=== PATIENT | female | born 1960 | race Caucasian/White ===

== ENCOUNTER 2020-05-28 13:34 | Outpatient (REF) | payer MEDICARE, MEDICAID, SELFPAY ==
--- NOTE | 2020-05-28 | MM_ITS ---
EXAMINATION: MM SCREENING DIGITAL BREAST TOMOSYNTHESIS, BILATERAL CLINICAL INFORMATION: Screening. Asymptomatic. The lifetime risk of breast cancer based on the Tyrer-Cuzick Model is 6%. COMPARISON: Mammography: 05/23/2019, 05/07/2018, 10/07/2017, 07/15/2016, 07/04/2016 TECHNIQUE: Digital breast tomosynthesis is performed in both the craniocaudal and mediolateral oblique views along with computer-aided detection (CAD). Synthesized 2D images are generated from the tomosynthesis. FINDINGS: There are scattered areas of fibroglandular density (ACR BI-RADS breast composition Category b). There are no significant masses, abnormal calcifications, or other abnormalities. Parenchymal pattern is similar to prior exams. Again, there is biopsy clip marker mid upper outer left breast. There is a chronic circumscribed nodule mid 1:00 left breast. No significant changes from prior studies. IMPRESSION: No significant changes from prior studies. ASSESSMENT: BI-RADS 2: Benign RECOMMENDATION: Routine annual mammography screening. This patient's information was entered into a reminder system with a target due date for their next mammogram.
== END 2020-05-28 13:35 | disposition home or self-care (01) ==
LOC: HO.MAMMO 13:34
PROVIDERS: PCP Nurse Practitioner Family; Visit Provider Nurse Practitioner Family
DX: Z12.31 Encounter for screening mammogram for malignant neoplasm of breast (principal)
CPT/HCPCS: 77063; 77067; 78014

== ENCOUNTER 2020-07-17 12:29 | Day surgery (SDC) | payer MEDICARE, MEDICAID, SELFPAY ==
--- NOTE | 2020-07-16 10:56 | HO.ANESPROP2 ---
Documented by User: Sera Redmond 07/16/20 11:01 HPI - Anesthesia Eval Consult details Narrative: 60yo F for Colonoscopy PMFSH Past Medical History Medical History Aortic valve sclerosis Asthma Carpal tunnel syndrome, right Dyslipidemia Esophageal obstruction Exertional angina Lumbar disc disease Migraine without aura Osteoarthritis Papilledema Paroxysmal A-fib Urgency incontinence Family History Family History Father CAD (coronary artery disease) History of quadruple bypass Mother HTN (hypertension) Brother CVD (cardiovascular disease) History of heart attack Paternal Grandfather Heart disease Paternal Grandmother Heart disease Maternal Aunt Colon cancer Paternal Uncle Heart disease Brother No problems noted. Brother No problems noted. Brother No problems noted. Son No problems noted. Daughter No problems noted. Daughter No problems noted. Surgical History Surgical History History of cataract surgery History of microdiscectomy History of torn meniscus of left knee History of tumor Social History Social History Smoking Status: Never smoker Use of substances other than those prescribed or required for medical reasons: No Advance Directives: No Advance Directives Information Provided: Yes Advance Directives on File: No Meds Allergies Allergy/AdvReac Type Severity Reaction Status Date / Time Penicillins Allergy Mild HIVES Verified 06/24/20 11:10 sulfamethoxazole Allergy Mild N/V Verified 06/24/20 11:10 [From Bactrim] trimethoprim [From Bactrim] Allergy Mild N/V Verified 06/24/20 11:10 hydromorphone [From DILAUDID] Allergy Unknown HALLUCINATI Verified 06/24/20 11:10 ONS Pertussis Vaccines AdvReac Unknown fever up Verified 06/24/20 11:10 to 104 Sulfa (Sulfonamide AdvReac Unknown N/V Verified 06/24/20 11:10 Antibiotics) dogs, cats Allergy Unknown Unknown Uncoded 06/24/20 11:10 SEASONAL ALLERGIES Allergy Unknown NASAL Uncoded 06/24/20 11:10 CONGESTION, SNEEZING Home Medications Medication Instructions Recorded Confirmed Type albuterol sulfate 90 mcg/actuation INHALATION 06/24/20 06/24/20 History aerosol inhaler cetirizine 10 mg tablet 10 mg PO BEDTIME 06/24/20 06/24/20 History diclofenac sodium 75 mg 75 mg PO BID 06/24/20 06/24/20 History tablet,delayed release epinephrine 0.3 mg/0.3 mL 1 IM DIRECTED 06/24/20 06/24/20 History injection, auto-injector fluticasone propionate 50 INTRANASAL 06/24/20 06/24/20 History mcg/actuation nasal spray,suspension hydroxyzine HCl 25 mg tablet 25 mg PO Q8H PRN 06/24/20 06/24/20 History lisinopril 10 1 tab PO DAILY 06/24/20 06/24/20 History mg-hydrochlorothiazide 12.5 mg tablet metoprolol tartrate 25 mg tablet 25 mg PO BID 06/24/20 06/24/20 History rosuvastatin 20 mg tablet 20 mg PO BEDTIME 06/24/20 06/24/20 History aspirin [Aspir-81] 81 mg PO DAILY 07/13/20 07/13/20 History Exam Exam Date and Time: July 16, 2020 1056 Narrative Narrative: EKG 01/2020: NSR Echo 2019: LVEF 65-70%, Gr 1 DD, Mild calc of AV, mild thickening of noncoronary cusp of AV, no Stress ECHO 2019: Neg for ischemia Assessment and Plan Assessment Anesthesia Assessment: Chart Reviewed Documented by User: Leslie Malik 07/17/20 14:42 [facility] Past Medical History Medical History Aortic valve sclerosis Asthma Carpal tunnel syndrome, right Dyslipidemia Esophageal obstruction Exertional angina Lumbar disc disease Migraine without aura Osteoarthritis Papilledema Paroxysmal A-fib Urgency incontinence Family History Family History Father CAD (coronary artery disease) History of quadruple bypass Mother HTN (hypertension) Brother CVD (cardiovascular disease) History of heart attack Paternal Grandfather Heart disease Paternal Grandmother Heart disease Maternal Aunt Colon cancer Paternal Uncle Heart disease Brother No problems noted. Brother No problems noted. Brother No problems noted. Son No problems noted. Daughter No problems noted. Daughter No problems noted. Family history of problems with anesthesia: No Surgical History Surgical History History of cataract surgery History of microdiscectomy History of torn meniscus of left knee History of tumor History of Problems with Anesthesia: No Social History Social History Smoking Status: Never smoker Use of substances other than those prescribed or required for medical reasons: No Advance Directives: No Advance Directives Information Provided: Yes Advance Directives on File: No Meds Allergies Allergy/AdvReac Type Severity Reaction Status Date / Time Penicillins Allergy Mild HIVES Verified 06/24/20 11:10 sulfamethoxazole Allergy Mild N/V Verified 06/24/20 11:10 [From Bactrim] trimethoprim [From Bactrim] Allergy Mild N/V Verified 06/24/20 11:10 hydromorphone [From DILAUDID] Allergy Unknown HALLUCINATI Verified 06/24/20 11:10 ONS Pertussis Vaccines AdvReac Unknown fever up Verified 06/24/20 11:10 to 104 Sulfa (Sulfonamide AdvReac Unknown N/V Verified 06/24/20 11:10 Antibiotics) dogs, cats Allergy Unknown Unknown Uncoded 06/24/20 11:10 SEASONAL ALLERGIES Allergy Unknown NASAL Uncoded 06/24/20 11:10 CONGESTION, SNEEZING Home Medications Medication Instructions Recorded Confirmed Type albuterol sulfate 90 mcg/actuation INHALATION 06/24/20 06/24/20 History aerosol inhaler cetirizine 10 mg tablet 10 mg PO BEDTIME 06/24/20 06/24/20 History diclofenac sodium 75 mg 75 mg PO BID 06/24/20 06/24/20 History tablet,delayed release epinephrine 0.3 mg/0.3 mL 1 IM DIRECTED 06/24/20 06/24/20 History injection, auto-injector fluticasone propionate 50 INTRANASAL 06/24/20 06/24/20 History mcg/actuation nasal spray,suspension hydroxyzine HCl 25 mg tablet 25 mg PO Q8H PRN 06/24/20 06/24/20 History lisinopril 10 1 tab PO DAILY 06/24/20 06/24/20 History mg-hydrochlorothiazide 12.5 mg tablet metoprolol tartrate 25 mg tablet 25 mg PO BID 06/24/20 06/24/20 History rosuvastatin 20 mg tablet 20 mg PO BEDTIME 06/24/20 06/24/20 History aspirin [Aspir-81] 81 mg PO DAILY 07/13/20 07/13/20 History Exam Height,Weight and Vital Signs: Vital Signs Temp Pulse Resp BP Pulse Ox 07/17/20 13:28 99 F 88 18 143/72 H 97 Airway Mallampati Class: II TM Dist: >3cm Neck ROM: Limited Heart: RRR Lungs: CTAB Assessment and Plan Assessment Anesthesia Assessment: Anesthesia Plan Discussed and Chart Reviewed Final Anesthetic Review NPO: Yes ASA Class: III Final Preanesthetic Review: No Changes in Pt Med Stat, Meds/Allgs Chart Reviewed, Consent Obtained/Reviewed and Anes Risks/Benef Reviewed Patient Risk: Intermediate Procedure Risk: Low Anesthetic Plan Anesthetic Plan: MAC: Disposition: Standard PACU
[2020-07-17 13:13] VITALS: BMI 32.9
[2020-07-17 13:28] VITALS: BP 143/72; PULSE 88; RESP 18; TEMP 37.2; O2SAT 97
[2020-07-17] MEDS: Lactated Ringers 1,000 ML 100 ML IVCONT (13:39)
--- NOTE | 2020-07-17 14:01 | P.HPSUR_ITS ---
Pre-Procedural Eval Section A The patient is an INPATIENT: No Changes since office visit: No Cold of Flu in the past 2 weeks, No New Medical Problems, No Changes in Medication and No Patient answered all questions The History & Physical has been completed within 30 days and I have reviewed it.: Yes Section B Chief Complaint: Screening Allergies: Allergies Allergy/AdvReac Type Severity Reaction Status Date / Time Penicillins Allergy Mild HIVES Verified 06/24/20 11:10 sulfamethoxazole Allergy Mild N/V Verified 06/24/20 11:10 [From Bactrim] trimethoprim [From Bactrim] Allergy Mild N/V Verified 06/24/20 11:10 hydromorphone [From DILAUDID] Allergy Unknown HALLUCINATI Verified 06/24/20 1 1:10 ONS Pertussis Vaccines AdvReac Unknown fever up Verified 06/24/20 11:10 to 104 Sulfa (Sulfonamide AdvReac Unknown N/V Verified 06/24/20 11:10 Antibiotics) dogs, cats Allergy Unknown Unknown Uncoded 06/24/20 11:10 SEASONAL ALLERGIES Allergy Unknown NASAL Uncoded 06/24/20 11:10 CONGESTION, SNEEZING Plan Patient has been examined and remains a candidate for the planned procedure
[2020-07-17 14:41] VITALS: BP 115/58; PULSE 76; RESP 16; TEMP 36.9; O2SAT 100
--- NOTE | 2020-07-17 14:43 | PM.OP ---
Brief Operative Note Date of Service: 07/17/20 Pre-op diagnosis: screening Post-op diagnosis: same Procedure: colonoscopy Surgeon: Peter Ocasio Anesthesia: MAC Estimated blood loss (mL): 0 Pathology: none sent Condition: stable Disposition: PACU
[2020-07-17 14:56] VITALS: BP 129/52; PULSE 92; RESP 18; TEMP 36.9; O2SAT 99
--- NOTE | 2020-07-17 15:05 | HO.POSTANES ---
Post Anesthesia Evaluation Post Anesthesia Evaluation Vital Signs: Vital Signs Temp Pulse Resp BP Pulse Ox 07/17/20 14:56 98.4 F 92 18 129/52 L 99 07/17/20 14:41 98.4 F 76 16 115/58 L 100 07/17/20 13:28 99 F 88 18 143/72 H 97 Anesthesia: Monitored Mental Status: Awake Pain Control: Satisfactory Nausea/Vomiting: None Hydration: Adequate Anesthesia-Related Issues: No Anes. Related Issues
--- NOTE | 2020-07-17 15:59 | OP_ITS ---
SURGEON: Peter Ocasio MD INDICATIONS: Colon cancer screening. PREOPERATIVE DIAGNOSIS: POSTOPERATIVE DIAGNOSIS: PROCEDURE PERFORMED: Colonoscopy to the terminal ileum. ESTIMATED BLOOD LOSS: COMPLICATIONS: ANESTHESIA: ASSISTANTS: SPECIMENS: MEDICATIONS: Monitored anesthesia care. DESCRIPTION OF PROCEDURE: History and physical performed. The risks and benefits of the procedure were explained to the patient. Informed consent was obtained. The patient was placed in the left lateral decubitus position. A digital rectal exam was performed and was found to be normal. The Olympus pediatric video colonoscope was introduced into the rectum and advanced to the cecum without difficulty. The cecum was identified by transillumination, palpation, and identification of the ileocecal valve. Examination was performed and the scope was removed. She tolerated the procedure well and was taken to recovery area in stable condition. FINDINGS: The terminal ileum was normal. The visualized colonic mucosa was normal. The quality of prep was good. No polyps were identified. Retroflexed examination showed some hypertrophic anal papillae and small internal hemorrhoids. IMPRESSION: Normal colonoscopy. RECOMMENDATIONS: 1. Follow up as needed. 2. Repeat colonoscopy is recommended in 10 years for average risk individuals. MD SIM Vallecillo/[facility] / [phone] cc: Dr Manjit MASSEY
== END 2020-07-17 15:15 | disposition home or self-care (01) ==
PROVIDERS: PCP Nurse Practitioner Family; Visit Provider Internal Medicine Gastroenterology
PROC: 0DJD8ZZ Inspection of Lower Intestinal Tract, Via Natural or Artificial Opening Endoscopic (ICD-10-PCS; CPT 45378; principal; 2020-07-17 14:10)
DX: Z12.11 Encounter for screening for malignant neoplasm of colon (principal); K58.1 Irritable bowel syndrome with constipation; I48.0 Paroxysmal atrial fibrillation; I10 Essential (primary) hypertension; Z79.899 Other long term (current) drug therapy; Z88.0 Allergy status to penicillin; Z88.1 Allergy status to other antibiotic agents; Z88.6 Allergy status to analgesic agent
CPT/HCPCS: G0121

== ENCOUNTER → 2020-10-16 11:35 | Outpatient (BNVA) | payer MEDICARE, MEDICAID, SELFPAY | PROVIDERS: Visit Provider Advanced Practice Midwife | DX: Z76.89 Persons encountering health services in other specified circumstances (principal) | CPT/HCPCS: Q3014 ==

== ENCOUNTER 2020-10-22 09:00 | Outpatient (REF) | payer MEDICARE, MEDICAID, SELFPAY ==
--- NOTE | ~2020-10-22 | US_ITS ---
EXAMINATION: US PELVIS, COMPLETE US TRANSVAGINAL CLINICAL INFORMATION: Pelvic and perineal pain. COMPARISON: CT 06/28/2018. Correlation with ultrasound report 07/17/2007. TECHNIQUE: Transabdominal and transvaginal imaging was performed. FINDINGS: LMP: Postmenopausal. Uterus is retroverted, measuring 8.1 x 4.2 x 5.6 cm. Multiple heterogeneous hypoechoic foci in the myometrium, probably reflecting fibroids. Lesions with dimension as follows: There is a 1.9 cm lesion in the right lower myometrium, 1.4 cm lesion in the mid posterior myometrium, and 1.5 cm lesion in the mid left myometrium. Endometrial thickness 0.33 cm. Right ovary measures 2.9 x 0.9 x 1.7 cm. Volume 2.3 mL. Left ovary measures 3.2 x 1.3 x 1.2 cm. Volume 2.5 mL. Bilateral ovaries appear unremarkable. No free fluid in the cul-de-sac. US/US transvaginal IMPRESSION: 1. Endometrial thickness 0.33 cm. Please clinically correlate. Guidelines for postmenopausal patients the endometrial thicknesses limits are as follows: ? 8 mm or less is normal if no bleeding (10 mm is okay if on tamoxifen) ? 4 mm max if bleeding ? Pre-menopausal patients, the endometrium can become very thick during the menstrual cycle, normally up to 15 mm. 2. Multiple heterogeneous hypoechoic lesions, probable fibroids. The largest measures 1.9 cm. 3. Bilateral ovaries appear unremarkable.
--- NOTE | ~2020-10-22 | US_ITS ---
EXAMINATION: US PELVIS, COMPLETE US TRANSVAGINAL CLINICAL INFORMATION: Pelvic and perineal pain. COMPARISON: CT 06/28/2018. Correlation with ultrasound report 07/17/2007. TECHNIQUE: Transabdominal and transvaginal imaging was performed. FINDINGS: LMP: Postmenopausal. Uterus is retroverted, measuring 8.1 x 4.2 x 5.6 cm. Multiple heterogeneous hypoechoic foci in the myometrium, probably reflecting fibroids. Lesions with dimension as follows: There is a 1.9 cm lesion in the right lower myometrium, 1.4 cm lesion in the mid posterior myometrium, and 1.5 cm lesion in the mid left myometrium. Endometrial thickness 0.33 cm. Right ovary measures 2.9 x 0.9 x 1.7 cm. Volume 2.3 mL. Left ovary measures 3.2 x 1.3 x 1.2 cm. Volume 2.5 mL. Bilateral ovaries appear unremarkable. No free fluid in the cul-de-sac. US/US pelvic complete IMPRESSION: 1. Endometrial thickness 0.33 cm. Please clinically correlate. Guidelines for postmenopausal patients the endometrial thicknesses limits are as follows: ? 8 mm or less is normal if no bleeding (10 mm is okay if on tamoxifen) ? 4 mm max if bleeding ? Pre-menopausal patients, the endometrium can become very thick during the menstrual cycle, normally up to 15 mm. 2. Multiple heterogeneous hypoechoic lesions, probable fibroids. The largest measures 1.9 cm. 3. Bilateral ovaries appear unremarkable.
== END 2020-10-22 09:01 | disposition home or self-care (01) ==
LOC: HO.HMGCX 09:00
PROVIDERS: PCP Hospitalist; Visit Provider Advanced Practice Midwife
DX: R10.2 Pelvic and perineal pain (principal)
CPT/HCPCS: 76830; 76856

== ENCOUNTER → 2020-10-23 12:17 | Outpatient (BNVA) | payer MEDICARE, MEDICAID, SELFPAY | PROVIDERS: PCP Hospitalist; Visit Provider Advanced Practice Midwife | DX: Z13.89 Encounter for screening for other disorder (principal) | CPT/HCPCS: Q3014 ==

== ENCOUNTER → 2022-01-17 08:36 | Outpatient (BNVA) | payer SELFPAY | PROVIDERS: PCP Hospitalist; Visit Provider Internal Medicine | DX: Z02.79 Encounter for issue of other medical certificate (principal) ==

== ENCOUNTER → 2022-06-01 07:58 | Outpatient (BNVA) | payer MEDICARE, MEDICAID, SELFPAY | PROVIDERS: PCP Family Medicine; Visit Provider Surgery | DX: E66.9 Obesity, unspecified (principal); Z68.37 Body mass index [BMI] 37.0-37.9, adult; I10 Essential (primary) hypertension; I48.0 Paroxysmal atrial fibrillation; E78.5 Hyperlipidemia, unspecified | CPT/HCPCS: Q3014 ==

== ENCOUNTER 2022-06-02 08:47 | Outpatient (REF) | payer MEDICARE, MEDICAID, SELFPAY ==
--- NOTE | ~2022-06-02 | XR_ITS ---
EXAMINATION: XR CHEST CLINICAL INFORMATION: Obesity COMPARISON: None TECHNIQUE: 2 views of the chest were obtained. FINDINGS: No significant abnormality is noted involving the heart, lungs, mediastinum, bony thorax or soft tissues. XR/XR chest 2V IMPRESSION: Unremarkable chest examination.
--- NOTE | 2022-06-02 09:01 | ECG_ITS ---
Test Reason : OBESITY Blood Pressure : / mmHG Vent. Rate : 071 BPM Atrial Rate : 071 BPM P-R Int : 184 ms QRS Dur : 080 ms QT Int : 388 ms P-R-T Axes : 059 029 050 degrees QTc Int : 421 ms Sinus rhythm with Premature atrial complexes Otherwise normal ECG When compared with ECG of 17-DEC-2006 04:25, Premature atrial complexes are now Present Nonspecific T wave abnormality no longer evident in Anterior leads Referred By: Dhiraj Noe Electronically Signed By:PARUL LOMELI
[2022-06-02 09:28] LABS: MANUAL DIFF FLAG NO
[2022-06-02 10:47] LABS: Basophils Absolute Auto 0.1 X10*3/uL (0.0-0.2); Eosinophils Absolute Auto 0.2 X10*3/uL (0.0-0.4); Eosinophils Percent Auto 2.3 % (0-4); Hematocrit 41.6 % (37.0-47.0); Hemoglobin 13.6 g/dl (12.0-16.0); Imm Gran Abs Auto 0.04 X10*3/uL (0.00-0.03); Imm Gran Pct Auto 0.5 % (0.0-0.4); Lymphocytes Absolute Auto 2.5 X10*3/uL (1.2-4.9); Lymphocytes Percent Auto 30.2 % (20-40); Mean Corpuscular HGB Conc 32.7 g/dl (31.0-35.0); Mean Corpuscular Hemoglobin 28.9 pg (27.0-33.0); Mean Corpuscular Volume 88.3 fL (80.0-98.0); Monocytes Absolute Auto 0.8 X10*3/uL (0.1-1.2); Neutrophils Absolute Auto 4.5 x10*3/uL (2.0-8.3); Platelet Count 278 X10*3/uL (160-400); Red Blood Count 4.71 X10*6/uL (4.20-5.50); Red Cell Distribution Width 13.4 % (11.0-16.0); White Blood Count 8.1 X10*3/uL (4.8-10.8)
[2022-06-02 10:53] LABS: Estimated Average Glucose 120 mg/dL; Hemoglobin A1c % 5.8 %
[2022-06-02 11:16] LABS: Alanine Aminotransferase 19 U/L (0-31); Albumin Level 4.5 g/dL (3.5-5.0); Alkaline Phosphatase 66 U/L (39-117); Anion Gap 20 (12-20); Aspartate Amino Transferase 21 U/L (5-31); Bilirubin Total 0.6 mg/dL (0.0-1.0); Blood Urea Nitrogen 17 mg/dL (9-16); Calcium 9.5 mg/dL (8.4-10.2); Carbon Dioxide 23 mmol/L (22-29); Chloride 104 mmol/L (96-108); Cholesterol 189 mg/dL; Estimated Glomerular Filt Rate 54; Glucose Random 100 mg/dL (60-115); HDL Cholesterol 71 mg/dL; Iron 86 mcg/dL (30-160); LDL Cholesterol Calculated 107 mg/dl; Percent Iron Saturation 25 % (15-50); Potassium 4.5 mmol/L (3.3-5.1); Sodium 142 mmol/L (135-145); Total Iron Binding Capacity 350 mcg/dL (228-428); Total Protein 7.2 g/dL (6.5-8.0); Triglycerides 59 mg/dL; Unsaturated Iron Binding 264 ug/dL
[2022-06-02 11:42] LABS: Ferritin 102 ng/mL (10-250); Insulin 12 uU/mL (2-29); TSH reflex Free T4 0.79 uIU/mL (0.32-4.0); Vitamin D 25-OH Total 21.1 ng/mL (>30)
[2022-06-02 11:57] LABS: Folate > 20.0 ng/mL (> or = 4.0); Vitamin B12 270 pg/mL (200-900)
[2022-06-03 13:22] LABS: Calcium (PTHI) 9.6 mg/dL (8.6-10.4); PTHI 78 pg/mL (16-77)
[2022-06-06 06:06] LABS: Vitamin B1 14 nmol/L (8-30)
[2022-06-07 01:26] LABS: Zinc 76 mcg/dL (60-130)
[2022-06-08 10:36] LABS: Vitamin A 56 mcg/dL (38-98)
== END 2022-06-02 08:48 | disposition home or self-care (01) ==
LOC: HO.XRAY 08:47
PROVIDERS: PCP Family Medicine; Visit Provider Surgery
DX: E66.9 Obesity, unspecified (principal); Z68.37 Body mass index [BMI] 37.0-37.9, adult; I48.0 Paroxysmal atrial fibrillation; E78.5 Hyperlipidemia, unspecified; I10 Essential (primary) hypertension
CPT/HCPCS: 36415; 71046; 80053; 80061; 82306; 82607; 82728; 82746; 83036; 83525; 83540; 83970; 84425; 84443; 84590; 84630; 85025; 86140; 93005

== ENCOUNTER 2022-06-10 08:45 | Outpatient (REF) | payer MEDICARE, MEDICAID, SELFPAY ==
[2022-06-12 11:35] LABS: H Pylori Breath Test Negative (Negative)
== END 2022-06-10 08:46 | disposition home or self-care (01) ==
LOC: CF 08:45
PROVIDERS: Visit Provider Surgery
DX: E66.9 Obesity, unspecified (principal); Z68.37 Body mass index [BMI] 37.0-37.9, adult; E78.5 Hyperlipidemia, unspecified; I10 Essential (primary) hypertension; I48.0 Paroxysmal atrial fibrillation
CPT/HCPCS: 36415; 83013; 99211

== ENCOUNTER → 2022-06-23 12:00 | Outpatient (BNVA) | payer MEDICARE, MEDICAID, SELFPAY | PROVIDERS: PCP Family Medicine; Visit Provider Counselor Mental Health | DX: F50.81 Binge eating disorder (principal); E66.9 Obesity, unspecified | CPT/HCPCS: 90791 ==

== ENCOUNTER → 2022-06-29 11:06 | Outpatient (BNVA) | payer MEDICARE, MEDICAID, SELFPAY | PROVIDERS: PCP Family Medicine; Visit Provider Dietitian, Registered | DX: E66.9 Obesity, unspecified (principal); Z68.34 Body mass index [BMI] 34.0-34.9, adult | CPT/HCPCS: 97802 ==

== ENCOUNTER → 2022-07-04 10:08 | Outpatient (BNVA) | payer MEDICARE, MEDICAID, SELFPAY | PROVIDERS: PCP Family Medicine; Visit Provider Surgery | DX: E66.9 Obesity, unspecified (principal); Z68.34 Body mass index [BMI] 34.0-34.9, adult | CPT/HCPCS: 99212 ==

== ENCOUNTER → 2022-07-18 09:15 | Outpatient (BNVA) | payer MEDICARE, MEDICAID, SELFPAY | PROVIDERS: Visit Provider Counselor Mental Health | DX: F50.81 Binge eating disorder (principal); E66.9 Obesity, unspecified | CPT/HCPCS: 90834 ==

== ENCOUNTER 2022-07-19 08:51 | Outpatient (REF) | payer MEDICARE, MEDICAID, SELFPAY ==
--- NOTE | ~2022-07-19 | US_ITS ---
EXAMINATION: US COMPLETE ABDOMEN WITH LIVER ELASTOGRAPHY CLINICAL INFORMATION: Obesity COMPARISON: Previous CT of the abdomen and pelvis June 2018 TECHNIQUE: Real-time imaging of the abdominal viscera. Noninvasive ultrasound liver fibrosis assessment is performed using Carmela ElastPQ point quantification shear wave elastography (2D-SWE) with a C5-2 MHz transducer. Multiple elastography samples are obtained. FINDINGS: PANCREAS: Normal. ABDOMINAL AORTA: The proximal, middle, and distal aortic segments are normal in caliber. INFERIOR VENA CAVA: Visualized portions are normal. LIVER: Normal. The liver demonstrates normal size, contour and echogenicity. No focal lesion or intrahepatic biliary duct dilatation. The right lobe measures 15.6 cm in length. The left lobe measures 9.3 cm in length. Portal flow is normal/hepatopedal Shear wave liver elastography median stiffness is 1.1 m/s (reference: normal median stiffness is 1.3 m/s or less). IQR/median stiffness to assess sampling precision is 0.01 (reference: good quality data set is IQR/median stiffness of 0.15 or less). GALLBLADDER: The gallbladder is normal in size. There are multiple gallbladder wall polyps largest measuring 6 mm. COMMON BILE DUCT: Normal in caliber measuring 0.3 cm in diameter. RIGHT KIDNEY: Normal. No hydronephrosis. No renal calculi or focal parenchymal lesions. The kidney measures 10 cm in maximum dimension. LEFT KIDNEY: Normal. No hydronephrosis. No renal calculi or focal parenchymal lesions. The kidney measures 10.2 cm in maximum dimension. SPLEEN: Normal. The spleen measures 8.5 cm in maximum dimension. FREE FLUID: None. US/US abdomen comp w elastography IMPRESSION: 1. Impression: Gallbladder wall polyps largest measuring 6 mm. Six-month follow-up ultrasound recommended. Otherwise unremarkable exam. 2. Liver elastography: Adequate liver sampling. Normal liver stiffness. REFERENCE: Society of Radiologists in Ultrasound Liver Stiffness Thresholds (2020): LIVER STIFFNESS THRESHOLDS: *Liver Stiffness equal or less than 1.3 m/s: High probability of being normal. *Liver Stiffness less than 1.7 m/s: In the absence of other known clinical signs, rules out compensated advanced chronic liver disease. *Liver Stiffness 1.7-2.1 m/s: Suggestive of compensated advanced chronic liver disease but need further test for confirmation. *Liver Stiffness over 2.1 m/s: Rules in compensated advanced chronic liver disease. *Liver Stiffness over 2.4 m/s: Suggestive of clinically significant portal hypertension. QUALITY OF DATA SET: *IQR/Median value equal or less than 0.15 implies a quality data set. *IQR/Median value over 0.15 implies a poor quality data set. SIGNIFICANT CHANGE FROM PRIOR EXAM: Significant change if liver stiffness measurement is 10% or greater from prior exam. OTHER CONSIDERATIONS: The stage of liver fibrosis may be overestimated in the setting of acute hepatitis, liver inflammation, elevated liver function tests, hepatic vascular congestion, obstructive cholestasis, non-fasting state, and infiltrative diseases such as amyloidosis and lymphoma. In some patients with NAFLD, the liver stiffness thresholds for compensated advanced chronic liver disease may be lower. In causes other than viral hepatitis and NAFLD, liver stiffness thresholds are not well established.
== END 2022-07-19 08:52 | disposition home or self-care (01) ==
LOC: HO.US 08:51
PROVIDERS: Visit Provider Surgery
DX: E66.9 Obesity, unspecified (principal); Z68.37 Body mass index [BMI] 37.0-37.9, adult; E78.5 Hyperlipidemia, unspecified; I10 Essential (primary) hypertension; I48.0 Paroxysmal atrial fibrillation
CPT/HCPCS: 76705; 76981

== ENCOUNTER 2022-07-27 08:52 | Outpatient (REF) | payer MEDICARE, MEDICAID, SELFPAY ==
--- NOTE | ~2022-07-27 | FL_ITS ---
PROCEDURE: XR FLUOROSCOPY UPPER GI WITH AIR CLINICAL INFORMATION: Obesity. COMPARISON: None TECHNIQUE: Routine upper GI air-contrast study was performed in upright and lying position. FINDINGS: Following oral administration of thick barium and effervescent granules there is normal propagation of bolus from the oral cavity through the pharynx, esophagus into stomach without any evidence of obstruction, narrowing or stricture. There is no extrinsic compression. On placing patient supine and prone lying the course, caliber and peristalsis of the stomach and the duodenal bulb is normal. There is mild flocculation of barium and gastric erosive changes seen in the body and the distal antrum. No ulceration suspected. FLUOROSCOPY TIME: 1.4 minute DOSE AREA PRODUCT: 23.345 uGy-m2 (microgray-meter squared) FL/FL upper GI w air IMPRESSION: Findings suggestive of hyperacidity with flocculation of barium and gastric erosions.
== END 2022-07-27 08:53 | disposition home or self-care (01) ==
LOC: HO.XRAY 08:52
PROVIDERS: Visit Provider Surgery
DX: E66.9 Obesity, unspecified (principal); Z68.37 Body mass index [BMI] 37.0-37.9, adult
CPT/HCPCS: 74246

== ENCOUNTER → 2022-08-10 08:12 | Outpatient (BNVA) | payer MEDICARE, MEDICAID, SELFPAY | PROVIDERS: PCP Family Medicine; Visit Provider Surgery | DX: Z01.818 Encounter for other preprocedural examination (principal); E66.9 Obesity, unspecified; Z68.33 Body mass index [BMI] 33.0-33.9, adult | CPT/HCPCS: Q3014 ==

== ENCOUNTER 2022-08-18 | Outpatient (REF) | payer MEDICARE, MEDICAID, SELFPAY ==
[2022-08-11 09:15] LABS: MANUAL DIFF FLAG NO
[2022-08-11 09:29] LABS: Basophils Absolute Auto 0.1 X10*3/uL (0.0-0.2); Basophils Percent Auto 0.7 % (0-2); Eosinophils Absolute Auto 0.1 X10*3/uL (0.0-0.4); Eosinophils Percent Auto 1.9 % (0-4); Hematocrit 40.9 % (37.0-47.0); Hemoglobin 13.5 g/dl (12.0-16.0); Imm Gran Abs Auto 0.02 X10*3/uL (0.00-0.03); Imm Gran Pct Auto 0.3 % (0.0-0.4); Lymphocytes Absolute Auto 2.2 X10*3/uL (1.2-4.9); Lymphocytes Percent Auto 32.7 % (20-40); Mean Corpuscular Hemoglobin 28.8 pg (27.0-33.0); Mean Corpuscular Volume 87.4 fL (80.0-98.0); Monocytes Absolute Auto 0.6 X10*3/uL (0.1-1.2); Monocytes Percent Auto 9.1 % (2-11); Neutrophils Absolute Auto 3.8 x10*3/uL (2.0-8.3); Neutrophils Percent Auto 55.3 % (45-73); Platelet Count 295 X10*3/uL (160-400); Red Blood Count 4.68 X10*6/uL (4.20-5.50); Red Cell Distribution Width 12.9 % (11.0-16.0); White Blood Count 6.8 X10*3/uL (4.8-10.8)
[2022-08-11 09:36] LABS: Prothrombin Time 11.3 SEC (10.0-13.1)
[2022-08-11 09:49] LABS: Estimated Average Glucose 105 mg/dL; Hemoglobin A1c % 5.3 %
[2022-08-11 10:10] LABS: Alanine Aminotransferase 15 U/L (0-31); Albumin Level 4.3 g/dL (3.5-5.0); Alkaline Phosphatase 51 U/L (39-117); Anion Gap 14 (12-20); Aspartate Amino Transferase 17 U/L (5-31); Bilirubin Total 0.5 mg/dL (0.0-1.0); Blood Urea Nitrogen 15 mg/dL (9-16); C Reactive Protein 0.36 mg/dL (< or = 0.50); Calcium 9.5 mg/dL (8.4-10.2); Carbon Dioxide 25 mmol/L (22-29); Chloride 108 mmol/L (96-108); Cholesterol 152 mg/dL; Estimated Glomerular Filt Rate > 60; Glucose Random 105 mg/dL (60-115); HDL Cholesterol 50 mg/dL; Insulin 12 uU/mL (2-29); LDL Cholesterol Calculated 87 mg/dl; Potassium 3.9 mmol/L (3.3-5.1); Sodium 143 mmol/L (135-145); TSH reflex Free T4 0.78 uIU/mL (0.32-4.0); Total Protein 6.5 g/dL (6.5-8.0); Triglycerides 76 mg/dL
[2022-08-11 11:25] VITALS: BMI 33.4
--- NOTE | 2022-08-12 21:59 | MHC.SHP ---
Pre-Procedural Eval Section A Date of Service: 08/12/22 The patient is an INPATIENT: Yes The History & Physical has been completed within 30 days and I have reviewed it.: Yes Section B Chief Complaint: Obesity, unspecified Relevant Family History (Specify if Yes): No Relevant Social History: None Present Medications: None Medical History: No relevant PMH History of Previous Operations: No relevant previous surgery Allergies: Allergies Allergy/AdvReac Type Severity Reaction Status Date / Time hydromorphone [From DILAUDID] Allergy Intermediate HALLUCINATI Verified 08/10/22 10:57 ONS Penicillins Allergy Mild HIVES Verified 08/10/22 10:57 sulfamethoxazole Allergy Mild N/V Verified 08/10/22 10:57 [From Bactrim] trimethoprim [From Bactrim] Allergy Mild N/V Verified 08/10/22 10:57 Pertussis Vaccines AdvReac Intermediate fever up Verified 08/10/22 10:57 to 104 dogs, cats Allergy Intermediate nasal Uncoded 08/10/22 10:57 congestion/sneezing SEASONAL ALLERGIES Allergy Intermediate NASAL Uncoded 08/10/22 10:57 CONGESTION, SNEEZING Review of Systems Sugical H&P ROS: Negative: Constitution, Cardiovascular, Respiratory, Neurological, Psychiatric, Hem-Onc, Allergic/Immunologic, Gastrointestinal, Genitourinary, Musculoskeletal, Integumentary, Endocrine and Eyes/Ears/Nose/Throat Exam Surgical H&P Exam: Normal: HEENT, Normal: Heart, Normal: Lungs, Normal: Extremities, Normal: Abdomen, Normal: Skin and Normal: Neurological Plan Diagnosis/Plan: Unchanged I have reviewed the history and physical and performed a pertinent physical examination on my patient. No changes have occurred unless specified. Time Spent With Patient Time: Total time managing care of this patient today ____ minutes.
== END 2022-08-18 00:01 | disposition home or self-care (01) ==
LOC: HO.PAT
PROVIDERS: PCP Family Medicine; Visit Provider Surgery
DX: Z01.818 Encounter for other preprocedural examination (principal); E66.9 Obesity, unspecified; Z68.33 Body mass index [BMI] 33.0-33.9, adult
CPT/HCPCS: 36415; 80053; 80061; 83036; 83525; 84443; 85025; 85610; 85730; 86140; 86850; 86900; 86901

== ENCOUNTER → 2022-10-07 07:54 | Outpatient (BNVA) | payer MEDICARE, MEDICAID, SELFPAY | PROVIDERS: PCP Family Medicine; Visit Provider Surgery | DX: E66.9 Obesity, unspecified (principal); Z68.34 Body mass index [BMI] 34.0-34.9, adult | CPT/HCPCS: Q3014 ==

== ENCOUNTER 2022-10-25 10:39 | Inpatient (IN) | payer MEDICARE, MEDICAID, SELFPAY ==
[2022-10-11 09:45] LABS: MANUAL DIFF FLAG NO
[2022-10-11 10:24] LABS: Basophils Absolute Auto 0.1 X10*3/uL (0.0-0.2); Basophils Percent Auto 0.8 % (0-2); Eosinophils Absolute Auto 0.1 X10*3/uL (0.0-0.4); Eosinophils Percent Auto 1.1 % (0-4); Hematocrit 41.4 % (37.0-47.0); Hemoglobin 13.6 g/dl (12.0-16.0); Imm Gran Abs Auto 0.01 X10*3/uL (0.00-0.03); Imm Gran Pct Auto 0.2 % (0.0-0.4); Lymphocytes Absolute Auto 1.9 X10*3/uL (1.2-4.9); Lymphocytes Percent Auto 29.8 % (20-40); Mean Corpuscular HGB Conc 32.9 g/dl (31.0-35.0); Mean Corpuscular Hemoglobin 28.3 pg (27.0-33.0); Mean Corpuscular Volume 86.3 fL (80.0-98.0); Mean Platelet Volume 10.1 fL (9.4-12.3); Monocytes Absolute Auto 0.5 X10*3/uL (0.1-1.2); Monocytes Percent Auto 8.1 % (2-11); Neutrophils Absolute Auto 3.7 x10*3/uL (2.0-8.3); Platelet Count 282 X10*3/uL (160-400); Red Cell Distribution Width 13.2 % (11.0-16.0); White Blood Count 6.2 X10*3/uL (4.8-10.8)
[2022-10-11 10:26] LABS: Estimated Average Glucose 108 mg/dL; Hemoglobin A1c % 5.4 %
[2022-10-11 10:29] LABS: Prothrombin Time 11.3 SEC (10.0-13.1)
[2022-10-11 10:32] LABS: Partial Thromboplastin Time 37.3 SEC (26.0-36.4)
[2022-10-11 10:46] LABS: Alanine Aminotransferase 17 U/L (0-31); Albumin Level 4.5 g/dL (3.5-5.0); Alkaline Phosphatase 63 U/L (39-117); Anion Gap 18 (12-20); Aspartate Amino Transferase 19 U/L (5-31); Bilirubin Total 0.7 mg/dL (0.0-1.0); Blood Urea Nitrogen 25 mg/dL (9-16); C Reactive Protein 0.77 mg/dL (< or = 0.50); Calcium 9.5 mg/dL (8.4-10.2); Carbon Dioxide 25 mmol/L (22-29); Chloride 104 mmol/L (96-108); Cholesterol 196 mg/dL; Estimated Glomerular Filt Rate > 60; Glucose Random 92 mg/dL (60-115); HDL Cholesterol 66 mg/dL; LDL Cholesterol Calculated 115 mg/dl; Potassium 4.1 mmol/L (3.3-5.1); Sodium 143 mmol/L (135-145); Total Protein 6.8 g/dL (6.5-8.0); Triglycerides 76 mg/dL
[2022-10-11 10:53] LABS: Insulin 7 uU/mL (2-29); TSH reflex Free T4 0.95 uIU/mL (0.32-4.0)
[2022-10-19 10:02] VITALS: BMI 33.9
--- NOTE | 2022-10-22 18:40 | MHC.SHP ---
Pre-Procedural Eval Section A Date of Service: 10/22/22 The patient is an INPATIENT: Yes The History & Physical has been completed within 30 days and I have reviewed it.: Yes Section B Chief Complaint: obesity Relevant Family History (Specify if Yes): No Relevant Social History: None Present Medications: None Medical History: No relevant PMH History of Previous Operations: No relevant previous surgery Allergies: Allergies Allergy/AdvReac Type Severity Reaction Status Date / Time hydromorphone [From DILAUDID] Allergy Intermediate HALLUCINATI Verified 10/07/22 09:19 ONS Penicillins Allergy Mild HIVES Verified 10/07/22 09:19 sulfamethoxazole Allergy Mild N/V Verified 10/07/22 09:19 [From Bactrim] trimethoprim [From Bactrim] Allergy Mild N/V Verified 10/07/22 09:19 Pertussis Vaccines AdvReac Intermediate fever up Verified 10/07/22 09:19 to 104 dogs, cats Allergy Intermediate nasal Uncoded 10/07/22 09:19 congestion/sneezing SEASONAL ALLERGIES Allergy Intermediate NASAL Uncoded 10/07/22 09:19 CONGESTION, SNEEZING Review of Systems Sugical H&P ROS: Negative: Constitution, Cardiovascular, Respiratory, Neurological, Psychiatric, Hem-Onc, Allergic/Immunologic, Gastrointestinal, Genitourinary, Musculoskeletal, Integumentary, Endocrine and Eyes/Ears/Nose/Throat Exam Surgical H&P Exam: Normal: HEENT, Normal: Heart, Normal: Lungs, Normal: Extremities, Normal: Abdomen, Normal: Skin and Normal: Neurological Plan Diagnosis/Plan: Unchanged I have reviewed the history and physical and performed a pertinent physical examination on my patient. No changes have occurred unless specified. Time Spent With Patient Time: Total time managing care of this patient today ____ minutes.
[2022-10-24 08:15] LABS: COVID-19 Test Negative (Negative); IDNOW Serial# BCCEAD1C
--- NOTE | 2022-10-24 11:04 | P.CONAN_ITS ---
Documented by User: Sera Redmond NP 10/24/22 11:10 HPI - Anesthesia Eval Consult details Narrative: 62yo F for Gastrectomy Sleeve,possible diaphragmatic hernia,possible ventral hernia,possible open, Cardiac cleared PMFSH Active Problems Active Problems: All Active Problems (Updated 10/19/22 @ 10:00 by Gisselle William RN) Encounter to discuss test results (Acute) Fibroids (Acute) Vitamin D deficiency (Acute) Vitamin B12 deficiency (Acute) Binge-eating disorder, in full remission, moderate (Acute) BMI 34.0-34.9,adult (Acute) GERD (gastroesophageal reflux disease) (Acute) BMI 33.0-33.9,adult (Acute) Paroxysmal A-fib (Acute) Depression (Acute) Hypertension (Acute) Asthma (Acute) Dyslipidemia (Acute) Osteoarthritis (Acute) BMI 37.0-37.9, adult (Acute) Obesity (Acute) Past Medical History Medical History (Updated 10/25/22 @ 13:45 by Dhiraj Noe MD) Aortic valve sclerosis Arthritis Asthma BMI 33.0-33.9,adult BMI 37.0-37.9, adult Carpal tunnel syndrome, right Depression Dyslipidemia Esophageal obstruction Exertional angina GERD (gastroesophageal reflux disease) Hepatitis History of COVID-19 Hypertension Lumbar disc disease Migraine without aura Obesity Osteoarthritis Papilledema Paroxysmal A-fib Urgency incontinence Family History Family History Father CAD (coronary artery disease) History of quadruple bypass Mother HTN (hypertension) Brother CVD (cardiovascular disease) History of heart attack Paternal Grandfather Heart disease Paternal Grandmother Heart disease Maternal Aunt Colon cancer Paternal Uncle Heart disease Brother No problems noted. Brother No problems noted. Brother No problems noted. Son No problems noted. Daughter No problems noted. Daughter No problems noted. Maternal Aunt Ovarian cancer Family history of problems with anesthesia: No Surgical History Surgical History (Updated 10/25/22 @ 16:26 by Clau Khan PA-C) delivery delivered H/O colonoscopy History of cataract surgery History of meniscectomy of left knee History of microdiscectomy History of tumor Hx of tonsillectomy History of Problems with Anesthesia: No Social History Social History (Updated 05/27/22 @ 09:17 by VITALIY Downing) Household Members: None Household Members Other:: lives alone but in two family home w/family members in other apt. Housing: House Are you a primary client care manager to a significant other at home: No Do you presently have visiting nurse or other home services: No Alcohol intake: never Patient Tobacco Use Status: Never used Tobacco Use of substances other than those prescribed or required for medical reasons: No Have you been hit, kicked, punched, or otherwise hurt by someone within the past year? If so, by whom?: No Are you DNR?: No Advance Directives: No Advance Directives Information Provided: Yes (brochure mailed) Advance Directives on File: No Recently lost weight without trying: No Eating poorly because of decreased appetite: No Nutrition Risks: No Nutritional Risk Patient : No (N/A) Poor oral hygiene: No Meds Allergies Allergy/AdvReac Type Severity Reaction Status Date / Time hydromorphone [From DILAUDID] Allergy Intermediate HALLUCINATI Verified 10/07/22 09:19 ONS Penicillins Allergy Mild HIVES Verified 10/07/22 09:19 sulfamethoxazole Allergy Mild N/V Verified 10/07/22 09:19 [From Bactrim] trimethoprim [From Bactrim] Allergy Mild N/V Verified 10/07/22 09:19 Pertussis Vaccines AdvReac Intermediate fever up Verified 10/07/22 09:19 to 104 dogs, cats Allergy Intermediate nasal Uncoded 10/07/22 09:19 congestion/sneezing SEASONAL ALLERGIES Allergy Intermediate NASAL Uncoded 10/07/22 09:19 CONGESTION, SNEEZING Home Medications Medication Instructions Recorded Confirmed Last Taken Type albuterol sulfate 90 mcg/actuation 2 puff inhalation Q4H PRN Wheezing 06/24/20 10/19/22 Unknown History aerosol inhaler epinephrine 0.3 mg/0.3 mL 0.3 mg IM DIRECTED allergies 06/24/20 10/19/22 Unknown History injection, auto-injector fluticasone propionate 50 1 spray intranasal DAILY 06/24/20 10/19/22 Unknown History mcg/actuation nasal spray,suspension lisinopril 10 1 tab PO DAILY 06/24/20 10/19/22 07/17/20 06:00 History mg-hydrochlorothiazide 12.5 mg tablet rosuvastatin 20 mg tablet 20 mg PO QAM 06/24/20 10/19/22 Unknown History bupropion HCl 300 mg 24 hr tablet, 300 mg PO DAILY 05/27/22 10/19/22 Unknown History extended release ondansetron HCl 4 mg tablet 1 tab PO Q12H PRN nausea/vomiting 10/25/22 10/25/22 Unknown History Exam Exam Date and Time: October 24, 2022 1104 Height,Weight and Vital Signs: Height 5 ft 5 in Weight 92.533 kg Pertinent Lab Results Pertinent Lab Results: Laboratory Tests 10/11/22 10/11/22 10/11/22 09:37 09:37 09:37 WBC 6.2 RBC 4.80 Hgb 13.6 Hct 41.4 MCV 86.3 MCH 28.3 MCHC 32.9 RDW 13.2 Plt Count 282 MPV 10.1 Immature Gran % (Auto) 0.2 Neut % (Auto) 60.0 Lymph % (Auto) 29.8 [place] % (Auto) 8.1 Eos % (Auto) 1.1 Baso % (Auto) 0.8 Lymph # (Auto) 1.9 [place] # (Auto) 0.5 Eos # (Auto) 0.1 Baso # (Auto) 0.1 Abs Immat Gran (auto) 0.01 Absolute Neuts (auto) 3.7 Absolute Nucleated RBC 0.000 Nucleated RBC % (auto) 0.0 PT 11.3 INR 1.0 APTT 37.3 H Sodium 143 Potassium 4.1 Chloride 104 Carbon Dioxide 25 Anion Gap 18 BUN 25 H Creatinine 0.92 Estim Creat Clear Calc TNP Estimated GFR > 60 Random Glucose 92 Estimat Average Glucose Hemoglobin A1c % Insulin Level 7 Calcium 9.5 Total Bilirubin 0.7 AST 19 ALT 17 Alkaline Phosphatase 63 C-Reactive Protein 0.77 H Total Protein 6.8 Albumin 4.5 Triglycerides 76 Cholesterol 196 LDL Cholesterol, Calc 115 HDL Cholesterol 66 TSH 0.95 COVID-19 ([facility]) COVID-19 Clin Com Blood Type Antibody Screen 10/11/22 10/11/22 10/24/22 09:37 09:37 07:35 WBC RBC Hgb Hct MCV MCH MCHC RDW Plt Count MPV Immature Gran % (Auto) Neut % (Auto) Lymph % (Auto) [place] % (Auto) Eos % (Auto) Baso % (Auto) Lymph # (Auto) [place] # (Auto) Eos # (Auto) Baso # (Auto) Abs Immat Gran (auto) Absolute Neuts (auto) Absolute Nucleated RBC Nucleated RBC % (auto) PT INR APTT Sodium Potassium Chloride Carbon Dioxide Anion Gap BUN Creatinine Estim Creat Clear Calc Estimated GFR Random Glucose Estimat Average Glucose 108 Hemoglobin A1c % 5.4 Insulin Level Calcium Total Bilirubin AST ALT Alkaline Phosphatase C-Reactive Protein Total Protein Albumin Triglycerides Cholesterol LDL Cholesterol, Calc HDL Cholesterol TSH COVID-19 ([facility]) Negative COVID-19 Clin Com See Note Blood Type O Negative Antibody Screen NEGATIVE Narrative Narrative: EKG 08/2022 NSR @ 72 ECHO 08/2022 Aortic valve is trileaflet Non-coronary cusp is moderately calcified No aortic stenosis or insufficiency LV size is nml LV wall thickness is upper nml LV systolic function is nml LVEF 55-60% No RWMA Grade 1, mild diastolic dysfunction with impaired lV relax, which may be normal for the patients age Stress 09/2022 1. Exercise stress with high functional capacity and normal myocard perfusion imaging 2. Nml rest and post-stress LV chamber sizee and systolic function without RWMA Assessment and Plan Assessment Anesthesia Assessment: Chart Reviewed Final Anesthetic Review Family History of Problems with Anesthesia: No History of Problems with Anesthesia: No Documented by User: Rufus Shrestha MD 10/25/22 17:27 HPI - Anesthesia Eval Consult details Narrative: 62yo F for Gastrectomy Sleeve,possible diaphragmatic hernia,possible ventral hernia,possible open, Cardiac cleared PAF . No Chest pain , good functional status . [facility] Past Medical History Medical History (Updated 10/25/22 @ 13:45 by Dhiraj Noe MD) Aortic valve sclerosis Arthritis Asthma BMI 33.0-33.9,adult BMI 37.0-37.9, adult Carpal tunnel syndrome, right Depression Dyslipidemia Esophageal obstruction Exertional angina GERD (gastroesophageal reflux disease) Hepatitis History of COVID-19 Hypertension Lumbar disc disease Migraine without aura Obesity Osteoarthritis Papilledema Paroxysmal A-fib Urgency incontinence Functional capacity: independent ambulation Family History Family History Father CAD (coronary artery disease) History of quadruple bypass Mother HTN (hypertension) Brother CVD (cardiovascular disease) History of heart attack Paternal Grandfather Heart disease Paternal Grandmother Heart disease Maternal Aunt Colon cancer Paternal Uncle Heart disease Brother No problems noted. Brother No problems noted. Brother No problems noted. Son No problems noted. Daughter No problems noted. Daughter No problems noted. Maternal Aunt Ovarian cancer Surgical History Surgical History (Updated 10/25/22 @ 16:26 by Clau Khan PA-C) delivery delivered H/O colonoscopy History of cataract surgery History of meniscectomy of left knee History of microdiscectomy History of tumor Hx of tonsillectomy Social History Social History (Updated 05/27/22 @ 09:17 by VITALIY Downing) Household Members: None Household Members Other:: lives alone but in two family home w/family members in other apt. Housing: House Are you a primary client care manager to a significant other at home: No Do you presently have visiting nurse or other home services: No Alcohol intake: never Patient Tobacco Use Status: Never used Tobacco Use of substances other than those prescribed or required for medical reasons: No Have you been hit, kicked, punched, or otherwise hurt by someone within the past year? If so, by whom?: No Are you DNR?: No Advance Directives: No Advance Directives Information Provided: Yes (brochure mailed) Advance Directives on File: No Recently lost weight without trying: No Eating poorly because of decreased appetite: No Nutrition Risks: No Nutritional Risk Patient : No (N/A) Poor oral hygiene: No Meds Allergies Allergy/AdvReac Type Severity Reaction Status Date / Time hydromorphone [From DILAUDID] Allergy Intermediate HALLUCINATI Verified 10/07/22 09:19 ONS Penicillins Allergy Mild HIVES Verified 10/07/22 09:19 sulfamethoxazole Allergy Mild N/V Verified 10/07/22 09:19 [From Bactrim] trimethoprim [From Bactrim] Allergy Mild N/V Verified 10/07/22 09:19 Pertussis Vaccines AdvReac Intermediate fever up Verified 10/07/22 09:19 to 104 dogs, cats Allergy Intermediate nasal Uncoded 10/07/22 09:19 congestion/sneezing SEASONAL ALLERGIES Allergy Intermediate NASAL Uncoded 10/07/22 09:19 CONGESTION, SNEEZING Home Medications Medication Instructions Recorded Confirmed Last Taken Type albuterol sulfate 90 mcg/actuation 2 puff inhalation Q4H PRN Wheezing 06/24/20 10/19/22 Unknown History aerosol inhaler epinephrine 0.3 mg/0.3 mL 0.3 mg IM DIRECTED allergies 06/24/20 10/19/22 Unknown History injection, auto-injector fluticasone propionate 50 1 spray intranasal DAILY 06/24/20 10/19/22 Unknown History mcg/actuation nasal spray,suspension lisinopril 10 1 tab PO DAILY 06/24/20 10/19/22 07/17/20 06:00 History mg-hydrochlorothiazide 12.5 mg tablet rosuvastatin 20 mg tablet 20 mg PO QAM 06/24/20 10/19/22 Unknown History bupropion HCl 300 mg 24 hr tablet, 300 mg PO DAILY 05/27/22 10/19/22 Unknown History extended release ondansetron HCl 4 mg tablet 1 tab PO Q12H PRN nausea/vomiting 10/25/22 10/25/22 Unknown History Exam Airway Mallampati Class: III TM Dist: >3cm Neck ROM: Full Loose/Missing/Broken Teeth: Yes (Caps ) Heart: S1,S2 Lungs: b/l breath sounds Assessment and Plan Assessment Anesthesia Assessment: Anesthesia Plan Discussed Final Anesthetic Review NPO: Yes ASA Class: III Final Preanesthetic Review: Meds/Allgs Chart Reviewed, Consent Obtained/Reviewed and Anes Risks/Benef Reviewed Patient Risk: Intermediate Procedure Risk: Intermediate Anesthetic Plan Anesthetic Plan: GA Disposition: Standard PACU and Inp. Admit - Standard Bed
[2022-10-25] VITALS (13 sets, daily range): BP systolic 137–163; BP diastolic 65–84; PULSE 62–83; RESP 13–18; TEMP 36.4–36.7; O2SAT 94–100; BMI 32.1
[2022-10-25] MEDS: Lactated Ringers 1,000 ML 999 ML IV (11:14)
--- NOTE | 2022-10-25 13:32 | PM.OP ---
Brief Operative Note Date of Service: 10/25/22 Pre-op diagnosis: Severe obesity with comorbidities (see below) Post-op diagnosis: same Procedure: INITIAL PATIENT BMI ON PRESENTATION AT OUR OFFICE: 37.1 kg/m2 LAST BMI BEFORE SURGERY: 32.6 kg/m2 COMORBIDITIES: asthma, paroxismal A-fib, hypertension, hyperlipidemia, depression, DJD, grade I diastolic dysfunction ?The patient presented to the Weight Management Program with significant obesity that was negatively impacting the patient's comorbidities as listed above.? The program is a phased program with a special focus on preoperative medical weight management to promote substantial weight loss and prepare the patients for the second phase of the program: bariatric surgery. The patient participated in an intensive weekly lifestyle ?intervention and exercise program during which the patient ?has lost between the initial office visit and the last preoperative visit 27.3lbs, or 12.23% of initial actual body weight. It was deemed appropriate for the patient to now have bariatric surgery. In light of the current Covid-19 pandemic and the well documented strong association of obesity and increased risk of worse outcomes if infected with Covid-19 (REFERENCES:https://pubmed.ncbi.nlm.nih.gov/97262988/,?https://pubmed.ncbi.nlm.nih.gov/29992364/), any delay in undergoing bariatric surgery may lead to the patient's worsening health condition and increased?risk of more severe Covid-19 disease if infected. In addition a recent?study from [facility] published in [employer] on 08/23/2021 ([email or web address]) found that, among patients with obesity, substantial weight loss achieved with surgery was associated with improved outcomes of COVID-19 infection. The findings suggest that obesity can be a modifiable risk factor for the severity of COVID-19 infection. In addition, the patient met the BMI-criteria for bariatric surgery based on the BMI on initial presentation. The patient should not be penalized for achieving such weight loss because ?it is not sustainable long-term without surgical intervention and it was achieved in preparation for bariatric surgery ?under my direction and based on my published research ([email or web address] and?https://www.soard.org/article/[email or web address])76538-X/pdf) ?that a 10% preoperative weight loss improves long-term weight loss after surgery and reduces perioperative complications.? Insurance carriers such as [employer] have endorsed my recommendations ?and have included in their policies criteria to include a 10% preoperative weight loss requirement. PROCEDURE: Esophago-gastroscopy, laparoscopic sleeve gastrectomy and laparoscopic gastropexy INDICATIONS: This is a 62 year-old female who was electively scheduled for laparoscopic, possibly open sleeve gastrectomy. The risks and complications of the procedure were discussed with the patient in advance, particularly the possibility of ; pulmonary embolism; staple line leak; bleeding; GERD; cardiac, pulmonary, or renal complications; as well as long-term problems such as insufficient weight loss, vitamin deficiency, strictures, or ulcers. The patient understood all the risks, and was in agreement to proceed with surgery. DESCRIPTION OF PROCEDURE: After informed consent was obtained from the patient, the patient was given preoperative antibiotics, and was transferred to the operating room. After successful induction of general anesthesia, pneumatic compression devices were placed on both lower extremities. An upper endoscopy was performed next. The oropharynx and esophagus appeared to be within normal limits. There was no diaphragmatic hernia present consistent with the findings of the preoperative upper GI. The stomach was entered. Then after all fluid and air were suctioned and the stomach was fully decompressed, the scope was withdrawn and secured in the mid esophagus. The patient was then prepped and draped in the usual sterile manner, and abdominal access was established at the right upper quadrant with the Spenser technique. A 12 mm blunt port was inserted, and the abdomen was insufflated with CO2 to a pressure of 15 mmHg. Under direct visualization, additional ports were placed, specifically two 5 mm Versi-step ports to the left upper quadrant, and a 5 mm Versi-Step port to the right upper quadrant. 1% lidocaine plain was used to infiltrate all port sites as well as all fascia defects. Following that, the patient was placed in a steep reverse Trendelenburg position. An additional 5 mm port was placed to the right flank for the Mediflex retractor that was used to retract the left lobe of the liver. The gastro-esophageal fat pad was opened with the ultrasonic device (Thunderbeat, Olympus) and the anterior esophagus and hiatus were exposed. The angle of His was opened with the ultrasonic device the fundus of the stomach from any diaphragmatic and splenic attachments. I then opened the gastrocolic ligament between the transverse colon and the greater curvature of the stomach with the ultrasonic device to enter the lesser sac and facilitate the ligation of the short gastric vessels. I started at a mid-point along the greater curvature and using the Thunderbeat, all short gastric vessels were divided all the way to the angle of His until the left khadijah was completely dissected at its entirety. I then divided the gastro-colic ligament distally to a distance of about 3-4 cm proximal to the pylorus. The stomach was then divided transversely with one Endo MERLIN-45 purple, one MERLIN-45 orange load and four MERLIN-60 articulating orange loads using the AEON stapler and loads. Every effort was made that the gastric sleeve had a tubular shape and an even caliber throughout. Once the sleeve resection was completed, the staple line of the gastric sleeve was reinforced with Hemoclips. The resected stomach was retrieved without difficulty from the Spenser port. A gastropexy was then performed in order to prevent postoperative GERD and partial gastric volvulus. Several interrupted 2.0 Surgidac sutures were placed between the sleeve's staple line and the previously divided greater omentum and gastro-colic ligament using the Endo-Stitch device. ?An upper endoscopy was performed. There was no narrowing at the GE junction. The scope was easily advanced all the way to the pylorus which was clearly visualized. There was no narrowing anywhere and the sleeve's caliber was even throughout. The sleeve's staple line was inspected and there was no evidence of ischemia, bleeding or dehiscence. At that point the gastroscope was withdrawn from the patient?s mouth while we were decompressing the bowel and the stomach from any remaining air. I looked into the lesser sac to see how the sleeve was situating and it was situating well. There was no bleeding from the staple line, spleen, or short gastric vessels. The Mediflex retractor was removed, and the undersurface of the liver was inspected and there was no bleeding. The patient was placed in supine position. I closed the fascial defect of the 12 mm port site with a figure of eight #1 Polysorb suture. Then 30cc Ropivacaine plain with 10 mg of Dexamethasone were used to infiltrate the fascial closure as well as all skin incisions. A total of 7ml Zynrelef was applied in the Spenser wound. At this point, the abdomen was deflated, all ports were removed under direct vision, and no bleeding was noted from any of the port sites. The skin incisions were irrigated with saline and were closed with 4-0 absorbable monofilament sutures. Steri-Strips and OpSites were used to cover all incisions. The patient was extubated and was transferred in stable condition to the recovery room for further care. I was present and performed all sánchez parts of the procedure. Ms. Khan was the international first officer. There were no residents to assist with this case. Osmin Noe MD, PhD, FACS Surgeon: Dhiraj Noe MD Anesthesia: GETA, local and other (TAP block and 7ml Zynrelef) Was an Corsage Maker used for this Procedure?: No Corsage Maker: Clau Khan Estimated blood loss (mL): 10 IV fluids (mL): 2,000 Urine output (mL): 0 (No Carrasco to record output) Pathology: other (Stomach) Condition: stable Disposition: PACU
--- NOTE | 2022-10-25 13:39 | PM.PNGS ---
Subjective Subjective Date of Service: 10/26/22 Interval history: Patient has mild incisional pain, but was able to ambulate and use the incentive spirometer. She is tolerating phase 1 bariatric diet Physical Exam Vital Signs: Vital Signs: Last Vital Signs Temp 97.5 F 10/25/22 10:54 Pulse 75 10/25/22 10:54 Resp 18 10/25/22 10:54 BP 147/68 H 10/25/22 10:54 Pulse Ox 98 10/25/22 10:54 O2 Del Method 10/25/22 10:54 BMI result Body Mass Index 32.1 GI: Inspection: Yes normal to inspection, Yes incision (clean, dry and intact) and Yes obesity Extrem: Right lower extremity: normal to inspection (no calf tenderness) Left lower extremity: normal to inspection (no calf tenderness) Objective Data Active Medications Albuterol Sulfate (Albuterol Sulfate (0.083%) 2.5 Mg/3 Ml Vial.Neb) 2.5 mg INHALE ONCE PRN PRN Reason: Shortness of Breath/Wheezing Lactated Ringer's (Lr) 1,000 mls @ 100 mls/hr IVCONT .Q10H JONAH Labs 10/11/22 09:37 10/11/22 09:37 Procedures Date of Service Date of Service: 10/26/22 Progress Note: A&P Assessment and plan (1) Obesity: Status: Acute Assessment and Plan: s/p laparoscopic sleeve gastrectomy and gastropexy Doing well Check am labs. If OK, will discharge home? (2) Asthma: Status: Acute (3) Hypertension: Status: Acute (4) Paroxysmal A-fib: Status: Acute (5) Depression: Status: Acute (6) Dyslipidemia: Status: Acute (7) Osteoarthritis: Status: Acute (8) Grade I diastolic dysfunction: Status: Acute (9) S/P laparoscopic sleeve gastrectomy: Status: Acute (10) GERD (gastroesophageal reflux disease): Status: Acute Time Spent With Patient Time: Total time managing care of this patient today ____ minutes. Quality Stroke Does the patient have a stroke diagnosis?: No VTE Prior VTE?: No VTE Risk Level:: Surgical - moderate VTE Device Contraindication: N/A - Device Ordered VTE Drug Contraindication: Treatment Not Indicated
[2022-10-25] MEDS: levoFLOXacin/D5W 500 MG/100 ML PIGGYBACK 100 MG IV (14:14)
[2022-10-25] MEDS: Acetaminophen 1,000 MG/100 ML PIGGYBACK 400 MG IV (14:40)
--- NOTE | 2022-10-25 16:31 | PM.DS ---
DS: Providers Provider Date of Service: 10/26/22 Date of admission: 10/25/22 10:39 Primary care physician: Evi Blake MD DS: Diagnosis Discharge Diagnosis (1) Obesity: Status: Acute (2) BMI 32.0-32.9,adult: Status: Acute (3) Asthma: Status: Acute (4) Hypertension: Status: Acute (5) Paroxysmal A-fib: Status: Acute (6) Depression: Status: Acute (7) Dyslipidemia: Status: Acute (8) Osteoarthritis: Status: Acute (9) Grade I diastolic dysfunction: Status: Acute DS: Summary Hospital Course Hospital Course: ADMITTING DIAGNOSIS: morbid obesity, Paroxysmal afib, HTN, hyperlipidemia DISCHARGE DIAGNOSIS: same, s/p laparoscopic sleeve gastrectomy PAST SURGICAL HISTORY: section, knee surgery PROCEDURE: upper endoscopy, laparoscopic sleeve gastrectomy DISCHARGE SUMMARY: History of Present Illness: The patient is a 62 year-old woman with a BMI of 37.1 kg/m2 and associated co-morbidities as described above. The patient had extensive work-up, lost 19.2lbs preoperatively and was electively scheduled for laparoscopic, possible open sleeve gastrectomy and gastropexy. Risks and complications of the surgery were discussed with the patient in advance, particularly the possibility of , pulmonary embolism, anastomotic leak, bleeding, bowel injury, GERD, cardiac, renal or pulmonary complications. The patient understood all the risks and was in agreement with the surgical plan. Hospital Course: The patient underwent an uneventful laparoscopic sleeve gastrectomy with gastropexy on the day of admission. Postoperatively, the patient was transferred to the surgical floor. The patient received IV Acetaminophen and IV dilaudid for pain control. Patient was started on bariatric phase 1 diet POD #0. On postoperative day one, the patient was feeling well without nausea, vomiting, fevers, or tachycardia. The patient had some mild incisional pain and the abdomen was soft. On the morning of postoperative day one, the patient was continued on 1 ounce of water or ice every half hour. During the day, the patient did fairly well, having some incisional pain, but able to ambulate adequately and to tolerate liquids well. Since the patient is doing well, we decided that the patient was ready to be discharged. The patient was given instructions to follow-up with me next week and to call my office for any fever over 101, persistent abdominal pain, nausea, vomiting, GERD, symptoms of DVT such as calf tenderness, or leg swelling, or pulmonary embolism such as chest pain or shortness of breath. The patient was also instructed to drink 40-60 ounces of liquids per day using the 1-ounce cups. The patient had been given prescriptions for Tylenol for pain, Zofran prn for nausea, and pantoprazole and carafate previously. The patient was encouraged to ambulate and use the incentive spirometer. The patient was allowed to shower, but no baths, and encouraged to stay active at home. All of these instructions were given to the patient personally. All questions were answered and the patient understood all instructions, the instructions were also given to the patient in print. Time Spent with Patient Time attestation: Total time managing care of this patient today ____ minutes. Discharge coordination time: Less than 30 minutes Quality: Safe Use of Opioids Does Pt have an Active Cancer Diagnosis on the Problem List?: No Quality: Stroke Does the patient have a stroke diagnosis?: No Physical Exam Vital Signs: Vital Signs: Last Vital Signs Temp 97.5 F 10/25/22 10:54 Pulse 75 10/25/22 10:54 Resp 18 10/25/22 10:54 BP 147/68 H 10/25/22 10:54 Pulse Ox 98 10/25/22 10:54 O2 Del Method 10/25/22 10:54 BMI result Body Mass Index 32.1 DS: Data Data Completed and Pending Pending studies at discharge: Pending at discharge 10/25/22 15:51 Surgical [PTH] Routine Discharge Plan Discharge Anticipated Discharge Date/Time: 10/26/22 10:00 Patient Disposition: Home, Self-Care Discharge Diagnosis: s/p sleeve gastrectomy Referrals: Evi Blake MD [Primary Care Provider] - 1 Week Discharge Medications: Continued ondansetron HCl 4 mg tablet 1 tab PO Q12H PRN (Reason: nausea/vomiting) rosuvastatin 20 mg tablet 20 mg PO QAM fluticasone propionate 50 mcg/actuation spray,suspension 1 spray intranasal DAILY albuterol sulfate 90 mcg/actuation HFA aerosol inhaler 2 puff inhalation Q4H PRN (Reason: Wheezing) epinephrine 0.3 mg/0.3 mL auto-injector 0.3 mg IM DIRECTED bupropion HCl 300 mg tablet extended release 24 hr 300 mg PO DAILY pantoprazole 40 mg tablet,delayed release (DR/EC) 40 mg PO DAILY Qty: 30 2RF sucralfate 100 mg/mL suspension 10 ml PO BID Qty: 400 2RF Held metoprolol succinate 25 mg tablet extended release 24 hr 25 mg PO DAILY Qty: 90 0RF Hold Instructions: Resume on 10/27/22. Measure your blood pressure daily and report it to Dr. Noe. Don't take the medication before he gets back to you. Don't take the medication if the blood pressure is below 120/70 mmHg. lisinopril-hydrochlorothiazide 10-12.5 mg tablet 1 tab PO DAILY Hold Instructions: Resume on 10/27/22. Measure your blood pressure daily and report it to Dr. Noe. Don't take the medication before he gets back to you. Don't take the medication if the blood pressure is below 120/70 mmHg. Discontinued mecobalamin (vitamin B12) 1,000 mcg tablet,disintegrating 1,000 mcg sublingual DAILY Qty: 30 2RF Rx Instructions: place tablet under tongue and allow to dissolve for at least30 secs before swallowing cholecalciferol (vitamin D3) 125 mcg (5,000 unit) capsule 125 mcg PO DAILY Qty: 90 0RF Discharge Orders: Discharge Order (Routine); Ordered 10/26/22 Ordered By: Dhiraj Noe Activity on Discharge: No heavy lifting Stand Alone Forms: Patient Portal Discharge page Care Plan Goals: weight loss Health Concerns: obesity Plan of Treatment: No tub baths, sex or returning to work until discussed at first post op appointment. No exercise, alcohol, tobacco or illegal drug use. Continue to use incentive spirometer hourly while awake. Walk in home for 5- 10 minutes every 2 hours during the first week. Continue phase 1 diet today and start phase 2 diet tomorrow morning. Follow all instructions in the bariatric handbook and call with any questions. 1. Please call your doctor or come back to the emergency room should any new symptoms arise. 2. You will receive a courtesy call from [facility] 24-48 hours after discharge. 3. Activity: abstain from alcohol, practice limited stair climbing, no bending, no driving, no exercise, no illicit substances, no lifting, no sex, no tub bath, no work. 4. Diet: continue as discussed with bariatric team.. 5. Dressing Change/Wound Care: Do not change or remove surgical dressings unless they are wet or soiled. 6. Call your doctor if: - Your temperature exceeds 101.5 F - You experience excessive pain or swelling - You have an unexpected reaction to medication - You have excessive bleeding - You experience continued vomiting/nausea - Your incision begins to separate - Your incision shows signs of infection such as increased redness, swelling, excessive pain, heat, or drainage (light blood or clear fluid is normal) 7. General instructions: No lifting greater than 5 lbs for the next 4 weeks[address] driving within 24 hours of taking narcotic pain medications. If you do not move your bowels in the next 2 days, please take milk of magnesia over the counter. Please follow the post op diet and do not advance your diet until you are seen in the office in about 2 weeks. Please walk around your home every hour or two to prevent blood clots from forming in your legs. You do not need to wake from sleeping to walk. Please sleep in a bed or couch to prevent kinking at the hips and knees. Please take your incentive spirometer (your lung animal park code enforcement officer) home with you and use it for the next few days to prevent pneumonias. You may shower, no hot tubs, baths or swimming pools. Please call the office with any questions or concerns such as increasing abdominal pain, fever, chills, shortness of breath, chest pain, leg pain or swelling, or redness or drainage from your incisions. Do not hesitate to contact the office with any questions at . The patient's medical history has been reviewed and they are considered low risk for post op DVT and therefore DVT prophylaxis is not considered necessary. Travel after surgery was reviewed. The patient has not disclosed any travel plans during the first 30 days after surgery and they have been advised that within the first 30 days after surgery any bus, plane, train or car travel over 2 hours in duration is contraindicated due to the possibility of developing blood clots from immobility. Any travel, needs to include periods of ambulation of 10 minutes in duration every 2 hours. The patient was instructed to discuss any plans for travel during this period with their bariatric surgeon. Assessment: stable, post op sleeve gastrectomy
[2022-10-25 16:52] LABS: Hematocrit 38.4 % (37.0-47.0); Hemoglobin 12.8 g/dl (12.0-16.0)
[2022-10-25 17:10] LABS: Anion Gap 18 (12-20); Blood Urea Nitrogen 16 mg/dL (9-16); Calcium 9.1 mg/dL (8.4-10.2); Carbon Dioxide 24 mmol/L (22-29); Chloride 105 mmol/L (96-108); Creatinine Clr Calc Pharmacy 76.7; Estimated Glomerular Filt Rate > 60; Glucose Random 101 mg/dL (60-115); Potassium 3.8 mmol/L (3.3-5.1); Sodium 143 mmol/L (135-145)
[2022-10-25] MEDS: Famotidine/PF 20 MG/2 ML VIAL IVPUSH ×2 (17:28→20:21)
[2022-10-25] MEDS: Metoclopramide HCl 10 MG/2 ML VIAL IVPUSH (18:11)
[2022-10-25] MEDS: fentaNYL citrate/PF 100 MCG/2 ML VIAL 25 MCG IVPUSH (18:18)
[2022-10-25] MEDS: Lactated Ringers 1,000 ML 80 ML IVCONT (18:38)
[2022-10-25] MEDS: Acetaminophen 1,000 MG/100 ML PIGGYBACK 16.7 MG IV (20:20)
[2022-10-25] MEDS: 0.9 % Sodium Chloride Flush 3 ML SYRINGE IVFLUSH (20:21)
[2022-10-26] MEDS: ondansetron HCL 4 MG/2 ML VIAL IVPUSH (00:53)
[2022-10-26] MEDS: Acetaminophen 1,000 MG/100 ML PIGGYBACK 16.7 MG IV (02:00)
[2022-10-26 04:00] VITALS: BP 139/66; PULSE 71; RESP 16; TEMP 36.3; O2SAT 95
[2022-10-26] MEDS: Lactated Ringers 1,000 ML 80 ML IVCONT (05:45)
[2022-10-26 06:32] LABS: MANUAL DIFF FLAG NO
[2022-10-26 06:35] LABS: Hematocrit 36.4 % (37.0-47.0); Hemoglobin 12.3 g/dl (12.0-16.0); Imm Gran Abs Auto 0.04 X10*3/uL (0.00-0.03); Imm Gran Pct Auto 0.6 % (0.0-0.4); Lymphocytes Absolute Auto 0.8 X10*3/uL (1.2-4.9); Lymphocytes Percent Auto 11.1 % (20-40); Mean Corpuscular HGB Conc 33.8 g/dl (31.0-35.0); Mean Corpuscular Hemoglobin 28.6 pg (27.0-33.0); Mean Corpuscular Volume 84.7 fL (80.0-98.0); Mean Platelet Volume 10.6 fL (9.4-12.3); Monocytes Absolute Auto 0.2 X10*3/uL (0.1-1.2); Monocytes Percent Auto 2.9 % (2-11); Neutrophils Absolute Auto 5.9 x10*3/uL (2.0-8.3); Neutrophils Percent Auto 85.4 % (45-73); Platelet Count 223 X10*3/uL (160-400); White Blood Count 6.9 X10*3/uL (4.8-10.8)
[2022-10-26 06:59] VITALS: BP 134/60; PULSE 72; RESP 18; TEMP 36.6; O2SAT 96
[2022-10-26 07:02] LABS: Anion Gap 13 (12-20); Blood Urea Nitrogen 13 mg/dL (9-16); Carbon Dioxide 25 mmol/L (22-29); Chloride 106 mmol/L (96-108); Creatinine Clr Calc Pharmacy 79.6; Estimated Glomerular Filt Rate > 60; Glucose Random 121 mg/dL (60-115); Potassium 4.4 mmol/L (3.3-5.1); Sodium 140 mmol/L (135-145)
[2022-10-26] MEDS: Famotidine/PF 20 MG/2 ML VIAL IVPUSH (07:09)
[2022-10-26] MEDS: Metoprolol Succinate ER 25 MG TAB.ER.24H PO (07:09)
--- NOTE | 2022-10-26 08:34 | MHC.CM.PN ---
CM met with Patient at bedside and addressed IMM with her, providing her with the original and placing a copy on the chart. 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 Patient has been medically cleared for dc to home today, self care. PCP is Dr. Evi Blake and Patient has received no Covid vax.
--- NOTE | 2022-10-26 13:00 | HO.POSTANES ---
Post Anesthesia Evaluation Post Anesthesia Evaluation Vital Signs: Vital Signs Temp Pulse Resp BP Pulse Ox O2 Del Method 10/26/22 06:59 98 F 72 18 134/60 96 Room Air 10/26/22 04:00 97.4 F 71 16 139/66 95 Room Air Anesthesia: General Endotracheal-GETA Mental Status: Awake Pain Control: Satisfactory (mild incisional pain) Nausea/Vomiting: None Hydration: Adequate Anesthesia-Related Issues: No Anes. Related Issues
== END 2022-10-26 10:47 | disposition home or self-care (01) | DRG 621 ==
LOC: HO.SSSA 16:31 → HO.S3 18:54
PROVIDERS: Physician Assistant; Physician Assistant Surgical; Admitting Provider Surgery; PCP Family Medicine; Visit Provider Surgery
PROC: 0DB64Z3 Excision of Stomach, Percutaneous Endoscopic Approach, Vertical (ICD-10-PCS; CPT 43845; principal; 2022-10-25 12:50)
DX: E66.01 Morbid (severe) obesity due to excess calories (principal); I48.0 Paroxysmal atrial fibrillation; E78.5 Hyperlipidemia, unspecified; I10 Essential (primary) hypertension; Z20.822 Contact with and (suspected) exposure to COVID-19; Z68.32 Body mass index [BMI] 32.0-32.9, adult; Z88.0 Allergy status to penicillin; Z88.2 Allergy status to sulfonamides; Z88.5 Allergy status to narcotic agent; Z88.7 Allergy status to serum and vaccine; Z79.51 Long term (current) use of inhaled steroids; Z79.899 Other long term (current) drug therapy
CPT/HCPCS: 36415; 80048; 80053; 80061; 83036; 83525; 84443; 85014; 85018; 85025; 85610; 85730; 86140; 86850; 86900; 86901; 87635; 88307; 88342; A4649; C9088; J0131; J1100; J1956; J2250; J2370; J2405; J2550; J2765; J2795; J3010

== ENCOUNTER → 2022-11-02 09:25 | Outpatient (BNVA) | payer MEDICARE, MEDICAID, SELFPAY | PROVIDERS: PCP Family Medicine; Visit Provider Physician Assistant Surgical | DX: Z13.89 Encounter for screening for other disorder (principal) | CPT/HCPCS: 99212 ==

== ENCOUNTER → 2022-11-16 09:21 | Outpatient (BNVA) | payer MEDICARE, MEDICAID, SELFPAY | PROVIDERS: PCP Family Medicine; Referring Provider Family Medicine; Visit Provider Physician Assistant | DX: Z48.815 Encounter for surgical aftercare following surgery on the digestive system (principal); Z98.84 Bariatric surgery status | CPT/HCPCS: 99212 ==

== ENCOUNTER → 2022-12-05 09:03 | Outpatient (BNVA) | payer MEDICARE, MEDICAID, SELFPAY | PROVIDERS: PCP Family Medicine; Visit Provider Physician Assistant | DX: Z98.84 Bariatric surgery status (principal) | CPT/HCPCS: 99212 ==

== ENCOUNTER → 2023-01-20 11:30 | Outpatient (BNVA) | payer MEDICARE, MEDICAID, SELFPAY | PROVIDERS: PCP Family Medicine; Visit Provider Physician Assistant | DX: E66.9 Obesity, unspecified (principal); Z68.28 Body mass index [BMI] 28.0-28.9, adult; Z98.84 Bariatric surgery status | CPT/HCPCS: 99212 ==

== ENCOUNTER → 2023-02-08 08:57 | Outpatient (BNVA) | payer SELFPAY | PROVIDERS: PCP Family Medicine; Visit Provider Physician Assistant Medical | DX: Z02.79 Encounter for issue of other medical certificate (principal) ==

== ENCOUNTER 2023-09-18 09:25 | Outpatient (REF) | payer MEDICARE, MEDICAID, SELFPAY ==
--- NOTE | ~2023-09-18 | MR_ITS ---
EXAMINATION: MR BRAIN WITHOUT AND WITH CONTRAST CLINICAL INFORMATION: Tinnitus and vertigo. Question left-sided acoustic neuroma. COMPARISON: Brain MRI from 03/22/2019. TECHNIQUE: Multiplanar, multisequential imaging was obtained without and with intravenous contrast. Intravenous contrast: Gadavist 8.5 mL. FINDINGS: No diffusion abnormality is seen. Minimal scattered white matter signal changes are stable, possibly due to chronic microangiopathy. The ventricles are normal in size. No mass effect or midline shift is evident. No extra-axial fluid collections are noted. The brainstem and cerebellum are normal. There is no abnormal parenchymal or leptomeningeal enhancement. The VII and VIII cranial nerve complexes are normal in course and caliber. No signal abnormality is visualized within the inner ear structures on the precontrast axial T1-weighted sequence. Fluid signal is preserved within the cochlea, semicircular canals, and vestibule on the high-resolution axial FIESTA sequence. No cerebellopontine angle lesion is noted. There is no abnormal labyrinthine or intracanalicular enhancement on postcontrast imaging. The craniovertebral junction, marrow signal, and midline structures are normal. The gradient refocused acquisition is normal. The visualized portions of the major intracranial flow voids at the level of the [place] are preserved. The dural venous sinus flow voids are maintained. The paranasal sinuses are well aerated. There is trace fluid in the mastoid air cells bilaterally. There are mild degenerative changes of the temporomandibular joints. MR/MR head/brain wo/w con IMPRESSION: No retrocochlear pathology. No acute process. Mild chronic white matter microangiopathy.
[2023-09-18] MEDS: gadobutroL 10 ML VIAL IVPUSH (10:38)
== END 2023-09-18 09:26 | disposition home or self-care (01) ==
LOC: HO.MRI 09:25
PROVIDERS: PCP Physician Assistant; Visit Provider Otolaryngology
DX: H93.12 Tinnitus, left ear (principal); H81.4 Vertigo of central origin
CPT/HCPCS: 70553; A9585

== ENCOUNTER 2023-12-30 07:50 | Emergency (ER) | payer MEDICARE, MEDICAID, SELFPAY ==
--- NOTE | ~2023-12-30 | US_ITS ---
EXAMINATION: US VENOUS ULTRASOUND WITH DOPPLER LOWER EXTREMITY, LEFT CLINICAL INFORMATION: Pain COMPARISON: None available. TECHNIQUE: Ultrasound of the deep veins is performed from the hip to the calf with compression sonography and color and pulse Doppler assessment. Spectral analysis with color-flow imaging is performed. FINDINGS: There is normal venous compression and respiratory variation and augmented flow. The visualized common femoral vein, superficial femoral vein, profunda femoral vein, popliteal vein, and the posterior tibial veins shows no evidence of deep venous thrombosis. Peroneal veins not seen. There is no significant popliteal fossa cyst. US/US venous duplex LE LT IMPRESSION: No DVT demonstrated in the left lower extremity. Peroneal veins not seen.
[2023-12-30 07:53] VITALS: BP 149/80; PULSE 87; RESP 18; TEMP 36.6; O2SAT 98; BMI 30.8
--- NOTE | 2023-12-30 08:13 | PC.NURSE ---
Patient is A&O, comes to the ED for left sided hip pain that radiates down LLE x1 week. Patient states that she injured herself getting out of rocking chair. Patient reports having back surgery in 2013 and has been having flare ups since then. awaiting ED provider at this time.
--- OUTSIDE RECORDS SUMMARY | 2023-12-30 08:19 | XMS_ITS | Continuity of Care Document ---
Author Organization [facility] Address [address] [place] [address] ve [address] [place] [address]- Care Team Providers Care Rotary Rock Drilling Machine Operator Name Role Phone Evi Blake MD Primary Care Physician Encounter [facility] Date(s): 12/05/22 - 01/04/23 [facility] [address] [place], [place] [address] Allergies, Adverse Reactions, Alerts Substance Reaction Severity Status penicillin hives Active Dilaudid hallucinations Active Bactrim very nauseaus and vomiting A ctive Pollen Active Immunizations Given and Recorded Vaccine Date Status Refusal Reason influenza virus vaccine, inactivated 05/27/20 Evaristo rded influenza virus vaccine, inactivated 05/15/19 Evaristo rded influenza virus vaccine, inactivated 05/24/18 Evaristo rded influenza virus vaccine, inactivated 05/24/17 Evaristo rded influenza virus vaccine, inactivated 06/16/15 Evaristo rded influenza virus vaccine, inactivated 05/14/14 Evaristo rded FluLaval (oldterm) 05/13/10 Given Tet/diphth/pertussis, acel (oldterm) 1 11/26/09 Gi shivam influ virus vac, H1N1, inactive(oldterm) 2 11/26/09 Given Hepatitis B Vaccine (old term) 3 02/02/04 Given Measles/Mumps/Rubella Virus Vaccine 07/28/91 Given 1Admin Note: pt received per previous records from old PCP she had a reaction after receiving this injection. 2Admin Note: Distributed by: [employer] Manufactured by: [employer] 3Admin Note: #2 08/27/03 #1 07/28/2003 Medications aspirin 81 mg oral capsule 1 capsule = 81 mg, By Mouth, Every 4 hours, 0 Refills, Maintenance, 05/16/22 11:06:00 EDT, Partial fill upon patient request if the prescription is for a schedule II opioid drug. Start Date: 05/16/22 Status: Ordered BP cuff BP cuff, See Instructions, # 1 each, Refills 0, Tot. Refills 0, Maintenance, BP cuff Diagnosis-HTN,ICD-I10, 09/16/22 14:33:00 EST, Supply Start Date: 09/16/22 Status: Ordered buPROPion 300 mg/24 hours (XL) oral tablet, extended release 1 tablet, By Mouth, Daily, # 90 tablet, 1 Refills, Maintenance, 11/20/22 3:46:00 EDT, [facility]/pharmacy #[id number], 165, cm, 09/13/22 17:16:00 EST, Height Start Date: 11/20/22 Status: Ordered Flonase 50 mcg/inh nasal spray 1 sprays, Nares, Both, 2 times a day, # 1 each, 5 Refills, Maintenance, 05/23/22 14:18:00 EDT, [place], [facility]/pharmacy #[id number], Partial fill upon patient request if the prescription is for a schedule II opioid drug., 1 sprays Nares, Both 2 times a day,x30 d... Start Date: 05/23/22 Stop Date: 11/19/22 Status: Ordered metoprolol 25 mg oral tablet, extended release 25 mg, 1, tablet, By Mouth, Daily, # 30 tablet, Refills 0, Tot. Refills 0, Maintenance, 09/05/22 9:19:00 EST, Do Not Route, Partial fill upon patient request if the prescription is for a schedule II opioid drug. Start Date: 09/05/22 Stop Date: 10/05/22 Status: Ordered Multi Vitamin+ 0 Refills, Maintenance, 11/22/22 9:31:00 EDT, Partial fill upon patient request if the prescriptionis for a schedule II opioid drug. Start Date: 11/22/22 Status: Ordered pantoprazole 40 mg oral delayed release tablet 1 tablet = 40 mg, By Mouth, Daily, # 30 tablet, 0 Refills, Maintenance, 09/05/22 9:20:00 EST Start Date: 09/05/22 Status: Ordered rosuvastatin 20 mg oral tablet 1 tablet, By Mouth, Daily, # 90 tablet, 1 Refills, Maintenance, 11/30/22 20:39:00 EDT, [id number], 165, cm, 11/22/22 9:29:00 EDT, Height Start Date: 11/30/22 Status: Ordered sucralfate 1 gm oral tablet 1 Gm, 1, tablet, By Mouth, 2 times a day, # 60 tablet, Refills 0, Tot. Refills 0, Maintenance, 09/05/22 9:21:00 EST, Do Not Route, Partial fill upon patient request if the prescription is for a schedule II opioid drug. Start Date: 09/05/22 Status: Ordered Vitamin C By Mouth, Daily, 0 Refills, Maintenance, 09/13/22 10:19:00 EST, Partial fill upon patient request if the prescription is for a schedule II opioid drug. Start Date: 09/13/22 Status: Ordered Vitamin D3 400 intl units oral capsule 1 capsule = 10 mcg, By Mouth, Daily, 0 Refills, Maintenance, 09/13/22 10:18:00 EST, Partial fill upon patient request if the prescription is for a schedule II opioid drug. Start Date: 09/13/22 Status: Ordered Zinc = 140 mg, By Mouth, Daily, 0 Refills, Maintenance, 09/13/22 10:18:00 EST, Partial fill upon patientrequest if the prescription is for a schedule II opioid drug. Start Date: 09/13/22 Status: Ordered Problem List Condition Confirmation Course Effective Dates Status H ealth Status Informant Asthma - currently dormant Confirmed Active Depression Confirmed 06/11/10 Active Excessive weight gain Confirmed Active Hyperlipidemia Confirmed Active IBS - Irritable bowel syndrome Confirmed Active LBP - Low back pain Confirmed Active Obese class I Confirmed Active Paroxysmal a-fib Confirmed Active Urinary incontinence Confirmed Active Social History Social History Type Response Smoking Status Never smoker entered on: 04/25/18 Sex Patient Care team information Care Team Personnel Name: Evi Blake MD Position: [facility] Primary Care Physician Member Role: PCP Address: Address: [address] [place] [address] [place] [address]- [place] Care Team Related Persons Name: ASHA GALLO Name: NICOLÁS SMITH Address: [place] [address]
--- OUTSIDE RECORDS SUMMARY | 2023-12-30 08:19 | XMS_ITS | Continuity of Care Document ---
Author Organization [facility] Address [address] [place] [id number]- Care Team Providers Care Automotive Manufacturer Name Role Phone Genevieve Dexetr Primary Care Physician Encounter [facility] Date(s): 04/24/23 - 05/24/23 [facility] [address] [place] [id number]- Allergies, Adverse Reactions, Alerts Substance Reaction Severity Status penicillin hives Active Dilaudid hallucinations Active Pollen Active Bactrim very nauseaus and vomiting A ctive Immunizations Given and Recorded Vaccine Date Status [...] receiving this injection. 2Admin Note: Distributed by: [employer] Manufactured by: [employer] 3Admin Note: #2 08/27/03 #1 07/28/2003 Medications BP cuff BP cuff, See Instructions, # 1 each, Refills 0, Tot. Refills 0, Maintenance, BP cuff Diagnosis-HTN,ICD-I10, 09/16/22 14:33:00 EST, Supply Start Date: 09/16/22 Status: Ordered buPROPion 300 mg/24 hours (XL) oral tablet, extended release 1 tablet, By Mouth, Daily, # 90 tablet, 1 Refills, Maintenance, 05/24/23 14:11:00 EDT, [id number], 165, cm, 04/21/23 7:53:00 EDT, Height Start Date: 05/24/23 Status: Ordered Flonase 50 mcg/inh nasal spray 1 sprays, Nares, Both, 2 times a day, # 1 each, 5 Refills, Maintenance, 05/23/22 14:18:00 EDT, [place], [facility]/pharmacy #[id number], Partial fill upon patient request if the prescription is for a schedule II opioid drug., 1 sprays Nares, Both 2 times a day,x30 d... Start Date: 05/23/22 Stop Date: 11/19/22 Status: Ordered hydrochlorothiazide-lisinopril 25 mg-20 mg oral tablet 1 tablet, By Mouth, Daily, # 30 tablet, 0 Refills, Maintenance, 04/18/23 9:32:00 EDT, Tablet, Partial fill upon patient request if the prescription is for a schedule II opioid drug. Start Date: 04/18/23 Status: Ordered Macrobid macrocrystals-monohydrate 100 mg oral capsule 1 capsule = 100 mg, By Mouth, 2 times a day, for 7 days, # 14 capsule, 0 Refills, Acute 05/30/23 9:39:00 EDT, 05/23/23 9:39:00 EDT, [place], [facility]/pharmacy #[id number], Partial fill upon patient request if the prescription is for a schedule II opioid drug., 1... Start Date: 05/23/23 Stop Date: 05/30/23 Status: Ordered metoprolol 25 mg oral tablet, extended release 12.5 mg, 0.5, tablet, By Mouth, Daily, # 15 tablet, Refills 11, Tot. Refills 11, Maintenance, 03/02/23 14:11:00 EDT, Route to Pharmacy Electronically, [facility]/pharmacy #[id number], Partial fill upon patient request if the prescription is for a schedule II opioi... Start Date: 03/02/23 Stop Date: 02/25/24 Status: Ordered rosuvastatin 20 mg oral tablet 1 tablet, By Mouth, Daily, # 90 tablet, 1 Refills, Maintenance, 05/24/23 14:11:00 EDT, [id number], 165, cm, 04/21/23 7:53:00 EDT, Height Start Date: 05/24/23 Status: Ordered Problem List Condition Confirmation Course Effective Dates Status H ealth Status Informant Asthma - currently dormant Confirmed Active Depression Confirmed 06/11/10 Active Excessive weight gain Confirmed Active Hyperlipidemia Confirmed Active IBS - Irritable bowel syndrome Confirmed Active LBP - Low back pain Confirmed Active Paroxysmal a-fib Confirmed Active Urinary incontinence Confirmed Active Social History Social History Type Response Smoking Status Never smoker entered on: 04/25/18 Sex Patient Care team information Care Team Personnel Name: Genevieve Dexter Position: [facility] Associate Professional Member Role: PCP Address: Address: [address] [place] [id number] Care Team Related Persons Name: ASHA GALLO Name: NICOLÁS SMITH Address: [place] [address]
--- OUTSIDE RECORDS SUMMARY | 2023-12-30 08:19 | XMS_ITS | Continuity of Care Document ---
Author Organization [facility] Lisandro lt Address [address] [place] [address]- Care Team Providers Care Pressurizer Name Role Phone Genevieve Dexter Primary Care Physician Encounter [facility] Date(s): 05/16/23 - 06/15/23 [facility] Adult [address] [place] [address]- Allergies, Adverse Reactions, Alerts Substance Reaction Severity Status penicillin hives Active Pollen Active Dilaudid hallucinations Active Bactrim very nauseaus [...] receiving this injection. 2Admin Note: Distributed by: [employer] Manufactured by: [employer] 3Admin Note: #2 08/27/03 #1 07/28/2003 Medications BP cuff BP cuff, See Instructions, # 1 each, Refills 0, Tot. Refills 0, Maintenance, BP cuff Diagnosis-HTN,ICD-I10, 09/16/22 14:33:00 EST, Supply Start Date: 09/16/22 Status: Ordered buPROPion 300 mg/24 hours (XL) oral tablet, extended release 1 tablet, By Mouth, Daily, # 90 tablet, 1 Refills, Maintenance, 05/24/23 14:11:00 EDT, [id number], 165, cm, 04/21/23 7:53:00 EDT, Height Start Date: 05/24/23 Status: Ordered Flonase 50 mcg/inh nasal spray 1 sprays, Nares, Both, 2 times a day, # 1 each, 5 Refills, Maintenance, 05/23/22 14:18:00 EDT, [id number], Partial fill upon patient request if [...] opioid drug. Start Date: 04/18/23 Status: Ordered metoprolol 25 mg oral tablet, extended release 12.5 mg, 0.5, tablet, By Mouth, Daily, # 15 tablet, Refills 11, Tot. Refills 11, Maintenance, 03/02/23 14:11:00 EDT, Route to Pharmacy Electronically, [facility]/pharmacy #[id number], Partial fill upon patient request if the prescription is for a schedule II opioi... Start Date: 03/02/23 Stop Date: 02/25/24 Status: Ordered rosuvastatin 20 mg oral tablet 1 tablet, By Mouth, Daily, # 90 tablet, 1 Refills, Maintenance, 05/24/23 14:11:00 EDT, [id number], 165, cm, 04/21/23 7:53:00 EDT, Height Start [...] Care Team Personnel Name: Genevieve Dexter Position: [facility] Associate Professional Member Role: PCP Address: Address: [address] [place] [id number]- Care Team Related Persons Name: ASHA GALLO Name: NICOLÁS SMITH Address: [place] [address]
--- OUTSIDE RECORDS SUMMARY | 2023-12-30 08:20 | XMS_ITS | Continuity of Care Document ---
Author Organization [facility] Address [address] [place] [address]- Care Team Providers Care Hand Tapper Name Role Phone Hayden SWAIN, Evi Gallo Primary Care Physician ([phone] Encounter [facility] [place] Date(s): 12/07/22 - 01/06/23 [facility] [address] [place] [address]- Allergies, Adverse Reactions, Alerts Substance Reaction Severity [...] receiving this injection. 2Admin Note: Distributed by: Gynzy Manufactured by: Guroo 3Admin Note: #2 08/27/03 #1 07/28/2003 Medications [...] tablet, 1 Refills, Maintenance, 11/20/22 3:46:00 EDT, [facility]/pharmacy #[id number], 165, cm, 09/13/22 17:16:00 EST, Height Start Date: 11/20/22 Status: Ordered Flonase 50 mcg/inh nasal spray 1 sprays, Nares, Both, 2 times a day, # 1 each, 5 Refills, Maintenance, 05/23/22 14:18:00 EDT, [place], [facility]/pharmacy #[id number], Partial fill upon patient request if [...] Refills, Maintenance, 11/30/22 20:39:00 EDT, [facility], 165, cm, 11/22/22 9:29:00 EDT, Height Start [...] Team Personnel Name: Evi Blake MD Position: [facility] Primary Care Physician Member Role: PCP Address: Address: [address] [place] [address] [place] [address]- Care Team Related Persons Name: ASHA GALLO Name: NICOLÁS SMITH Address: [place] [address]
--- OUTSIDE RECORDS SUMMARY | 2023-12-30 08:20 | XMS_ITS | Continuity of Care Document ---
Author Organization [facility] Address [address] [place] [address]- Care Team Providers Care Softball Winder Name Role Phone Evi Blake MD Primary Care Physician Encounter [facility] Date(s): 06/22/22 - 10/20/22 [facility] [address] [place] [address]- Attending Physician: Eva Amezquita MD Admitting Physician: Eva Amezquita MD Referring Physician: Evi Blake MD Allergies, Adverse Reactions, Alerts Substance Reaction Severity [...] receiving this injection. 2Admin Note: Distributed by: [employer]Woo![employer] Manufactured by: Mango-Mate 3Admin Note: #2 08/27/03 #1 07/28/2003 Medications [...] hours (XL) oral tablet, extended release 1 tablet = 300 mg, By Mouth, Daily, # 30 tablet, 5 Refills, Maintenance, 05/23/22 14:17:00 EDT, XL Tablet, [facility]/pharmacy #[id number], Partial fill upon patient request if the prescription is for a schedule II opioid drug., 165, cm, 05/16/22 11:04:00 EDT, Height Start Date: 05/23/22 Stop Date: 11/19/22 Status: Ordered Flonase 50 mcg/inh nasal spray 1 sprays, Nares, Both, 2 times a day, # 1 each, 5 Refills, Maintenance, 05/23/22 14:18:00 EDT, [place], [facility]/pharmacy #[id number], Partial fill upon patient request if the prescription is for a schedule II opioid drug., 1 sprays Nares, Both 2 times a day,x30 d... Start Date: 05/23/22 Stop Date: 11/19/22 Status: Ordered hydrochlorothiazide-lisinopril 12.5 mg-10 mg oral tablet 1 tablet, By Mouth, Daily, # 30 tablet, 0 Refills, Maintenance, 05/16/22 11:05:00 EDT, Tablet, Partial fill upon patient request if the prescription is for a schedule II opioid drug. Start Date: 05/16/22 Status: Ordered metoprolol 25 mg oral tablet, extended release 25 mg, 1, tablet, By Mouth, Daily, # 30 tablet, Refills 0, Tot. Refills 0, Maintenance, 09/05/22 9:19:00 EST, Do Not Route, Partial fill upon patient request if the prescription is for a schedule II opioid drug. Start Date: 09/05/22 Stop Date: 10/05/22 Status: Ordered pantoprazole 40 mg oral delayed release tablet 1 tablet = 40 mg, By Mouth, Daily, # 30 tablet, 0 Refills, Maintenance, 09/05/22 9:20:00 EST Start Date: 09/05/22 Status: Ordered rosuvastatin 20 mg oral tablet 1 tablet = 20 mg, By Mouth, Daily, # 30 tablet, 5 Refills, Maintenance, 05/23/22 14:17:00 EDT, Tablet, [facility]/pharmacy #[id number], Partial fill upon patient request if the prescription is for a schedule II opioid drug., 165, cm, 05/16/22 11:04:00 EDT, Height Start Date: 05/23/22 Status: Ordered sucralfate 1 gm oral tablet [...] Team Personnel Name: Evi Blake MD Position: S Primary Care Physician Member Role: PCP Address: Address: [address] [place] [address] [facility] [place] [address]- Care Team Related Persons Name: ASHA GALLO Name: NICOLÁS SMITH Address: [place] [address]
--- OUTSIDE RECORDS SUMMARY | 2023-12-30 08:20 | XMS_ITS | Continuity of Care Document ---
Author Organization [facility] [employer] [facility] Address [address] [place] [address]- Care Team Providers Care Gift Wrapper Name Role Phone Genevieve Dexter Primary Care Physician [phone] Encounter [facility] Date(s): 10/16/23 - 11/15/23 [facility] [employer] [facility] [address] [place], [place] [id number]- [place] Allergies, Adverse Reactions, Alerts Substance Reaction Severity [...] receiving this injection. 2Admin Note: Distributed by: WebPThe[employer] Manufactured by: Contour 3Admin Note: #2 08/27/03 #1 07/28/2003 Medications BP cuff BP cuff, See Instructions, # 1 each, Refills 0, Tot. Refills 0, Maintenance, BP cuff Diagnosis-HTN,ICD-I10, 09/16/22 14:33:00 EST, Supply Start Date: 09/16/22 Status: Ordered buPROPion 300 mg/24 hours (XL) oral tablet, extended release 1 tablet, By Mouth, Daily, # 90 tablet, 1 Refills, Maintenance, 05/24/23 14:11:00 EDT, [facility], 165, cm, 04/21/23 7:53:00 EDT, Height Start Date: 05/24/23 Status: Ordered fluticasone 50 mcg/inh nasal spray See Instructions, SPRAY 1 SPRAY INTO EACH NOSTRIL TWICE A DAY, # 48 mL, 1 Refills, Maintenance, 08/14/23 10:11:00 EST, [facility], 90, SPRAY 1 SPRAY INTO EACH NOSTRIL TWICE A DAY, 165, cm, 06/29/23 15:49:00 EDT, Height Start Date: 08/14/23 Status: Ordered hydrochlorothiazide-lisinopril 25 mg-20 mg oral [...] 03/02/23 14:11:00 EDT, Route to Pharmacy Electronically, [facility]/pharmacy #[id number], Partial fill upon patient request if the prescription is for a schedule II opioi... Start Date: 03/02/23 Stop Date: 02/25/24 Status: Ordered rosuvastatin 20 mg oral tablet 1 tablet, By Mouth, Daily, # 90 tablet, 1 Refills, Maintenance, 10/16/23 18:53:00 EST, [id number], 165, cm, 10/05/23 21:29:00 EST, Height Start Date: 10/16/23 Status: Ordered Problem List Condition Confirmation Course Effective Dates Status H ealth Status Informant Memory loss Confirmed Active Asthma - currently dormant Confirmed Active Depression Confirmed 06/11/10 Active Excessive weight gain Confirmed Active Headache Confirmed Active Hyperlipidemia Confirmed Active IBS - Irritable bowel syndrome Confirmed Active LBP - Low back pain Confirmed Active Obese class I Confirmed Active Left elbow pain Confirmed Active Paroxysmal a-fib Confirmed Active Rhinitis Confirmed Active Bilateral sensorineural hearing loss Confirmed Active Tinnitus of left ear Confirmed Active Urinary incontinence Confirmed Active Social History Social History Type Response Smoking Status Never smoker entered on: 04/25/18 Sex Patient Care team information Care Team Personnel Name: Genevieve Dexter Position: S PCO Associate Professional Member Role: PCP Address: Address: [address] [place] [address]- Care Team Related Persons Name: ASHA GALLO Name: NICOLÁS SMITH Address: [place] [address]
--- OUTSIDE RECORDS SUMMARY | 2023-12-30 08:20 | XMS_ITS | Continuity of Care Document ---
Author Organization [facility] Address [address] [place] [address]- Care Team Providers Care Sales Analyst Name Role Phone Genevieve Dexter Primary Care Physician Encounter [facility] Date(s): 07/01/23 - 11/03/23 [facility] Adult [address] [place] [address]- Attending Physician: Genevieve Dexter Allergies, Adverse Reactions, Alerts Substance Reaction Severity [...] receiving this injection. 2Admin Note: Distributed by: [employer] Manufactured by: Dreamsoft Technologies 3Admin Note: #2 08/27/03 #1 07/28/2003 Medications BP cuff BP cuff, See Instructions, # 1 each, Refills 0, Tot. Refills 0, Maintenance, BP cuff Diagnosis-HTN,ICD-I10, 09/16/22 14:33:00 EST, Supply Start Date: 09/16/22 Status: Ordered buPROPion 300 mg/24 hours (XL) oral tablet, extended release 1 tablet, By Mouth, Daily, # 90 tablet, 1 Refills, Maintenance, 05/24/23 14:11:00 EDT, [facility], 165, cm, 04/21/23 7:53:00 EDT, Height Start Date: 05/24/23 Status: Ordered fluticasone 50 mcg/inh nasal spray See Instructions, SPRAY 1 SPRAY INTO EACH NOSTRIL TWICE A DAY, # 48 mL, 1 Refills, Maintenance, 08/14/23 10:11:00 EST, [facility], 90, SPRAY 1 SPRAY INTO EACH NOSTRIL [...] 03/02/23 14:11:00 EDT, Route to Pharmacy Electronically, [facility]/pharmacy #[id number], Partial fill upon patient request if [...] Care Team Personnel Name: Genevieve Dexter Position: [facility] PCO Associate Professional Member Role: PCP Address: Address: [address] [place] [id number] Care Team Related Persons Name: ASHA GALLO Name: NICOLÁS SMITH Address: [place] [address]
--- OUTSIDE RECORDS SUMMARY | 2023-12-30 08:20 | XMS_ITS | Continuity of Care Document ---
Author Organization [facility] Address [address] [place] [address] [address] [place] [address]- Care Team Providers Care Grounds Maintenance Worker Name Role Phone Hayden SWAIN, Evi Gallo Primary Care Physician [phone] Encounter [facility] Date(s): 03/09/23 - 04/08/[address] [place], [place] [address] Allergies, Adverse Reactions, Alerts Substance Reaction Severity [...] receiving this injection. 2Admin Note: Distributed by: [employer] Manufactured by: HomeZada 3Admin Note: #2 08/27/03 #1 07/28/2003 Medications [...] tablet, 1 Refills, Maintenance, 11/20/22 3:46:00 EDT, [facility]/pharmacy #[id number], 165, cm, 09/13/22 17:16:00 EST, Height Start Date: 11/20/22 Status: Ordered Flonase 50 mcg/inh nasal spray 1 sprays, Nares, Both, 2 times a day, # 1 each, 5 Refills, Maintenance, 05/23/22 14:18:00 EDT, [place], [facility]/pharmacy #[id number], Partial fill upon patient request [...] 03/02/23 14:11:00 EDT, Route to Pharmacy Electronically, [facility]/pharmacy #[id number], Partial fill upon patient request if the prescription is for a schedule II opioi... Start Date: 03/02/23 Stop Date: 02/25/24 Status: Ordered Multi Vitamin+ 0 Refills, Maintenance, [...] Refills, Maintenance, 11/30/22 20:39:00 EDT, [facility], 165, cm, 11/22/22 9:29:00 EDT, Height Start [...] Personnel Name: Evi Blake MD Position: S Physician - Primary Care Member Role: PCP Address: Address: [address] [place] [address] [place] [address]- Care Team Related Persons Name: ASHA GALLO Name: NICOLÁS SMITH Address: [place] [address]
--- OUTSIDE RECORDS SUMMARY | 2023-12-30 08:20 | XMS_ITS | Continuity of Care Document ---
Author Organization [facility] Address [address] [place] [address]- Care Team Providers Care Bullet Assembly Press Setter Operator Name Role Phone Evi Blake MD Primary Care Physician Encounter [facility] Date(s): 10/19/22 - 02/16/23 [facility] [address] [place] [address]- Attending Physician: Eva Amezquita MD Admitting Physician: [...] receiving this injection. 2Admin Note: Distributed by: QderoPateo Communications[employer] Manufactured by: rubberit 3Admin Note: #2 08/27/03 #1 07/28/2003 Medications [...] tablet, 1 Refills, Maintenance, 11/20/22 3:46:00 EDT, [facility]/pharmacy #[id number], 165, cm, 09/13/22 17:16:00 EST, Height Start Date: 11/20/22 Status: Ordered Flonase 50 mcg/inh nasal spray 1 sprays, Nares, Both, 2 times a day, # 1 each, 5 Refills, Maintenance, 05/23/22 14:18:00 EDT, [place], [facility]/pharmacy #[id number], Partial fill upon [...] Refills, Maintenance, 11/30/22 20:39:00 EDT, [facility], 165, cm, 11/22/22 9:29:00 EDT, Height Start [...] Primary Care Member Role: PCP Address: Address: [address] [place] [address] [place] [address]- Care Team Related Persons Name: ASHA GALLO Name: NICOLÁS SMITH Address: [place] [address]
--- OUTSIDE RECORDS SUMMARY | 2023-12-30 08:20 | XMS_ITS | Continuity of Care Document ---
Author Organization [facility] Address [address] [place] [address]- Care Team Providers Care Industrial Sales Manager Name Role Phone Hayden SWAIN, Evi M Primary Care Physician Encounter [facility] Date(s): 01/25/23 - 02/24/23 [facility] [address] [place] [address]- Attending Physician: Yolanda Sanchez Admitting Physician: AdmYolanda urbina Referring Physician: AdmtrYolanda Allergies, Adverse Reactions, Alerts Substance Reaction Severity [...] receiving this injection. 2Admin Note: Distributed by: [employer] Manufactured by: Vettro 3Admin Note: #2 08/27/03 #1 07/28/2003 Medications [...] tablet, 1 Refills, Maintenance, 11/20/22 3:46:00 EDT, [facility]/pharmacy #[id number], 165, cm, 09/13/22 17:16:00 EST, Height Start Date: 11/20/22 Status: Ordered Flonase 50 mcg/inh nasal spray 1 sprays, Nares, Both, 2 times a day, # 1 each, 5 Refills, Maintenance, 05/23/22 14:18:00 EDT, [place], [facility]/pharmacy #[id number], Partial fill upon patient request if [...] tablet, 1 Refills, Maintenance, 11/30/22 20:39:00 EDT, [facility] STORE 157[facility], 165, cm, 11/22/22 9:29:00 EDT, Height Start [...] Status Never smoker entered on: 04/25/18 Sex Hospital Consult note * Event Display: Inpatient Consult Note, Non- Authored Date: XR Knee Views * Event Display: X-Ray Knee Authored Date: Radiology * Event Display: MRI Spine, Non- Authored Date: * Event Display: MRI Head, Non- Authored Date: * Event Display: CT Scan Abdomen, Non- BH Authored Date: * Event Display: MRI Spine, Non- BH Authored Date: * Event Display: MRI Head, Non- BH Authored Date: CT Pelvis * Event Display: CT Scan Pelvis Authored Date: MR Brain * Event Display: MRI Head Authored Date: MR Spine * Event Display: MRI Spine Authored Date: US Chest * Event Display: Ultrasound Chest Authored Date: US Pelvis * Event Display: Ultrasound Pelvis Authored Date: * Event Display: Ultrasound Pelvis Authored Date: MG Breast Views * Event Display: MM Mammogram Authored Date: * Event Display: MM Mammogram Authored Date: Patient Care team information Care Team Personnel Name: Evi Blake MD Position: S Physician - Primary Care Member Role: PCP Address: Address: [address] [place] [address] [place] [address]- [place] Care Team Related Persons Name: ASHA GALLO Name: NICOLÁS SMITH Address: [place] [address]
--- OUTSIDE RECORDS SUMMARY | 2023-12-30 08:20 | XMS_ITS | Continuity of Care Document ---
Author Organization [facility] Address [address] [place] [address]- Care Team Providers Care Parking Lot Laborer Name Role Phone Hayden SWAIN, Evi Gallo Primary Care Physician [place] [facility] [id number] Date(s): 11/10/22 - 02/16/23 [facility] [address] [place] [address]- Attending Physician: Eva Amezquita MD Admitting Physician: Eva Amezquita MD Allergies, Adverse Reactions, Alerts Substance Reaction [...] receiving this injection. 2Admin Note: Distributed by: [employer] Biosystem[employer] Manufactured by: Scoutforce 3Admin Note: #2 08/27/03 #1 07/28/2003 Medications [...] tablet, 1 Refills, Maintenance, 11/20/22 3:46:00 EDT, [facility]/pharmacy #[id number], 165, cm, 09/13/22 17:16:00 EST, Height Start Date: 11/20/22 Status: Ordered Flonase 50 mcg/inh nasal spray 1 sprays, Nares, Both, 2 times a day, # 1 each, 5 Refills, Maintenance, 05/23/22 14:18:00 EDT, [place], [facility]/pharmacy #[id number], Partial fill upon patient request [...] tablet, 1 Refills, Maintenance, 11/30/22 20:39:00 EDT, [facility]ORE 37[facility], 165, cm, 11/22/22 9:29:00 EDT, Height Start [...] Primary Care Member Role: PCP Address: Address: [address] [place] [address] [place] [address]- [place] Care Team Related Persons Name: ASHA GALLO Name: NICOLÁS SMITH Address: [place] [address]
--- OUTSIDE RECORDS SUMMARY | 2023-12-30 08:20 | XMS_ITS | Continuity of Care Document ---
Author Organization [facility] Address [address] [place] [address]- Care Team Providers Care Vehicle Operator Technician Name Role Phone Hayden SWAIN, Evi Gallo Primary Care Physician [place] [facility] [place](s): 10/07/22 - 11/06/22 [facility] [address] [place] [address]- [place] Allergies, Adverse Reactions, Alerts Substance Reaction Severity Status penicillin hives Active Pollen Active Bactrim very nauseaus and vomiting A ctive Dilaudid hallucinations Active Immunizations Given and Recorded Vaccine Date [...] receiving this injection. 2Admin Note: Distributed by: Shahiya Manufactured by: Outspark 3Admin Note: #2 08/27/03 #1 07/28/2003 Medications [...] Refills, Maintenance, 05/23/22 14:17:00 EDT, XL Tablet, [facility]/pharmacy #[id number], Partial fill upon patient request if the prescription is for a schedule II opioid drug., 165, cm, 05/16/22 11:04:00 EDT, Height Start Date: 05/23/22 Stop Date: 11/19/22 Status: Ordered Flonase 50 mcg/inh nasal spray 1 sprays, Nares, Both, 2 times a day, # 1 each, 5 Refills, Maintenance, 05/23/22 14:18:00 EDT, [place], [facility]/pharmacy #0693, Partial fill upon [...] 5 Refills, Maintenance, 05/23/22 14:17:00 EDT, Tablet, [facility]/pharmacy #[id number], Partial fill upon [...] Care Physician Member Role: PCP Address: Address: [address] [place] [address] [place] [address]- Care Team Related Persons Name: ASHA GALLO Name: NICOLÁS SMITH Address: [place] [address]
--- OUTSIDE RECORDS SUMMARY | 2023-12-30 08:20 | XMS_ITS | Continuity of Care Document ---
Author Organization [facility] [employer] Address [address] [place] [address]- Care Team Providers Care Packager Name Role Phone Genevieve Dexter Primary Care Physician [place] [facility] Date(s): 05/16/23 - 06/15/23 [facility] [address] [place] [address]- Allergies, Adverse Reactions, Alerts Substance Reaction Severity [...] receiving this injection. 2Admin Note: Distributed by: [employer] Manufactured by: BlockBeacon 3Admin Note: #2 08/27/03 #1 07/28/2003 Medications BP cuff BP cuff, See Instructions, # 1 each, Refills 0, Tot. Refills 0, Maintenance, BP cuff Diagnosis-HTN,ICD-I10, 09/16/22 14:33:00 EST, Supply Start Date: 09/16/22 Status: Ordered buPROPion 300 mg/24 hours (XL) oral tablet, extended release 1 tablet, By Mouth, Daily, # 90 tablet, 1 Refills, Maintenance, 05/24/23 14:11:00 EDT, [facility], 165, cm, 04/21/23 7:53:00 EDT, Height Start Date: 05/24/23 Status: Ordered Flonase 50 mcg/inh nasal spray 1 sprays, Nares, Both, 2 times a day, # 1 each, 5 Refills, Maintenance, 05/23/22 14:18:00 EDT, [id number], Partial fill upon patient request [...] EDT, Route to Pharmacy Electronically, [facility]/pharmacy #[id number], Partial fill upon patient request if the prescription is for a schedule II opioi... Start Date: 03/02/23 Stop Date: 02/25/24 Status: Ordered rosuvastatin 20 mg oral tablet 1 tablet, By Mouth, Daily, # 90 tablet, 1 Refills, Maintenance, 05/24/23 14:11:00 EDT, [facility], 165, cm, 04/21/23 7:53:00 EDT, Height Start [...] Care Team Personnel Name: Genevieve Dexter Position: [facility] PCO Associate Professional Member Role: PCP Address: Address: [address] [place] [address]- Care Team Related Persons Name: ASHA GALLO Name: NICOLÁS SMITH Address: [place] [address]
--- OUTSIDE RECORDS SUMMARY | 2023-12-30 08:20 | XMS_ITS | Continuity of Care Document ---
Author Organization [facility] Address [address] [place] [address]- Care Team Providers Care Brand Ambassador Name Role Phone Genevieve Dexter Primary Care Physician [phone] [place] [facility] Date(s): 11/24/23 - 12/24/23 [facility] Adult [address] [place] [address]- Allergies, Adverse Reactions, Alerts Substance Reaction Severity [...] receiving this injection. 2Admin Note: Distributed by: [employer] Manufactured by: Korem 3Admin Note: #2 08/27/03 #1 07/28/2003 Medications BP cuff BP cuff, See Instructions, # 1 each, Refills 0, Tot. Refills 0, Maintenance, BP cuff Diagnosis-HTN,ICD-I10, 09/16/22 14:33:00 EST, Supply Start Date: 09/16/22 Status: Ordered buPROPion 300 mg/24 hours (XL) oral tablet, extended release 1 tablet, By Mouth, Daily, # 90 tablet, 1 Refills, Maintenance, 05/24/23 14:11:00 EDT, [facility], 165, cm, 04/21/23 7:53:00 EDT, Height Start Date: 05/24/23 Status: Ordered fluticasone 50 mcg/inh nasal spray See Instructions, SPRAY 1 SPRAY INTO EACH NOSTRIL TWICE A DAY, # 48 mL, 1 Refills, Maintenance, 08/14/23 10:11:00 EST, [facility], 90, SPRAY 1 SPRAY INTO EACH NOSTRIL [...] 03/02/23 14:11:00 EDT, Route to Pharmacy Electronically, [facility]/pharmacy #[id number], Partial fill upon patient request if [...] Associate Professional Member Role: PCP Address: Address: [address] [place] [address]- Care Team Related Persons Name: ASHA GALLO Name: NICOLÁS SMITH Address: [place] [address]
--- OUTSIDE RECORDS SUMMARY | 2023-12-30 08:20 | XMS_ITS | Continuity of Care Document ---
Author Organization [facility] Address [address] [place] [address]- Care Team Providers Care Field Map Editor Name Role Phone Genevieve Dexter Primary Care Physician Encounter [facility] Date(s): 04/27/23 - 05/27/23 [facility] [address] [place] [address]- [place] Allergies, Adverse Reactions, Alerts Substance Reaction [...] receiving this injection. 2Admin Note: Distributed by: [employer] Manufactured by: [employer] 3Admin Note: #2 08/27/03 #1 07/28/2003 Medications BP cuff BP cuff, See Instructions, # 1 each, Refills 0, Tot. Refills 0, Maintenance, BP cuff Diagnosis-HTN,ICD-I10, 09/16/22 14:33:00 EST, Supply Start Date: 09/16/22 Status: Ordered buPROPion 300 mg/24 hours (XL) oral tablet, extended release 1 tablet, By Mouth, Daily, # 90 tablet, 1 Refills, Maintenance, 05/24/23 14:11:00 EDT, [facility], 165, cm, 04/21/23 7:53:00 EDT, Height Start Date: 05/24/23 Status: Ordered Flonase 50 mcg/inh nasal spray 1 sprays, Nares, Both, 2 times a day, # 1 each, 5 Refills, Maintenance, 05/23/22 14:18:00 EDT, [place], [facility]/pharmacy #[id number], Partial fill [...] 9:39:00 EDT, 05/23/23 9:39:00 EDT, [place], [facility]/pharmacy #[id number], Partial fill upon patient request if the prescription is for a schedule II opioid drug., 1... Start Date: 05/23/23 Stop Date: 05/30/23 Status: Ordered metoprolol 25 mg oral tablet, extended release 12.5 mg, 0.5, tablet, By Mouth, Daily, # 15 tablet, Refills 11, Tot. Refills 11, Maintenance, 03/02/23 14:11:00 EDT, Route to Pharmacy Electronically, [facility]/pharmacy #[id number], Partial fill upon patient request if the prescription is for a schedule II opioi... Start Date: 03/02/23 Stop Date: 02/25/24 Status: Ordered rosuvastatin 20 mg oral tablet 1 tablet, By Mouth, Daily, # 90 tablet, 1 Refills, Maintenance, 05/24/23 14:11:00 EDT, [facility], 165, cm, 04/21/23 7:53:00 EDT, Height Start [...] Care Team Personnel Name: Genevieve Dexter Position: [facility] PCO Associate Professional Member Role: PCP Address: Address: [address] [place] [address]- Care Team Related Persons Name: ASHA GALLO Name: NICOLÁS SMITH Address: [place] [address]
--- OUTSIDE RECORDS SUMMARY | 2023-12-30 08:20 | XMS_ITS | Continuity of Care Document ---
Author Organization [facility] Address [address] [place] [address]- Care Team Providers Care Design Cell Engineer Name Role Phone Hayden SWAIN, Evi Gallo Primary Care Physician [phone] Encounter [facility] Date(s): 02/01/23 - 03/03/23 [facility] [address] [place] [address]- [place] Allergies, Adverse Reactions, Alerts Substance Reaction [...] receiving this injection. 2Admin Note: Distributed by: [employer] Manufactured by: [employer] 3Admin Note: #2 08/27/03 #1 07/28/2003 Medications [...] tablet, 1 Refills, Maintenance, 11/20/22 3:46:00 EDT, [facility]/pharmacy #[id number], 165, cm, 09/13/22 17:16:00 EST, Height Start Date: 11/20/22 Status: Ordered Flonase 50 mcg/inh nasal spray 1 sprays, Nares, Both, 2 times a day, # 1 each, 5 Refills, Maintenance, 05/23/22 14:18:00 EDT, [place], [facility]/pharmacy #[id number], Partial fill upon patient [...] 03/02/23 14:11:00 EDT, Route to Pharmacy Electronically, [facility]/pharmacy #[id number], Partial fill upon patient [...] Refills, Maintenance, 11/30/22 20:39:00 EDT, [facility], 165, cm, 11/22/22 9:29:00 EDT, Height Start [...] Team Personnel Name: Evi Blake MD Position: [facility] Physician - Primary Care Member Role: PCP Address: Address: [address] [place] [address] [place] [address]- [place] Care Team Related Persons Name: ASHA GALLO Name: NICOLÁS SMITH Address: [place] [address]
--- OUTSIDE RECORDS SUMMARY | 2023-12-30 08:20 | XMS_ITS | Continuity of Care Document ---
Author Organization [facility] Lisandro [facility] Address [address] [place] [address]- Care Team Providers Care Music Internship Name Role Phone Tarun SMITH, Genevieve Rojo Primary Care Physician Encounter [facility] Date(s): 05/30/23 - 06/29/23 [facility] Adult [address] [place] [address]- Allergies, Adverse Reactions, Alerts Substance Reaction Severity [...] receiving this injection. 2Admin Note: Distributed by: [employer] Manufactured by: [employer] 3Admin Note: #2 08/27/03 #1 07/28/2003 Medications BP cuff BP cuff, See Instructions, # 1 each, Refills 0, Tot. Refills 0, Maintenance, BP cuff Diagnosis-HTN,ICD-I10, 09/16/22 14:33:00 EST, Supply Start Date: 09/16/22 Status: Ordered buPROPion 300 mg/24 hours (XL) oral tablet, extended release 1 tablet, By Mouth, Daily, # 90 tablet, 1 Refills, Maintenance, 05/24/23 14:11:00 EDT, [facility], 165, cm, 04/21/23 7:53:00 EDT, Height Start Date: 05/24/23 Status: Ordered Flonase 50 mcg/inh nasal spray 1 sprays, Nares, Both, 2 times a day, # 1 each, 5 Refills, Maintenance, 05/23/22 14:18:00 EDT, [place], [facility]/pharmacy #[id number], [...] 03/02/23 14:11:00 EDT, Route to Pharmacy Electronically, [facility]/pharmacy #[id number], Partial fill upon patient request if the prescription is for a schedule II opioi... Start Date: 03/02/23 Stop Date: 02/25/24 Status: Ordered rosuvastatin 20 mg oral tablet 1 tablet, By Mouth, Daily, # 90 tablet, 1 Refills, Maintenance, 05/24/23 14:11:00 EDT, [facility], 165, cm, 04/21/23 7:53:00 EDT, Height Start [...] I Confirmed Active Paroxysmal a-fib Confirmed Active Rhinitis Confirmed Active Bilateral sensorineural hearing loss Confirmed Active Tinnitus of left ear Confirmed Active Urinary incontinence Confirmed Active Social History Social History Type Response Smoking Status Never smoker entered on: 04/25/18 Sex Patient Care team information Care Team Personnel Name: Genevieve Dexter Position: [facility] PCO Associate Professional Member Role: PCP Address: Address: [address] [place] [id number] Care Team Related Persons Name: ASHA GALLO Name: NICOLÁS SMITH Address: [place] [address]
--- OUTSIDE RECORDS SUMMARY | 2023-12-30 08:20 | XMS_ITS | Continuity of Care Document ---
Author Organization [facility] Address [address] [place] [address] ve [address] [place] [address]- Care Team Providers Care Obiee Lead Developer Name Role Phone Evi Blake MD Primary Care Physician Encounter [facility] Date(s): 12/05/22 - 01/04/23 [facility] [address] [place] [address]- Allergies, Adverse Reactions, Alerts Substance Reaction Severity [...] receiving this injection. 2Admin Note: Distributed by: [employer] Manufactured by: [employer] 3Admin Note: #2 08/27/03 #1 07/28/2003 Medications [...] each, 5 Refills, Maintenance, 05/23/22 14:18:00 EDT, [place], [facility]/pharmacy #[id number], Partial fill [...] Refills, Maintenance, 11/30/22 20:39:00 EDT, [facility], 165, cm, 11/22/22 9:29:00 EDT, Height Start [...] Team Personnel Name: Evi Blake MD Position: [facility] Primary Care Physician Member Role: PCP Address: Address: [address] [place] [address] [place] [address]- [place] Care Team Related Persons Name: ASHA GALLO Name: NICOLÁS SMITH Address: [place] [address]
--- OUTSIDE RECORDS SUMMARY | 2023-12-30 08:20 | XMS_ITS | Continuity of Care Document ---
Author Organization [facility] Address [address] [place] [address]- Care Team Providers Care Small Business Sales Representative Name Role Phone Hayden SWAIN, Evi Gallo Primary Care Physician ([facility])[phone] Encounter [facility] Date(s): 12/22/22 - 01/21/23 [facility] [address] [place] [address]- Allergies, Adverse Reactions, Alerts Substance Reaction Severity [...] receiving this injection. 2Admin Note: Distributed by: [employer] Manufactured by: [employer] 3Admin Note: #2 08/27/03 #1 07/28/2003 Medications [...] tablet, 1 Refills, Maintenance, 11/20/22 3:46:00 EDT, [facility]/pharmacy #[id number], 165, cm, 09/13/22 17:16:00 EST, Height Start Date: 11/20/22 Status: Ordered Flonase 50 mcg/inh nasal spray 1 sprays, Nares, Both, 2 times a day, # 1 each, 5 Refills, Maintenance, 05/23/22 14:18:00 EDT, [place], [facility]/pharmacy #[id number], Partial fill upon patient [...] Refills, Maintenance, 11/30/22 20:39:00 EDT, [facility], 165, cm, 11/22/22 9:29:00 EDT, Height Start [...] Team Personnel Name: Evi Blake MD Position: [facility] Physician - Primary Care Member Role: PCP Address: Address: [address] [place] [address] [place] [address]- Care Team Related Persons Name: ASHA GALLO Name: NICOLÁS SMITH Address: [place] [address]
--- OUTSIDE RECORDS SUMMARY | 2023-12-30 08:20 | XMS_ITS | Continuity of Care Document ---
Author Organization [facility] Address [address] [facility] [place] [address]- Care Team Providers Care Cloth Covered Helmet Puller Name Role Phone Genevieve Dexter Primary Care Physician Encounter 07/06/23 - 07/13/23 [facility] [address], [address] [place] [address]- Attending Physician: Genevieve Dexter Admitting Physician: Genevieve Dexter Referring Physician: Genevieve Dexter Allergies, Adverse Reactions, Alerts [...] receiving this injection. 2Admin Note: Distributed by: [employer] Manufactured by: [employer] 3Admin Note: #2 08/27/03 #1 07/28/2003 Medications BP cuff BP cuff, See Instructions, # 1 each, Refills 0, Tot. Refills 0, Maintenance, BP cuff Diagnosis-HTN,ICD-I10, 09/16/22 14:33:00 EST, Supply Start Date: 09/16/22 Status: Ordered buPROPion 300 mg/24 hours (XL) oral tablet, extended release 1 tablet, By Mouth, Daily, # 90 tablet, 1 Refills, Maintenance, 05/24/23 14:11:00 EDT, [facility], 165, cm, 04/21/23 7:53:00 EDT, Height Start Date: 05/24/23 Status: Ordered Flonase 50 mcg/inh nasal spray 1 sprays, Nares, Both, 2 times a day, # 1 each, 5 Refills, Maintenance, 05/23/22 14:18:00 EDT, [place], [facility]/pharmacy #[id number], Partial fill upon patient [...] 03/02/23 14:11:00 EDT, Route to Pharmacy Electronically, [facility]/pharmacy #[id number], Partial fill upon patient request if the prescription is for a schedule II opioi... Start Date: 03/02/23 Stop Date: 02/25/24 Status: Ordered rosuvastatin 20 mg oral tablet 1 tablet, By Mouth, Daily, # 90 tablet, 1 Refills, Maintenance, 05/24/23 14:11:00 EDT, [facility], 165, cm, 04/21/23 7:53:00 EDT, Height Start [...] ear Confirmed Active Urinary incontinence Confirmed Active Results Radiology Reports * Exam Date Time Procedure Performing Provider Status 07/06/23 9:49 AM MM Digital Mammo Screening Kat Mcfarlane; Auth (Verified) Notes: (MM Digital Mammo Screening) Reason For Exam: Screening RESULT: MM Digital Mammo Screening PROCEDURE: MM Digital Mammo Screening INDICATION: Screening for breast cancer. No known palpable abnormalities. COMPARISON: Multiple priors most recently 05/31/2022 TECHNIQUE: Full-field digital CC and MLO 3D tomosynthesis images of both breasts were acquired. Computer-aided detection (CAD) was utilized in the interpretation of this study. DENSITY: The breast tissue contains scattered areas of fibroglandular density. FINDINGS: No suspicious masses, suspicious microcalcifications, or areas of architectural distortion are seen in either breast to suggest malignancy. Biopsy marker in place within the upper outer left breast. The previously described subcentimeter mass in the upper outer left breast is not evident on this exam. There is a stable small nodular density in the medial right breast on CC projection. IMPRESSION: No mammographic evidence of malignancy. RECOMMENDATION: Annual mammographic screening BI-RADS: 2 (Benign) Lay letter mailed to patient WSN: [id number] Ordering Physician: Genevieve Mcneil Dictated By: Del [place] MD Dictated Date/Time: 07/06/23 1:20 pm Reviewed By: Del [place] MD Signed By: Del [place] MD Signed Date/Time: 07/06/23 1:20 pm Transcribed By: [employer] Installer Date/Time: 07/06/23 1:14 pm Birads: Social History Social History Type Response Smoking Status Never smoker entered on: 04/25/18 Sex Patient Care team information Care Team Personnel Name: Genevieve Dexter Position: [facility] PCO Associate Professional Member Role: PCP Address: Address: [address] [place] [address] Care Team Related Persons Name: ASHA GALLO Name: NICOLÁS SMITH Address: [place] [address]
--- OUTSIDE RECORDS SUMMARY | 2023-12-30 08:20 | XMS_ITS | Continuity of Care Document ---
Author Organization [facility] Flo Lisandro lt Address [address] [place] [address]- Care Team Providers Care Group Exercise Class Instructor Name Role Phone Genevieve Dexter Primary Care Physician [facility] [facility] Date(s): 10/09/23 - 11/08/23 [facility] Adult [address] [place] [address]- Allergies, Adverse Reactions, Alerts Substance Reaction Severity [...] receiving this injection. 2Admin Note: Distributed by: [employer] Manufactured by: [employer] 3Admin Note: #2 08/27/03 #1 07/28/2003 Medications BP cuff BP cuff, See Instructions, # 1 each, Refills 0, Tot. Refills 0, Maintenance, BP cuff Diagnosis-HTN,ICD-I10, 09/16/22 14:33:00 EST, Supply Start Date: 09/16/22 Status: Ordered buPROPion 300 mg/24 hours (XL) oral tablet, extended release 1 tablet, By Mouth, Daily, # 90 tablet, 1 Refills, Maintenance, 05/24/23 14:11:00 EDT, [facility], 165, cm, 04/21/23 7:53:00 EDT, Height Start Date: 05/24/23 Status: Ordered fluticasone 50 mcg/inh nasal spray See Instructions, SPRAY 1 SPRAY INTO EACH NOSTRIL TWICE A DAY, # 48 mL, 1 Refills, Maintenance, 08/14/23 10:11:00 EST, [facility], 90, SPRAY 1 SPRAY INTO EACH NOSTRIL [...] 03/02/23 14:11:00 EDT, Route to Pharmacy Electronically, [facility]/pharmacy #[id number], Partial fill upon patient [...] Associate Professional Member Role: PCP Address: Address: [address] [place] [address]- Care Team Related Persons Name: ASHA GALLO Name: NICOLÁS SMITH Address: [place] [address]
--- OUTSIDE RECORDS SUMMARY | 2023-12-30 08:20 | XMS_ITS | Continuity of Care Document ---
Author Organization [facility] Lisandro lt Address [address] [place] [address]- Care Team Providers Care Ecommerce Project Manager Name Role Phone Genevieve Dexter Primary Care Physician [phone] Encounter [facility] Date(s): 06/26/23 - 07/26/23 [facility] Adult [address] [place] [address]- Allergies, Adverse Reactions, Alerts Substance Reaction Severity [...] receiving this injection. 2Admin Note: Distributed by: [employer] Manufactured by: [employer] 3Admin Note: #2 08/27/03 #1 07/28/2003 Medications BP cuff BP cuff, See Instructions, # 1 each, Refills 0, Tot. Refills 0, Maintenance, BP cuff Diagnosis-HTN,ICD-I10, 09/16/22 14:33:00 EST, Supply Start Date: 09/16/22 Status: Ordered buPROPion 300 mg/24 hours (XL) oral tablet, extended release 1 tablet, By Mouth, Daily, # 90 tablet, 1 Refills, Maintenance, 05/24/23 14:11:00 EDT, [facility], 165, cm, 04/21/23 7:53:00 EDT, Height Start Date: 05/24/23 Status: Ordered Flonase 50 mcg/inh nasal spray 1 sprays, Nares, Both, 2 times a day, # 1 each, 5 Refills, Maintenance, 05/23/22 14:18:00 EDT, [id number], Partial fill upon patient request [...] 03/02/23 14:11:00 EDT, Route to Pharmacy Electronically, [facility]/pharmacy #[id number], Partial fill upon patient request if the prescription is for a schedule II opioi... Start Date: 03/02/23 Stop Date: 02/25/24 Status: Ordered rosuvastatin 20 mg oral tablet 1 tablet, By Mouth, Daily, # 90 tablet, 1 Refills, Maintenance, 05/24/23 14:11:00 EDT, [facility], 165, cm, 04/21/23 7:53:00 EDT, Height Start [...] Associate Professional Member Role: PCP Address: Address: [address] [place] [address]- Care Team Related Persons Name: ASHA GALLO Name: NICOLÁS SMITH Address: [place] [address]
--- OUTSIDE RECORDS SUMMARY | 2023-12-30 08:20 | XMS_ITS | Continuity of Care Document ---
Author Organization [facility] Lisandro lt Address [address] [place] [address]- Care Team Providers Care Evp Managing Director Name Role Phone Geneveive Dexter Primary Care Physician [phone] Encounter [facility] Date(s): 05/22/23 - 06/21/23 [facility] Adult [address] [place] [address]- Allergies, Adverse Reactions, Alerts Substance Reaction Severity [...] receiving this injection. 2Admin Note: Distributed by: [employer] Manufactured by: [employer] 3Admin Note: #2 08/27/03 #1 07/28/2003 Medications BP cuff BP cuff, See Instructions, # 1 each, Refills 0, Tot. Refills 0, Maintenance, BP cuff Diagnosis-HTN,ICD-I10, 09/16/22 14:33:00 EST, Supply Start Date: 09/16/22 Status: Ordered buPROPion 300 mg/24 hours (XL) oral tablet, extended release 1 tablet, By Mouth, Daily, # 90 tablet, 1 Refills, Maintenance, 05/24/23 14:11:00 EDT, [facility], 165, cm, 04/21/23 7:53:00 EDT, Height Start Date: 05/24/23 Status: Ordered Flonase 50 mcg/inh nasal spray 1 sprays, Nares, Both, 2 times a day, # 1 each, 5 Refills, Maintenance, 05/23/22 14:18:00 EDT, [place], Partial fill upon patient request [...] 03/02/23 14:11:00 EDT, Route to Pharmacy Electronically, [facility]/pharmacy #[id number], Partial fill upon patient request if the prescription is for a schedule II opioi... Start Date: 03/02/23 Stop Date: 02/25/24 Status: Ordered rosuvastatin 20 mg oral tablet 1 tablet, By Mouth, Daily, # 90 tablet, 1 Refills, Maintenance, 05/24/23 14:11:00 EDT, [facility], 165, cm, 04/21/23 7:53:00 EDT, Height Start [...] Professional Member Role: PCP Address: Address: [address] [place] [address]- Care Team Related Persons Name: ASHA GALLO Name: NICOLÁS SMITH Address: [place] [address]
--- OUTSIDE RECORDS SUMMARY | 2023-12-30 08:20 | XMS_ITS | Continuity of Care Document ---
Author Organization [facility] Address [address] [place] [address]- Care Team Providers Care Putty And Patch Worker Name Role Phone Hayden SWAIN, Evi Gallo Primary Care Physician Encounter [facility] Date(s): 10/26/22 - 11/25/22 [facility] [address] [place] [address]- [place] Allergies, Adverse Reactions, Alerts Substance Reaction [...] receiving this injection. 2Admin Note: Distributed by: [employer] Manufactured by: [employer] 3Admin Note: #2 08/27/03 #1 07/28/2003 Medications [...] tablet, 1 Refills, Maintenance, 11/20/22 3:46:00 EDT, [facility]/pharmacy #[id number], 165, cm, 09/13/22 17:16:00 EST, Height Start Date: 11/20/22 Status: Ordered Flonase 50 mcg/inh nasal spray 1 sprays, Nares, Both, 2 times a day, # 1 each, 5 Refills, Maintenance, 05/23/22 14:18:00 EDT, [place], [facility]/pharmacy #[id number], Partial fill upon patient request [...] 5 Refills, Maintenance, 05/23/22 14:17:00 EDT, [place], [facility], Partial fill upon patient request [...] Care Physician Member Role: PCP Address: Address: [address] [place], [place] [address] [address]- Care Team Related Persons Name: ASHA GALLO Name: NICOLÁS SMITH Address: [place] [address]
--- OUTSIDE RECORDS SUMMARY | 2023-12-30 08:20 | XMS_ITS | Continuity of Care Document ---
Author Organization [facility] Address [address] [place] [address] Dr [address] [place] [address]- Care Team Providers Care Service Center Technician Name Role Phone Hayden SWAIN, Evi Gallo Primary Care Physician [phone] Encounter [facility] Date(s): 02/03/23 - 03/05/[address] [place], [place] [address] Allergies, Adverse Reactions, Alerts Substance Reaction Severity [...] receiving this injection. 2Admin Note: Distributed by: [employer] Manufactured by: [employer] 3Admin Note: #2 08/27/03 #1 07/28/2003 Medications [...] tablet, 1 Refills, Maintenance, 11/20/22 3:46:00 EDT, [facility]/pharmacy #[id number], 165, cm, 09/13/22 17:16:00 EST, Height Start Date: 11/20/22 Status: Ordered Flonase 50 mcg/inh nasal spray 1 sprays, Nares, Both, 2 times a day, # 1 each, 5 Refills, Maintenance, 05/23/22 14:18:00 EDT, [place], [facility]/pharmacy #0693, Partial fill upon patient [...] 03/02/23 14:11:00 EDT, Route to Pharmacy Electronically, [facility]/pharmacy #[id number], Partial fill upon patient [...] Refills, Maintenance, 11/30/22 20:39:00 EDT, [facility], 165, cm, 11/22/22 9:29:00 EDT, Height Start [...] Care Member Role: PCP Address: Address: [address] [place] [address] [place] [address]- Care Team Related Persons Name: ASHA GALLO Name: NICOLÁS SMITH Address: [place] [address]
--- OUTSIDE RECORDS SUMMARY | 2023-12-30 08:20 | XMS_ITS | Continuity of Care Document ---
Author Organization [facility] Address [address] [place] [address]- Care Team Providers Care Information Systems Auditor Name Role Phone Hayden SWAIN, Evi Gallo Primary Care Physician [phone] [facility] [id number] Date(s): 09/05/22 - 10/05/22 [facility] [address] [place] [address]- Attending Physician: Yolanda Sanchez Admitting Physician: AdmYolanda [...] receiving this injection. 2Admin Note: Distributed by: [employer] Manufactured by: [employer] 3Admin Note: #2 08/27/03 #1 07/28/2003 Medications [...] Refills, Maintenance, 05/23/22 14:17:00 EDT, [place] Table[place], [facility]/pharmacy #[id number], Partial fill upon patient request if the prescription is for a schedule II opioid drug., 165, cm, 05/16/22 11:04:00 EDT, Height Start Date: 05/23/22 Stop Date: 11/19/22 Status: Ordered Flonase 50 mcg/inh nasal spray 1 sprays, Nares, Both, 2 times a day, # 1 each, 5 Refills, Maintenance, 05/23/22 14:18:00 EDT, [place], [facility]/pharmacy #[id number], Partial fill upon patient request if [...] Status Never smoker entered on: 04/25/18 Sex XR Knee Views * Event Display: X-Ray Knee Authored Date: CT Pelvis * Event Display: CT Scan Pelvis Authored Date: MR Brain * Event Display: MRI Head Authored Date: Deprecated MR Spine study * Event Display: MRI Spine Authored Date: US Chest * Event Display: Ultrasound Chest Authored Date: US Pelvis * Event Display: Ultrasound Pelvis Authored Date: * Event Display: Ultrasound Pelvis Authored Date: Note * Event Display: MM Mammogram Authored Date: * Event Display: MM Mammogram Authored Date: Patient Care team information Care Team Personnel Name: Evi Blake MD Position: [facility] Primary Care Physician Member Role: PCP Address: Address: [address] [place] [address]- Care Team Related Persons Name: ASHA GALLO Name: NICOLÁS SMITH Address: [place] [address]
--- OUTSIDE RECORDS SUMMARY | 2023-12-30 08:20 | XMS_ITS | Continuity of Care Document ---
Author Organization [facility] Address [address] [place] [address]- Care Team Providers Care Cafeteria Team Leader Name Role Phone Hayden SWAIN, Evi Gallo Primary Care Physician ([facility])[phone] Encounter [facility] Date(s): 11/22/22 - 12/22/22 [facility] [address] [place] [address]- Attending Physician: Yolanda Sanchez Admitting Physician: Yolanda Sanchez Referring Physician: Yolanda Sanchez Allergies, Adverse Reactions, Alerts Substance Reaction Severity Status penicillin hives Active Dilaudid hallucinations Active Bactrim very nauseaus and vomiting A ctive Pollen Active Immunizations Given and Recorded Vaccine Date Status Refusal Reason influenza virus vaccine, inactivated 05/27/20 Evaristo rded influenza virus vaccine, inactivated 05/15/19 Evaristo rded influenza virus vaccine, inactivated 05/24/18 Evaristo rded influenza virus vaccine, inactivated 05/24/17 Evraisto rded influenza virus vaccine, inactivated 06/16/15 Evaristo [...] receiving this injection. 2Admin Note: Distributed by: Neuron Systems[employer] Manufactured by: Skuid 3Admin Note: #2 08/27/03 #1 07/28/2003 Medications [...] 1 Refills, Maintenance, 11/20/22 3:46:00 EDT, [facility]/pharmacy #[id number], 165, cm, 09/13/22 17:16:00 EST, Height Start Date: 11/20/22 Status: Ordered Flonase 50 mcg/inh nasal spray 1 sprays, Nares, Both, 2 times a day, # 1 each, 5 Refills, Maintenance, 05/23/22 14:18:00 EDT, [place], [facility]/pharmacy #[id number], Partial fill upon patient request [...] tablet, 1 Refills, Maintenance, 11/30/22 20:39:00 EDT, [facility] STORE 39730, 165, cm, 11/22/22 9:29:00 EDT, Height Start [...] Status Never smoker entered on: 04/25/18 Sex Note * Event Display: EKG Non BH Authored Date: * Event Display: Cardiology Office Note, Non-BH Authored Date: * Event Display: Cardiology Office Note, Non-BH Authored Date: * Event Display: Cardiology Office Note, Non-BH Authored Date: * Event Display: EKG Non BH Authored Date: * Event Display: Non BH Cardiovascular Results Authored Date: Patient Care team information Care Team Personnel Name: Evi Blake MD Position: [facility] Primary Care Physician Member Role: PCP Address: Address: [address] [place] [address] [place] [address]- Care Team Related Persons Name: ASHA GALLO Name: NICOLÁS SMITH Address: [place] [address]
--- OUTSIDE RECORDS SUMMARY | 2023-12-30 08:20 | XMS_ITS | Continuity of Care Document ---
Author Organization [facility] Address [address] [place] [address]- Care Team Providers Care Collection Systems Modeler Name Role Phone aHyden SWAIN, Evi Gallo Primary Care Physician ([facility])[phone] Encounter [facility] Date(s): 12/06/22 - 01/05/23 [facility] [address] [place] [address]- Allergies, Adverse Reactions, Alerts Substance Reaction Severity [...] receiving this injection. 2Admin Note: Distributed by: [employer]me[employer] Manufactured by: [employer] 3Admin Note: #2 08/27/03 #1 07/28/2003 Medications [...] Refills, Maintenance, 11/20/22 3:46:00 EDT, [facility]/pharmacy #[id number], 165, cm, 09/13/22 17:16:00 EST, Height Start Date: 11/20/22 Status: Ordered Flonase 50 mcg/inh nasal spray 1 sprays, Nares, Both, 2 times a day, # 1 each, 5 Refills, Maintenance, 05/23/22 14:18:00 EDT, [place], [facility]/pharmacy #[id number], Partial fill upon patient [...] Refills, Maintenance, 11/30/22 20:39:00 EDT, [facility], 165, cm, 11/22/22 9:29:00 EDT, Height Start [...] Team Personnel Name: Evi Blake MD Position: [facility] Primary Care Physician Member Role: PCP Address: Address: [address] [place] [address] [place] [address]- Care Team Related Persons Name: ASHA GALLO Name: NICOLÁS SMITH Address: [place] [address]
--- OUTSIDE RECORDS SUMMARY | 2023-12-30 08:21 | XMS_ITS | Continuity of Care Document ---
Author Organization [facility] Address [address] [place] [address] [address] [place] [address]- Care Team Providers Care Electric Car Operator Name Role Phone Evi Blake MD Primary Care Physician Encounter [facility] Date(s): 12/06/22 - 01/05/23 [facility] [address] [place], [place] [address] Allergies, Adverse Reactions, Alerts Substance Reaction Severity [...] receiving this injection. 2Admin Note: Distributed by: Snapbridge [employer] Manufactured by: ParkVu 3Admin Note: #2 08/27/03 #1 07/28/2003 Medications [...] tablet, 1 Refills, Maintenance, 11/20/22 3:46:00 EDT, [facility]/pharmacy #[id number], 165, cm, 09/13/22 17:16:00 EST, Height Start Date: 11/20/22 Status: Ordered Flonase 50 mcg/inh nasal spray 1 sprays, Nares, Both, 2 times a day, # 1 each, 5 Refills, Maintenance, 05/23/22 14:18:00 EDT, [place], [facility]/pharmacy #[id number], Partial fill upon patient request [...] Refills, Maintenance, 11/30/22 20:39:00 EDT, [facility], 165, cm, 11/22/22 9:29:00 EDT, Height Start [...] Team Personnel Name: Evi Blake MD Position: [facility] Primary Care Physician Member Role: PCP Address: Address: [address] [place] [address] [place] [address]- [place] Care Team Related Persons Name: ASHA GALLO Name: NICOLÁS SMITH Address: [place] [address]
--- OUTSIDE RECORDS SUMMARY | 2023-12-30 08:21 | XMS_ITS | Continuity of Care Document ---
Author Organization [facility] Address [address] [place] [address]- Care Team Providers Care Online Merchandiser Name Role Phone Hayden SWAIN, Evi Gallo Primary Care Physician Encounter [facility] Date(s): 09/16/22 - 10/16/22 [facility] [address] [place] [address]- [place] Allergies, Adverse Reactions, Alerts Substance Reaction [...] receiving this injection. 2Admin Note: Distributed by: Lumenpulse Manufactured by: Whim 3Admin Note: #2 08/27/03 #1 07/28/2003 Medications [...] Refills, Maintenance, 05/23/22 14:17:00 EDT, [place], [facility]/pharmacy #[id number], Partial fill upon patient request if the prescription is for a schedule II opioid drug., 165, cm, 05/16/22 11:04:00 EDT, Height Start Date: 05/23/22 Stop Date: 11/19/22 Status: Ordered Flonase 50 mcg/inh nasal spray 1 sprays, Nares, Both, 2 times a day, # 1 each, 5 Refills, Maintenance, 05/23/22 14:18:00 EDT, [place], [facility]/pharmacy #[id number], Partial fill upon [...] 5 Refills, Maintenance, 05/23/22 14:17:00 EDT, [place], [facility]/pharmacy #[id number], Partial fill upon [...] Care Physician Member Role: PCP Address: Address: [address] [place] [address] [place] [address]- Care Team Related Persons Name: ASHA GALLO Name: NICOLÁS SMITH Address: [place] [address]
--- OUTSIDE RECORDS SUMMARY | 2023-12-30 08:21 | XMS_ITS | Continuity of Care Document ---
Author Organization [facility] Flo Lisandro lt Address [address] [place] [address]- Care Team Providers Care Pneumatic Systems Operator Name Role Phone Genevieve Dexter Primary Care Physician Encounter [facility] Date(s): 10/05/23 - 11/04/23 [facility] Balaji [place] Adult [address] [place] [address]- Attending Physician: Admtr, Yolanda Admitting Physician: Admtr, Yolanda Referring Physician: Admtr, Ar8 Allergies, Adverse Reactions, Alerts Substance Reaction Severity [...] receiving this injection. 2Admin Note: Distributed by: [employer] Manufactured by: [employer] 3Admin Note: #2 08/27/03 #1 07/28/2003 Medications BP cuff BP cuff, See Instructions, # 1 each, Refills 0, Tot. Refills 0, Maintenance, BP cuff Diagnosis-HTN,ICD-I10, 09/16/22 14:33:00 EST, Supply Start Date: 09/16/22 Status: Ordered buPROPion 300 mg/24 hours (XL) oral tablet, extended release 1 tablet, By Mouth, Daily, # 90 tablet, 1 Refills, Maintenance, 05/24/23 14:11:00 EDT, [facility], 165, cm, 04/21/23 7:53:00 EDT, Height Start Date: 05/24/23 Status: Ordered fluticasone 50 mcg/inh nasal spray See Instructions, SPRAY 1 SPRAY INTO EACH NOSTRIL TWICE A DAY, # 48 mL, 1 Refills, Maintenance, 08/14/23 10:11:00 EST, [facility], 90, SPRAY 1 SPRAY INTO EACH NOSTRIL [...] 03/02/23 14:11:00 EDT, Route to Pharmacy Electronically, [facility]/pharmacy #[id number], Partial fill upon patient request if the prescription is for a schedule II opioi... Start Date: 03/02/23 Stop Date: 02/25/24 Status: Ordered rosuvastatin 20 mg oral tablet 1 tablet, By Mouth, Daily, # 90 tablet, 1 Refills, Maintenance, 10/16/23 18:53:00 EST, [facility]/pharmacy#[id number], 165, cm, 10/05/23 21:29:00 EST, Height Start [...] Status Never smoker entered on: 04/25/18 Sex Radiology * Event Display: MRI Head, Non- Authored Date: Patient Care team information Care Team Personnel Name: Genevieve Dexter Position: [facility] Associate Professional Member Role: PCP Address: Address: [address] [place] [address]- Care Team Related Persons Name: ASHA GALLO Name: NICOLÁS SMITH Address: [place] [address]
--- OUTSIDE RECORDS SUMMARY | 2023-12-30 08:21 | XMS_ITS | Continuity of Care Document ---
Author Organization [facility] Lisandro lt Address [address] [place] [address]- Care Team Providers Care Physician Extender Name Role Phone Genevieve Dexter Primary Care Physician En[place] [facility] Date(s): 08/13/23 - 09/12/23 [facility] Adult [address] [place] [address]- Allergies, Adverse Reactions, Alerts Substance Reaction Severity [...] receiving this injection. 2Admin Note: Distributed by: [employer] Manufactured by: Brain[employer] 3Admin Note: #2 08/27/03 #1 07/28/2003 Medications BP cuff BP cuff, See Instructions, # 1 each, Refills 0, Tot. Refills 0, Maintenance, BP cuff Diagnosis-HTN,ICD-I10, 09/16/22 14:33:00 EST, Supply Start Date: 09/16/22 Status: Ordered buPROPion 300 mg/24 hours (XL) oral tablet, extended release 1 tablet, By Mouth, Daily, # 90 tablet, 1 Refills, Maintenance, 05/24/23 14:11:00 EDT, [facility], 165, cm, 04/21/23 7:53:00 EDT, Height Start Date: 05/24/23 Status: Ordered fluticasone 50 mcg/inh nasal spray See Instructions, SPRAY 1 SPRAY INTO EACH NOSTRIL TWICE A DAY, # 48 mL, 1 Refills, Maintenance, 08/14/23 10:11:00 EST, [facility], 90, SPRAY 1 SPRAY INTO EACH NOSTRIL [...] 03/02/23 14:11:00 EDT, Route to Pharmacy Electronically, [facility]/pharmacy #[id number], Partial fill upon patient request if the prescription is for a schedule II opioi... Start Date: 03/02/23 Stop Date: 02/25/24 Status: Ordered rosuvastatin 20 mg oral tablet 1 tablet, By Mouth, Daily, # 90 tablet, 1 Refills, Maintenance, 05/24/23 14:11:00 EDT, [facility], 165, cm, 04/21/23 7:53:00 EDT, Height Start [...] Associate Professional Member Role: PCP Address: Address: [address] [place] [address]- Care Team Related Persons Name: ASHA GALLO Name: NICOLÁS SMITH Address: [place] [address]
--- OUTSIDE RECORDS SUMMARY | 2023-12-30 08:21 | XMS_ITS | Continuity of Care Document ---
Author Organization [facility] Address [address] [place] [address]- Care Team Providers Care Retail Analyst Name Role Phone Hayden SWAIN, Evi Gallo Primary Care Physician En[place] [facility] Date(s): 09/19/22 - 10/19/22 [facility] [address] [place] [address]- [place] Allergies, Adverse Reactions, Alerts Substance Reaction [...] receiving this injection. 2Admin Note: Distributed by: Summify Manufactured by: [employer] 3Admin Note: #2 08/27/03 #1 07/28/2003 Medications [...] each, 5 Refills, Maintenance, 05/23/22 14:18:00 EDT, [place], [facility]/pharmacy #[id number], Partial fill [...] Care Physician Member Role: PCP Address: Address: [address] [place] [address] [place] [address]- Care Team Related Persons Name: ASHA GALLO Name: NICOLÁS SMITH Address: [place] [address]
--- OUTSIDE RECORDS SUMMARY | 2023-12-30 08:21 | XMS_ITS | Continuity of Care Document ---
Author Organization [facility] Flo Lisandro lt Address [address] [place] [address]- Care Team Providers Care In Home Tutor Name Role Phone Genevieve Dexter Primary Care Physician [phone] Encounter [facility] [place] [facility] Date(s): 06/29/23 - 07/06/23 [facility] Adult [address] [place] [address]- Encounter Diagnosis Tinnitus of left ear(Discharge Diagnosis) - 06/29/23 Rhinitis(Discharge Diagnosis) - 06/29/23 Attending Physician: Sukhdeep Mireles DO Referring Physician: Genevieve Dexter Allergies, Adverse Reactions, [...] receiving this injection. 2Admin Note: Distributed by: Shodogg[employer] Manufactured by: Sweepery 3Admin Note: #2 08/27/03 #1 07/28/2003 Medications BP cuff BP cuff, See Instructions, # 1 each, Refills 0, Tot. Refills 0, Maintenance, BP cuff Diagnosis-HTN,ICD-I10, 09/16/22 14:33:00 EST, Supply Start Date: 09/16/22 Status: Ordered buPROPion 300 mg/24 hours (XL) oral tablet, extended release 1 tablet, By Mouth, Daily, # 90 tablet, 1 Refills, Maintenance, 05/24/23 14:11:00 EDT, [facility], 165, cm, 04/21/23 7:53:00 EDT, Height Start Date: 05/24/23 Status: Ordered Flonase 50 mcg/inh nasal spray 1 sprays, Nares, Both, 2 times a day, # 1 each, 5 Refills, Maintenance, 05/23/22 14:18:00 EDT, [place], [facility]/pharmacy #[id number], Partial [...] 14:11:00 EDT, Route to Pharmacy Electronically, [facility]/pharmacy #[id number], Partial fill upon patient request if the prescription is for a schedule II opioi... Start Date: 03/02/23 Stop Date: 02/25/24 Status: Ordered rosuvastatin 20 mg oral tablet 1 tablet, By Mouth, Daily, # 90 tablet, 1 Refills, Maintenance, 05/24/23 14:11:00 EDT, [facility], 165, cm, 04/21/23 7:53:00 EDT, Height Start [...] ear Confirmed Active Urinary incontinence Confirmed Active Diagnosis Diagnosis Type Effective Dates Health Status Cl inical Service Informant Tinnitus of left ear Discharge Diagnosis 06/29/23 Rhinitis Discharge Diagnosis 06/29/23 Vital Signs Most recent to oldest [Reference Range]: 1 Height 165.0 cm (06/29/23 3:49 PM) Weight 83.0 kg (06/29/23 3:49 PM) Oxygen Saturation [94-100 %] 98 % (06/29/23 3:49 PM) Pulse Rate [55-90 bpm] 76 bpm (06/29/23 3:49 PM) Body Mass Index [18.5-24.99 kg/m2] 30.49 kg/m2 *>HHI* (06/29/23 3:49 PM) Blood Pressure [90-138/55-84 mm Hg] 135/ 75mm Hg (06/29/23 3:49 PM) Blood pressure sites Arm, right (06/29/23 3:49 PM) Social History Social History Type Response Smoking Status Never smoker entered on: 04/25/18 Sex Patient Care team information Care Team Personnel Name: Genevieve Dexter Position: [facility] Associate Professional Member Role: PCP Address: Address: [address] [place] [address]- Care Team Related Persons Name: ASHA GALLO Name: NICOLÁS SMITH Address: [place] [address]
--- OUTSIDE RECORDS SUMMARY | 2023-12-30 08:21 | XMS_ITS | Continuity of Care Document ---
Author Organization [facility] Lisandro lt Address [address] [place] [address]- Care Team Providers Care Director Financial Services Name Role Phone Genevieve Dexter Primary Care Physician [place] [facility] Date(s): 05/23/23 - 06/22/23 [facility] Adult [address] [place] [address]- Allergies, Adverse Reactions, Alerts Substance Reaction Severity [...] receiving this injection. 2Admin Note: Distributed by: [employer] Manufactured by: St[employer] 3Admin Note: #2 08/27/03 #1 07/28/2003 Medications BP cuff BP cuff, See Instructions, # 1 each, Refills 0, Tot. Refills 0, Maintenance, BP cuff Diagnosis-HTN,ICD-I10, 09/16/22 14:33:00 EST, Supply Start Date: 09/16/22 Status: Ordered buPROPion 300 mg/24 hours (XL) oral tablet, extended release 1 tablet, By Mouth, Daily, # 90 tablet, 1 Refills, Maintenance, 05/24/23 14:11:00 EDT, [facility], 165, cm, 04/21/23 7:53:00 EDT, Height Start Date: 05/24/23 Status: Ordered Flonase 50 mcg/inh nasal spray 1 sprays, Nares, Both, 2 times a day, # 1 each, 5 Refills, Maintenance, 05/23/22 14:18:00 EDT, [place], [id number], Partial fill upon patient request [...] 03/02/23 14:11:00 EDT, Route to Pharmacy Electronically, [facility]/pharmacy #[id number], Partial fill upon patient request if the prescription is for a schedule II opioi... Start Date: 03/02/23 Stop Date: 02/25/24 Status: Ordered rosuvastatin 20 mg oral tablet 1 tablet, By Mouth, Daily, # 90 tablet, 1 Refills, Maintenance, 05/24/23 14:11:00 EDT, [facility], 165, cm, 04/21/23 7:53:00 EDT, Height Start [...] Care Team Personnel Name: Genevieve Dexter Position: [facility] Associate Professional Member Role: PCP Address: Address: [address] [place] [address]- Care Team Related Persons Name: ASHA GALLO Name: NICOLÁS SMITH Address: [place] [address]
--- OUTSIDE RECORDS SUMMARY | 2023-12-30 08:21 | XMS_ITS | Continuity of Care Document ---
Author Organization [facility] Address [address] [place] [address]- Care Team Providers Care Steamboat Captain Name Role Phone Hayden SWAIN, Evi Gallo Primary Care Physician [phone] Encounter [facility] [place] [facility] Date(s): 12/29/22 - 01/28/23 [facility] [address] [place] [address]- [place] Allergies, Adverse Reactions, Alerts Substance Reaction [...] receiving this injection. 2Admin Note: Distributed by: [employer] - [employer] Manufactured by: VidSys 3Admin Note: #2 08/27/03 #1 07/28/2003 Medications aspirin 81 mg oral capsule 1 capsule = 81 mg, By Mouth, Every 4 hours, 0 Refills, Maintenance, 05/16/22 11:06:00 EDT, Partial fill upon patient request if the prescription is for a schedule II opioid drug. Start Date: 05/16/22 Status: Ordered Azithromycin 5 Day Dose Pack 250 mg oral tablet See Instructions, as directed on package labeling, # 6 tablet, 0 Refills, Acute 02/01/23 9:26:00 EDT, 01/25/23 9:26:00 EDT, [facility]/pharmacy #[id number], Partial fill upon patient request if the prescription is for a schedule II opioid drug., 165, cm, 01/25/23... Start Date: 01/25/23 Stop Date: 02/01/23 Status: Ordered BP cuff BP cuff, See Instructions, # 1 each, Refills 0, Tot. Refills 0, Maintenance, BP cuff Diagnosis-HTN,ICD-I10, 09/16/22 14:33:00 EST, Supply Start Date: 09/16/22 Status: Ordered buPROPion 300 mg/24 hours (XL) oral tablet, extended release 1 tablet, By Mouth, Daily, # 90 tablet, 1 Refills, Maintenance, 11/20/22 3:46:00 EDT, [facility]/pharmacy #[id number], 165, cm, 09/13/22 17:16:00 EST, Height Start Date: 11/20/22 Status: Ordered Flonase 50 mcg/inh nasal spray 1 sprays, Nares, Both, 2 times a day, # 1 each, 5 Refills, Maintenance, 05/23/22 14:18:00 EDT, [place], [facility]/pharmacy #[id number], Partial fill upon patient request if [...] Refills, Maintenance, 11/30/22 20:39:00 EDT, [facility], 165, cm, 11/22/22 9:29:00 EDT, Height Start [...] Primary Care Member Role: PCP Address: Address: [address] [place], [place] [address], [place] [address]- [place] Care Team Related Persons Name: ASHA GALLO Name: NICOLÁS SMITH Address: [place] [address]
--- OUTSIDE RECORDS SUMMARY | 2023-12-30 08:21 | XMS_ITS | Continuity of Care Document ---
Author Organization [facility] Balaji Rossi Lisandro lt Address [address] [place] [address]- Care Team Providers Care Immigration Law Specialist Name Role Phone Genevieve Dexter Primary Care Physician Encounter [facility] Date(s): 04/21/23 - 04/28/23 [facility] Adult [address] [place] [address]- Encounter Diagnosis Medicare annual wellness visit, subsequent(Discharge Diagnosis) - 04/21/23 Memory change(Discharge Diagnosis) - 04/21/23 Hyperlipidemia(Discharge Diagnosis) - 04/21/23 Paroxysmal a-fib(Discharge Diagnosis) - 04/21/23 Attending Physician: Genevieve Dexter Allergies, Adverse Reactions, [...] receiving this injection. 2Admin Note: Distributed by: [employer]flakes[employer] Manufactured by: [employer] 3Admin Note: #2 08/27/03 #1 07/28/2003 Medications BP cuff BP cuff, See Instructions, # 1 each, Refills 0, Tot. Refills 0, Maintenance, BP cuff Diagnosis-HTN,ICD-I10, 09/16/22 14:33:00 EST, Supply Start Date: 09/16/22 Status: Ordered Flonase 50 mcg/inh nasal spray 1 sprays, Nares, Both, 2 times a day, # 1 each, 5 Refills, Maintenance, 05/23/22 14:18:00 EDT, [place], [facility]/pharmacy #[id number], Partial fill upon patient request if [...] EDT, Route to Pharmacy Electronically, [facility]/pharmacy #[id number], Partial fill upon patient request if the prescription is for a schedule II opioi... Start Date: 03/02/23 Stop Date: 02/25/24 Status: Ordered rosuvastatin 20 mg oral tablet 1 tablet, By Mouth, Daily, # 90 tablet, 1 Refills, Maintenance, 11/30/22 20:39:00 EDT, [facility], 165, cm, 11/22/22 9:29:00 EDT, Height Start Date: 11/30/22 Status: Ordered Problem List Condition Confirmation Course Effective Dates Status H ealth Status Informant Asthma - currently dormant Confirmed Active Depression Confirmed 06/11/10 Active Excessive weight gain Confirmed Active Hyperlipidemia Confirmed Active IBS - Irritable bowel syndrome Confirmed Active LBP - Low back pain Confirmed Active Paroxysmal a-fib Confirmed Active Urinary incontinence Confirmed Active Diagnosis Diagnosis Type Effective Dates Health Status Clinical Service Informant Medicare annual wellness visit, subsequent Discharge Diagnosis 04/21/23 Memory change Discharge Diagnosis 04/21/23 Hyperlipidemia Discharge Diagnosis 04/21/23 Paroxysmal a-fib Discharge Diagnosis 04/21/23 Vital Signs Most recent to oldest [Reference Range]: 1 Height 165.0 cm (04/21/23 7:53 AM) Weight 81.6 kg (04/21/23 7:53 AM) Oxygen Saturation [94-100 %] 100 % (04/21/23 7:53 AM) Pulse Rate [55-90 bpm] 61 bpm (04/21/23 7:53 AM) Body Mass Index [18.5-24.99 kg/m2] 29.97 kg/m2 *H* (04/21/23 7:53 AM) Blood Pressure [90-138/55-84 mm Hg] 121/ 54mm Hg (04/21/23 7:53 AM) Respiratory Rate [16-30 br/min] 16 br/mi n (04/21/23 7:53 AM) Temperature [96.8-100.4 DegF] 97.5 DegF (04/21/23 7:53 AM) Mode of Delivery (Oxygen) Room air (04/21/23 7:53 AM) Blood pressure sites Arm, left (04/21/23 7:53 AM) Temperature Route Oral (04/21/23 7:53 AM) Weight Obtained Via Standing scale (04/21/23 7:53 AM) Social History Social History Type Response Smoking Status Never smoker entered on: 04/25/18 Sex Patient Care team information Care Team Personnel Name: Genevieve Dexter Position: [facility] PCO Associate Professional Member Role: PCP Address: Address: [address] [place] [address]- Care Team Related Persons Name: ASHA GALLO Name: NICOLÁS SMITH Address: [place] [address]
--- OUTSIDE RECORDS SUMMARY | 2023-12-30 08:21 | XMS_ITS | Continuity of Care Document ---
Author Organization [facility] Address [address] [place] [address]- Care Team Providers Care Locomotive Mechanic Apprentice Name Role Phone Evi Blake MD Primary Care Physician Encounter [facility] Date(s): 09/05/22 - 09/12/22 [facility] Adult [facility] [address] [place], [place] [id number]- Attending Physician: Evi Blake MD Allergies, Adverse Reactions, [...] receiving this injection. 2Admin Note: Distributed by: [employer] Manufactured by: Anxa 3Admin Note: #2 08/27/03 #1 07/28/2003 Medications aspirin 81 mg oral capsule 1 capsule = 81 mg, By Mouth, Every 4 hours, 0 Refills, Maintenance, 05/16/22 11:06:00 EDT, Partial fill upon patient request if the prescription is for a schedule II opioid drug. Start Date: 05/16/22 Status: Ordered buPROPion 300 mg/24 hours (XL) oral tablet, extended release 1 tablet = 300 mg, By Mouth, Daily, # 30 tablet, 5 Refills, Maintenance, 05/23/22 14:17:00 EDT, XL Tablet, [facility]/pharmacy #[id number], Partial fill upon patient request if the prescription is for a schedule II opioid drug., 165, cm, 05/16/22 11:04:00 EDT, Height Start Date: 05/23/22 Stop Date: 11/19/22 Status: Ordered Flonase 50 mcg/inh nasal spray 1 sprays, Nares, Both, 2 times a day, # 1 each, 5 Refills, Maintenance, 05/23/22 14:18:00 EDT, [id number] Partial fill upon patient request if [...] opioid drug. Start Date: 09/05/22 Status: Ordered Problem List Condition Confirmation Course Effective Dates Status H ealth Status Informant Asthma - currently dormant Confirmed Active Depression Confirmed 06/11/10 Active Excessive weight gain Confirmed Active Hyperlipidemia Confirmed Active IBS - Irritable bowel syndrome Confirmed Active LBP - Low back pain Confirmed Active Paroxysmal a-fib Confirmed Active Urinary incontinence Confirmed Active Vital Signs Most recent to oldest [Reference Range]: 1 Height 165 cm (09/05/22 8:09 AM) Social History Social History Type Response Smoking Status Never smoker entered on: 04/25/18 Sex Note * Sandra Baeza: PERFORM, SIGN, VERIFY Event Display: Patient Education/Instruction Authored Date: [id number] [facility] *BMP Qu[facility] Med Bltn Clinical Summary Name RANDA EARL Age 62 Years 1960 PCP Hayden SWAIN, Evi Gallo PCP Visit Date 09/05/2022 08:09:00 Additional Instructions: Scheduled Appointments?? Future Appointments ?*[facility]??Cardiology1 ?[address]??[place],??[place],??[address] ?Phone:??--?Fax:??-- ?Appt. Date:??09/13/2022?9:45 AM ?Scheduled Provider:??Alirio SWAIN, Eva Chicas Follow-Up Instructions ?? Diagnosis Unspecified asthma, uncomplicated; Hyperlipidemia, unspecified; Deviated nasal septum Medications: Please continue your medications until treatment is completed or stopped by your provider. Discuss any questions related to medications with your provider. New Medications These medications were not printed or sent to your pharmacy Metoprolol (metoprolol 25 mg oral tablet, extended release) 1 tab(s) Oral Daily for 30 Days. Refills: 0. Next Dose: Pantoprazole (pantoprazole 40 mg oral delayed release tablet) 1 tab(s) Oral Daily. Refills: 0. Next Dose: Sucralfate (sucralfate 1 gm oral tablet) 1 tab(s) Oral twice a day. Refills: 0. Next Dose: Medications to Continue with No Changes These medications were not printed or sent to your pharmacy Aspirin (aspirin 81 mg oral capsule) 1 capsule Oral every 4 hours. Next Dose: BuPROpion (buPROPion 300 mg/24 hours (XL) oral tablet, extended release) 1 tab(s) Oral Daily for 30Days. Refills: 5. Next Dose: Fluticasone Nasal (Flonase 50 mcg/inh nasal spray) 1 spray(s) Nares, Both twice a day for 30 Days. Refills: 5. Next Dose: Hydrochlorothiazide-Lisinopril (hydrochlorothiazide-lisinopril 12.5 mg-10 mg oral tablet) 1 tab(s) Oral Daily. Next Dose: Rosuvastatin (rosuvastatin 20 mg oral tablet) 1 tab(s) Oral Daily. Refills: 5. Next Dose: Allergy Info:?? Pollen; Bactrim; Dilaudid; penicillin Medications Given This Visit Future Orders ?No future orders Vital Signs Height 165 cm Weight BMI Blood Pressure / Temperature Pulse Rate Respiratory Rate 02 Sat Mode of Delivery / You can now view a summary of your hospital visit from the comfort of your home through a free online portal called SGB. SGB is a website that allows you to securely view your medical information including discharge summary, medications and follow-up visits. ??You can alsosend a secure electronic message to your doctor???s office to request appointments, renew medications or just ask a question. You can enroll at [email or web address] or register during your next office visit. Disclaimer:?? The information provided is of a general nature and is intended to be used in conjunction with the recommendations and advice of your health care practitioner. ??Every effort has been made to ensure that the information provided is accurate and complete at the time it is provided to you however, as your needs change, or, as new ??information becomes available, different or additional instructions may be required. If you have questions, please consult with your primary care provider or pharmacist, as appropriate. ??This information is not intended to serve as substitution for assessment and evaluation by a qualified health care provider. If you do not have a primary care provider, you may find a [facility] provider by calling [facility] [employer] Link at [phone]. For information about the plan of care including goals and instructions for your diagnosis, please see the patient education orders section of this document. Patient Education Materials?? The content of this educational material or handout may have been modified, supplemented, or adapted from its original content and format to support your individualized medical care. * Event Display: EKG Non BH Authored Date: * Event Display: X-Ray Hip/Groin, Non- BH Authored Date: * Event Display: X-Ray Hip/Groin, Non- BH Authored Date: * Event Display: MM Mammogram Authored Date: * Event Display: X-Ray Chest, Non- BH Authored Date: * Event Display: X-Ray Neck, Non- BH Authored Date: * Event Display: Non BH Cardiovascular Results Authored Date: Patient Care team information Care Team Personnel Name: Hayden SWAIN, Evi Gallo Position: S Primary Care Physician Member Role: PCP Address: Address: [address] [place] [address] [place] [address]- Care Team Related Persons Name: ASHA GALLO Name: NICOLÁS SMITH Address: [place] [address]
--- OUTSIDE RECORDS SUMMARY | 2023-12-30 08:21 | XMS_ITS | Continuity of Care Document ---
Author Organization [facility] Address [address] [place] [address]- Care Team Providers Care Computer Information Systems Instructor Name Role Phone Genevieve Dexter Primary Care Physician [phone] [place] [facility] Date(s): 05/20/23 - 07/14/[address] [address] Attending Physician: Genevieve Dexter Admitting Physician: Genevieve Dexter Referring Physician: Genevieve Dexter Allergies, Adverse Reactions, Alerts Substance Reaction Severity Status penicillin hives Active Bactrim very nauseaus and vomiting A ctive Pollen Active Dilaudid hallucinations Active Immunizations Given and Recorded [...] receiving this injection. 2Admin Note: Distributed by: [employer] Manufactured by: [employer] 3Admin Note: #2 08/27/03 #1 07/28/2003 Medications BP cuff BP cuff, See Instructions, # 1 each, Refills 0, Tot. Refills 0, Maintenance, BP cuff Diagnosis-HTN,ICD-I10, 09/16/22 14:33:00 EST, Supply Start Date: 09/16/22 Status: Ordered buPROPion 300 mg/24 hours (XL) oral tablet, extended release 1 tablet, By Mouth, Daily, # 90 tablet, 1 Refills, Maintenance, 05/24/23 14:11:00 EDT, [facility], 165, cm, 04/21/23 7:53:00 EDT, Height Start Date: 05/24/23 Status: Ordered Flonase 50 mcg/inh nasal spray 1 sprays, Nares, Both, 2 times a day, # 1 each, 5 Refills, Maintenance, 05/23/22 14:18:00 EDT, [place], [facility]/pharmacy #[id number], Partial [...] 03/02/23 14:11:00 EDT, Route to Pharmacy Electronically, [facility]/pharmacy #[id number], Partial fill upon patient request if the prescription is for a schedule II opioi... Start Date: 03/02/23 Stop Date: 02/25/24 Status: Ordered rosuvastatin 20 mg oral tablet 1 tablet, By Mouth, Daily, # 90 tablet, 1 Refills, Maintenance, 05/24/23 14:11:00 EDT, [facility], 165, cm, 04/21/23 7:53:00 EDT, Height Start [...] Associate Professional Member Role: PCP Address: Address: [address] [place] [address]- Care Team Related Persons Name: ASHA GALLO Name: NICOLÁS SMITH Address: [place] [address]
--- OUTSIDE RECORDS SUMMARY | 2023-12-30 08:21 | XMS_ITS | Continuity of Care Document ---
Author Organization [facility] Address [address] [place] [address]- Care Team Providers Care Reliability Technologist Name Role Phone Genevieve Dexter Primary Care Physician [place] [facility] [place]18[place]23 [place] 05/18/23 [facility] [address] [place] [address]- Attending Physician: Yolanda Sanchez Admitting Physician: AdmYolanda urbina Referring Physician: Yolanda Sanchez Allergies, Adverse Reactions, [...] receiving this injection. 2Admin Note: Distributed by: [employer] Manufactured by: [employer] 3Admin Note: #2 08/27/03 #1 07/28/2003 Medications BP cuff BP cuff, See Instructions, # 1 each, Refills 0, Tot. Refills 0, Maintenance, BP cuff Diagnosis-HTN,ICD-I10, 09/16/22 14:33:00 EST, Supply Start Date: 09/16/22 Status: Ordered Flonase 50 mcg/inh nasal spray 1 sprays, Nares, Both, 2 times a day, # 1 each, 5 Refills, Maintenance, 05/23/22 14:18:00 EDT, [place], [facility]/pharmacy #[id number], Partial fill upon patient [...] 03/02/23 14:11:00 EDT, Route to Pharmacy Electronically, [facility]/pharmacy #[id number], Partial fill upon patient request if the prescription is for a schedule II opioi... Start Date: 03/02/23 Stop Date: 02/25/24 Status: Ordered rosuvastatin 20 mg oral tablet 1 tablet, By Mouth, Daily, # 90 tablet, 1 Refills, Maintenance, 11/30/22 20:39:00 EDT, [facility], 165, cm, 11/22/22 9:29:00 EDT, Height Start [...] Status Never smoker entered on: 04/25/18 Sex Cardiology * Event Display: EKG Non Authored Date: * Event Display: Cardiology Office Note, Non- Authored Date: * Event Display: Cardiology Office Note, Non-BH Authored Date: * Event Display: Cardiology Office Note, Non-BH Authored Date: * Event Display: EKG Non BH Authored Date: * Event Display: Non BH Cardiovascular Results Authored Date: Patient Care team information Care Team Personnel Name: Genevieve Dexter Position: S PCO Associate Professional Member Role: PCP Address: Address: [address] [place] [address] Care Team Related Persons Name: ASHA GALLO Name: NICOLÁS SMITH Address: [place] [address]
--- OUTSIDE RECORDS SUMMARY | 2023-12-30 08:21 | XMS_ITS | Continuity of Care Document ---
Author Organization [facility] Flo Lisandro lt Address [address] [place] [address]- Care Team Providers Care Delivery Driver Assistant Name Role Phone Genevieve Dexter Primary Care Physician [place] [facility] Date(s): 04/21/23 - 05/21/23 [facility] Adult [address] [place] [address]- Attending Physician: Admtr, Yolanda Admitting Physician: Admtr, [...] receiving this injection. 2Admin Note: Distributed by: [employer] Manufactured by: [employer]skills 3Admin Note: #2 08/27/03 #1 07/28/2003 Medications BP cuff BP cuff, See Instructions, # 1 each, Refills 0, Tot. Refills 0, Maintenance, BP cuff Diagnosis-HTN,ICD-I10, 09/16/22 14:33:00 EST, Supply Start Date: 09/16/22 Status: Ordered Flonase 50 mcg/inh nasal spray 1 sprays, Nares, Both, 2 times a day, # 1 each, 5 Refills, Maintenance, 05/23/22 14:18:00 EDT, [place], [facility]/pharmacy #[id number], Partial fill upon patient request if [...] 03/02/23 14:11:00 EDT, Route to Pharmacy Electronically, [facility]/pharmacy #[id number], Partial fill upon patient request if the prescription is for a schedule II opioi... Start Date: 03/02/23 Stop Date: 02/25/24 Status: Ordered rosuvastatin 20 mg oral tablet 1 tablet, By Mouth, Daily, # 90 tablet, 1 Refills, Maintenance, 11/30/22 20:39:00 EDT, [facility], 165, cm, 11/22/22 9:29:00 EDT, Height Start [...] Care Team Personnel Name: Genevieve Dexter Position: [facility] PCO Associate Professional Member Role: PCP Address: Address: [address] [place] [address]- Care Team Related Persons Name: ASHA GALLO Name: NICOLÁS SMITH Address: [place] [address]
--- OUTSIDE RECORDS SUMMARY | 2023-12-30 08:21 | XMS_ITS | Continuity of Care Document ---
Author Organization [facility] Address [address] [place] [address]- Care Team Providers Care Title Agent Name Role Phone Hayden SWAIN, Evi Gallo Primary Care Physician ([facility])[phone] [place] [facility] 11/11/22 - 12/11/22 [facility] [address] [place] [address]- Allergies, Adverse Reactions, Alerts Substance Reaction Severity [...] receiving this injection. 2Admin Note: Distributed by: [employer] Manufactured by: [employer] 3Admin Note: #2 08/27/03 #1 07/28/2003 Medications [...] tablet, 1 Refills, Maintenance, 11/20/22 3:46:00 EDT, [facility]/pharmacy #[id number], 165, cm, 09/13/22 17:16:00 EST, Height Start Date: 11/20/22 Status: Ordered Flonase 50 mcg/inh nasal spray 1 sprays, Nares, Both, 2 times a day, # 1 each, 5 Refills, Maintenance, 05/23/22 14:18:00 EDT, [place], [facility]/pharmacy #[id number], Partial fill upon patient request [...] Refills, Maintenance, 11/30/22 20:39:00 EDT, [facility], 165, cm, 11/22/22 9:29:00 EDT, Height Start [...] Care team information Care Team Personnel Name: Eiv Blake MD Position: [facility] Primary Care Physician Member Role: PCP Address: Address: [address] [place] [address] [place] [address]- Care Team Related Persons Name: ASHA GALLO Name: NICOLÁS SMITH Address: [place] [address]
--- OUTSIDE RECORDS SUMMARY | 2023-12-30 08:21 | XMS_ITS | Continuity of Care Document ---
Author Organization [facility] Lisandro lt Address [address] [place] [address]- Care Team Providers Care Soldering Machine Setter Name Role Phone Genevieve Dexter Primary Care Physician [place] [facility](s): 05/23/23 - 06/22/23 [facility] Adult [address] [place] [address]- Allergies, Adverse Reactions, Alerts Substance Reaction Severity [...] receiving this injection. 2Admin Note: Distributed by: [employer] Manufactured by: Stretchr 3Admin Note: #2 08/27/03 #1 07/28/2003 Medications BP cuff BP cuff, See Instructions, # 1 each, Refills 0, Tot. Refills 0, Maintenance, BP cuff Diagnosis-HTN,ICD-I10, 09/16/22 14:33:00 EST, Supply Start Date: 09/16/22 Status: Ordered buPROPion 300 mg/24 hours (XL) oral tablet, extended release 1 tablet, By Mouth, Daily, # 90 tablet, 1 Refills, Maintenance, 05/24/23 14:11:00 EDT, [facility], 165, cm, 04/21/23 7:53:00 EDT, Height Start Date: 05/24/23 Status: Ordered Flonase 50 mcg/inh nasal spray 1 sprays, Nares, Both, 2 times a day, # 1 each, 5 Refills, Maintenance, 05/23/22 14:18:00 EDT, [id number], Partial fill upon patient request [...] 03/02/23 14:11:00 EDT, Route to Pharmacy Electronically, [facility]/pharmacy #[id number], Partial fill upon patient request if the prescription is for a schedule II opioi... Start Date: 03/02/23 Stop Date: 02/25/24 Status: Ordered rosuvastatin 20 mg oral tablet 1 tablet, By Mouth, Daily, # 90 tablet, 1 Refills, Maintenance, 05/24/23 14:11:00 EDT, [facility], 165, cm, 04/21/23 7:53:00 EDT, Height Start [...] Care Team Personnel Name: Genevieve Dexter Position: [facility] PCO Associate Professional Member Role: PCP Address: Address: [address] [place] [address]- Care Team Related Persons Name: ASHA GALLO Name: NICOLÁS SMITH Address: [place] [address]
--- OUTSIDE RECORDS SUMMARY | 2023-12-30 08:21 | XMS_ITS | Continuity of Care Document ---
Author Organization [facility] Address [address] [place] [address]- Care Team Providers Care Ring Maker Name Role Phone Hayden SWAIN, Evi M Primary Care Physician Encounter [facility] Date(s): 01/20/23 - 02/19/23 [facility] Adult Medicine [address] [place] [address]- [place] Allergies, Adverse Reactions, Alerts Substance Reaction [...] receiving this injection. 2Admin Note: Distributed by: [employer] Manufactured by: [employer] 3Admin Note: #2 08/27/03 #1 07/28/2003 Medications [...] 1 Refills, Maintenance, 11/20/22 3:46:00 EDT, [facility]/pharmacy #[id number], 165, cm, 09/13/22 17:16:00 EST, Height Start Date: 11/20/22 Status: Ordered Flonase 50 mcg/inh nasal spray 1 sprays, Nares, Both, 2 times a day, # 1 each, 5 Refills, Maintenance, 05/23/22 14:18:00 EDT, [place], [facility]/pharmacy #[id number], [...] 1 Refills, Maintenance, 11/30/22 20:39:00 EDT, [facility] 348[facility], 165, cm, 11/22/22 9:29:00 EDT, Height Start [...] Team Personnel Name: Evi Blake MD Position: [facility] Physician - Primary Care Member Role: PCP Address: Address: [address] [place] [address] [place] [address]- [place] Care Team Related Persons Name: ASHA GALLO Name: NICOLÁS SMITH Address: [place] [address]
--- OUTSIDE RECORDS SUMMARY | 2023-12-30 08:21 | XMS_ITS | Continuity of Care Document ---
Author Organization [facility] Address [address] [place] [address]- Care Team Providers Care Band Leader Name Role Phone Hayden SWAIN, Evi Gallo Primary Care Physician [place] [facility] [place] 03/02/23 - 04/01/23 [facility] [address] [place] [address]- [place] Allergies, Adverse Reactions, Alerts Substance Reaction [...] receiving this injection. 2Admin Note: Distributed by: [employer] Manufactured by: [employer]x 3Admin Note: #2 08/27/03 #1 07/28/2003 Medications [...] tablet, 1 Refills, Maintenance, 11/20/22 3:46:00 EDT, [facility]/pharmacy #[id number], 165, cm, 09/13/22 17:16:00 EST, Height Start Date: 11/20/22 Status: Ordered Flonase 50 mcg/inh nasal spray 1 sprays, Nares, Both, 2 times a day, # 1 each, 5 Refills, Maintenance, 05/23/22 14:18:00 EDT, [place], [facility]/pharmacy #[id number], Partial [...] Refills, Maintenance, 11/30/22 20:39:00 EDT, [facility], 165, cm, 11/22/22 9:29:00 EDT, Height Start [...] Team Personnel Name: Evi Blake MD Position: [facility] Physician - Primary Care Member Role: PCP Address: Address: [address] [place] [address] [place] [address]- [place] Care Team Related Persons Name: ASHA GALLO Name: NICOLÁS SMITH Address: [place] [address]
--- OUTSIDE RECORDS SUMMARY | 2023-12-30 08:21 | XMS_ITS | Continuity of Care Document ---
Author Organization [facility] [facility] Address [address] [place] [address]- Care Team Providers Care Creative Writing Teacher Name Role Phone Hayden SWAIN, Evi Gallo Primary Care Physician [phone] Encounter [facility] Date(s): 12/22/22 - 01/21/23 [facility] [employer] [facility] Adult Medicine [address] [place] [address]- [place] Allergies, Adverse Reactions, Alerts Substance Reaction [...] receiving this injection. 2Admin Note: Distributed by: [employer] Manufactured by: [employer] 3Admin Note: #2 08/27/03 #1 07/28/2003 Medications [...] tablet, 1 Refills, Maintenance, 11/20/22 3:46:00 EDT, [facility]/pharmacy #[id number], 165, cm, 09/13/22 17:16:00 EST, Height Start Date: 11/20/22 Status: Ordered Flonase 50 mcg/inh nasal spray 1 sprays, Nares, Both, 2 times a day, # 1 each, 5 Refills, Maintenance, 05/23/22 14:18:00 EDT, [place], [facility]/pharmacy #[id number], Partial fill upon patient request [...] Refills, Maintenance, 11/30/22 20:39:00 EDT, [facility], 165, cm, 11/22/22 9:29:00 EDT, Height Start [...] Team Personnel Name: Evi Blake MD Position: [facility] Physician - Primary Care Member Role: PCP Address: Address: [address] [place] [address] [place] [address]- Care Team Related Persons Name: ASHA GALLO Name: NICOLÁS SMITH Address: [place] [address]
--- OUTSIDE RECORDS SUMMARY | 2023-12-30 08:21 | XMS_ITS | Continuity of Care Document ---
Author Organization [facility] Address [address] [place] [address]- Care Team Providers Care Narcotics Agent Name Role Phone Hayden SWAIN, Evi Gallo Primary Care Physician ([facility])[phone] Encounter [facility] [place] Date(s): 12/06/22 - 01/05/23 [facility] [address] [place] [address]- Allergies, Adverse Reactions, Alerts Substance Reaction Severity [...] receiving this injection. 2Admin Note: Distributed by: [employer] Manufactured by: [employer] 3Admin Note: #2 08/27/03 #1 07/28/2003 Medications [...] 1 Refills, Maintenance, 11/20/22 3:46:00 EDT, [facility]/pharmacy #[id number], 165, cm, 09/13/22 17:16:00 EST, Height Start Date: 11/20/22 Status: Ordered Flonase 50 mcg/inh nasal spray 1 sprays, Nares, Both, 2 times a day, # 1 each, 5 Refills, Maintenance, 05/23/22 14:18:00 EDT, [place], [facility]/pharmacy #[id number], Partial fill upon patient request [...] Refills, Maintenance, 11/30/22 20:39:00 EDT, [facility], 165, cm, 11/22/22 9:29:00 EDT, Height Start [...] Team Personnel Name: Evi Blake MD Position: [facility] Primary Care Physician Member Role: PCP Address: Address: [address] [place] [address] [place] [address]- Care Team Related Persons Name: ASHA GALLO Name: NICOLÁS SMITH Address: [place] [address]
--- OUTSIDE RECORDS SUMMARY | 2023-12-30 08:21 | XMS_ITS | Continuity of Care Document ---
Author Organization [facility] Address [address] [place] [address]- Care Team Providers Care Health Spa Manager Name Role Phone Hayden SWAIN, Evi Gallo Primary Care Physician [place] [facility] [place] 04/[place]/23 [facility] [address] [place] [address]- [place] Allergies, Adverse Reactions, Alerts Substance Reaction Severity Status penicillin hives Active Dilaudid hallucinations Active Bactrim very nauseaus and vomiting A ctive Pollen Active Immunizations Given and Recorded Vaccine Date Status Refusal Reason influenza virus vaccine, inactivated 05/27/20 Evaristo rded influenza virus vaccine, inactivated 05/15/19 Evaristo rded influenza virus vaccine, inactivated 05/24/18 Evarsito rded influenza virus vaccine, inactivated 05/24/17 Evaristo [...] receiving this injection. 2Admin Note: Distributed by: [employer] Manufactured by: [employer] 3Admin Note: #2 08/27/03 #1 07/28/2003 Medications [...] tablet, 1 Refills, Maintenance, 11/20/22 3:46:00 EDT, [facility]/pharmacy #[id number], 165, cm, 09/13/22 17:16:00 EST, Height Start Date: 11/20/22 Status: Ordered Flonase 50 mcg/inh nasal spray 1 sprays, Nares, Both, 2 times a day, # 1 each, 5 Refills, Maintenance, 05/23/22 14:18:00 EDT, [place], [facility]/pharmacy #[id number], Partial fill upon patient request [...] 03/02/23 14:11:00 EDT, Route to Pharmacy Electronically, [facility]/pharmacy #[id number], Partial fill upon patient request [...] Refills, Maintenance, 11/30/22 20:39:00 EDT, [id number], 165, cm, 11/22/22 9:29:00 EDT, Height Start [...] Team Personnel Name: Evi Blake MD Position: [facility] Physician - Primary Care Member Role: PCP Address: Address: [address] [place], [place] [address]bin [place] [address]- [place] Care Team Related Persons Name: ASHA GALLO Name: NICOLÁS SMITH Address: [place] [address]
--- NOTE | 2023-12-30 08:22 | ED.BACK ---
HPI - Back Pain/Injury General Chief Complaint: Back Pain/Injury Stated Complaint: L leg pain Time Seen by Provider: 12/30/23 08:09 Source: patient Mode of arrival: ambulatory Limitations: no limitations History of Present Illness HPI Narrative: a 63-year-old female presented with low back pain with radiation to the left lower extremity started 5 days ago after patient hurt herself getting up from a rocking chair felt pop in her lower back, pain is progressively worsening pain is localized to the lower back and radiates to the left lower extremity and left groin area. No urinary frequency, no hematuria, no dysuria. No palpable mass, no history of hernia, normal bowel movement, passing flatus, history of bariatric bypass surgery patient has no abdominal pain, no nausea, no vomiting. No weakness, no numbness, no urinary incontinence. Patient had a history of microdiskectomy. Related Data Home Medications ?Medication ?Instructions ?Recorded ?Confirmed albuterol sulfate 90 mcg/actuation 2 puff inhalation Q4H PRN Wheezing 06/24/20 01/20/23 aerosol inhaler epinephrine 0.3 mg/0.3 mL 0.3 mg IM DIRECTED allergies 06/24/20 01/20/23 injection, auto-injector fluticasone propionate 50 1 spray intranasal DAILY 06/24/20 01/20/23 mcg/actuation nasal spray,suspension rosuvastatin 20 mg tablet 20 mg PO QAM 06/24/20 01/20/23 lisinopril 20 mg tablet 20 mg PO DAILY 01/20/23 01/20/23 Previous Rx's ?Medication ?Instructions ?Recorded metoprolol succinate 25 mg 25 mg PO DAILY #90 tabs 10/10/22 tablet,extended release 24 hr pantoprazole 40 mg tablet,delayed 40 mg PO DAILY #30 tabs 11/22/22 release calcium citrate 315 mg-vitamin D3 1 tab PO BID #60 tabs 12/06/22 5 mcg (200 unit) tablet (Calcium Citrate + D) cyclobenzaprine 10 mg tablet 10 mg PO TID PRN muscle spasm #10 12/30/23 tabs oxycodone 5 mg tablet 5 mg PO Q8H PRN pain #7 tabs 12/30/23 Allergies Allergy/AdvReac Type Severity Reaction Status Date / Time hydromorphone [From DILAUDID] Allergy Intermediate HALLUCINATI Verified 12/30/23 07:54 ONS Penicillins Allergy Mild HIVES Verified 12/30/23 07:54 sulfamethoxazole Allergy Mild N/V Verified 12/30/23 07:54 [From Bactrim] trimethoprim [From Bactrim] Allergy Mild N/V Verified 12/30/23 07:54 Pertussis Vaccines AdvReac Intermediate fever up Verified 12/30/23 07:54 to 104 dogs, cats Allergy Intermediate nasal Uncoded 12/30/23 07:54 congestion/sneezing SEASONAL ALLERGIES Allergy Intermediate NASAL Uncoded 12/30/23 07:54 CONGESTION, SNEEZING Review of Systems Review of Systems: all other systems are reviewed and are negative Constitutional: Reports as per HPI and Reports no additional constitutional complaints Eyes: Reports as per HPI and Reports no additional eye complaints Reports system reviewed and no additional complaints, except as documented Cardiovascular: Reports as per HPI and Reports no additional cardiovascular complaints Respiratory: Reports as per HPI and Reports no additional respiratory complaints Gastrointestinal: Reports as per HPI and Reports no additional gastrointestinal complaints Genitourinary: Reports no additional female genitourinary complaints Musculoskeletal: Reports no additional musculoskeletal complaints Skin/Breast: Reports system reviewed and no additional complaints, except as docu Psychiatric: Reports no additional psychiatric complaints Endocrine: Reports no additional endocrine complaints Hematologic/Lymphatic: Reports no additional hematologic/lymphatic complaints Allergic/Immunologic: Reports no additional allergic/immunologic complaints Reports system reviewed and no additional complaints, except as documented and Reports Abnormal speech present [facility] Past Medical History Medical History History of COVID-19 Arthritis Hepatitis GERD (gastroesophageal reflux disease) BMI 33.0-33.9,adult Depression Hypertension BMI 37.0-37.9, adult Obesity Exertional angina Urgency incontinence Asthma Paroxysmal A-fib Aortic valve sclerosis Papilledema Osteoarthritis Carpal tunnel syndrome, right Migraine without aura Lumbar disc disease Dyslipidemia Esophageal obstruction Surgical History Hx of tonsillectomy History of meniscectomy of left knee H/O colonoscopy delivery delivered History of cataract surgery History of microdiscectomy History of tumor Family History Family History Father CAD (coronary artery disease) History of quadruple bypass Mother HTN (hypertension) Brother CVD (cardiovascular disease) History of heart attack Paternal Grandfather Heart disease Paternal Grandmother Heart disease Maternal Aunt Colon cancer Paternal Uncle Heart disease Brother No problems noted. Brother No problems noted. Brother No problems noted. Son No problems noted. Daughter No problems noted. Daughter No problems noted. Maternal Aunt Ovarian cancer Social History Social History Household Members: None Household Members Other:: lives alone but in two family home w/family members in other apt. Housing: House Are you a primary day care home provider to a significant other at home: No Do you presently have visiting nurse or other home services: No Alcohol intake: never Patient Tobacco Use Status: Never used Tobacco Smoked in Last 30 Days: No Use of substances other than those prescribed or required for medical reasons: No Advance Directives: No Advance Directives Information Provided: Yes Patient : No service: No Current occupational status: employed Physical Exam Vital Signs: Vital Signs: Last Vital Signs Temp 98.0 F 12/30/23 09:17 Pulse 66 12/30/23 09:17 Resp 18 12/30/23 09:17 BP 144/69 H 12/30/23 09:17 Pulse Ox 98 12/30/23 09:17 O2 Del Method Room Air 12/30/23 09:17 BMI result Body Mass Index 30.8 Vital signs have been reviewed and appear to be correct. Blood pressure elevated. Heart rate normal. Respiratory rate normal. Temperature normal. Oxygen saturation normal. Appearance: Alert. Oriented X3. No acute distress. Head: Normal external exam. Normocephalic. Atraumatic. No Beltran signs noted. No raccoon eyes noted Eyes: PERRLA. EOMI. Conjunctiva and sclera normal. Eyelids normal. ENT: TM's Normal. Pharynx normal. Uvula midline. Moist mucous membranes. No trismus noted. No drooling noted. No muffled voice noted. Neck: Normal inspection. Neck supple. FROM. No adenopathy. Thyroid Normal. No meningeal signs. No neck mass noted. CVS: Normal heart rate and rhythm. Heart sound normal. No murmurs noted. Pulses normal throughout. Respiratory: No respiratory distress. Painless inspiration. Breath sounds normal. No wheezes/rales/rhonchi noted. Chest nontender. No accessory muscle usage noted or decreased air movement noted. Abdomen: Soft and nontender. Bowel sounds normal in all 4 quadrants. No distention noted. No organomegaly noted. No visible injury noted. Back: No CVA tenderness. Full range of motion noted. Skin: Skin warm and dry. Normal skin color. Normal skin turgor. No rashes/lesions/lacerations noted. Extremities: No lower extremity edema. Extremities exhibit normal range of motion. Extremities nontender. Neuro: Oriented X 3. Cranial nerve exam: II-XII are grossly intact No motor deficit. No sensory deficit. Reflexes normal. Perianal sensation is intact. Course Reevaluation(s) Reevaluation #1: Patient received Dilaudid and Toradol in the emergency department no side effects from Dilaudid, patient feels relaxed, pain down to 0, able to ambulate without tenderness or pain, ultrasound showed no DVT in the lower extremity, labs UA is unrevealing. Patient will be discharged on oxycodone and cyclobenzaprine. Instructed to contact her spinal surgeon and make an appointment with him. Time: 09:41 Medications Administered Discontinued Medications Generic Name Dose Route Start Last Admin Trade Name Freq PRN Reason Stop Dose Admin Hydromorphone HCl 1 mg 12/30/23 08:18 12/30/23 08:38 Hydromorphone Hcl 1 Mg/Ml Syringe IM 12/30/23 08:19 1 mg ONCE ONE Administration Protocol Ketorolac Tromethamine 60 mg 12/30/23 08:18 12/30/23 08:37 Ketorolac Tromethamine 60 Mg/2 Ml Vial IM 12/30/23 08:19 60 mg ONCE ONE Administration Medical Decision Making Differential Diagnosis Differential Diagnoses: The differential diagnosis associated with the presentation includes ( incarcerated hernia, inguinal ligament strain, DVT, lumbar radiculopathy, UTI with pyelonephritis, kidney stone, electrolyte derangement, severe anemia.) Admission/Observation Consideration of admission/observation: Escalation of care including admission/observation considered Lab Data MDM Lab Attestation statement: I reviewed the patient's lab results. 12/30/23 08:39 12/30/23 08:39 Labs: Lab Results 12/30/23 12/30/23 Range/Units 08:39 09:27 WBC 5.2 (4.8-10.8) X10*3/uL RBC 4.69 (4.20-5.50) X10*6/uL Hgb 13.6 (12.0-16.0) g/dl Hct 40.5 (37.0-47.0) % MCV 86.4 (80.0-98.0) fL MCH 29.0 (27.0-33.0) pg MCHC 33.6 (31.0-35.0) g/dl RDW 12.5 (11.0-16.0) % Plt Count 233 (160-400) X10*3/uL MPV 9.1 L (9.4-12.3) fL Immature Gran % (Auto) 0.2 (0.0-0.4) % Neut % (Auto) 46.0 (45-73) % Lymph % (Auto) 41.5 H (20-40) % [place] % (Auto) 7.3 (2-11) % Eos % (Auto) 4.0 (0-4) % Baso % (Auto) 1.0 (0-2) % Lymph # (Auto) 2.2 (1.2-4.9) X10*3/uL [place] # (Auto) 0.4 (0.1-1.2) X10*3/uL Eos # (Auto) 0.2 (0.0-0.4) X10*3/uL Baso # (Auto) 0.1 (0.0-0.2) X10*3/uL Abs Immat Gran (auto) 0.01 (0.00-0.03) X10*3/uL Absolute Neuts (auto) 2.4 (2.0-8.3) x10*3/uL Absolute Nucleated RBC 0.000 (0.0-0.012) X10*3/uL Nucleated RBC % (auto) 0.0 (0.0-0.2) /100WBC Sodium 144 (135-145) mmol/L Potassium 4.2 (3.3-5.1) mmol/L Chloride 108 (96-108) mmol/L Carbon Dioxide 26 (22-29) mmol/L Anion Gap 14 (12-20) BUN 19 H (9-16) mg/dL Creatinine 0.84 (0.5-1.4) mg/dL Estim Creat Clear Calc 72.3 Estimated GFR > 60 Random Glucose 91 (60-115) mg/dL Calcium 10.0 D (8.4-10.2) mg/dL Total Bilirubin 0.4 (0.0-1.0) mg/dL Direct Bilirubin 0.1 (0.0-0.5) mg/dL AST 17 (5-31) U/L ALT 13 (0-31) U/L Alkaline Phosphatase 48 (39-117) U/L Total Protein 6.7 (6.5-8.0) g/dL Albumin 4.2 (3.5-5.0) g/dL Lipase 15 (8-78) U/L Urine Color Yellow Urine Appearance Clear Urine pH 6.5 (5.0-9.0) Ur Specific Wing 1.025 (1.005-1.025) Urine Protein Negative (Neg-Trace) mg/dL Urine Glucose (UA) Negative (Negative) mg/dL Urine Ketones Trace (Negative) mg/dL Urine Blood Negative (Negative) Urine Nitrite Negative (Negative) Ur Leukocyte Esterase Trace H (Negative) Urine RBC 0-2 (0-2) /HPF Urine WBC 0-5 (0-5) /HPF Ur Squamous Epith Cells 0-2 (0-2) /HPF Urine Bacteria None Seen (None Seen) Hyaline Casts 0-2 (0-2) /LPF Independent Interpretation I performed an independent interpretation of an: Ultrasound ( LLE: No DVT.) Radiology Impression Discussion of test interpretation with radiology: I have reviewed the radiologist's reading. Discharge Plan Discharge Clinical Impression: Sprain of lumbar spine Patient Disposition: Home, Self-Care Instructions: Acute Low Back Pain (ED) Prescriptions: New oxycodone 5 mg tablet 5 mg PO Q8H PRN (Reason: pain) Qty: 7 0RF Rx Instructions: Partial Fill upon patient request. cyclobenzaprine 10 mg tablet 10 mg PO TID PRN (Reason: muscle spasm) Qty: 10 0RF No Action metoprolol succinate 25 mg tablet extended release 24 hr 25 mg PO DAILY Qty: 90 0RF Hold Instructions: Resume on 10/27/22. Measure your blood pressure daily and report it to Dr. Noe. Don't take the medication before he gets back to you. Don't take the medication if the blood pressure is below 120/70 mmHg. pantoprazole 40 mg tablet,delayed release (DR/EC) 40 mg PO DAILY Qty: 30 1RF calcium citrate-vitamin D3 [Calcium Citrate + D] 315 mg-5 mcg (200 unit) tablet 1 tab PO BID Qty: 60 11RF rosuvastatin 20 mg tablet 20 mg PO QAM fluticasone propionate 50 mcg/actuation spray,suspension 1 spray intranasal DAILY albuterol sulfate 90 mcg/actuation HFA aerosol inhaler 2 puff inhalation Q4H PRN (Reason: Wheezing) epinephrine 0.3 mg/0.3 mL auto-injector 0.3 mg IM DIRECTED lisinopril 20 mg tablet 20 mg PO DAILY Referrals: Genevieve Mcneil PA [Primary Care Provider] - Print Language: Serbian
--- OUTSIDE RECORDS SUMMARY | 2023-12-30 08:22 | XMS_ITS | Patient Health Record ---
Author Organization [facility] Address [address] [place] [id number] Care Team Providers Care Customer Supply Coordinator Name Role Phone LEÓN QUINN Primary Care Provider Peter Rogers Jr Unavailable [phone] ALLERGIES Allergen (clinical drug ingredient) Drug/Non Drug Allergy documented on EMR Reaction Allergy Type Onset Date Status hydromorphone Dilaudid Unknown Drug Allergy Act tran sulfamethoxazole / trimethoprim Bactrim Unknown Drug Allergy Active Penicilin (uncoded) Unknown Allergy Active REASON FOR REFERRAL No Information MEDICATIONS Medication SIG (Take, Route, Frequency, Duration) Notes Start Date End Date Status Lisinopril-hydroCHLOROthiaz keyana Active [facility] Migraine Relief PRN Active Rosuvastatin Calcium Active MiraLax (colon prep) 8.3 ounce ((238) grams mixed with Gatorade or Crystal Light orally begin at 5:00 p.m. the day before the procedure for 1 day 07/08/2020 Active IMMUNIZATIONS Vaccine Route Administration Date Status Comme nts Influenza Unknown 05/13/2020 Administered SOCIAL HISTORY Tobacco Use: Social History Observation Description Date Details (start date - stop date) Never Smoker NA - NA Sex Assigned At : Social History Observation Description Sex Assigned At Unknown Tobacco Use/Smoking Question Answer Notes Patient is a nonsmoker Alcohol Screen Question Answer Notes Did you have a drink containing alcohol in the p ast year? No Points 0 Interpretation Negative PROBLEMS Problem Type ICD Code Onset Dates Problem Status W/U Status Risk SNOMED Code Notes Problem Colon cancer screening (Z12.11) Active confirmed 722647809 Problem Irritable bowel syndrome with constipation (K58.1) Active confirmed 291663282 PLAN OF TREATMENT Future Test Test Name Order Date COLONOSCOPY 07/08/2020 Insurance Providers Payer Name Payer Address Payer Phone Subscriber Number Group Number Insured Name Patient Relationship to Insured Coverage Start Date Coverage End Date MEDICARE OF [place] [address] [place] [address] [id number] RANDA EARL Self - patient is the insured MEDICAID OF [facility] [address] MARIA A BEDOYA [id number] RANDA EARL Self - patient is the insured MEDICAL (GENERAL) HISTORY Medical History History ICD Code hypertension hyperlipidemia paroxysmal atrial fibrillation, not on a nticoagulation. Surgical History Surgery Date(Month/Year) section back surgery meniscus tear - left knew tonsillectomy
--- OUTSIDE RECORDS SUMMARY | 2023-12-30 08:22 | XMS_ITS | Patient Health Record ---
Author Organization [facility] Address [address] [facility] [address] [place] [address] Support Name Relationship Address Phone Maria Esther Martinez Guarantor Unknown [phone] ALLERGIES Allergen (clinical drug ingredient) Drug/Non Drug Allergy documented on EMR Reaction Allergy Type Onset Date Status sulfamethoxazole / trimethoprim Bactrim DS vomiting Drug Allergy Active hydromorphone Dilaudid dizziness Drug Allergy Act tran penicillin G Penicillin G Potassium hives Drug Allergy Active Latex Latex rash Allergy Active REASON FOR REFERRAL No Information MEDICATIONS Medication SIG (Take, Route, Frequency, Duration) Notes Start Date End Date Status Crestor 20 MG 1 tablet Orally Once a day for 90 Active Diclofenac Sodium 75 MG 1 tablet with fo od or milk Orally Twice a day for 10 days 08/10/2020 Active Albuterol PRN Active hydrOXYzine HCl 25 MG 1 tablet as needed Orally every 8 hrs Active Lisinopril-hydroCHLOROthiaz keyana 10-12.5 MG 1 tablet Orally Once a day for 90 Active tiZANidine HCl 2 MG 1 tablet as needed O rally Three times a day for 10 days 08/10/2020 Active SOCIAL HISTORY Tobacco Use: Social History Observation Description Date Details (start date - stop date) Never Smoker NA - NA Sex Assigned At : Social History Observation Description Sex Assigned At Unknown Tobacco Use/Smoking Question Answer Notes Are you a nonsmoker Alcohol Screen (Audit-C) Question Answer Notes Did you have a drink contain ing alcohol in the past year? Yes How often did you have a dri nk containing alcohol in the past year? Monthly or less (1 point) Points 1 Interpretation Negative PROBLEMS Problem Type ICD Code Onset Dates Problem Status W/U Status Risk SNOMED Code Notes Problem Mixed hyperlipidemia (E78.2) Active confirmed Mixed hyperlipidemia (615145996) Problem Essential (primary) hypertension (I10) Active confirmed Essential hypertension (46995371) Problem Paroxysmal atrial fibrillation (I48.0) Active confirmed Paroxysmal atri al fibrillation (971938038) Problem Body mass index [BMI] 32.0-32.9, adult (Z68.32) Active confirmed Body mass ind ex 30.00 to 34.99 ([id number]) Problem Body mass index [BMI] 34.0-34.9, adult (Z68.34) Active confirmed Body mass ind ex 30.00 to 34.99 ([id number]) PLAN OF TREATMENT No Information Insurance Providers Payer Name Payer Address Payer Phone Subscriber Number Group Number Insured Name Patient Relationship to Insured Coverage Start Date Coverage End Date Medicare [address] [place] [phone] [id number] Maria Esther Martinez Self - patient is the insured [place] Medicaid [address] [place] [address] [id number] Maria Esther Martinez Self - patient is the insured MEDICAL (GENERAL) HISTORY Medical History History ICD Code asthma - mild intermittent Paroxysmal A. fib Hypertension Hyperlipidemia Surgical History Surgery Date(Month/Year) Back Surgery by Dr MUELLER 2013
[2023-12-30] MEDS: Ketorolac Tromethamine 60 MG/2 ML VIAL IM (08:37)
[2023-12-30] MEDS: HYDROmorphone HCl 1 MG/ML SYRINGE IM (08:38)
[2023-12-30 08:44] LABS: MANUAL DIFF FLAG NO
[2023-12-30 08:47] LABS: Basophils Absolute Auto 0.1 X10*3/uL (0.0-0.2); Eosinophils Absolute Auto 0.2 X10*3/uL (0.0-0.4); Hematocrit 40.5 % (37.0-47.0); Hemoglobin 13.6 g/dl (12.0-16.0); Imm Gran Abs Auto 0.01 X10*3/uL (0.00-0.03); Imm Gran Pct Auto 0.2 % (0.0-0.4); Lymphocytes Absolute Auto 2.2 X10*3/uL (1.2-4.9); Lymphocytes Percent Auto 41.5 % (20-40); Mean Corpuscular HGB Conc 33.6 g/dl (31.0-35.0); Mean Corpuscular Volume 86.4 fL (80.0-98.0); Mean Platelet Volume 9.1 fL (9.4-12.3); Monocytes Absolute Auto 0.4 X10*3/uL (0.1-1.2); Monocytes Percent Auto 7.3 % (2-11); Neutrophils Absolute Auto 2.4 x10*3/uL (2.0-8.3); Platelet Count 233 X10*3/uL (160-400); Red Blood Count 4.69 X10*6/uL (4.20-5.50); Red Cell Distribution Width 12.5 % (11.0-16.0); White Blood Count 5.2 X10*3/uL (4.8-10.8)
[2023-12-30 08:58] LABS: Alanine Aminotransferase 13 U/L (0-31); Albumin Level 4.2 g/dL (3.5-5.0); Alkaline Phosphatase 48 U/L (39-117); Anion Gap 14 (12-20); Aspartate Amino Transferase 17 U/L (5-31); Bilirubin Direct 0.1 mg/dL (0.0-0.5); Bilirubin Total 0.4 mg/dL (0.0-1.0); Blood Urea Nitrogen 19 mg/dL (9-16); Carbon Dioxide 26 mmol/L (22-29); Chloride 108 mmol/L (96-108); Creatinine Clr Calc Pharmacy 72.3; Estimated Glomerular Filt Rate > 60; Glucose Random 91 mg/dL (60-115); Lipase 15 U/L (8-78); Potassium 4.2 mmol/L (3.3-5.1); Sodium 144 mmol/L (135-145); Total Protein 6.7 g/dL (6.5-8.0)
[2023-12-30 09:17] VITALS: BP 144/69; PULSE 66; RESP 18; TEMP 36.7; O2SAT 98
[2023-12-30 09:33] LABS: Appearance Urine Clear; Color Urine Yellow; Glucose Urine UA Negative (Negative); Leukocyte Esterase Urine Trace (Negative); Nitrite Urine Negative (Negative); PH 6.5 (5.0-9.0); Specific Gravity - Urine 1.025 (1.005-1.025); UMIC TRIGGER UACC YES; Urine Blood Negative (Negative); Urine Ketones Trace mg/dL (Negative); Urine Protein Negative (Neg-Trace)
[2023-12-30 09:36] LABS: Bacteria Urine None Seen (None Seen); Hyaline Casts Urine 0-2 /LPF (0-2); RBC Urine 0-2 /HPF (0-2); Squamous Epithelial Cell Urine 0-2 /HPF (0-2); WBC Urine 0-5 /HPF (0-5)
[2023-12-30 10:14] VITALS: BP 175/72; PULSE 68; RESP 19; TEMP 36.6; O2SAT 98
== END 2023-12-30 10:15 | disposition home or self-care (01) ==
PROVIDERS: Emergency Provider Emergency Medicine; PCP Physician Assistant
DX: S33.5XXA Sprain of ligaments of lumbar spine, initial encounter (principal); X50.1XXA Overexertion from prolonged static or awkward postures, initial encounter; M79.605 Pain in left leg; Y93.89 Activity, other specified; Y92.9 Unspecified place or not applicable; Y99.9 Unspecified external cause status
CPT/HCPCS: 36415; 80048; 80076; 81001; 83690; 85025; 93971; 96372; 99284; J1170; J1885

== ENCOUNTER → 2024-02-05 09:18 | Outpatient (BNVA) | payer SELFPAY | PROVIDERS: PCP Physician Assistant; Visit Provider Internal Medicine | DX: Z02.79 Encounter for issue of other medical certificate (principal) ==

== ENCOUNTER 2024-04-05 05:01 | Emergency (ER) | payer MEDICARE, MEDICAID, SELFPAY ==
--- NOTE | ~2024-04-05 | XR_ITS ---
EXAMINATION: XR CHEST CLINICAL INFORMATION: Cough. COMPARISON: 06/02/2022 TECHNIQUE: Frontal view of the chest was obtained. FINDINGS: No significant abnormality is noted involving the heart, lungs, mediastinum, bony thorax or soft tissues. XR/XR chest 1V IMPRESSION: Unremarkable examination.
[2024-04-05 05:05] VITALS: BP 145/74; PULSE 85; RESP 16; TEMP 36.5; O2SAT 97; BMI 31.6
[2024-04-05 05:24] VITALS: PULSE 80; O2SAT 99
--- OUTSIDE RECORDS SUMMARY | 2024-04-05 05:37 | XMS_ITS | Continuity of Care Document ---
Author Organization [facility] Address [address] [place] [address] [place], [address] [place] [address]- Care Team Providers Care Nuclear Equipment Test Engineer Name Role Phone Genevieve Dexter Primary Care Physician Encounter [facility] Date(s): 03/04/24 - 04/03/24 [facility] [address] [place] [address] Drive [address] [place] [address]- Allergies, Adverse Reactions, Alerts Substance Reaction Severity [...] receiving this injection. 2Admin Note: Distributed by: [employer] Manufactured by: [employer] 3Admin Note: #2 08/27/03 #1 07/28/2003 Medications BP cuff BP cuff, See Instructions, # 1 each, Refills 0, Tot. Refills 0, Maintenance, BP cuff Diagnosis-HTN,ICD-I10, 09/16/22 14:33:00 EST, Supply Start Date: 09/16/22 Status: Ordered cyclobenzaprine 10 mg oral tablet 10 mg, 1, tablet, By Mouth, 3 times a day, Refills 0, Maintenance, 01/05/24 10:47:00 EDT, Partial fill upon patient request if the prescription is for a schedule II opioid drug. Start Date: 01/05/24 Status: Ordered hydrochlorothiazide-lisinopril 25 mg-20 mg oral tablet 1 tablet, By Mouth, Daily, # 30 tablet, 0 Refills, Maintenance, 04/18/23 9:32:00 EDT, Tablet, Partial fill upon patient request if the prescription is for a schedule II opioid drug. Start Date: 04/18/23 Status: Ordered ibuprofen 800 mg oral tablet See Instructions, TAKE 1 TABLET BY MOUTH THREE TIMES A DAY, # 90 tablet, Refills 0, Maintenance, 02/26/24 17:02:00 EDT, Instructions Replace Required Details, Route to Pharmacy Electronically, [id number], 165, cm, 01/31/24 11:04:00 EDT, Height, 8... Start Date: 02/26/24 Status: Ordered metoprolol 25 mg oral tablet, extended release 12.5 mg, 0.5, tablet, By Mouth, Daily, # 15 tablet, Refills 11, Tot. Refills 11, Maintenance, 02/25/24 14:11:00 EDT, [id number], Partial fill upon patient request if the prescription is for a schedule II opioi... Start Date: 02/25/24 Stop Date: 02/19/25 Status: Ordered oxyCODONE 5 mg oral tablet 5 mg, 1, tablet, By Mouth, Every 6 hours, PRN, Refills 0, Tot. Refills 0, Maintenance, as needed for pain, 01/31/24 11:03:00 EDT, Partial fill upon patient request if the prescription is for a schedule II opioid drug. Start Date: 01/31/24 Status: Ordered rosuvastatin 20 mg oral tablet [...] Name: Genevieve Dexter Position: [facility] Associate Professional Member Role: PCP Address: Address: [address] [place] [id number] Care Team Related Persons Name: ASHA GALLO Name: NICOLÁS SMITH Address: [place] [address]
--- OUTSIDE RECORDS SUMMARY | 2024-04-05 05:37 | XMS_ITS | Continuity of Care Document ---
Author Organization [facility] Address [address] [place] [address]- Care Team Providers Care Mold Machine Operator Name Role Phone Genevieve Dexter Primary Care Physician [facility] 01/26/24 - 02/25/24 [facility] [address] [place] [address]- [place] Allergies, Adverse Reactions, Alerts Substance Reaction [...] receiving this injection. 2Admin Note: Distributed by: [employer] Manufactured by: We[employer] 3Admin Note: #2 08/27/03 #1 07/28/2003 Medications [...] 02/25/24 14:11:00 EDT, [place] Pharmacy [place], [facility] [place] tablet, 1 Refills, Maintenance, 10/16/23 18:53:00 EST, [facility]/pharmacy#[id number], 165, cm, 10/05/23 21:29:00 EST, Height [...] Care Team Personnel Name: Genevieve Dexter Position: [facility] PCO Associate Professional Member Role: PCP Address: Address: [address] [place] [address]- Care Team Related Persons Name: ASHA GALLO Name: NICOLÁS SMITH Address: [place] [address]
[2024-04-05 05:38] VITALS: BP 137/73; PULSE 68; RESP 10; TEMP 36.6; O2SAT 99
--- OUTSIDE RECORDS SUMMARY | 2024-04-05 05:38 | XMS_ITS | Continuity of Care Document ---
Author Organization [facility] Address [address] [facility], [address] d Floor, [address] [place] [address]- Care Team Providers Care Quarantine Inspector Name Role Phone Genevieve Dexter Primary Care Physician [facility] Date[facility]s): 01/16/24 - 02/15/24 [facility] [address], [address] [place] [address] Attending Physician: Yolanda Sanchez Admitting Physician: AdmtrYolanda Referring Physician: Admtr, ArElaine Allergies, Adverse Reactions, Alerts Substance Reaction Severity [...] receiving this injection. 2Admin Note: Distributed by: [employer] Manufactured by: Tr[employer]Mail 3Admin Note: #2 08/27/03 #1 07/28/2003 Medications [...] EDT, Route to Pharmacy Electronically, [facility]/pharmacy #[id number], Partial fill upon patient request if the prescription is for a schedule II opioi... Start Date: 03/02/23 Stop Date: 02/25/24 Status: Ordered oxyCODONE 5 mg oral tablet [...] tablet, 1 Refills, Maintenance, 10/16/23 18:53:00 EST, [facility]/pharmacy#[id number], 165, cm, 10/05/23 21:29:00 EST, Height Start [...] Associate Professional Member Role: PCP Address: Address: [address] [place] [address]- Care Team Related Persons Name: ASHA GALLO Name: NICOLÁS SMITH Address: [place] [address]
--- OUTSIDE RECORDS SUMMARY | 2024-04-05 05:38 | XMS_ITS | Continuity of Care Document ---
Author Organization [facility] Balaji Rossi Lisandro lt Address [address] [place] [address]- Care Team Providers Care Kelp Gatherer Name Role Phone Tarun SMITH, Genevieve Rojo Primary Care Physician [facility](s): 02/17/24 - 03/18/24 [facility] Balaji Cooneyley Adult [address] [place] [address]- Allergies, Adverse Reactions, Alerts Substance Reaction Severity [...] receiving this injection. 2Admin Note: Distributed by: [employer] Manufactured by: TASS 3Admin Note: #2 08/27/03 #1 07/28/2003 Medications BP cuff BP cuff, See Instructions, # 1 each, Refills 0, Tot. Refills 0, Maintenance, BP cuff Diagnosis-HTN,ICD-I10, 01/20/23 14:33:00 EST, Supply Start Date: 09/16/22 Status: [...] Replace Required Details, Route to Pharmacy Electronically, [facility], 165, cm, 01/31/24 11:04:00 EDT, Height, 8... Start Date: 02/26/24 Status: Ordered metoprolol 25 mg oral tablet, extended release 12.5 mg, 0.5, tablet, By Mouth, Daily, # 15 tablet, Refills 11, Tot. Refills 11, Maintenance, 02/25/24 14:11:00 EDT, Route to Pharmacy Electronically, [facility]/pharmacy #[id number], Partial fill upon [...] Care Team Personnel Name: Genevieve Dexter Position: [facility] PCO Associate Professional Member Role: PCP Address: Address: [address] [place] [id number] Care Team Related Persons Name: ASHA GALLO Name: NICOLÁS SMITH Address: [place] [address]
--- OUTSIDE RECORDS SUMMARY | 2024-04-05 05:38 | XMS_ITS | Continuity of Care Document ---
Author Organization [facility] Address [address] [place] [address]- Care Team Providers Care Manager Corporate Responsibility Name Role Phone Genevieve Dexter Primary Care Physician [facility] Date[facility]s): 01/26/24 - 02/25/24 [facility] [address] [place] [address]- [place] Allergies, Adverse Reactions, Alerts Substance Reaction [...] receiving this injection. 2Admin Note: Distributed by: [employer] Manufactured by: BlisMedia 3Admin Note: #2 08/27/03 #1 07/28/2003 Medications [...] 02/25/24 14:11:00 EDT, Route to Pharmacy Electronically, [facility]/pharmacy #[id number], Partial fill upon [...] tablet, 1 Refills, Maintenance, 10/16/23 18:53:00 EST, [facility]/pharmacy#[id number], 165, cm, 10/05/23 21:29:00 EST, Height [...] Care Team Personnel Name: Genevieve Dexter Position: [facility] PCO Associate Professional Member Role: PCP Address: Address: [address] [place] [phone]- Care Team Related Persons Name: ASHA GALLO Name: NICOLÁS SMITH Address: [place] [address]
--- OUTSIDE RECORDS SUMMARY | 2024-04-05 05:38 | XMS_ITS | Continuity of Care Document ---
Author Organization [facility] Address [address] [place] [address]- Care Team Providers Care Drier Transfer Car Operator Name Role Phone Genevieve Dexter Primary Care Physician [facility] Date[facility] 02/12/24 - 03/13/[address] [address] Attending Physician: Yolanda Sanchez Admitting Physician: AdmtrYolanda Referring Physician: Admtr, Ar8 Allergies, Adverse Reactions, [...] receiving this injection. 2Admin Note: Distributed by: [employer] Manufactured by: Jukedocs 3Admin Note: #2 08/27/03 #1 07/28/2003 Medications [...] Replace Required Details, Route to Pharmacy Electronically, [id number], 165, cm, 01/31/24 11:04:00 EDT, Height, 8... Start Date: 02/26/24 Status: Ordered metoprolol 25 mg oral tablet, extended release 12.5 mg, 0.5, tablet, By Mouth, Daily, # 15 tablet, Refills 11, Tot. Refills 11, Maintenance, 02/25/24 14:11:00 EDT, Route to Pharmacy Electronically, [facility]/pharmacy #[id number], Partial fill upon patient request if the [...] Care Team Personnel Name: Genevieve Dexter Position: [facility] PCO Associate Professional Member Role: PCP Address: Address: [address] [place] [address]- Care Team Related Persons Name: ASHA GALLO Name: NICOLÁS SMIHT Address: [place] [address]
--- OUTSIDE RECORDS SUMMARY | 2024-04-05 05:38 | XMS_ITS | Continuity of Care Document ---
Author Organization [facility] Address [address] [place] [address]- Care Team Providers Care Spray Crew Name Role Phone Genevieve Dexter Primary Care Physician Encounter [facility] Date(s): 01/01/24 - 01/01/[address] [address]- Encounter Diagnosis Back muscle spasm(Final) - 01/01/24 Discharge Disposition: A-D/C Home Attending Physician: Jose L Montemayor MD Admitting Physician: Jose L Montemayor MD Referring Physician: Not on Staff, Referring MD Allergies, Adverse Reactions, Alerts Substance Reaction [...] receiving this injection. 2Admin Note: Distributed by: [employer] Manufactured by: [employer] Systems 3Admin Note: #2 08/27/03 #1 07/28/2003 Medications BP cuff BP cuff, See Instructions, # 1 each, Refills 0, Tot. Refills 0, Maintenance, BP cuff Diagnosis-HTN,ICD-I10, 09/16/22 14:33:00 EST, Supply Start Date: 09/16/22 Status: Ordered buPROPion 300 mg/24 hours (XL) oral tablet, extended release 1 tablet, By Mouth, Daily, # 90 tablet, 1 Refills, Maintenance, 05/24/23 14:11:00 EDT, [facility], 165, cm, 04/21/23 7:53:00 EDT, Height Start Date: 05/24/23 Status: Ordered cyclobenzaprine 10 mg oral tablet 10 mg, 1, tablet, By Mouth, 3 times a day, PRN, # 30 tablet, Refills 0, Tot. Refills 0, Acute 01/02/24 12:38:00 EDT, for spasm, 01/01/24 12:38:00 EDT, Route to Pharmacy Electronically, [facility]/pharmacy #[id number], Partial fill upon patient request if the presc... Start Date: 01/01/24 Stop Date: 01/02/24 Status: Ordered fluticasone 50 mcg/inh nasal spray See Instructions, SPRAY 1 SPRAY INTO EACH NOSTRIL TWICE A DAY, # 48 mL, 1 Refills, Maintenance, 08/14/23 10:11:00 EST, [facility], 90, SPRAY 1 SPRAY INTO EACH NOSTRIL TWICE A DAY, 165, cm, 06/29/23 15:49:00 EDT, Height Start Date: 08/14/23 Status: Ordered hydrochlorothiazide-lisinopril 25 mg-20 mg oral tablet 1 tablet, By Mouth, Daily, # 30 tablet, 0 Refills, Maintenance, 04/18/23 9:32:00 EDT, Tablet, Partial fill upon patient request if the prescription is for a schedule II opioid drug. Start Date: 04/18/23 Status: Ordered Medrol Dosepak 4 mg oral tablet 1 pack/packet, By Mouth, Daily, for 6 days, as directed on package labeling, # 21 tablet, 5 Refills, Acute 02/06/24 11:52:00 EDT, 01/01/24 11:52:00 EDT, Tablet, [id number], Partial fill upon patient request if the prescription is for a schedul... Start Date: 01/01/24 Stop Date: 02/06/24 Status: Ordered metoprolol 25 mg oral tablet, extended release 12.5 mg, 0.5, tablet, By Mouth, Daily, # 15 tablet, Refills 11, Tot. Refills 11, Maintenance, 03/02/23 14:11:00 EDT, Route to Pharmacy Electronically, [facility]/pharmacy #[id number], Partial fill upon patient request if the prescription is for a schedule II opioi... Start Date: 03/02/23 Stop Date: 02/25/24 Status: Ordered rosuvastatin 20 mg oral tablet 1 tablet, By Mouth, Daily, # 90 tablet, 1 Refills, Maintenance, 10/16/23 18:53:00 EST, [facility]/pharmacy#[id number], 165, cm, 10/05/23 21:29:00 EST, Height Start [...] Exam Date Time Procedure Performing Provider Status 01/01/24 8:26 AM Lumbar Spine 2 or 3 Views Vickey Bansal; Auth (Verified) Notes: (Lumbar Spine 2 or 3 Views) Reason For Exam: hx of latral recess decompression & microdiscectomy;Pain RESULT: Lumbar Spine 2 or 3 Views Examination: Lumbar spine performed on 01/01/2024. History: Hx of Present Illness: LBP x 2 wks; Reason: Pain; hx of latral recess decompression microdiscectomy; Clinical Question(s): Other: Findings: Frontal, lateral, and cone-down lateral views of the lumbar spine are submitted. There are five lumbar type nonrib-bearing vertebral bodies. Vertebral body heights are preserved atall visualized levels. Disc space narrowing at the L4-L5 and L5-S1 levels is seen. There is no malalignment. Sutures and clips within the left upper quadrant are seen. A large stool burden is noted throughoutthe colon. IMPRESSION: Degenerative disc disease. WSN: [id number] Ordering Physician: Quynh Morris Dictated By: Fatmata Lowe MD Dictated Date/Time: 01/01/24 8:31 am Reviewed By: Fatmata Lowe MD Signed By: Fatmata Lowe MD Signed Date/Time: 01/01/24 8:31 am Transcribed By: FAB Transcribed Date/Time: 01/01/24 8:30 am Vital Signs Most recent to oldest [Reference Range]: 1 2 3 Height 165 cm (01/01/24 9:56 AM) 165 cm (01/01/24 5:28 AM) Weight 84 kg (01/01/24 9:56 AM) 84 kg (01/01/24 5:28 AM) Oxygen Saturation [94-100 %] 99 % (01/01/24 12:24 PM) 98 % (01/01/24 9:56 AM) 100 % (01/01/24 7:47 AM) Pulse Rate [55-90 bpm] 68 bpm (01/01/24 12:24 PM) 65 bpm (01/01/24 9:56 AM) 65 bpm (01/01/24 7:47 AM) Body Mass Index [18.5-24.99 kg/m2] 30.85 kg/m2 *>HHI* (01/01/24 9:56 AM) 30.85 kg/m2 *>HHI* (01/01/24 5:28 AM) Blood Pressure [90-138/55-84 mm Hg] 138/68mm Hg (01/01/24 12:24 PM) 149/77mm Hg *H* (01/01/24 9:56 AM) 158/65mm Hg *H* (01/01/24 7:47 AM) Respiratory Rate [16-30 br/min] 17 br/min (01/01/24 12:29 PM) 18 br/min (01/01/24 12:24 PM) 19 br/min (01/01/24 9:56 AM) Temperature [96.8-100.4 DegF] 97.5 DegF (01/01/24 12:24 PM) 97.4 DegF (01/01/24 9:56 AM) 97.6 DegF (01/01/24 7:47 AM) Mode of Delivery (Oxygen) Room air (01/01/24 12:24 PM) Room air (01/01/24 9:56 AM) Room air (01/01/24 7:47 AM) Blood pressure sites Arm, left (01/01/24 12:24 PM) Arm, left (01/01/24 9:56 AM) Arm, left (01/01/24 7:47 AM) Temperature Route Oral (01/01/24 12:24 PM) Oral (01/01/24 9:56 AM) Oral (01/01/24 7:47 AM) Dry Weight 84 kg (01/01/24 9:56 AM) 84 kg (01/01/24 5:28 AM) Weight Obtained Via Standing scale (01/01/24 5:28 AM) Dry Weight Obtained Via Standing scale (01/01/24 5:28 AM) Social History Social History Type Response Smoking Status Never smoker entered on: 04/25/18 Sex Patient Care team information Care Team Personnel Name: Genevieve Dexter Position: [facility] PCO Associate Professional Member Role: PCP Address: Address: [address] [place] [address]- Care Team Related Persons Name: ASHA GALLO Name: NICOLÁS SMITH Address: [place] [address]
--- OUTSIDE RECORDS SUMMARY | 2024-04-05 05:39 | XMS_ITS | Continuity of Care Document ---
Author Organization [facility] Flo Lisandro lt Address [address] [place] [address]- Care Team Providers Care Geodetic Technician Name Role Phone Genevieve Dexter Primary Care Physician [facility]s): 01/05/24 - 02/04/24 [facility] Adult [address] [place] [address]- Attending Physician: AdmYolanda urbina Admitting Physician: AdmtrYolanda Referring Physician: Admtr, Yolanda Allergies, Adverse Reactions, Alerts Substance Reaction Severity [...] receiving this injection. 2Admin Note: Distributed by: [employer] Manufactured by: Bo[employer]ot[employer] 3Admin Note: #2 08/27/03 #1 07/28/2003 Medications [...] Status: Ordered ibuprofen 800 mg oral tablet 800 mg, 1, tablet, By Mouth, 3 times a day, # 90 tablet, Refills 0, Tot. Refills 0, Acute 02/05/24 11:30:00 EDT, 01/05/24 10:56:00 EDT, Route to Pharmacy Electronically, [facility]/pharmacy #[id number], Partial fill upon patient request if the prescription is for... Start Date: 01/05/24 Stop Date: 02/05/24 Status: Ordered metoprolol 25 mg oral tablet, extended release 12.5 mg, 0.5, tablet, By Mouth, Daily, # 15 tablet, Refills 11, Tot. Refills 11, Maintenance, 03/02/23 14:11:00 EDT, Route to Pharmacy Electronically, [facility]/pharmacy #[id number], Partial fill upon patient request if [...] Radiology * Event Display: MRI Head, Non- BH Authored Date: Patient Care team information Care Team Personnel Name: Genevieve Dexter Position: [facility] PCO Associate Professional Member Role: PCP Address: Address: [address] [place] [address] Care Team Related Persons Name: ASHA GALLO Name: NICOLÁS SMITH Address: [place] [address]
--- OUTSIDE RECORDS SUMMARY | 2024-04-05 05:39 | XMS_ITS | Continuity of Care Document ---
Author Organization [facility] Address [address] [place] [address]- Care Team Providers Care Commodity Director Name Role Phone Genevieve Dexter Primary Care Physician [facility]s): 01/25/24 - 02/24/24 [facility] [address] [place] [address]- [place] Allergies, Adverse Reactions, Alerts Substance Reaction [...] receiving this injection. 2Admin Note: Distributed by: [employer] Manufactured by: [employer] 3Admin Note: #2 08/27/03 #1 07/28/2003 [...] 02/25/24 14:11:00 EDT, Route to Pharmacy Electronically, [facility]/pharmacy #[id number], Partial fill upon patient request if the prescription is for a schedule II opioi... Start Date: 02/25/24 Stop Date: 02/19/25 Status: Ordered metoprolol 25 mg oral tablet, extended release 12.5 mg, 0.5, tablet, By Mouth, Daily, for 30 days, # 15 tablet, Refills 11, Tot. Refills 11, Hard Stop 02/25/24 14:11:00 EDT, 03/02/23 14:11:00 EDT, Route to Pharmacy Electronically, [facility]/pharmacy #[id number], Partial fill upon patient request if the prescr... Start Date: 03/02/23 Stop Date: 02/25/24 Status: [...] Care Team Personnel Name: Genevieve Dexter Position: [facility] PCO Associate Professional Member Role: PCP Address: Address: [address] [place] [address]- Care Team Related Persons Name: ASHA GALLO Name: NICOLÁS SMITH Address: [place] [address]
--- OUTSIDE RECORDS SUMMARY | 2024-04-05 05:39 | XMS_ITS | Continuity of Care Document ---
Author Organization [facility] Flo Lisandro lt Address [address] [place] [address]- Care Team Providers Care Eggs Inspector Name Role Phone Tarun SMITH, Genevieve Rojo Primary Care Physician [facility]s): 12/29/23 - 01/28/24 [facility] Balaji Cooneyley Adult [address] [place] [address]- Allergies, Adverse Reactions, Alerts Substance Reaction Severity [...] receiving this injection. 2Admin Note: Distributed by: [employer] Manufactured by: [employer] 3Admin Note: #2 08/27/03 #1 07/28/2003 Medications [...] 01/05/24 10:56:00 EDT, Route to Pharmacy Electronically, [facility]/pharmacy #[id number], Partial fill upon patient request if the prescription is for... Start Date: 01/05/24 Stop Date: 02/05/24 Status: Ordered metoprolol 25 mg oral tablet, extended release 12.5 mg, 0.5, tablet, By Mouth, Daily, # 15 tablet, Refills 11, Tot. Refills 11, Maintenance, 03/02/23 14:11:00 EDT, [facility] [...] Care Team Personnel Name: Genevieve Dexter Position: [facility] PCO Associate Professional Member Role: PCP Address: Address: [address] [place] [address]- Care Team Related Persons Name: ASHA GALLO Name: NICOLÁS SMITH Address: [place] [address]
--- OUTSIDE RECORDS SUMMARY | 2024-04-05 05:39 | XMS_ITS | Continuity of Care Document ---
Author Organization [facility] Flo Lisandro lt Address [address] [place] [address]- Care Team Providers Care Dietetic Technician Name Role Phone Genevieve Dexter Primary Care Physician Encounter [facility] Date(s): 01/05/24 - 01/12/24 [facility] Adult [address] [place] [address]- Encounter Diagnosis LBP - Low back pain(Discharge Diagnosis) - 01/05/24 Attending Physician: Genevieve Dexter Allergies, Adverse Reactions, [...] receiving this injection. 2Admin Note: Distributed by: [employer] Manufactured by: [employer] 3Admin Note: #2 08/27/03 #1 07/28/2003 Medications BP cuff BP cuff, See Instructions, # 1 each, Refills 0, Tot. Refills 0, Maintenance, BP cuff Diagnosis-HTN,ICD-I10, 09/16/22 14:33:00 EST, Supply Start Date: 09/16/22 Status: Ordered buPROPion 300 mg/24 hours (XL) oral tablet, extended release 1 tablet, By Mouth, Daily, # 90 tablet, 1 Refills, Maintenance, 05/24/23 14:11:00 EDT, [facility], 165, cm, 04/21/23 7:53:00 EDT, Height Start Date: 05/24/23 Status: Ordered cyclobenzaprine 10 mg oral tablet 10 mg, 1, tablet, By Mouth, 3 times a day, Refills 0, Maintenance, 01/05/24 10:47:00 EDT, Partial fill upon patient request if the prescription is for a schedule II opioid drug. Start Date: 01/05/24 Status: Ordered fluticasone 50 mcg/inh nasal spray See Instructions, SPRAY 1 SPRAY INTO EACH NOSTRIL TWICE A DAY, # 48 mL, 1 Refills, Maintenance, 08/14/23 10:11:00 EST, [facility], 90, SPRAY 1 SPRAY INTO EACH NOSTRIL [...] 01/05/24 10:56:00 EDT, Route to Pharmacy Electronically, [facility]/pharmacy #[id number], Partial fill upon patient request if the prescription is for... Start Date: 01/05/24 Stop Date: 02/05/24 Status: Ordered Medrol Dosepak 4 mg oral [...] 5 mg, 1, tablet, By Mouth, Every 8 hours, PRN, for 14 days, # 56 tablet, Refills 0, Tot. Refills 0,Acute 01/19/24 10:57:00 EDT, for pain, 01/05/24 10:57:00 EDT, [id number], Partial fill upon patient request i... Start Date: 01/05/24 Stop Date: 01/19/24 Status: Ordered rosuvastatin 20 mg oral tablet [...] Diagnosis Diagnosis Type Effective Dates Health Status inical Service Informant LBP - Low back pain Discharge Diagnosis 01/05/24 Vital Signs Most recent to oldest [Reference Range]: 1 Height 165 cm (01/05/24 10:43 AM) Weight 89.0 kg (01/05/24 10:43 AM) Oxygen Saturation [94-100 %] 99 % (01/05/24 10:43 AM) Pulse Rate [55-90 bpm] 73 bpm (01/05/24 10:43 AM) Body Mass Index [18.5-24.99 kg/m2] 32.69 kg/m2 *>HHI* (01/05/24 10:43 AM) Blood Pressure [90-138/55-84 mm Hg] 137/ 75mm Hg (01/05/24 10:43 AM) Temperature [96.8-100.4 DegF] 97.7 DegF (01/05/24 10:43 AM) Mode of Delivery (Oxygen) Room air (01/05/24 10:43 AM) Blood pressure sites Arm, right (01/05/24 10:43 AM) Temperature Route Oral (01/05/24 10:43 AM) Weight Obtained Via Standing scale (01/05/24 10:43 AM) Social History Social History Type Response Smoking Status Never smoker entered on: 04/25/18 Sex Patient Care team information Care Team Personnel Name: Genevieve Dexter Position: [facility] PCO Associate Professional Member Role: PCP Address: Address: [address] [place] [address]- Care Team Related Persons Name: ASHA GALLO Name: NICOLÁS SMITH Address: [place] [address]
--- OUTSIDE RECORDS SUMMARY | 2024-04-05 05:39 | XMS_ITS | Continuity of Care Document ---
Author Organization [facility] Address [address] [place] [address]- Care Team Providers Care Healthcare Business Analyst Name Role Phone Genevieve Dexter Primary Care Physician [facility] 01/29/24 - 02/28/24 [facility] [address] [place] [address]- [place] Allergies, Adverse Reactions, Alerts Substance Reaction [...] receiving this injection. 2Admin Note: Distributed by: [email or web address] Manufactured by: [employer] 3Admin Note: #2 08/27/03 #1 07/28/2003 Medications [...] Replace Required Details, Route to Pharmacy Electronically, [facility] 59779, 165, cm, 01/31/24 11:04:00 EDT, Height, 8... Start Date: 02/26/24 Status: Ordered metoprolol 25 mg oral tablet, extended release 12.5 mg, 0.5, tablet, By Mouth, Daily, # 15 tablet, Refills 11, Tot. Refills 11, Maintenance, 02/25/24 14:11:00 EDT, Route to Pharmacy Electronically, [facility]/pharmacy #[id number], Partial fill upon [...] tablet, 1 Refills, Maintenance, 10/16/23 18:53:00 EST, [facility]/pharmacy#[id number], 165, cm, 10/05/23 21:29:00 [...] Care Team Personnel Name: Genevieve Dexter Position: [facility] PCO Associate Professional Member Role: PCP Address: Address: [address] [place] [address]- Care Team Related Persons Name: ASHA GALLO Name: NICOLÁS SMITH Address: [place] [address]
--- OUTSIDE RECORDS SUMMARY | 2024-04-05 05:39 | XMS_ITS | Continuity of Care Document ---
Author Organization [facility] Flo Lisandro lt Address [address] [place] [address]- Care Team Providers Care Prescription Eyeglass Maker Name Role Phone Genevieve Dexter Primary Care Physician [phone] [facility]counter [facility]s): 01/01/24 - 01/31/24 [facility] Balaji Cooneyley Adult [address] [place] [address]- Allergies, Adverse Reactions, Alerts Substance Reaction Severity [...] receiving this injection. 2Admin Note: Distributed by: [employer] Manufactured by: [employer] 3Admin Note: #2 08/27/03 #1 07/28/2003 Medications [...] 01/05/24 10:56:00 EDT, Route to Pharmacy Electronically, [facility]/pharmacy #[id number], Partial fill upon patient request if the prescription is for... Start Date: 01/05/24 Stop Date: 02/05/24 Status: Ordered metoprolol 25 mg oral tablet, extended release 12.5 mg, 0.5, tablet, By Mouth, Daily, # 15 tablet, Refills 11, Tot. Refills 11, Maintenance, 03/02/23 14:11:00 EDT, Route to Pharmacy Electronically, [facility]/pharmacy #[id number], Partial fill upon [...] Care Team Personnel Name: Genevieve Dexter Position: [facility] PCO Associate Professional Member Role: PCP Address: Address: [address] [place] [address]- Care Team Related Persons Name: ASHA GALLO Name: NICOLÁS SMITH Address: [place] [address]
--- OUTSIDE RECORDS SUMMARY | 2024-04-05 05:39 | XMS_ITS | Continuity of Care Document ---
Author Organization [facility] Address [address] [place] [address]- Care Team Providers Care Power Generation Engineer Name Role Phone Genevieve Dexter Primary Care Physician Encounter [facility] Date(s): 01/10/24 - 02/12/[address] [address]- Encounter Diagnosis Low back pain, unspecified(Final) - Discharge Disposition: A-D/C Home Attending Physician: Genevieve Dexter Admitting Physician: Genevieve [...] receiving this injection. 2Admin Note: Distributed by: [employer] Manufactured by: [employer] 3Admin Note: #2 08/27/03 #1 07/28/2003 Medications [...] 14:11:00 EDT, Route to Pharmacy Electronically, [facility]/pharmacy #[id number], Partial fill upon patient request if [...] 1 Refills, Maintenance, 10/16/23 18:53:00 EST, [facility]/pharmacy#[id number], 165, cm, 10/05/23 21:29:00 EST, Height Start [...] Care Team Personnel Name: Genevieve Dexter Position: [facility] PCO Associate Professional Member Role: PCP Address: Address: [address] [place] [id number]- Care Team Related Persons Name: ASHA GALLO Name: NICOLÁS SMITH Address: [place] [address]
--- OUTSIDE RECORDS SUMMARY | 2024-04-05 05:39 | XMS_ITS | Continuity of Care Document ---
Author Organization [facility] Address [address] [place] [address]- Care Team Providers Care Fundraising Manager Name Role Phone Genevieve Dexter Primary Care Physician Encounter [facility] Date(s): 01/24/24 - 02/23/24 [facility] [address] [place] [address]- [place] Allergies, Adverse Reactions, Alerts Substance Reaction [...] receiving this injection. 2Admin Note: Distributed by: [employer] Manufactured by: [employer] 3Admin Note: #2 08/27/03 #1 07/28/2003 Medications [...] 02/25/24 14:11:00 EDT, Route to Pharmacy Electronically, [facility]/pharmacy #[id number], Partial fill upon patient request if the prescription is for a schedule II opioi... Start Date: 02/25/24 Stop Date: 02/19/25 Status: Ordered metoprolol 25 mg oral tablet, extended release 12.5 mg, 0.5, tablet, By Mouth, Daily, for 30 days, # 15 tablet, Refills 11, Tot. Refills 11, Hard Stop 02/25/24 14:11:00 EDT, 03/02/23 14:11:00 EDT, Route to Pharmacy Electronically, [facility]/pharmacy #[id number], Partial fill upon patient [...] Care Team Personnel Name: Genevieve Dexter Position: [facility] PCO Associate Professional Member Role: PCP Address: Address: [address] [place] [address]- Care Team Related Persons Name: ASHA GALLO Name: NICOLÁS SMITH Address: [place] [address]
--- OUTSIDE RECORDS SUMMARY | 2024-04-05 05:39 | XMS_ITS | Continuity of Care Document ---
Author Organization [facility] Balaji Rossi Lisandro lt Address [address] [place] [address]- Care Team Providers Care Coordinator Of Placement Name Role Phone Tarun SMITH, Genevieve Rojo Primary Care Physician Encounter [facility] Date(s): 02/24/24 - 03/25/24 [facility] Balaji Rossi Adult [address] [place] [address]- Allergies, Adverse Reactions, Alerts Substance Reaction Severity [...] receiving this injection. 2Admin Note: Distributed by: [employer] Manufactured by: [employer] 3Admin Note: #2 08/27/03 #1 07/28/2003 Medications [...] Replace Required Details, Route to Pharmacy Electronically, [facility] STORE [id number], 165, cm, 01/31/24 11:04:00 EDT, Height, 8... [...] Care Team Personnel Name: Genevieve Dexter Position: [facility] PCO Associate Professional Member Role: PCP Address: Address: [address] [place] [address] Care Team Related Persons Name: ASHA GALLO Name: NICOLÁS SMITH Address: [place] [address]
--- OUTSIDE RECORDS SUMMARY | 2024-04-05 05:39 | XMS_ITS | Continuity of Care Document ---
Author Organization [facility] Balaji Rossi Lisandro lt Address [address] [place] [address]- Care Team Providers Care Towel Sewer Name Role Phone Genevieve Dexter Primary Care Physician Encounter [facility] Date(s): 03/04/24 - 04/03/24 [facility] Balaji Cooneyley Adult [address] [place] [address]- Allergies, Adverse Reactions, Alerts Substance Reaction Severity [...] receiving this injection. 2Admin Note: Distributed by: [employer] Manufactured by: [employer] 3Admin Note: #2 08/27/03 #1 07/28/2003 Medications [...] Replace Required Details, Route to Pharmacy Electronically, [facility] STORE [id number], 165, cm, 01/31/24 11:04:00 EDT, Height, 8... Start Date: 02/26/24 Status: Ordered metoprolol 25 mg oral tablet, extended release 12.5 mg, 0.5, tablet, By Mouth, Daily, # 15 tablet, Refills 11, Tot. Refills 11, Maintenance, 02/25/24 14:11:00 EDT, Route to Pharmacy Electronically, [facility]/pharmacy #[id number], Partial fill upon patient [...] Care Team Personnel Name: Genevieve Dexter Position: [facility] PCO Associate Professional Member Role: PCP Address: Address: [address] [place] [id number] Care Team Related Persons Name: ASHA GALLO Name: NICOLÁS SMITH Address: [place] [address]
--- OUTSIDE RECORDS SUMMARY | 2024-04-05 05:39 | XMS_ITS | Continuity of Care Document ---
Author Organization [facility] Flo Lisandro lt Address [address] [place] [address]- Care Team Providers Care Cigarette Tipper Name Role Phone Tarun SMITH, Genevieve Rojo Primary Care Physician [phone] Encounter [facility] Date(s): 01/01/24 - 01/31/24 [facility] Balaji Cooneyley Adult [address] [place] [address]- Allergies, Adverse Reactions, Alerts Substance Reaction Severity [...] receiving this injection. 2Admin Note: Distributed by: [employer] Manufactured by: [employer] 3Admin Note: #2 08/27/03 #1 07/28/2003 Medications [...] 01/05/24 10:56:00 EDT, Route to Pharmacy Electronically, [facility]/pharmacy #[id number], Partial fill upon patient request if the prescription is for... Start Date: 01/05/24 Stop Date: 02/05/24 Status: Ordered metoprolol 25 mg oral tablet, extended release 12.5 mg, 0.5, tablet, By Mouth, Daily, # 15 tablet, Refills 11, Tot. Refills 11, Maintenance, 03/02/23 14:11:00 EDT, Route to Pharmacy Electronically, [facility]/pharmacy #[id number], Partial fill upon patient [...] Associate Professional Member Role: PCP Address: Address: [address] [place] [address]- Care Team Related Persons Name: ASHA GALLO Name: NICOLÁS SMITH Address: [place] [address]
--- OUTSIDE RECORDS SUMMARY | 2024-04-05 05:40 | XMS_ITS | Continuity of Care Document ---
Author Organization [facility] Address [address] [place] [address]- Care Team Providers Care Balloon Tester Name Role Phone Genevieve Dexter Primary Care Physician [phone] Encounter [facility] Date(s): 01/25/24 - 02/24/24 [facility] [address] [place] [address]- [place] Allergies, Adverse Reactions, Alerts Substance Reaction [...] receiving this injection. 2Admin Note: Distributed by: [employer] Manufactured by: [employer] 3Admin Note: #2 08/27/03 #1 07/28/2003 Medications [...] 02/25/24 14:11:00 EDT, Route to Pharmacy Electronically, [facility]/pharmacy #[id number], Partial fill upon patient request if the prescription is for a schedule II opioi... Start Date: 02/25/24 Stop Date: 02/19/25 Status: Ordered metoprolol 25 mg oral tablet, extended release 12.5 mg, 0.5, tablet, By Mouth, Daily, for 30 days, # 15 tablet, Refills 11, Tot. Refills 11, Hard Stop 02/25/24 14:11:00 EDT, 03/02/23 14:11:00 EDT, Route to Pharmacy Electronically, [facility]/pharmacy #[id number], Partial fill upon [...] Associate Professional Member Role: PCP Address: Address: [address] [place] [address]- Care Team Related Persons Name: ASHA GALLO Name: NICOLÁS SMITH Address: [place] [address]
--- OUTSIDE RECORDS SUMMARY | 2024-04-05 05:40 | XMS_ITS | Patient Health Record ---
Author Organization [facility] Address [address] [place] [address] Support Name Relationship Address Phone Maria Esther Martinez Guarantor Unknown [phone] ALLERGIES Allergen (clinical drug ingredient) Drug/Non Drug [...] Mixed hyperlipidemia (E78.2) Active confirmed Mixed hyperlipidemia (584624088) Problem Essential (primary) hypertension (I10) Active confirmed Essential hypertension (11371492) Problem Paroxysmal atrial fibrillation (I48.0) Active confirmed Paroxysmal atri al fibrillation (154681863) Problem Body mass index [BMI] 32.0-32.9, adult (Z68.32) Active confirmed Body mass ind ex 30.00 to 34.99 ([id number]) Problem Body mass index [BMI] 34.0-34.9, adult (Z68.34) Active confirmed Body mass ind ex 30.00 to 34.99 ([id number]) PLAN OF TREATMENT No Information Insurance Providers Payer Name Payer Address Payer Phone Subscriber Number Group Number Insured Name Patient Relationship to Insured Coverage Start Date Coverage End Date Medicare [address] [place] [phone] [id number] Maria Esther Martinez Self - patient is the insured [place] [address] [place] [address] [id number] Maria Esther Martinez Self - patient is the insured MEDICAL (GENERAL) HISTORY Medical History History ICD Code asthma - mild intermittent Paroxysmal A. fib Hypertension Hyperlipidemia Surgical History Surgery Date(Month/Year) Back Surgery by Dr MUELLER 2013
--- OUTSIDE RECORDS SUMMARY | 2024-04-05 05:40 | XMS_ITS | Patient Health Record ---
Author Organization [facility] Address [address] [place] [id number] Care Team Providers Care Passenger Service Representative Name Role Phone LEÓN QUINN Primary Care Provider Peter Rogers Jr Unavailable ALLERGIES Allergen (clinical drug ingredient) Drug/Non Drug [...] Problem Colon cancer screening (Z12.11) Active confirmed [id number] Problem Irritable bowel syndrome with constipation (K58.1) Active confirmed [id number] PLAN OF TREATMENT Future Test Test Name Order Date COLONOSCOPY 07/08/2020 Insurance Providers Payer Name Payer Address Payer Phone Subscriber Number Group Number Insured Name Patient Relationship to Insured Coverage Start Date Coverage End Date MEDICARE OF [place] [address] [place] [id number] RANDA EARL Self - patient is the insured MEDICAID OF [facility] [address] MARIA A BEDOYA [phone] [id number] RANDA ERAL Self - patient is the insured MEDICAL (GENERAL) HISTORY Medical History History ICD Code hypertension hyperlipidemia paroxysmal atrial fibrillation, not on a nticoagulation. Surgical History Surgery Date(Month/Year) section back surgery meniscus tear - left knew tonsillectomy
[2024-04-05 05:48] VITALS: BP 131/67; PULSE 66; RESP 12; TEMP 37.1; O2SAT 99
[2024-04-05 05:57] LABS: Influenza A PCR NEGATIVE (Negative); Influenza B PCR NEGATIVE (Negative); Resp Syncy Virus RNA Qual PCR NEGATIVE (Negative); SARS COV2 PCR INHOUSE NEGATIVE (Negative)
--- NOTE | 2024-04-05 06:26 | ED.URI ---
HPI - URI/Sore Throat General Chief Complaint: Upper Respiratory Symptoms Stated Complaint: pneumonia? Time Seen by Provider: 04/05/24 06:22 Source: patient Mode of arrival: ambulatory Limitations: no limitations History of Present Illness ED Provider: Dr. Jade Benavidez HPI Narrative: Patient comes to the emergency room complaining of a cough that has been present for about 2 weeks. Patient states that she has been on and off having URI symptoms. Patient denies fever chills. 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 Patient denies any nausea vomiting or diarrhea. No shortness of breath. Related Data Home Medications ?Medication ?Instructions ?Recorded ?Confirmed albuterol sulfate 90 mcg/actuation 2 puff inhalation Q4H PRN Wheezing 06/24/20 01/20/23 aerosol inhaler epinephrine 0.3 mg/0.3 mL 0.3 mg IM DIRECTED allergies 06/24/20 01/20/23 injection, auto-injector fluticasone propionate 50 1 spray intranasal DAILY 06/24/20 01/20/23 mcg/actuation nasal spray,suspension rosuvastatin 20 mg tablet 20 mg PO QAM 06/24/20 01/20/23 lisinopril 20 mg tablet 20 mg PO DAILY 01/20/23 01/20/23 Previous Rx's ?Medication ?Instructions ?Recorded metoprolol succinate 25 mg 25 mg PO DAILY #90 tabs 10/10/22 tablet,extended release 24 hr pantoprazole 40 mg tablet,delayed 40 mg PO DAILY #30 tabs 11/22/22 release calcium citrate 315 mg-vitamin D3 1 tab PO BID #60 tabs 12/06/22 5 mcg (200 unit) tablet (Calcium Citrate + D) cyclobenzaprine 10 mg tablet 10 mg PO TID PRN muscle spasm #10 12/30/23 tabs oxycodone 5 mg tablet 5 mg PO Q8H PRN pain #7 tabs 12/30/23 benzonatate 100 mg capsule 100 mg PO TID PRN cough #14 caps 04/05/24 codeine 10 mg-guaifenesin 100 mg/5 5 ml PO .Night PRN cough #118 mL 04/05/24 mL oral liquid Allergies Allergy/AdvReac Type Severity Reaction Status Date / Time hydromorphone [From DILAUDID] Allergy Intermediate HALLUCINATI Verified 04/05/24 05:08 ONS Penicillins Allergy Mild HIVES Verified 04/05/24 05:08 sulfamethoxazole Allergy Mild N/V Verified 04/05/24 05:08 [From Bactrim] trimethoprim [From Bactrim] Allergy Mild N/V Verified 04/05/24 05:08 Pertussis Vaccines AdvReac Intermediate fever up Verified 04/05/24 05:08 to 104 dogs, cats Allergy Intermediate nasal Uncoded 04/05/24 05:08 congestion/sneezing SEASONAL ALLERGIES Allergy Intermediate NASAL Uncoded 04/05/24 05:08 CONGESTION, SNEEZING Review of Systems Review of Systems: Constitutional : No Weight loss, No Fever, No Chills, No Night Sweats, No Fatigue, No Malaise ENT/Mouth : No Hearing loss, No Ear Pain, No Nasal Congestion, No Sinus Pain, No Hoarseness, No sore throat, No Rhinorrhea, No Swallowing Difficulty Eyes: No Eye Pain, No Swelling, No Redness, No Foreign Body, No Discharge, No Vision Changes Cardiovascular : No Chest Pain, No SOB, No Dyspnea on Exertion, No Orthopnea, No Edema, No Palpitations Respiratory : Intermittent cough with occasional sputum production, No Wheezing, No Smoke Exposure, No Dyspnea Gastrointestinal : No Nausea, No Vomiting, No Diarrhea, No Constipation, No abdominal Pain, No Hematochezia, No Melena Genitourinary : no irregular bleeding, No Dysuria, No Urinary Frequency, No Hematuria, No Urinary Incontinence, No Urgency, No Flank Pain, No Urinary Flow Changes, No Hesitancy Musculoskeletal : No joint pain, No Myalgias, No Joint Swelling Skin : No Skin Lesions, No rash Neuro : No Weakness, No Numbness, No Paresthesias, No Loss of Consciousness, No Dizziness, No Headache Psych : No Anxiety/Panic, No Depression, No SI/HI/AH/VH, No Social Issues, Heme/Lymph: No Bruising, No Bleeding,No Lymphadenopathy Endocrine : No Polyuria, No Polydipsia, No Temperature Intolerance PMFSH Past Medical History Medical History History of COVID-19 Arthritis Hepatitis GERD (gastroesophageal reflux disease) BMI 33.0-33.9,adult Depression Hypertension BMI 37.0-37.9, adult Obesity Exertional angina Urgency incontinence Asthma Paroxysmal A-fib Aortic valve sclerosis Papilledema Osteoarthritis Carpal tunnel syndrome, right Migraine without aura Lumbar disc disease Dyslipidemia Esophageal obstruction Surgical History Hx of tonsillectomy History of meniscectomy of left knee H/O colonoscopy delivery delivered History of cataract surgery History of microdiscectomy History of tumor Family History Family History Father CAD (coronary artery disease) History of quadruple bypass Mother HTN (hypertension) Brother CVD (cardiovascular disease) History of heart attack Paternal Grandfather Heart disease Paternal Grandmother Heart disease Maternal Aunt Colon cancer Paternal Uncle Heart disease Brother No problems noted. Brother No problems noted. Brother No problems noted. Son No problems noted. Daughter No problems noted. Daughter No problems noted. Maternal Aunt Ovarian cancer Social History Social History Household Members: None Household Members Other:: lives alone but in two family home w/family members in other apt. Housing: House Are you a primary health care attorney to a significant other at home: No Do you presently have visiting nurse or other home services: No Alcohol intake: never Patient Tobacco Use Status: Never used Tobacco Smoked in Last 30 Days: No Use of substances other than those prescribed or required for medical reasons: No Advance Directives: No Advance Directives Information Provided: No Do you have a plan to hurt others: No Plan Patient : No service: No Current occupational status: employed Physical Exam Vital Signs: Vital Signs: Last Vital Signs Temp 98.7 F 04/05/24 05:48 Pulse 66 04/05/24 05:48 Resp 12 04/05/24 05:48 BP 131/67 04/05/24 05:48 Pulse Ox 99 04/05/24 05:48 O2 Del Method Room Air 04/05/24 05:48 BMI result Body Mass Index 31.6 Const: Other: Appearance: Alert. Oriented X3. No acute distress. Eyes: Pupils equal, round and reactive to light. ENT: Pharynx normal. Neck: Normal inspection. Neck supple. No lymph nodes noted. No crepitus CVS: Normal heart rate and rhythm. Pulses normal. Normal S1 and S2 Respiratory: No respiratory distress. Breath sounds normal. No Wheezing. No rales Abdomen: Soft and nontender. No rigidity. No distention. Skin: Skin warm and dry. Normal skin color. Normal skin turgor. Extremities: No lower extremity edema. No Lacerations. No Rash Neuro: Oriented X 3. No motor deficit. No sensory deficit. Moving all extremities. No slurred speech. CN 2 through 12 grossly intact Psych: calm, cooperative, normal affect Medical Decision Making Medical Decision Making [facility] Narrative: -patient's vitals stable, blood pressure 131/67, heart rate 66, oxygen saturation 99% on room air. -physical exam is unremarkable, clear lung sounds, no wheezing crackles or rales -patient's serology my interpretation of labs: Negative for influenza COVID and RSV. -my interpretation of chest x-ray, no signs of pneumonia, no infiltrates -I discussed that based on her symptoms, patient may have viral bronchitis. -patient will be sent home with 2 medications, Tessalon Perles for the morning and guaifenesin with codeine for the evening Differential Diagnosis Differential Diagnoses: The differential diagnosis associated with the presentation includes (COVID, RSV, influenza, viral bronchitis, viral illness) Lab Data [facility] Lab Attestation statement: I reviewed the patient's lab results. Labs: Lab Results 04/05/24 Range/Units 05:12 Influenza Type A (PCR) NEGATIVE (Negative) Influenza Type B (PCR) NEGATIVE (Negative) RSV RNA Qual (PCR) NEGATIVE (Negative) SARS-CoV-2 RNA (RT-PCR) NEGATIVE (Negative) Discharge Plan Discharge Clinical Impression: Acute viral bronchitis Patient Disposition: Home, Self-Care Instructions: Acute Bronchitis (ED) Additional Instructions: Please follow-up with your primary care physician tomorrow. If you have any worsening or new symptoms, please return to the emergency room or call 911 Prescriptions: New benzonatate 100 mg capsule 100 mg PO TID PRN (Reason: cough) Qty: 14 0RF codeine-guaifenesin 10-100 mg/5 mL liquid 5 ml PO .Night PRN (Reason: cough) Qty: 118 0RF No Action metoprolol succinate 25 mg tablet extended release 24 hr 25 mg PO DAILY Qty: 90 0RF Hold Instructions: Resume on 10/27/22. Measure your blood pressure daily and report it to Dr. Noe. Don't take the medication before he gets back to you. Don't take the medication if the blood pressure is below 120/70 mmHg. pantoprazole 40 mg tablet,delayed release (DR/EC) 40 mg PO DAILY Qty: 30 1RF calcium citrate-vitamin D3 [Calcium Citrate + D] 315 mg-5 mcg (200 unit) tablet 1 tab PO BID Qty: 60 11RF oxycodone 5 mg tablet 5 mg PO Q8H PRN (Reason: pain) Qty: 7 0RF Rx Instructions: Partial Fill upon patient request. cyclobenzaprine 10 mg tablet 10 mg PO TID PRN (Reason: muscle spasm) Qty: 10 0RF rosuvastatin 20 mg tablet 20 mg PO QAM fluticasone propionate 50 mcg/actuation spray,suspension 1 spray intranasal DAILY albuterol sulfate 90 mcg/actuation HFA aerosol inhaler 2 puff inhalation Q4H PRN (Reason: Wheezing) epinephrine 0.3 mg/0.3 mL auto-injector 0.3 mg IM DIRECTED lisinopril 20 mg tablet 20 mg PO DAILY Stand Alone Forms: Work/School Release Print Language: Arabic
[2024-04-05 06:35] VITALS: BP 131/67; PULSE 66; RESP 12; TEMP 37.1; O2SAT 99
== END 2024-04-05 06:40 | disposition home or self-care (01) ==
PROVIDERS: Emergency Provider Emergency Medicine; PCP Physician Assistant
DX: J20.8 Acute bronchitis due to other specified organisms (principal); Z03.818 Encounter for observation for suspected exposure to other biological agents ruled out; I10 Essential (primary) hypertension; E78.5 Hyperlipidemia, unspecified; I48.0 Paroxysmal atrial fibrillation; J45.909 Unspecified asthma, uncomplicated; Z79.02 Long term (current) use of antithrombotics/antiplatelets; Z79.899 Other long term (current) drug therapy
CPT/HCPCS: 0241U; 71045; 99283; 99285

== ENCOUNTER 2024-06-25 06:04 | Outpatient (REF) | payer MEDICARE, MEDICAID, SELFPAY ==
[2024-06-25 10:14] LABS: MANUAL DIFF FLAG NO
[2024-06-25 10:20] LABS: Basophils Absolute Auto 0.1 X10*3/uL (0.0-0.2); Basophils Percent Auto 1.2 % (0-2); Eosinophils Absolute Auto 0.2 X10*3/uL (0.0-0.4); Eosinophils Percent Auto 3.4 % (0-4); Hemoglobin 13.4 g/dl (12.0-16.0); Imm Gran Abs Auto 0.01 X10*3/uL (0.00-0.03); Imm Gran Pct Auto 0.2 % (0.0-0.4); Lymphocytes Absolute Auto 2.5 X10*3/uL (1.2-4.9); Lymphocytes Percent Auto 42.3 % (20-40); Mean Corpuscular HGB Conc 33.5 g/dl (31.0-35.0); Mean Corpuscular Hemoglobin 28.6 pg (27.0-33.0); Mean Corpuscular Volume 85.5 fL (80.0-98.0); Mean Platelet Volume 10.3 fL (9.4-12.3); Monocytes Absolute Auto 0.4 X10*3/uL (0.1-1.2); Monocytes Percent Auto 7.3 % (2-11); Neutrophils Absolute Auto 2.7 x10*3/uL (2.0-8.3); Neutrophils Percent Auto 45.6 % (45-73); Platelet Count 263 X10*3/uL (160-400); Red Blood Count 4.68 X10*6/uL (4.20-5.50); Red Cell Distribution Width 12.4 % (11.0-16.0); White Blood Count 5.9 X10*3/uL (4.8-10.8)
[2024-06-25 10:31] LABS: Estimated Average Glucose 126 mg/dL; Hemoglobin A1C 142.4109 umol/L; Total Hemoglobin (HGBA1C) 3414.6356 umol/L
[2024-06-25 10:50] LABS: Alanine Aminotransferase 13 U/L (0-31); Albumin Level 4.1 g/dL (3.5-5.0); Alkaline Phosphatase 52 U/L (39-117); Anion Gap 15 (12-20); Aspartate Amino Transferase 28 U/L (5-31); Bilirubin Total 0.5 mg/dL (0.0-1.0); Blood Urea Nitrogen 18 mg/dL (9-16); C Reactive Protein 1.58 mg/dL (< or = 0.50); Calcium 9.7 mg/dL (8.4-10.2); Carbon Dioxide 25 mmol/L (22-29); Chloride 106 mmol/L (96-108); Cholesterol 178 mg/dL (<200); Estimated Glomerular Filt Rate > 60; Glucose Random 104 mg/dL (60-115); HDL Cholesterol 61 mg/dL (>40); Iron 75 mcg/dL (30-160); LDL Cholesterol Calculated 100 mg/dL (<100); Percent Iron Saturation 28 % (15-50); Potassium 4.2 mmol/L (3.3-5.1); Sodium 142 mmol/L (135-145); Total Iron Binding Capacity 271 mcg/dL (228-428); Total Protein 7.2 g/dL (6.5-8.0); Triglycerides 89 mg/dL (<150); Unsaturated Iron Binding 196 ug/dL
[2024-06-25 11:22] LABS: Folate 11.4 ng/mL (> or = 4.0); Vitamin B12 320 pg/mL (200-900)
[2024-06-25 11:23] LABS: Ferritin 106 ng/mL (10-250); Insulin 5 uU/mL (2-29); TSH reflex Free T4 0.26 uIU/mL (0.32-4.0); Vitamin D 25-OH Total 53.5 ng/mL (>30)
[2024-06-25 13:02] LABS: Free T4 (Free Thyroxine) 0.92 ng/dL (0.71-1.85)
[2024-06-28 18:58] LABS: Zinc 62 mcg/dL (60-130)
[2024-06-29 12:12] LABS: Vitamin B1 16 nmol/L (8-30)
[2024-07-03 19:13] LABS: Vitamin A 45 mcg/dL (38-98)
== END 2024-06-25 06:05 | disposition home or self-care (01) ==
LOC: HO.HMGCLDS 06:04
PROVIDERS: PCP Physician Assistant; Visit Provider Physician Assistant Surgical
DX: Z98.84 Bariatric surgery status (principal); E66.9 Obesity, unspecified; Z13.1 Encounter for screening for diabetes mellitus
CPT/HCPCS: 36415; 80053; 80061; 82306; 82607; 82728; 82746; 83036; 83525; 83540; 84425; 84439; 84443; 84590; 84630; 85025; 86140

== ENCOUNTER 2024-06-25 12:12 | Outpatient (AMB) | payer MEDICARE, MEDICAID, SELFPAY ==
--- NOTE | 2024-06-25 12:03 | MHC.OFFVISWM ---
VS Expanded 06/25/24 12:07 Height 5 ft 5 in Weight 194 lb BMI 32.3 Intake Visit Reasons: TV PO LSG 10/25/22 Allergies hydromorphone [From DILAUDID] Allergy (Intermediate, Verified 04/05/24 05:08) HALLUCINATIONS Penicillins Allergy (Mild, Verified 04/05/24 05:08) HIVES sulfamethoxazole [From Bactrim] Allergy (Mild, Verified 04/05/24 05:08) N/V trimethoprim [From Bactrim] Allergy (Mild, Verified 04/05/24 05:08) N/V Pertussis Vaccines Adverse Reaction (Intermediate, Verified 04/05/24 05:08) fever up to 104 dogs, cats Allergy (Intermediate, Uncoded 04/05/24 05:08) nasal congestion/sneezing SEASONAL ALLERGIES Allergy (Intermediate, Uncoded 04/05/24 05:08) NASAL CONGESTION, SNEEZING Medication List - Last Reconciled 06/25/24 by LUIS Alexandre albuterol sulfate 90 mcg/actuation 2 puffs inhalation Q4H PRN benzonatate 100 mg PO TID PRN calcium citrate-vitamin D3 315 mg-5 mcg (200 unit) (Calcium Citrate + D) 1 tab PO BID codeine-guaifenesin 10-100 mg/5 mL 5 mL PO .Night PRN cyclobenzaprine 10 mg PO TID PRN epinephrine 0.3 mg IM DIRECTED fluticasone propionate 50 mcg/actuation 1 spray intranasal DAILY lisinopril 20 mg PO DAILY metoprolol succinate ER 25 mg PO DAILY oxycodone 5 mg PO Q8H PRN pantoprazole 40 mg PO DAILY rosuvastatin 20 mg PO QAM HPI Comments Details: This?is a?64?yo female who is s/p LSG 10/25/2022. Presents for 18 month post op visit. Weight at last visit on 01/20/2023 was 173.2 pounds with a BMI of 28.8, weight today is 194 pounds, representing a 21.8 pound weight loss with a BMI today of 32.3.? No complaints of nausea, emesis, abdominal pain or reflux, or constipation. Pt feels like she was dropped from the program. Pt reports fatigue, having memory issues, tinnitus, headaches. Present meal plan includes: just recently purchased Orgain protein powder, ZP bars not taking MVI currently Exercise routine includes: recent back surgery last week, wasn't exercising much before [facility] Medical History History of COVID-19 Arthritis Hepatitis GERD (gastroesophageal reflux disease) BMI 33.0-33.9,adult Depression Hypertension BMI 37.0-37.9, adult Obesity Exertional angina Urgency incontinence Asthma Paroxysmal A-fib Aortic valve sclerosis Papilledema Osteoarthritis Carpal tunnel syndrome, right Migraine without aura Lumbar disc disease Dyslipidemia Esophageal obstruction Surgical History Hx of tonsillectomy History of meniscectomy of left knee H/O colonoscopy delivery delivered History of cataract surgery History of microdiscectomy History of tumor Family History Father CAD (coronary artery disease) History of quadruple bypass Mother HTN (hypertension) Brother CVD (cardiovascular disease) History of heart attack Paternal Grandfather Heart disease Paternal Grandmother Heart disease Maternal Aunt Colon cancer Paternal Uncle Heart disease Brother No problems noted. Brother No problems noted. Brother No problems noted. Son No problems noted. Daughter No problems noted. Daughter No problems noted. Maternal Aunt Ovarian cancer Social History Household Members: None Household Members Other:: lives alone but in two family home w/family members in other apt. Housing: House Are you a primary infant childcare provider to a significant other at home: No Do you presently have visiting nurse or other home services: No Alcohol intake: never Patient Tobacco Use Status: Never used Tobacco service: No Current occupational status: employed Physical Exam Vital Signs: BMI result Body Mass Index 32.3 Telehealth Telehealth Telehealth Platform: Telephone Location of provider rendering services: other Location of patient: address on file Patient Identification confirmed using: Name, : Yes Telehealth method: voice only Patient verbally consented to treatment: Yes Patient verbally consented to billing insurance company: Yes Patient informed of any privacy concerns related to visit: Yes Minutes spent on Phone/Video with Pt.: 16 Assessment & Plan Assessment & Plan (1) S/P laparoscopic sleeve gastrectomy: Code(s): Z98.84 - Bariatric surgery status Category: Medical (2) Obesity: Code(s): E66.9 - Obesity, unspecified Category: Medical Plan New meal plan of 2 Orgain shakes with 2 scoops each, 1 ZP bar, 1 meal 6f/6f. Increase exercise as she recovers from back surgery. Take Flintstones complete vitamins plus B complex. Vit A/B1/zinc levels pending, reviewed remainder of labs, TSH is low, will follow up T4 and recommended pt let her PCP know. RTC 8-10 weeks, pt given my phone # for communication between visits. I spent a total of 30 minutes reviewing/updating records, examining the patient and counseling the patient on weight management as detailed above.
[2024-06-25 12:07] VITALS: BMI 32.3
--- OUTSIDE RECORDS SUMMARY | 2024-06-25 12:15 | XMS_ITS | Continuity of Care Document ---
Author Organization [facility] Flo Lisandro lt Address [address] [place] [address]- Care Team Providers Care Steel Inspector Name Role Phone Genevieve Dexter Primary Care Physician [place] [facility] [place]/08[place]24 [place] 05/08/24 [facility] Adult [address] [place] [address]- Allergies, Adverse Reactions, Alerts Substance Reaction Severity [...] receiving this injection. 2Admin Note: Distributed by: [employer] Manufactured by: [employer] 3Admin Note: #2 08/27/03 #1 07/28/2003 Medications [...] Replace Required Details, Route to Pharmacy Electronically, [facility] [id number], 165, cm, 01/31/24 11:04:00 EDT, Height, 8... Start Date: 02/26/24 Status: Ordered metoprolol 25 mg oral tablet, extended release 12.5 mg, 0.5, tablet, By Mouth, Daily, # 15 tablet, Refills 11, Tot. Refills 11, Maintenance, 02/25/24 14:11:00 EDT, Route to Pharmacy Electronically, [facility]/pharmacy #[id number], Partial fill upon patient [...] Daily, # 90 tablet, 1 Refills, Maintenance, 04/09/24 9:54:00 EDT, [id number], 165, cm, 01/31/24 11:04:00 EDT, Height, 84, kg, 01/01/24 9:56:00 EDT, Dry Weight Start Date: 04/09/24 Status: Ordered Problem List Condition Confirmation Course [...] Team Personnel Name: Genevieve Dexter Position: [facility] PCO Associate Professional Member Role: PCP Address: Address: [address] [place] [address]- Care Team Related Persons Name: ASHA GALLO Name: NICOLÁS SMITH Address: [place] [address]
--- OUTSIDE RECORDS SUMMARY | 2024-06-25 12:16 | XMS_ITS | Continuity of Care Document ---
Author Organization [facility] Flo Lisandro lt Address [address] [place] [address]- Care Team Providers Care Higher Education Administrator Name Role Phone Genevieve Dexter Primary Care Physician Encounter [facility] [place] Date(s): 04/08/24 - 05/08/24 [facility] Adult [address] [place] [address]- Allergies, Adverse Reactions, Alerts Substance Reaction Severity [...] receiving this injection. 2Admin Note: Distributed by: [employer] Manufactured by: [employer] 3Admin Note: #2 08/27/03 #1 07/28/2003 Medications [...] Replace Required Details, Route to Pharmacy Electronically, [id number], 165, cm, 01/31/24 11:04:00 EDT, Height, 8... Start Date: 02/26/24 Status: Ordered metoprolol 25 mg oral tablet, extended release 12.5 mg, 0.5, tablet, By Mouth, Daily, # 15 tablet, Refills 11, Tot. Refills 11, Maintenance, 02/25/24 14:11:00 EDT, Route to Pharmacy Electronically, [facility]/pharmacy #[id number], Partial fill upon patient request if [...] tablet, 1 Refills, Maintenance, 04/09/24 9:54:00 EDT, [facility] 46671, 165, cm, 01/31/24 11:04:00 EDT, Height, 84, [...] Care Team Personnel Name: Genevieve Dexter Position: [facility] PCO Associate Professional Member Role: PCP Address: Address: [address] [place] [id number] Care Team Related Persons Name: ASHA GALLO Name: NICOLÁS SMITH Address: [place] [address]
--- OUTSIDE RECORDS SUMMARY | 2024-06-25 12:16 | XMS_ITS | Continuity of Care Document ---
Author Organization [facility] Flo Lisandro lt Address [address] [place] [address]- Care Team Providers Care Checkout Operator Name Role Phone Genevieve Dexter Primary Care Physician [phone] [place] [facility] [place] 04/05/24 - 05/05/24 [facility] Adult [address] [place] [address]- Allergies, Adverse Reactions, Alerts Substance Reaction Severity [...] receiving this injection. 2Admin Note: Distributed by: [employer] Manufactured by: [employer] 3Admin Note: #2 08/27/03 #1 07/28/2003 Medications [...] Replace Required Details, Route to Pharmacy Electronically, [facility] 13326, 165, cm, 01/31/24 11:04:00 EDT, Height, 8... Start Date: 02/26/24 Status: Ordered metoprolol 25 mg oral tablet, extended release 12.5 mg, 0.5, tablet, By Mouth, Daily, # 15 tablet, Refills 11, Tot. Refills 11, Maintenance, 02/25/24 14:11:00 EDT, Route to Pharmacy Electronically, [facility]/pharmacy #[id number], Partial fill upon patient [...] Refills, Maintenance, 04/09/24 9:54:00 EDT, [facility], 165, cm, 01/31/24 11:04:00 EDT, Height, 84, [...] Associate Professional Member Role: PCP Address: Address: [address] [place] [address]- Care Team Related Persons Name: ASHA GALLO Name: NICOLÁS SMITH Address: [place] [address]
--- OUTSIDE RECORDS SUMMARY | 2024-06-25 12:16 | XMS_ITS | Continuity of Care Document ---
Author Organization [facility] Address [address] [place] [address]- Care Team Providers Care Solid Waste Truck Driver Name Role Phone Genevieve Dexter Primary Care Physician [place] [facility] [place] 06/19/24 [facility] [address] [place] [id number] Attending Physician: Javy SWAIN, Bright Wright Referring Physician: Delon [place] MD Allergies, Adverse Reactions, Alerts Substance Reaction [...] receiving this injection. 2Admin Note: Distributed by: [employer] Manufactured by: [employer] 3Admin Note: #2 08/27/03 #1 07/28/2003 Medications hydrochlorothiazide-lisinopril 25 mg-20 mg oral tablet 1 [...] 02/25/24 14:11:00 EDT, Route to Pharmacy Electronically, [facility]/pharmacy #[id number], Partial fill upon patient request if the prescription is for a schedule II opioi... Start Date: 02/25/24 Stop Date: 02/19/25 Status: Ordered rosuvastatin 20 mg oral tablet 1 tablet, By Mouth, Daily, # 90 tablet, 1 Refills, Maintenance, 04/09/24 9:54:00 EDT, [facility], 165, cm, 01/31/24 11:04:00 EDT, Height, 84, [...] ear Confirmed Active Urinary incontinence Confirmed Active Vital Signs Most recent to oldest [Reference Range]: 1 Height 165 cm (06/12/24 10:07 AM) Oxygen Saturation [94-100 %] 97 % (06/12/24 10:07 AM) Pulse Rate [55-90 bpm] 75 bpm (06/12/24 10:07 AM) Blood Pressure [90-138/55-84 mm Hg] 149/ 67mm Hg *H* (06/12/24 10:07 AM) Respiratory Rate [16-30 br/min] 14 br/mi n *L* (06/12/24 10:07 AM) Mode of Delivery (Oxygen) Room air (06/12/24 10:07 AM) Blood pressure sites Arm, right (06/12/24 10:07 AM) Weight Obtained Via Standing scale (06/12/24 10:07 AM) Social History Social History Type Response Smoking Status Never smoker entered on: 04/25/18 Sex Patient Care team information Care Team Personnel Name: Genevieve Dexter Position: [facility] PCO Associate Professional Member Role: PCP Address: Address: [address] [place] [address]- Care Team Related Persons Name: ASHA GALLO Name: NICOLÁS SMITH Address: [place] [address]
--- OUTSIDE RECORDS SUMMARY | 2024-06-25 12:16 | XMS_ITS | Continuity of Care Document ---
Author Organization [facility] Flo Lisandro lt Address [address] [place] [address]- Care Team Providers Care Third Mate Name Role Phone Genevieve Dexter Primary Care Physician [place] [facility] [place] 05/09/24 [facility] Adult [address] [place] [address]- Allergies, Adverse Reactions, Alerts Substance Reaction Severity [...] receiving this injection. 2Admin Note: Distributed by: [employer] Manufactured by: [employer] 3Admin Note: #2 08/27/03 #1 07/28/2003 Medications [...] Replace Required Details, Route to Pharmacy Electronically, [facility] 48[facility], 165, cm, 01/31/24 11:04:00 EDT, Height, 8... Start Date: 02/26/24 Status: Ordered metoprolol 25 mg oral tablet, extended release 12.5 mg, 0.5, tablet, By Mouth, Daily, # 15 tablet, Refills 11, Tot. Refills 11, Maintenance, 02/25/24 14:11:00 EDT, Route to Pharmacy Electronically, [facility]/pharmacy #[id number], Partial fill upon patient request [...] Refills, Maintenance, 04/09/24 9:54:00 EDT, [facility], 165, cm, 01/31/24 11:04:00 EDT, Height, 84, [...] Care Team Personnel Name: Genevieve Dexter Position: [facility] PCO Associate Professional Member Role: PCP Address: Address: [address] [place] [address]- Care Team Related Persons Name: ASHA GALLO Name: NICOLÁS SMITH Address: [place] [address]
--- OUTSIDE RECORDS SUMMARY | 2024-06-25 12:16 | XMS_ITS | Continuity of Care Document ---
Author Organization [facility] Address [address] [place] [address] [place], [address] [place] [address]- Care Team Providers Care Motors And Controls Tester Name Role Phone Genevieve Dexter Primary Care Physician [phone] Encounter [facility] Date(s): 05/21/24 - 05/28/[address] [place], [place] [address] Attending Physician: Delon [place] MD Referring Physician: Genevieve Dexter Allergies, Adverse Reactions, [...] receiving this injection. 2Admin Note: Distributed by: [employer] Manufactured by: [employer] 3Admin Note: #2 08/27/03 #1 07/28/2003 Medications [...] Replace Required Details, Route to Pharmacy Electronically, [facility] 29126, 165, cm, 01/31/24 11:04:00 EDT, Height, 8... Start Date: 02/26/24 Status: Ordered metoprolol 25 mg oral tablet, extended release 12.5 mg, 0.5, tablet, By Mouth, Daily, # 15 tablet, Refills 11, Tot. Refills 11, Maintenance, 02/25/24 14:11:00 EDT, Route to Pharmacy Electronically, [facility]/pharmacy #[id number], Partial fill upon patient request [...] Refills, Maintenance, 04/09/24 9:54:00 EDT, [facility], 165, cm, 01/31/24 11:04:00 EDT, Height, 84, [...] oldest [Reference Range]: 1 Height 165 cm (05/21/24 1:33 PM) Weight 89.5 kg (05/21/24 1:33 PM) Body Mass Index [18.5-24.99 kg/m2] 32.87 kg/m2 *>HHI* (05/21/24 1:33 PM) Social History Social History Type Response Smoking Status Never smoker entered on: 04/25/18 Sex Patient Care team information Care Team Personnel Name: Genevieve Dexter Position: [facility] PCO Associate Professional Member Role: PCP Address: Address: [address] [place] [address]- Care Team Related Persons Name: ASHA GALLO Name: NICOLÁS SMITH Address: [place] [address]
--- OUTSIDE RECORDS SUMMARY | 2024-06-25 12:17 | XMS_ITS | Continuity of Care Document ---
Author Organization [facility] ter Address [address] [place] [id number]- Care Team Providers Care Software Design Manager Name Role Phone Genevieve Dexter Primary Care Physician Encounter [facility] Date(s): 06/21/24 - 06/21/[address] [address] Discharge Disposition: A-D/C Home Attending Physician: Delon Robison MD Admitting Physician: Delon Robison MD Referring Physician: Delon Robison MD Allergies, Adverse [...] receiving this injection. 2Admin Note: Distributed by: [employer] Manufactured by: [employer] 3Admin Note: #2 08/27/03 #1 07/28/2003 Medications acetaminophen-HYDROcodone 325 mg-5 mg oral tablet 1 tablet, By Mouth, Every 6 hours, PRN Pain , Severe, for 7 days, # 28 tablet, 0 Refills, Acute 06/28/24 12:39:00 EDT, 06/21/24 12:39:00 EDT, Tablet, [facility], Partial fill upon patient request if the prescription is for a schedule II... Start Date: 06/21/24 Stop Date: 06/28/24 Status: Ordered hydrochlorothiazide-lisinopril 25 mg-20 mg oral [...] 02/25/24 14:11:00 EDT, Route to Pharmacy Electronically, [facility]/pharmacy #[id number], Partial fill upon patient request if the prescription is for a schedule II opioi... Start Date: 02/25/24 Stop Date: 02/19/25 Status: Ordered rosuvastatin 20 mg oral tablet 1 tablet, By Mouth, Daily, # 90 tablet, 1 Refills, Maintenance, 04/09/24 9:54:00 EDT, [facility] STORE [id number], 165, cm, 01/31/24 11:04:00 EDT, Height, 84, kg, 01/01/24 9:56:00 EDT, Dry Weight Start Date: 04/09/24 Status: Ordered tiZANidine 2 mg oral tablet 2 mg, 1, tablet, By Mouth, 3 times a day, not to exceed 3 doses/day, # 42 tablet, Refills 0, Tot. Refills 0, Maintenance, 06/21/24 12:34:00 EDT, Route to Pharmacy Electronically, [facility], Partial fill upon patient request if the presc... Start Date: 06/21/24 Stop Date: 07/05/24 Status: Ordered Problem List Condition Confirmation Course [...] Exam Date Time Procedure Performing Provider Status 06/21/24 10:20 AM C-Arm < 1 Hour Alia Parra ut (Verified) Notes: (C-Arm < 1 Hour) Reason For Exam: radiculopathy RESULT: C-Arm < 1 Hour Spine Single View, C-Arm < 1 Hour INDICATION: Reason: radiculopathy COMPARISONS: None TECHNIQUE: Fluoroscopy support was provided. There was no radiologist in attendance. FLUOROSCOPY TIME: 05.3 seconds EXPOSURE: 3.26 mGy (reference air kerma) TECHNOLOGIST TIME: 10 minutes FINDINGS: 2 fluoroscopic images of the lumbosacral spine in lateral projection obtained by the portable imageintensifier in the operating room show a metallic needle as well as a metallic char and a metallic cylinder pointing posteriorly at the L2-L3 disc. Please refer to the operative report for more details. IMPRESSION: See above. WSN: [id number] Ordering Physician: Delon Robison Dictated By: Mark Lilly MD, V Dictated Date/Time: 06/21/24 3:30 pm Reviewed By: Mark Lilly MD, V Signed By: Mark Lilly MD, V Signed Date/Time: 06/21/24 3:30 pm Transcribed By: FAB Transcribed Date/Time: 06/21/24 3:29 pm * Exam Date Time Procedure Performing Provider Status 06/21/24 10:20 AM Spine Single View Alia Parra (Verified) Notes: (Spine Single View) Reason For Exam: radiculopathy RESULT: Spine Single View Spine Single View, C-Arm < 1 Hour INDICATION: Reason: radiculopathy COMPARISONS: None TECHNIQUE: Fluoroscopy support was provided. There was no radiologist in attendance. FLUOROSCOPY TIME: 05.3 seconds EXPOSURE: 3.26 mGy (reference air kerma) TECHNOLOGIST TIME: 10 minutes FINDINGS: 2 fluoroscopic images of the lumbosacral spine in lateral projection obtained by the portable imageintensifier in the operating room show a metallic needle as well as a metallic char and a metallic cylinder pointing posteriorly at the L2-L3 disc. Please refer to the operative report for more details. IMPRESSION: See above. WSN: [id number] Ordering Physician: Delon Robison Dictated By: Mark Lilly MD, V Dictated Date/Time: 06/21/24 3:30 pm Reviewed By: Mark Lilly MD, V Signed By: Mark Lilly MD, V Signed Date/Time: 06/21/24 3:30 pm Transcribed By: FAB Transcribed Date/Time: 06/21/24 3:29 pm Vital Signs Most recent to oldest [Reference Range]: 1 2 3 Weight 88.3 kg (06/21/24 8:59 AM) Oxygen Saturation [94-100 %] 97 % (06/21/24 12:45 PM) 99 % (06/21/24 12:30 PM) 95 % (06/21/24 12:15 PM) Pulse Rate [55-90 bpm] 66 bpm (06/21/24 8:59 AM) Blood Pressure [90-138/55-84 mm Hg] 126/78mm Hg (06/21/24 12:45 PM) 131/65mm Hg (06/21/24 12:30 PM) 149/57mm Hg *H* (06/21/24 12:15 PM) Respiratory Rate [16-30 br/min] 21 br/min (06/21/24 12:45 PM) 20 br/min (06/21/24 12:30 PM) 17 br/min (06/21/24 12:15 PM) Temperature [96.8-100.4 DegF] 97.3 DegF (06/21/24 10:45 AM) 97.1 DegF (06/21/24 8:59 AM) Liters per Minute 6 L/min (06/21/24 10:45 AM) Mode of Delivery (Oxygen) Room air (06/21/24 12:30 PM) Room air (06/21/24 12:00 PM) Room air (06/21/24 11:30 AM) Blood pressure sites Arm, left (06/21/24 11:30 AM) Arm, left (06/21/24 10:45 AM) Arm, left (06/21/24 8:59 AM) Temperature Route Temporal (06/21/24 10:45 AM) Temporal (06/21/24 8:59 AM) Weight Obtained Via Standing scale (06/21/24 8:59 AM) Social History Social History Type Response Smoking Status Never smoker entered on: 04/25/18 Sex Note * Akua Alcala: PERFORM Akua Alcala: PERFORM, MODIFY Akua Alcala: MODIFY, MODIFY Akua Alcala: MODIFY, SIGN Akua Alcala: SIGN, VERIFY Akua Alcala: VERIFY Event Display: Discharge/Transfer Note Hospital Authored Date: Patient: RANDA EARL Age: 64 years Sex: Female : 1960 Associated Diagnoses: None Author: Akua Alcala Discharge Information Preoperative Diagnosis: Lumbar stenosis. Final Postoperative Diagnosis: Lumbar stenosis. Operative Procedure: L2-L3 decompression, left Discharge condition: good Compared to admission: improved Functional Status: ambulatory Discharge Disposition Home: self care, family. Discharge Date 06/21/2024 Admission Date 06/21/2024 Hospital Course The patient presents with lumbar radiculopathy. Please refer to our notes for clinical details. Thepatient has decided to move forward with surgery. Benefits and risks have been discussed including infection, hemorrhage, CSF leakage, neurologic deficit or instability. Written consent was obtained. Pt tolerated procedure well. She admits that LLE thigh pain is no longer present since sx. She has been able to eat/drink, ambulate, void urine, and expresses a desire to go home today. She will be discharged home with postoperative and followup instructions, as well as pain medications and muscle relaxants. Incision dressing some staining present. Discharge Plan Diet/Activity/Patient Education/Follow Up Follow Up with: Delon Robison MD 07/16/2024 9:30 AM; Genevieve Mcneil. Discharge Disposition Discharge: home. MEDICATION LIST (Selected) Prescriptions Prescribed acetaminophen-HYDROcodone 325 mg-5 mg oral tablet: 1 tablet, By Mouth, Every 6 hours, PRN Pain , Severe, for 7 days, # 28 tablet, 0 Refills, Acute 11/01/24 12:39:00 EDT, 06/21/24 12:39:00 EDT, Tablet, [facility], Partial fill upon patient request if the prescription is for a schedule II... metoprolol 25 mg oral tablet, extended release: 12.5 mg, 0.5, tablet, By Mouth, Daily, # 15 tablet,Refills 11, Tot. Refills 11, Maintenance, 02/25/24 14:11:00 EDT, Route to Pharmacy Electronically, [facility]/pharmacy #[id number], Partial fill upon patient request if the prescription is for a schedule II opioi... rosuvastatin 20 mg oral tablet: 1 tablet, By Mouth, Daily, # 90 tablet, 1 Refills, Maintenance, 04/09/24 9:54:00 EDT, [facility] STORE [id number], 165, cm, 01/31/24 11:04:00 EDT, Height, 84, kg, 01/01/24 9:56:00EDT, Dry Weight tiZANidine 2 mg oral tablet: 2 mg, 1, tablet, By Mouth, 3 times a day, not to exceed 3 doses/day, #42 tablet, Refills 0, Tot. Refills 0, Maintenance, 06/21/24 12:34:00 EDT, Route to Pharmacy Electronically, [facility], Partial fill upon patient request if the presc... Documented Medications Documented hydrochlorothiazide-lisinopril 25 mg-20 mg oral tablet: 1 tablet, By Mouth, Daily, # 30 tablet, 0 Refills, Maintenance, 04/18/23 9:32:00 EDT, Tablet, Partial fill upon patient request if the prescription is for a schedule II opioid drug. * Aidan Randhawa RN: PERFORM Event Display: Discharge/Transfer Note Hospital Authored Date: [id number] Nursing Discharge Note Entered On: 06/21/2024 12:12 EDT Performed On: 06/21/2024 12:12 EDT by Aidan Randhawa RN Nursing Discharge Note 2 Discharge Time : 06/21/2024 13:20 EDT Patient Left Unit Via : Wheelchair Patient Accompanied Off Unit with : Significant other, Responsible adult DC Instructions Provided & Signed by Pt : Yes Patient Understands D/C Instructions : Yes Verbalized Understanding of D/C Plan By : Responsible adult Patient Instructions Discharge Signed : Yes Did Pt have Specialty Bed or Wound Vac : No Aidan Randhawa RN - 06/21/2024 13:25 EDT Discharge Level of Care at Discharge : Home/Senior Care/Foster Care Aidan Randhawa RN - 06/21/2024 12:12 EDT * Aidan Randhawa RN: PERFORM Event Display: Patient Education/Instruction Authored Date: [id number] Surgery Adult Discharge Instructions [address] [address] Name: RANDA EARL : 1960?? Visit: 06/21/2024 06:44?? Current Date: 06/21/2024 13:04 ?? Account: [id number]?? Surgery Discharge Instructions We would like to thank you for allowing us to assist you with your healthcare needs. The following includes patient education materials and information regarding your injury/illness. Our entire staffstrives to provide an excellent experience for our patients and their families. PLEASE ENSURE YOU FOLLOW-UP PER THE INSTRUCTIONS BELOW! ?? YOUR OPINION IS IMPORTANT TO US! Please complete the survey you may receive by mail or email. Your feedback will be used to make improvements to the healthcare experiences of our patients and their families. Surveys are administered by [employer] ?? If further treatment with your primary care physician or another doctor is recommended, it is important for you to keep the appointment. Call your primary care physician or return to the Emergency Department immediately if your condition worsens, fails to improve, or new symptoms develop. If you need to find a doctor, you can call [facility] for a referral at [phone] or toll free at [phone] ([phone]) or log in to [email or web address].. ?? [facility], in keeping with [facility] guidance, no longer requires face masks for staff, patientsor visitors in most situations. Similiar to time spent indoors at other locations, there is the chance that you were exposed to repiratory viruses during your time with us (such as flu or COVID-19). If you develop symptoms concerning for a viral respiratory infection, please seek testing (and treatment if indicated) from your medical provider or home test kit. ?? You can view and manage your care through the patient portal or by using a health care emil of your choosing. [employer] is a website that allows you to securely view your medical information including your hospital discharge summary, office visit summaries, medications and follow-up visits. You can also request appointments, renew medications, and request access to your medical information using a health care emil of your choosing, or just ask a question. You are entitled to know the individuals who participated in your treatment. This information is available within your medical record and will be provided upon your request. You can enroll at [email or web address] or register d uring your next office visit. You have been discharged from [facility], Patient Care Unit: PANU??. If you have any questions regarding these instructions after you leave, please call us and we will be happy to assist you. [facility] Your Care Team Attending Physician Delon Robison MD?? Discharging Providers Akua Alcala Reason for Admission CERVICAL RADICULOPATHY DECOMPRESSION [facility] IP OR Primary Care Provider Genevieve Dexter? Advance Directive Health Care Proxy on File Yes - Health Care Proxy What to do next Instructions From Your Doctor ?? Orders? 06/21/24 13:02:00 EDT?? Scheduled Follow-Up Appointments Monday 10:00 AM EST ?? Where: [facility] [address] [place] [address]- Status: Pending Monday 9:30 AM EST ?? Where: [facility] [address] [place] [address] Drive [address] [place] [address]- Status: Pending 2023 9:30 AM EST ?? With: Ashley SWAIN, April Rosas Where: [facility] [address] [place] [address]- Status: Pending Monday 10:00 AM EST ?? With: Alirio SWAIN, Eva Chicas Where: [facility] [address] [place] [address]- Status: Pending You Need to Schedule the Following Appointments Follow Up with??Delon Robison MD When:??07/16/2024 09:30 AM EST Where: [address] [facility], [address] [place] [address]- Business (1) ?? [address] [facility], [address] [facility] [place] [address]- Follow Up with??Genevieve Mcneil When:??In 0 days Discharge Medications RANDA EARL :1960 Visit Date:06/21/2024 Medications: Please continue your medications until treatment is completed or stopped by your provider. You may resume your daily prescription medications. Discuss any questions related to medications with your provider. What How Much When Instructions Next Dose New Acetaminophen / Hydrocodone (acetaminophen-HYDROcodone 325 mg-5 mg oral tablet) 1 tab(s) Oral Every 6 hours as needed for Pain , Severe Duration: 7 Days Pickup at [facility] 3 May begin at home for severe pain New Tizanidine (tiZANidine 2 mg oral tablet) 1 tab(s) Oral 3 times a day Duration: 14 Days not to exceed 3 doses/ day ?? Pickup at [facility] 3 May begin at home for muscle spasms Unchanged Hydrochlorothiazide-Lisinopril (hydrochlorothiazide-lisinopril 25 mg- 20 mg oral tablet) 1 tab(s) Oral Daily Resume as prescribed Unchanged Metoprolol (metoprolol 25 mg oral tablet, extended release) 0.5 tab(s) Oral Daily Duration: 30 Days Resume as prescribed Unchanged Rosuvastatin (rosuvastatin 20 mg oral tablet) 1 tab(s) Oral Daily Resume as prescribed Pharmacy Information [facility] 3: [address] [place], [place] [id number] [phone] Allergies (NKA means No Known Allergies) Bactrim??(very nauseaus and vomiting) Pollen penicillin??(hives) Education Materials Below is the list of Educational Leaflet Providered with your Discharge Instructions. [employer] Patient Education - Neurosurgery-Lumbar Discharge Instructions?? [employer] Patient Education - Surgery Medical Daystay Surgical Overnight Discharge Instructions?? Valuables and Belongings I fully understand and agree that [facility] accepts no responsibility for all my personal property including clothing, toilet articles, radios, jewelry, dentures, hearing aids, rings, money, or any other property that is in my possession or is brought to me after admission. I understand certain valuables may be placed in a hospital safe for a short period of time. I understand that the hospital is not liable for loss or damage due to accident, fire, or other natural occurrence while said property is in the safe. I accept full responsibility for any personal property that I keep with me, and will not hold the hospital responsible in case of loss or disappearance. I acknowledge that i have been encouraged to send valuables and belongings home. ?? Review of Valuable and Belonging List: With patient Possessions released to: to PACU / Locker Date for Pt to Sign Valuables/Belongings: 06/21/24 08:59:00 ?? Valuables & Belongings ?? Clothes Electronic devices Jewelry Monetary Items Personal devices Miscellaneous Medications (Valuables) Valuables at Bedside Jacket, Pants, Shirt, Shoes, Undergarments Cell phone, Other: binder and box builder Watch ? Other: insurance card and ID ?? Valuables Sent Home ? Valuables Sent to Security ? Valuables Sent to Locker ? Other Discharge Information ? Pulmonary Rehab Status?? Pulmonary Rehab Discharge Status?? Respiratory Rate: 21 br/min ? Common Emergency Awareness Tips IS IT A STROKE? Act FAST and Check for these signs: FACE Does the face look uneven? ARM Does one arm drift down? SPEECH Does their speech sound strange? TIME Call at any sign of stroke ?? Heart Attack Signs Chest discomfort: Most heart attacks involve discomfort in the center of the chest and lasts more than a few minutes, or goes away and comes back. It can feel like uncomfortable pressure, squeezing, fullness or pain. Discomfort in upper body: Symptoms can include pain or discomfort in one or both arms, back, neck, jaw or stomach. Shortness of breath: With or without discomfort. Other signs: Breaking out in a cold sweat, nausea, or lightheaded. Remember, MINUTES DO MATTER. If you experience any of these heart attack warning signs, call to get immediate medical attention! ?? Smoking can increase your chances of developing chronic health problems and can cause harmful effects to other family members in your house. If you smoke, you are strongly encouraged to quit. Please call [facility] at [phone] or [phone] ([phone]) or log in to [email or web address] for referrals to smoking cessation programs. ?? The National Suicide Prevention Hotline is available 20/03 if you or someone you know needs to find a reason to keep living. By calling 0-267-648-Minglebox (0028) you'll be connected to a skilled, trained counselor at a crisis center in your area. SURGERY DISCHARGE INSTRUCTIONS SIGNATURE PAGE RANDA EARL Location:[facility] Registration Date and Time:06/21/2024 06:44 EDT Primary Care Physician: Genevieve Dexter, Attending Physician: Ricki SWAIN, Delon Aldridge, I RANDA EARL, have received the above patient education materials/instructions and have verbalized understanding. If ambulance or transport services are being used I further acknowledge being given a choice of service. ?? If you need to contact me, please call me at this number: . Patient/Acid Bleacher Name: Patient/Acid Bleacher Signature: Relationship to Patient: Witness Name/Signature: Date: * Akua Alcala: PERFORM, SIGN, VERIFY Event Display: Patient Education Handout Authored Date: * Akua Alcala: PERFORM Event Display: Patient Education Leaflets Authored Date: Neurosurgery-Lumbar Discharge Instructions ?? 205 Neurosurgery Discharge Instructions ?? Postoperative instructions vary due to many different types of surgery.?? Your specific needs may require modifications to these instructions by your surgeon. ?? Diet ??? You should resume your usual diet at home unless instructed otherwise ?? Medications ??? You will be provided with a medication reconciliation when you leave the hospital explaining which medications you should continue and which you should stop ??? You may be discharged home with prescriptions with new medications which should be explained to you prior to discharge ?? Bowel Regimen ??? Narcotic pain medications commonly cause constipation ??? You should use an yrnu-ptv-cgrdxgv stool softener, such as Colace or Senna, for as long as you are experiencing constipation ??? You should use an ocrg-rzy-gswohdw oral laxative or rectal suppository if you do not have a bowel movement within 3 days after your surgery ?? Incision and Wound Care ??? You should remove your dressing on the 3rd postoperative day ??? You do not need to apply any other dressing or bandage ??? Do not apply creams, lotions, or ointments to the incision ??? If you have steri-strips, these will fall off on their own ??? * Remove after 2 weeks if they have not fallen off yet ??? If you have sissy/sutures, these will be removed at your follow up appointment ??? Yo u should call the office if you experience any of the following: ??? Redness, swelling, or increasing pain/tenderness of the surgical incision site ??? Discharge of pus, blood, or other fluid from the surgical incision site ??? Wound separation ??? Temperature greater than 101.5 F ?? Bathing ??? Do not shower or get your incision wet until the 3rd postoperative day ??? Do not soak the incision in a bath, pool or any other body of water for 4 weeks ??? You should gently pat the incision dry with a towel immediately after bathing ? Activity ??? Do not drive for 2 weeks unless instructed otherwise ??? Do not drive while taking narcotic pain medication or muscle relaxants ??? Do not lift more than 15 to 20 lbs until seen again by your surgeon ??? Do not perform any strenuous activities, exercises or movements until instructed otherwise ??? Do not resume sexual activity until you feel comfortable.?? Do not perform activities or positions that place stress on the operated area ??? _ ??? Call your primary care physician for all questions and problems not related to your surgery, such as chronic medical conditions, e.g., diabetes, hypertension, etc. ??? Call [facility] for any questions or problems related to your surgery??? _ [facility] [address] [place] [address] , [address], [place], [place] [phone] _ ? * Aidan Randhawa RN: PERFORM Event Display: Patient Education Leaflets Authored Date: Surgery Medical Daystay Surgical Overnight Discharge Instructions ?? 295 Medical Daystay/Surgical Overnight Discharge Instructions ? Since your coordination and judgment may be altered by medication and/or anesthesia, a responsible adult must drive you home from the hospital. ? If you have received medication for pain or sedation while under our care, you should not drive, operate machinery, drink alcohol, or sign any legal documents for 24 hours.?? You should have someone with you at home tonight. ? Remain at home the day of discharge.?? You may be up and about unless otherwise instructed by your physician. ? You may resume your daily prescription medication schedule.?? Any depressant medication should be avoided for 24 hours unless otherwise instructed by your surgeon or anesthesiologist. ? Call your physician for a follow-up appointment.? If you experience unusual or severe pain not relied by your pain medication, excessive bleedingor drainage, persistent nausea and vomiting, excessive swelling or redness, foul odor from incisionsite or fever over 100.6F, you need to call your physician. ? A follow-up phone call by a nurse will be made the day after your procedure.?? If you have stayed with us over night, you will not be receiving a follow-up phone call. ? Nausea and vomiting are a common side effect of prescription pain medication.?? We recommend that pills are not taken on an empty stomach.?? While taking any prescription pain medication you should not drive or drink alcohol. ? Patient Care team information Care Team Personnel Name: Genevieve Dexter Position: [facility] Associate Professional Member Role: PCP Address: Address: [address] [place] [address] Care Team Related Persons Name: ASHA GALLO Name: NICOLÁS SMITH Address: [place] [address]
--- OUTSIDE RECORDS SUMMARY | 2024-06-25 12:17 | XMS_ITS | Patient Health Record ---
Author Organization [facility] Address [address] [place] [id number] Care Team Providers Care Science Interpreter Name Role Phone LEÓN QUINN Primary Care Provider Peter Rogers Jr Unavailable [phone] ALLERGIES Allergen (clinical drug ingredient) Drug/Non Drug [...] Problem Colon cancer screening (Z12.11) Active confirmed 230816666 Problem Irritable bowel syndrome with constipation (K58.1) Active confirmed [id number] PLAN OF TREATMENT Future Test Test Name Order Date COLONOSCOPY 07/08/2020 Insurance Providers Payer Name Payer Address Payer Phone Subscriber Number Group Number Insured Name Patient Relationship to Insured Coverage Start Date Coverage End Date MEDICARE OF [place] [address] [place] [id number] [phone] [id number] RANDA EARL Self - patient is the insured MEDICAID OF [facility] [address] [place] [phone] [id number] RANDA EARL Self - patient is the insured MEDICAL (GENERAL) HISTORY Medical History History ICD Code hypertension hyperlipidemia paroxysmal atrial fibrillation, not on a nticoagulation. Surgical History Surgery Date(Month/Year) section back surgery meniscus tear - left knew tonsillectomy
--- OUTSIDE RECORDS SUMMARY | 2024-06-25 12:17 | XMS_ITS | Continuity of Care Document ---
Author Organization [facility] Flo Lisandro lt Address [address] [place] [address]- Care Team Providers Care Executive Account Manager Name Role Phone Genevieve Dexter Primary Care Physician [phone] Encounter [facility] Date(s): 04/09/24 - 05/09/24 [facility] Adult [address] [place] [address]- Allergies, Adverse Reactions, Alerts Substance Reaction Severity [...] receiving this injection. 2Admin Note: Distributed by: [employer] Biotherapies Manufactured by: [employer] 3Admin Note: #2 08/27/03 #1 07/28/2003 Medications [...] Replace Required Details, Route to Pharmacy Electronically, [facility], 165, cm, 01/31/24 11:04:00 EDT, Height, 8... Start Date: 02/26/24 Status: Ordered metoprolol 25 mg oral tablet, extended release 12.5 mg, 0.5, tablet, By Mouth, Daily, # 15 tablet, Refills 11, Tot. Refills 11, Maintenance, 02/25/24 14:11:00 EDT, Route to Pharmacy Electronically, [facility]/pharmacy #[id number], Partial fill upon patient [...] tablet, 1 Refills, Maintenance, 04/09/24 9:54:00 EDT, [facility], 165, cm, 01/31/24 11:04:00 EDT, Height, 84, [...] Care Team Personnel Name: Genevieve Dexter Position: [facility] Associate Professional Member Role: PCP Address: Address: [address] [place] [id number] Care Team Related Persons Name: ASHA GALLO Name: NICOLÁS SMITH Address: [place] [address]
--- OUTSIDE RECORDS SUMMARY | 2024-06-25 12:17 | XMS_ITS | Continuity of Care Document ---
Author Organization [facility] Flo Lisandro lt Address [address] [place] [address] Care Team Providers Care Building Services Coordinator Name Role Phone Genevieve Dexter Primary Care Physician Encounter [facility] Date(s): 04/04/24 - 05/04/24 [facility] Adult [address] [place] [address]- Allergies, Adverse Reactions, Alerts Substance Reaction Severity [...] receiving this injection. 2Admin Note: Distributed by: [employer] Manufactured by: [employer] 3Admin Note: #2 08/27/03 #1 07/28/2003 Medications [...] Replace Required Details, Route to Pharmacy Electronically, [facility], 165, cm, 01/31/24 11:04:00 EDT, Height, 8... Start Date: 02/26/24 Status: Ordered metoprolol 25 mg oral tablet, extended release 12.5 mg, 0.5, tablet, By Mouth, Daily, # 15 tablet, Refills 11, Tot. Refills 11, Maintenance, 02/25/24 14:11:00 EDT, Route to Pharmacy Electronically, [facility]/pharmacy #[id number], Partial fill upon patient [...] tablet, 1 Refills, Maintenance, 04/09/24 9:54:00 EDT, [facility] [address], 165, cm, 01/31/24 11:04:00 EDT, Height, 84, [...] Associate Professional Member Role: PCP Address: Address: [address] [place] [id number] Care Team Related Persons Name: ASHA GALLO Name: NICOLÁS SMITH Address: [place] [address]
--- OUTSIDE RECORDS SUMMARY | 2024-06-25 12:17 | XMS_ITS | Patient Health Record ---
Author Organization [facility] Address [address] [place] [address] Support Name Relationship Address Phone Maria Esther Martinez Guarantor Unknown [phone] Allergies Allergen (clinical drug ingredient) Drug/Non Drug Allergy documented on EMR Reaction Allergy Type Onset Date Status sulfamethoxazole / trimethoprim Bactrim DS vomiting Drug Allergy Active hydromorphone Dilaudid dizziness Drug Allergy Act tran penicillin G Penicillin G Potassium hives Drug Allergy Active Latex Latex rash Allergy Active Reason For Referral No Information Medications Medication SIG (Take, Route, Frequency, Duration) Notes [...] a day for 10 days 08/10/2020 Active Social History Tobacco Use: Social History Observation Description Date Details (start date - stop date) Never Smoker NA - NA Tobacco Use/Smoking Question Answer Notes Are you a nonsmoker Alcohol Screen (Audit-C) Question Answer Notes Did you have a drink contain ing alcohol in the past year? Yes How often did you have a dri nk containing alcohol in the past year? Monthly or less (1 point) Points 1 Interpretation Negative Problems Problem Type SNOMED Code ICD Code Onset Dates Problem Status W/U Status Risk Notes Problem Mixed hyperlipidemia (628124705) Mixed hyperlipidemia (E78.2) Active confirmed Problem Essential hypertension (38220849) Essential (primary) hypertension (I10) Active confirmed Problem Paroxysmal atrial fibrillation (410355510) Paroxysmal atrial fibrillation (I48.0) Active confirmed Problem Body mass index 30.00 to 34.99 (114107025886006) Body mass index [BMI] 32.0-32.9, adult (Z68.32) Active confirmed Problem Body mass index 30.00 to 34.99 ([id number]) Body mass index [BMI] 34.0-34.9, adult (Z68.34) Active confirmed Plan Of Treatment No Information Insurance Providers Payer Name Payer Address Payer Phone Subscriber Number Group Number Insured Name Patient Relationship to Insured Coverage Start Date Coverage End Date Medicare [address] [place] [phone] [id number] Maria Esther Martinez Self - patient is the insured [place] [address] [place] [address] [id number] Maria Esther Martinez Self - patient is the insured Medical (General) History Medical History History ICD Code asthma - mild intermittent Paroxysmal A. fib Hypertension Hyperlipidemia Surgical History Surgery Date(Month/Year) Back Surgery by Dr MUELLER 2013
== END 2024-06-25 12:28 | disposition home or self-care (01) ==
LOC: HO.HBS 12:12
PROVIDERS: PCP Physician Assistant; Visit Provider Physician Assistant Surgical
DX: E66.811 Obesity, class 1 (principal); Z68.32 Body mass index [BMI] 32.0-32.9, adult; Z90.3 Acquired absence of stomach [part of]; Z98.84 Bariatric surgery status
CPT/HCPCS: 98967

== ENCOUNTER 2025-03-23 10:51 | Emergency (ER) | payer MEDICARE, MEDICAID, SELFPAY ==
--- NOTE | ~2025-03-23 | XR_ITS ---
CLINICAL HISTORY: Constipation Exam: Abdominal radiographs supine view Comparison: None Findings: 2 images were obtained. Excluded right diaphragm. Nonobstructive bowel gas pattern. Large stool quantity most notably from ascending colon to descending colon. Surgical clips and sutures in the left upper quadrant. No abnormal calcification in the abdomen or pelvis. Vascular calcification noted. A surgical clip also present in the right pelvis. No pneumoperitoneum or positive mass effect. Degenerative changes of lumbar spine. Impression: Suggestion of constipation This document has been electronically signed by: Farideh Roberson MD on 03/23/2025 13:03:09
--- NOTE | ~2025-03-23 | CT_ITS ---
CLINICAL HISTORY: lower abd pain, LLQ TTP, constipation, mucus stool Exam: CT abdomen and pelvis with IV contrast Comparison: None provided Findings: Unremarkable lung bases. Liver, gallbladder, spleen, pancreas, adrenal glands, kidneys are unremarkable. Markedly distended urinary bladder, minimal intraluminal air, no calculus or mural thickening. Uterus and left adnexa are unremarkable. Right adnexal cyst 2 cm. The rectum is underdistended and contains small amount of liquid stool, small to moderate inspissated stool in the sigmoid, multifocal mural thickening of the rectosigmoid most notably in nearly decompressed segments, adjacent fatty stranding noted. More conspicuous moderate amount of inspissated stool in the upstream colon. Stomach and small bowel, appendix are unremarkable. Status post sleeve gastrectomy. Mild atherosclerotic disease. No bulky lymph nodes. No ascites or pneumoperitoneum. Moderate degenerative spondylosis of the lumbar spine. No acute osseous abnormality. Impression: 1. Acute proctosigmoiditis in the setting of suspected constipation, stercoral proctosigmoiditis is possible, the rectosigmoid is underdistended on this exam probably due to recent bowel movement. 2. Markedly distended urinary bladder contains minimal intraluminal air, please correlate with recent instrumentation history. 3. Right adnexal cyst 2 cm, recommend outpatient ultrasound. This document has been electronically signed by: Farideh Roberson MD on 03/23/2025 14:55:36
--- NOTE | 2025-03-23 10:54 | ECG_ITS ---
Test Reason : CHEST PAIN Blood Pressure : */* mmHG Vent. Rate : 66 BPM Atrial Rate : 66 BPM P-R Int : 156 ms QRS Dur : 94 ms QT Int : 434 ms P-R-T Axes : 71 55 41 degrees QTcB Int : 454 ms Normal sinus rhythm Normal ECG When compared with ECG of 02-Jun-2022 09:03, Premature atrial complexes are no longer Present Referred By: Generic ED Physician Electronically Signed By: MICHAEL CLINE MD
[2025-03-23 11:26] VITALS: BP 156/55; PULSE 69; RESP 16; TEMP 35.8; O2SAT 99; BMI 33.4
--- NOTE | 2025-03-23 11:33 | ED.GENADULT ---
HPI - General Adult General Chief complaint: General Medical Stated complaint: Cp, stomach pain, possible fever Time Seen by Provider: 03/23/25 11:45 Source: patient Mode of arrival: ambulatory Limitations: no limitations History of Present Illness ED Provider: Natty Jama NP HPI narrative: Patient is a 64-year-old female with past medical history of he paroxysmal atrial fibrillation not on anticoagulation, aortic valve sclerosis, hypertension, dyslipidemia, arthritis, asthma, GERD, obesity, laparoscopic sleeve gastrectomy 2022 who presents emergency department for evaluation of expressed concern for abdominal pain and constipation. She states that she lost time normal bowel movement approximately 4-5 days. Typically she has a soft formed bowel movement every 3-4 days. Yesterday she had a very hard golf ball sized stool that resulted in rectal pain and pressure with passing. Today she has had multiple episodes where she feels the urge to go but is unable to, she reports having mucus from the rectum but no stool. She has intermittent episodes of intense severe cramping diffusely throughout the lower abdomen that makes her feel diaphoretic, nauseous, and pain diffusely throughout her chest. This lasts a few moments and once the abdominal cramping resolves the chest pain resolves as well. She does admit to a history of diagnosis of IBS many years ago and occasionally will take a Dulcolax if she feels constipated but is not overly problematic for her nor has she had any recent concerns. She denies headache, vision changes, current chest pain, shortness of breath, difficulty breathing, numbness or tingling of the extremities, back pain, genitourinary symptoms. Admits to having prior colonoscopies without abnormal findings, does not recall the exact date but states that she was only advised to return in 10 years for repeat. Related Data Home Medications ?Medication ?Instructions ?Recorded ?Confirmed albuterol sulfate 90 mcg/actuation 2 puff inhalation Q4H PRN Wheezing 06/24/20 06/25/24 aerosol inhaler epinephrine 0.3 mg/0.3 mL 0.3 mg IM DIRECTED allergies 06/24/20 06/25/24 injection, auto-injector fluticasone propionate 50 1 spray intranasal DAILY 06/24/20 06/25/24 mcg/actuation nasal spray,suspension rosuvastatin 20 mg tablet 20 mg PO QAM 06/24/20 06/25/24 lisinopril 20 mg tablet 20 mg PO DAILY 01/20/23 06/25/24 Previous Rx's ?Medication ?Instructions ?Recorded metoprolol succinate 25 mg 25 mg PO DAILY #90 tabs 10/10/22 tablet,extended release 24 hr Held on 10/26/22. Instructions: Resume on 10/27/22. Measure your blood pressure daily and report it to Dr. Noe. Don't take the medication before he gets back to you. Don't take the medication if the blood pressure is below 120/70 mmHg. pantoprazole 40 mg tablet,delayed 40 mg PO DAILY #30 tabs 11/22/22 release calcium 315 mg (as 1 tab PO BID #60 tabs 12/06/22 citrate)-vitamin D3 5 mcg (200 unit) tablet (Calcium Citrate + D) cyclobenzaprine 10 mg tablet 10 mg PO TID PRN muscle spasm #10 12/30/23 tabs oxycodone 5 mg tablet 5 mg PO Q8H PRN pain #7 tabs 12/30/23 benzonatate 100 mg capsule 100 mg PO TID PRN cough #14 caps 04/05/24 codeine 10 mg-guaifenesin 100 mg/5 5 ml PO .Night PRN cough #118 mL 04/05/24 mL oral liquid lactulose 10 gram/15 mL oral 10 g (15 mL) PO BEDTIME PRN 03/23/25 solution laxative effect #237 mL Allergies Allergy/AdvReac Type Severity Reaction Status Date / Time hydromorphone (From DILAUDID) Allergy Intermediate HALLUCINATI Verified 03/23/25 11:27 ONS Penicillins Allergy Mild HIVES Verified 03/23/25 11:27 sulfamethoxazole (From Allergy Mild N/V Verified 03/23/25 11:27 Bactrim) trimethoprim (From Bactrim) Allergy Mild N/V Verified 03/23/25 11:27 Pertussis Vaccines AdvReac Intermediate fever up Verified 03/23/25 11:27 to 104 dogs, cats Allergy Intermediate nasal Uncoded 03/23/25 11:27 congestion/sneezing SEASONAL ALLERGIES Allergy Intermediate NASAL Uncoded 03/23/25 11:27 CONGESTION, SNEEZING PMFSH Past Medical History Medical History History of COVID-19 Arthritis Hepatitis GERD (gastroesophageal reflux disease) BMI 33.0-33.9,adult Depression Hypertension BMI 37.0-37.9, adult Obesity Exertional angina Urgency incontinence Asthma Paroxysmal A-fib Aortic valve sclerosis Papilledema Osteoarthritis Carpal tunnel syndrome, right Migraine without aura Lumbar disc disease Dyslipidemia Esophageal obstruction Surgical History Hx of tonsillectomy History of meniscectomy of left knee H/O colonoscopy delivery delivered History of cataract surgery History of microdiscectomy History of tumor Family History Family History Father CAD (coronary artery disease) History of quadruple bypass Mother HTN (hypertension) Brother CVD (cardiovascular disease) History of heart attack Paternal Grandfather Heart disease Paternal Grandmother Heart disease Maternal Aunt Colon cancer Paternal Uncle Heart disease Brother No problems noted. Brother No problems noted. Brother No problems noted. Son No problems noted. Daughter No problems noted. Daughter No problems noted. Maternal Aunt Ovarian cancer Social History Social History Household Members: None Household Members Other:: lives alone but in two family home w/family members in other apt. Housing: House Are you a primary vp care management to a significant other at home: No Do you presently have visiting nurse or other home services: No Alcohol intake: never Patient Tobacco Use Status: Never used Tobacco Smoked in Last 30 Days: No Use of substances other than those prescribed or required for medical reasons: No Advance Directives: No Advance Directives Information Provided: Yes service: No Current occupational status: employed Physical Exam ED Vital Signs: Vital Signs - 24 hr 03/23/25 18:02 03/23/25 19:45 Temperature 0 F L Pulse Rate 66 66 Respiratory Rate 14 14 Blood Pressure 141/73 H 141/73 H Pulse Oximetry 97 97 Oxygen Delivery Method Room Air Room Air BMI result Body Mass Index 33.4 Course Course Course Narrative: RME: 64-year-old female presents to ED for constipation for 1 day. Patient has had bowel movement yesterday. Patient states today she felt like she has to use the bathroom or only slight liquid, now out. Patient states also having some chest pain without any shortness of breath. Reevaluation(s) Reevaluation #1: CT of the abdomen and pelvis reveals acute proctosigmoiditis with under distention of the rectosigmoid. Suspect this is secondary to her significant constipation. She has been history of IBD, had a normal colonoscopy in 2019, does not have recurrent issues with abdominal pain cramping nausea vomiting bloody stools or mucosal involvement. She is amenable to receiving an enema in the emergency department, she is currently unhoused, she will remain here in the department until she is able to pass a successful bowel movement. There is a markedly distended urinary bladder containing minimal intraluminal air, she has not had any recent instrumentation, she denies having genitourinary symptoms at this time however she does state approximately 2 weeks ago she was experiencing dysuria however had resolved. Will obtain urinalysis to exclude urinary tract infection, emphysematous cystitis, unremarkable suggest outpatient follow-up with Urology. There additionally was an incidental finding of a 2 cm right adnexal cyst, for which she can follow up outpatient with robot operator Time: 15:37 Reevaluation #2: 19:15 - Patient signed out to El Benavidez MD pending successful bowel movement and discharge following Medications Administered Discontinued Medications Generic Name Dose Route Start Last Admin Trade Name Freq PRN Reason Stop Dose Admin Iohexol 100 ml 03/23/25 14:24 03/23/25 14:24 Iohexol 350 Mg/Ml 100 Ml Infus..Btl IV 03/23/25 14:25 85 ml ONCE ONE Administration Magnesium Citrate 300 ml 03/23/25 17:43 03/23/25 18:02 Magnesium Citrate 300 Ml Solution PO 03/23/25 17:44 300 ml ONCE ONE Administration Mineral Oil 133 ml 03/23/25 16:02 03/23/25 16:33 Mineral Oil Enema 133 Ml Enema TN 03/23/25 16:03 133 ml ONCE ONE Administration Medical Decision Making Medical Decision Making MDM Narrative: Patient is a 64-year-old female with past medical history of he paroxysmal atrial fibrillation not on anticoagulation, aortic valve sclerosis, hypertension, dyslipidemia, arthritis, asthma, GERD, obesity, laparoscopic sleeve gastrectomy 2022 who presents emergency department for evaluation of abdominal who expressed concern for constipation with mucus from the rectum as per HPI. Abdominal cramping pain is intermittent and has associated chest pain during these episodes but self resolves after minute. Currently she is asymptomatic. On examination she is exquisitely tender over the mid lower abdomen/left lower quadrant of her abdomen. No rigidity or guarding. She is not hypotensive. She is afebrile and without tachycardia. Concern at this time for constipation, IBS, IBD, diverticulitis, bowel obstruction. No genitourinary symptoms that would favor renal colic unlikely hydronephrosis, obstructive calculi, urinary tract infection, pyelonephritis. Addition she has no CVA tenderness. Obtaining CT of the abdomen and pelvis for further evaluation in addition to serum labs. Does admit that episodes of chest pain did occur while she is straining for bowel movement, may be some degree of vasovagal, will additionally obtain ECG and troponin to exclude ACS though symptoms are atypical. On review of medical record normal screening colonoscopy in June of 2020 I was informed by the patient's nurse that the patient a longer wants to wait to have a bowel movement here. Patient states that she will take a prescription and would like to be discharged. Patient being discharged per patient's request, in stable condition. Differential Diagnosis Differential Diagnoses: The differential diagnosis associated with the presentation includes (See narrative above) Admission/Observation Consideration of admission/observation: Escalation of care including admission/observation considered Lab Data MDM Lab Attestation statement: I reviewed the patient's lab results. CBC is without leukocytosis anemia or thrombocytopenia. No electrolyte derangement. No HECTOR. LFTs and lipase unremarkable. High sensitive troponin below detectable limits. 03/23/25 12:26 03/23/25 12:26 Labs: Lab Results 03/23/25 03/23/25 Range/Units 12:26 16:31 WBC 8.4 (4.8-10.8) X10*3/uL RBC 5.00 (4.20-5.50) X10*6/uL Hgb 14.5 (12.0-16.0) g/dl Hct 42.7 (37.0-47.0) % MCV 85.4 (80.0-98.0) fL MCH 29.0 (27.0-33.0) pg MCHC 34.0 (31.0-35.0) g/dl RDW 13.0 (11.0-16.0) % Plt Count 258 (160-400) X10*3/uL MPV 9.6 (9.4-12.3) fL Immature Gran % (Auto) 0.2 (0.0-0.4) % Neut % (Auto) 73.7 H (45-73) % Lymph % (Auto) 17.9 L (20-40) % [place] % (Auto) 6.3 (2-11) % Eos % (Auto) 1.2 (0-4) % Baso % (Auto) 0.7 (0-2) % Lymph # (Auto) 1.5 (1.2-4.9) X10*3/uL [place] # (Auto) 0.5 (0.1-1.2) X10*3/uL Eos # (Auto) 0.1 (0.0-0.4) X10*3/uL Baso # (Auto) 0.1 (0.0-0.2) X10*3/uL Abs Immat Gran (auto) 0.02 (0.00-0.03) X10*3/uL Absolute Neuts (auto) 6.2 (2.0-8.3) x10*3/uL Absolute Nucleated RBC 0.000 (0.0-0.012) X10*3/uL Nucleated RBC % (auto) 0.0 (0.0-0.2) /100WBC PT 10.4 L (10.9-12.4) SEC INR 0.9 (0.9-1.1) APTT 27.5 (26.0-36.8) SEC Sodium 143 (135-145) mmol/L Potassium 3.7 (3.3-5.1) mmol/L Chloride 108 (96-108) mmol/L Carbon Dioxide 24 (22-29) mmol/L Anion Gap 15 (12-20) BUN 15 (9-16) mg/dL Creatinine 0.90 (0.5-1.4) mg/dL Estim Creat Clear Calc 67.1 Estimated GFR > 60 Random Glucose 120 H (60-115) mg/dL Calcium 9.7 (8.4-10.2) mg/dL Total Bilirubin 0.4 (0.0-1.0) mg/dL AST 25 (5-31) U/L ALT 23 (0-31) U/L Alkaline Phosphatase 70 (39-117) U/L Troponin I High Sens < 2.7 (<3.5-17.0) ng/L Total Protein 7.4 (6.5-8.0) g/dL Albumin 4.8 (3.5-5.0) g/dL Lipase 16 (8-78) U/L Urine Color Yellow Urine Appearance Clear Urine pH 7.5 (5.0-9.0) Ur Specific [place] >= 1.030 H (1.005-1.025) Urine Protein Negative (Neg-Trace) mg/dL Urine Glucose (UA) Negative (Negative) mg/dL Urine Ketones Negative (Negative) mg/dL Urine Blood Negative (Negative) Urine Nitrite Negative (Negative) Ur Leukocyte Esterase Negative (Negative) Independent Interpretation I performed an independent interpretation of an: EKG (Normal sinus rhythm with ventricular rate of 66, normal SHASHI, QTC 445 MS, no ST-elevation) Radiology Impression Discussion of test interpretation with radiology: I have reviewed the radiologist's reading. Radiologist Impression: Exam: CT abdomen and pelvis with IV contrast Comparison: None provided Findings: Unremarkable lung bases. Liver, gallbladder, spleen, pancreas, adrenal glands, kidneys are unremarkable. Markedly distended urinary bladder, minimal intraluminal air, no calculus or mural thickening. Uterus and left adnexa are unremarkable. Right adnexal cyst 2 cm. The rectum is underdistended and contains small amount of liquid stool, small to moderate inspissated stool in the sigmoid, multifocal mural thickening of the rectosigmoid most notably in nearly decompressed segments, adjacent fatty stranding noted. More conspicuous moderate amount of inspissated stool in the upstream colon. Stomach and small bowel, appendix are unremarkable. Status post sleeve gastrectomy. Mild atherosclerotic disease. No bulky lymph nodes. No ascites or pneumoperitoneum. Moderate degenerative spondylosis of the lumbar spine. No acute osseous abnormality. Impression: 1. Acute proctosigmoiditis in the setting of suspected constipation, stercoral proctosigmoiditis is possible, the rectosigmoid is underdistended on this exam probably due to recent bowel movement. 2. Markedly distended urinary bladder contains minimal intraluminal air, please correlate with recent instrumentation history. 3. Right adnexal cyst 2 cm, recommend outpatient ultrasound. External Record Review External record reviewed: Outpatient record Chronic Conditions Patient?s care impacted by: Other (See narrative above) Discharge Plan Discharge Clinical Impression: Proctosigmoiditis, Constipation Patient Disposition: Home, Self-Care Instructions: Constipation (ED) Additional Instructions: Found to be significantly constipated while in the emergency department, resulting in proctosigmoiditis. As discussed, this can sometimes occur due to inflammatory bowel disease, but you do not have any history that would be consistent with this. Additionally had a colonoscopy in 2019 which did not show evidence of inflammatory bowel disease. You were treated in the emergency department for constipation. Moving forward should you have any further issues regarding abdominal pain, constipation, diarrhea, bloody or mucousy stools, speak with your primary care doctor, they may consider outpatient follow-up with Gastroenterology. There were incidental findings on your CT; a small amount of air seen within your bladder which could happen if you had recent procedures or interventions on the bladder and you have not, may additionally occurred in the setting of urinary tract infection which your urine does not show evidence of. I recommend outpatient follow-up with Urology in regards to this. Additionally, there was an incidental finding of a 2 cm cyst on your right ray, you may follow-up outpatient a robot operator provider in regards to this. If you do not currently have when you may follow-up with the robot operator associated with our hospital or alternative robot operator locally Sometimes these can cause pain and if they rupture the fluid inside of them can cause abdominal pain. It is important you monitor yourself and seek medical care for worsening pain, fevers over 100.4, unable to eat or drinking, fainting / dizziness or any other concerns. Rest and stay hydrated. It is important you follow up with your OBGYN or primary care doctor to monitor your symptoms and repeat an ultrasound in 4 weeks. If you do not have an OBGYN please see the list below. OBGYN and Midwifery [facility] [address] [phone] [facility] [address] [facility] [phone] OBGYN and Midwifery [address] [phone] Prescriptions: New lactulose 10 gram/15 mL solution 10 g PO BEDTIME PRN (Reason: laxative effect) Qty: 237 0RF No Action metoprolol succinate 25 mg tablet extended release 24 hr 25 mg PO DAILY Qty: 90 0RF pantoprazole 40 mg tablet,delayed release (DR/EC) 40 mg PO DAILY Qty: 30 1RF calcium citrate-vitamin D3 [Calcium Citrate + D] 315 mg-5 mcg (200 unit) tablet 1 tab PO BID Qty: 60 11RF oxycodone 5 mg tablet 5 mg PO Q8H PRN (Reason: pain) Qty: 7 0RF Rx Instructions: Partial Fill upon patient request. cyclobenzaprine 10 mg tablet 10 mg PO TID PRN (Reason: muscle spasm) Qty: 10 0RF benzonatate 100 mg capsule 100 mg PO TID PRN (Reason: cough) Qty: 14 0RF codeine-guaifenesin 10-100 mg/5 mL liquid 5 ml PO .Night PRN (Reason: cough) Qty: 118 0RF rosuvastatin 20 mg tablet 20 mg PO QAM fluticasone propionate 50 mcg/actuation spray,suspension 1 spray intranasal DAILY albuterol sulfate 90 mcg/actuation HFA aerosol inhaler 2 puff inhalation Q4H PRN (Reason: Wheezing) epinephrine 0.3 mg/0.3 mL auto-injector 0.3 mg IM DIRECTED lisinopril 20 mg tablet 20 mg PO DAILY Interventions: ED Discharge Assessment Last Done: 03/23/25 19:45 Discharge Date/Time: 03/23/25 19:45 Print Language: Surinamese
--- OUTSIDE RECORDS SUMMARY | 2025-03-23 12:11 | XMS_ITS | Clinical Summary ---
Author Organization [employer] Address [address] [facility] [address] [place] [address] Care Team Providers Care Retail Account Manager Name Role Phone Unavailable Primary Care Provider Unavailabl e Medications fluticasone (Veramyst) 27.5 MCG/SPRAY nasal spray 1 spray in the morning. Active albuterol (Ventolin HFA) 108 (90 Base) MCG/ACT inhaler 1 puff. Acti ve ASPIRIN 81 MG chewable tablet 1 tablet in the morning. Active buPROPion XL (Wellbutrin XL) 300 MG 24 hr tablet 1 tablet in the morning. Active rosuvastatin (Crestor) 20 MG tablet 1 tablet in the morning. Active lisinopril-hydroC HLOROthiazide 10-12.5 MG tabletIndications :Essential (primary) hypertension TAKE 1 TABLET BY MOUTH EVERY DAY IN THE MORNING 90 tablet 3 3 Active Active Problems Problem Noted Date Diagnosed Date Anxiety 08/03/2022 Atrial fibrillation 08/03/2022 Depressive disorder 08/03/2022 Hyperlipidemia 08/03/2022 Obesity (BMI 30-39.9) 08/03/2022 Primary hypertension 08/03/2022 Social History Tobacco Use Types Packs/Day Years Used Date Smoking Tobacco: Never Assessed Comments Unknown Sex and Gender Information Value Date Recorded Sex Assigned at Not on file Legal Sex Female 8:40 PM EDT Gender Identity Not on file Sexual Orientation Not on file Last Filed Vital Signs Vital Sign Reading Time Taken Comments Blood Pressure 114/86 01/07/2022 8:30 AM EDT Pulse - - Temperature - - Respiratory Rate - - Oxygen Saturation - - Inhaled Oxygen Concentration - - Weight 97.5 kg (215 lb) 01/07/2022 8:30 AM EDT Height 165.1 cm (5' 5 ) 01/07/2022 8:30 AM EDT Body Mass Index 35.78 01/07/2022 8:30 AM EDT Plan of Treatment Health Maintenance Due Date Last Done Comments CT Colonography 1959 Depression Screening 1959 FIT DNA/Cologuard 1959 FIT 1959 FOBT 1959 Sigmoidoscopy 1959 Alcohol/Substance Use Screening 1971 Tobacco Screening 1971 DTaP/Tdap/Td Vaccines (1 - Tdap) 1978 Pap Smear 1980 Cervical Cancer Screening 1989 HPV/Cotest 1989 Pneumococcal Vaccine: 50+ Ye ars (1 of 1 - PCV) 2009 Zoster Vaccines (1 of 2) 2009 Mammogram 05/28/2022 05/28/2020 COVID-19 Vaccine ( - 2023-2 5 season) 2024 Influenza Vaccine (#1) 2025 Colonoscopy 07/17/2030 07/17/2020 Colorectal Cancer Screening 07/17/2030 RSV Patients and Pa tients Aged 60 years or older (1 - 1-dose 75+ series) 2034 HIB Vaccines Aged Out No longer eligi ble based on patient's age to complete this topic HPV Vaccines Aged Out No longer eligi ble based on patient's age to complete this topic Hepatitis A Vaccines Aged Out No long er eligible based on patient's age to complete this topic Hepatitis B Vaccines Aged Out No long er eligible based on patient's age to complete this topic IPV Vaccines Aged Out No longer eligi ble based on patient's age to complete this topic Meningococcal B Vaccine Aged Out No l onger eligible based on patient's age to complete this topic Meningococcal Vaccine Aged Out No veronique crystal eligible based on patient's age to complete this topic RSV under 20 months Aged Out No longe r eligible based on patient's age to complete this topic Rotavirus Vaccines Aged Out No longer eligible based on patient's age to complete this topic Procedures Procedure Name Priority Date/Time Associated Diagnosis Comments COLONOSCOPY Routine 07/17/2020 12:00 AM EST MAMMOGRAM GENERIC Routine 05/28/2020 12: 00 AM EDT from Last 3 Months or Most Recently Relevant to Health Maintenance Results * COLONOSCOPY: [facility] (07/17/2020 12:00 AM EST) Anatomical Region Laterality Modality Endoscopy 07/17/2020 Narrative 07/17/2020 12:00 AM EST Refer to [facility]ovea for result details [facility] Procedure: COLONOSCOPY: [facility] Procedure Note ProviderSergei MD - 12/22/2022 Refer to [facility]a for result details [facility] Procedure: COLONOSCOPY: [facility] Historical Provider ENDOSCOPY PROCEDURE ORDER ARNOLD Final Result * MAMMOGRAM DIGITAL LISSETTE SCREENING: [facility] (05/28/2020 12:00 AM EDT) Anatomical Region Laterality Modality Breast Bilateral Mammography 05/28/2020 Narrative 05/28/2020 12:00 AM EDT Refer to Fovea for result details [facility] Procedure: MAMMOGRAM DIGITAL LISSETTE SCREENING: [facility] Procedure Note Provider, MD Sergei - 12/22/2022 Refer to Fovea for result details [facility] Procedure: MAMMOGRAM DIGITAL LISSETTE SCREENING: [facility] us Historical Provider IMG BI PROCEDURES Final R esult from Last 3 Months or Most Recently Relevant to Health Maintenance
--- OUTSIDE RECORDS SUMMARY | 2025-03-23 12:11 | XMS_ITS | Clinical Summary ---
Author Organization [facility] Address [address] [place] [id number] Phone Care Team Providers Care Applications Packager Name Role Phone Pcp, Unknown Primary Care Provider Unavailabl e Allergies Active Allergy Reactions Criticality Noted Date Comments Penicillins Other (See Comments) 06/21/2010 Medications fluticasone propionate (FLONASE) 50 mcg/actuation nasal spray 1 spray daily. 01/25/2022 Active lisinopril-hydro CHLOROthiazide (PRINZIDE,ZESTOR ETIC) 10-12.5 mg per tablet Take 1 tablet by mouth daily. 01/25/2022 Active rosuvastatin (CRESTOR) 20 MG tablet TAKE 1 TABLET BY MOUTH EVERY DAY FOR 90 DAYS 01/07/2022 Active Active Problems No known active problems Social History Tobacco Use Types Packs/Day Years Used Date Smoking Tobacco: Never Assessed Education Answer Date Recorded Are you interested in more education? Not on valeria e 12/24/2022 Are you concerned about learning? Not on file 12/24/2022 No 12/24/2022 No 12/24/2022 Digital Access Answer Date Recorded No 01/22/2023 No 01/22/2023 Reliable internet access at home? Not on file 01/22/2023 Device with a working camera? Not on file Comments Unknown Sex and Gender Information Value Date Recorded Sex Assigned at Female 01/21/2022 2:09 PM EDT Legal Sex Female 12:54 PM EDT Gender Identity Female 01/21/2022 2:09 PM EDT Sexual Orientation Straight 01/21/2022 2: 09 PM EDT Last Filed Vital Signs Vital Sign Reading Time Taken Comments Blood Pressure 132/80 02/03/2022 9:53 AM EDT Pulse 90 02/03/2022 9:53 AM EDT Temperature 36.9 C (98.5 F) 02/03/2022 9:53 AM EDT Respiratory Rate 16 02/03/2022 9:53 AM EDT Oxygen Saturation 96% 02/03/2022 9:53 AM EDT Inhaled Oxygen Concentration - - Weight 90.7 kg (200 lb) 02/03/2022 9:53 AM EDT Height 165.1 cm (5' 5 ) 02/03/2022 9:53 AM EDT Body Mass Index 33.28 02/03/2022 9:53 AM EDT Plan of Treatment Health Maintenance Due Date Last Done Comments Adult Td,Tdap Booster 1959 CREATININE LEVEL 1959 LIPID PANEL 1959 POTASSIUM LEVEL 1959 DEPRESSION SCREENING 1971 SMOKING Hx and SMOKELESS TOB ACCO SCREENING 1972 HEPATITIS C SCREENING 1977 HIV ONE-TIME SCREENING (18-6 5 YEARS) 1977 MAMMOGRAM 1999 COLOGUARD 2004 COLONOSCOPY 2004 COLORECTAL CANCER SCREENING 2004 FIT TEST 2004 FOBT 2004 SIGMOIDOSCOPY 2004 VIRTUAL COLONOSCOPY 2004 PNEUMOCOCCAL VACCINES (50+ y ears) (1 of 1 - PCV) 2009 ZOSTER VACCINES (1 of 2) 2009 COVID-19 VACCINE ( - 2023-2 5 season) 2024 OSTEOPOROSIS SCREENING INITI AL (ONE-TIME) 2024 RSV VACCINE (1 - 1-dose 75+ series) 2034 HEPATITIS A VACCINES Aged Out No long er eligible based on patient's age to complete this topic HIB VACCINES Aged Out No longer eligi ble based on patient's age to complete this topic MENINGOCOCCAL VACCINES (ACWY) Aged Out No longer eligible based on patient's age to complete this topic MENINGOCOCCAL VACCINES (B) Aged Out N o longer eligible based on patient's age to complete this topic Medical Devices Not on file [place] Member Subscriber Plan / Payer (Ef fective 2022-Present) Name:Maria Esther Martinez Relation to Subscriber:Self Name:Maria Esther Martinez Payer ID:[id number] Group ID:Not on file Type:Medicaid Address: [address] [place] [address] [place] [id number] MEDICARE PART A & [place] MEDICARE PART A & B [facility] MEDICARE PART A & B Care Teams Applications Packager Relationship Specialty Start Date End Date Pcp, Unknown PCP - General 01/21/22 Additional Source Comments The information contained in this document represents components of the legal health record. It is not the complete legal health record.[facility]
--- OUTSIDE RECORDS SUMMARY | 2025-03-23 12:11 | XMS_ITS | Data Portability ---
Author Organization [facility] [address] Address [address] [place] [address] Care Team Providers Care Mushroom Packer Name Role Phone SHANA NEGRO Primary Care Provider Assessment No assessment recorded. Plan of Treatment Reminders Order Date Submit Date Provider Last Modified By Organization Details Last Modified Time Details Appointments None record ed. Lab None record ed. Referral None record ed. Procedures None record ed. Surgeries None record ed. Imaging None record ed. Medication Orders None record ed. Patient TargetsNo targets recorded. Patient Instructions Encounter Date Encounter Id Patient Instructions Last Modified By Organization Details Last Modified Time 01/29/2023 [id number] eustachian tube problems: care instructions Not available 01/29/2023 11:43:08 as we talked about you seem ot have a eustachian tube which is not functioning well on the left side which is cuasing your pain, pressure, decreased hearing etc. The fact that you no longer have the nasal drainage and facial pressure probably mean that the antibiotics are working for an y sinus infection concerns. As that continues to resolve your ear may also improve some but given the length of time it has been going on you probably need to be evaluated by ENT. Follow up with your PCP to discuss this. Not available 01/29/2023 11:43:07 Reason for Referral None Reported. Problems Name Problem SNOMED Code Status Onset Date Resolution Date Notes Provider Name and Address Organization Details Recorded Time Hypertensive disorder 26037844 Active 2022 [facility] 10:50:16 Hypercholestero lemia 04441392 Active 2022 [facility] 3 10:50:24 Problem Notes None recorded. Procedures Surgical History Date Name Laterality Status Provider Name and Address Organization Details Recorded Time laparoscopic sleeve gastrectomy completed Celi Exeter PA - [facility] 01/29/2023 10:50:40 Imaging Results None recorded. Procedure Notes None recorded. Medical Equipment None Reported. Allergies Allergen ID Allergen Name Allergen Category Reaction Reaction Severity Criticality Documentation Date Start Date Code Code System Note Provider Name and Address Organization Details Recorded Time 193627 Dilaudid medicatio n hallucina tions Not available Not available 01/29/2023 14570 3 RxNorm Celi Exeter null, PA - [facility] 3 10:48:59 444296 Product containin g penicilli n (product) medicatio n hives Not available Not available 01/29/2023 82626 8001 SNOMED Celi Exeter null, PA - [facility] 3 10:49:06 556363 Bactrim medicatio n diarrhea Not available Not available 01/29/2023 04754 9 RxNorm Celi Shweta null, PA - [facility] 3 10:49:13 Medications Name Sig Start Date Stop Date Status Note LastModified by Organization Details LastModified Time vitamin b-12 1000mcg tablet, s PLACE 1 TABLET UNDER THE TONGUE & ALLOW TO DISSOLVE FOR AT LEAST 30 SECONDS BEFORE SWALLOWIN G DAILY. 01/29 completed Not Available Not Available Not Available cyclobenzap rine 10 mg tablet TAKE 1 TABLET BY MOUTH THREE TIMES A DAY NEEDED FOR SPASM active Not Available Not Available No t Available azithromyci n 250 mg tablet TAKE 2 TABLETS BY MOUTH TODAY, THEN TAKE 1 TABLET DAILY FOR 4 DAYS 01/29 completed Not Available Not Available Not Available ibuprofen 800 mg tablet TAKE 1 TABLET BY MOUTH THREE TIMES A DAY active Not Available Not Available No t Available sucralfate 100 mg/mL oral suspension TAKE 10MLS BY MOUTH TWICE DAILY 01/29 completed Not Available Not Available Not Available ondansetron HCl 4 mg tablet TAKE 1 TABLET BY MOUTH EVERY 12 HOURS NEEDED FOR NAUSEA/VO MITING 01/29 completed Not Available Not Available Not Available pantoprazol e 40 mg tablet,shukri yed release TAKE 1 TABLET BY MOUTH EVERY DAY 01/29 completed Not Available Not Available Not Available metoprolol succinate ER 25 mg tablet,exte nded release 24 hr TAKE 1/2 OF A TABLET BY MOUTH DAILY FOR 30 DAYS active Not Available Not Available No t Available lisinopril 10 mg-hydrochl orothiazide 12.5 mg tablet TAKE 1 TABLET BY MOUTH EVERY DAY IN THE MORNING. active Not Available Not Available No t Available methylpredn isolone 4 mg tablets in a dose pack TAKE 6 TABLETS ON DAY 1 DIRECTED ON PACKAGE AND DECREASE BY 1 TAB EACH DAY FOR A TOTAL OF 6 DAYS active Not Available Not Available No t Available fluticasone propionate 50 mcg/actuati on nasal spray,suspe nsion SPRAY 1 SPRAY INTO EACH NOSTRIL TWICE A DAY active Not Available Not Available No t Available cholecalcif jam (vitamin D3) 125 mcg (5,000 unit) capsule TAKE 1 CAPSULE BY MOUTH EVERY DAY active Not Available Not Available No t Available oxycodone 5 mg tablet TAKE 1 TABLET BY MOUTH EVERY 8 HOURS,X14 DAYS NEEDED FOR PAIN active Not Available Not Available No t Available rosuvastati n 20 mg tablet TAKE 1 TABLET BY MOUTH EVERY DAY active Not Available Not Available No t Available bupropion HCl XL 300 mg 24 hr tablet, extended release TAKE 1 TABLET BY MOUTH EVERY DAY active Not Available Not Available No t Available bupropion HCl XL 150 mg 24 hr tablet, extended release TAKE 1 TABLET BY MOUTH EVERY DAY IN THE MORNING 01/29 completed Not Available Not Available Not Available calcium 315 mg (as citrate)-vi tamin D3 5 mcg (200 unit) tablet TAKE 1 TABLET BY MOUTH TWICE DAILY. active Not Available Not Available No t Available nitrofurant oin monohydrate /macrocryst als 100 mg capsule TAKE 1 CAPSULE BY MOUTH TWICE A DAY FOR 7 DAYS active Not Available Not Available No t Available Vitals Date Recorded Body height Body mass index (BMI) Body weight Pain severity - 0-10 verbal numeric rating [Score] - Reported Respiratory rate Oxygen saturation Oxygen saturation in Arterial blood by Pulse oximetry Heart rate Body temperature Systolic And Diastolic Provider Name and Address Organization Details Last Updated DateTime 3 165.1 cm 28.8 kg/m2 36096.4 8 g 2 20 /min 100 % 100 % 62 /min 97.8 [degF] 146/80 mm[Hg] Celi Exeter PA - [facility] 10:52:10 Social History Question Answer Notes LastModified by Organizat ion Details LastModified Time Tobacco Smoking Status Never Smoker Celi griffin PA - [facility] 01/29/2023 10:50:29 Have You Had Direct Contact, Or Contact During Intimacy, With Monkeypox Rash, Scabs, Or Body Fluids From A Person With Monkeypox? No Information not available 01/29/2023 Have You Recently Traveled Abroad? No Information not available 01/29/2023 Sex: Unknown Functional Status Question Answer Note LastModified by Organizat ion Details LastModified Time Do you use any illicit or recreational drugs? No Information not available 01/29/2023 Do you or have you ever used any other forms of tobacco or nicotine? No Information not available 01/29/2023 What is your level of alcohol consumption? None Information not available 01/29/2023 Mental Status None recorded. Family History Relationship Description Onset Age of this Age Resolved Age Notes LastModified by Organization Details LastModified Time Father No current problems or disability Not available 01/29 10:50:18 Mother No current problems or disability Not available 01/29 10:50:18 Medical History No medical history recorded. Gynecological History Statement/Question Response Is there any chance of ? No LMP N/A Obstetrics History GPAL:G 0 P 0 0 0 0 Past Encounters Encounter ID Performer Location Encounter Start Date Encounter Closed Date Diagnosis/Indication Diagnosis SNOMED-CT Code Diagnosis ICD10 Code Diagnosis Note [id number] [address] [facility] [place] [address] 05/20/2019 16:40:07 05/20/2019 17:56:28 [id number] [address] [facility] [place] [address] 07/15/2020 16:36:40 07/15/2020 18:31:50 [id number] [address] [place] [address] 12/14/2016 09:11:30 12/14/2016 10:29:44 [id number] [address] [place] [address] 07/31/2019 08:21:04 07/31/2019 08:34:03 [id number] [address] [place] [address] 06/06/2015 12:18:57 06/06/2015 14:02:49 [id number] [address] [place] [address] 11/11/2020 13:52:22 11/11/2020 14:39:04 [id number] [facility] [address] [place] [address] 01/29/2023 09:32:06 01/29/2023 11:46:30 Dysfunction of left eustachian tube [id number] 484180 H69.92 Health Concerns Section Related Observation LastModified by Organization Detai ls LastModified Time None Recorded Concern Status LastModified by Organization Details LastModified Time None Recorded Advance Directives Directive None Recorded Payers Insurance Date Sequence Insurance Name Policy Number Policy Swan Covered Member ID Swan Member ID Guarantor Name 01/24/2024 1 [place] [email or web address] Maria Esther Martinez [id number] Maria Esther Martinez 01/25/2024 2 [place] [facility] Maria Esther Martinez [id number] Maria Esther Martinez Notes Date Note Type Note Provider Name and Address Organization Details Recorded Time 3 text/html Sinus Complaints UCReported by PatientHPIFor associated symptoms, patient reportsear fullnessbut reportsno nasal discharge,no fever,no difficulty breathing,no nausea or vomiting,no post nasal drip, andno nasal itching. For location, patient reportsleft side(more ear pain and pressure, decreased hearing). For onset/timing, patient reportsworse in amandprogressively worse over last 3months. For duration, patient reportschronicandinterm ittent. For severity, patient reportsmoderate. For alleviating factors, patient reportssaline nasal rinsesandantibiotics(fi nishing z pack and has less nasal drainage and congestion but ear still bothers her). For aggravating factors, patient reportsworse during an upper respiratory infection (a cold). For prior treatment, patient reportsnasal saline rinseandoral antibiotics:LUIS Silverman [facility] [place], [address], [place] - [facility] 01/29/2023 11:43:40 OBGyn Episode No OBEpisode recorded.
[2025-03-23 12:31] LABS: MANUAL DIFF FLAG NO
[2025-03-23 12:32] LABS: Hematocrit 42.7 % (37.0-47.0); Hemoglobin 14.5 g/dl (12.0-16.0); Imm Gran Abs Auto 0.02 X10*3/uL (0.00-0.03); Imm Gran Pct Auto 0.2 % (0.0-0.4); Lymphocytes Absolute Auto 1.5 X10*3/uL (1.2-4.9); Mean Corpuscular HGB Conc 34.0 g/dl (31.0-35.0); Mean Corpuscular Hemoglobin 29.0 pg (27.0-33.0); Mean Corpuscular Volume 85.4 fL (80.0-98.0); NRBC Abs Auto 0.000 X10*3/uL (0.0-0.012); NRBC Pct Auto 0.0 /100WBC (0.0-0.2); Platelet Count 258 X10*3/uL (160-400); Red Blood Count 5.00 X10*6/uL (4.20-5.50); White Blood Count 8.4 X10*3/uL (4.8-10.8)
[2025-03-23 12:49] LABS: Alanine Aminotransferase 23 U/L (0-31); Albumin Level 4.8 g/dL (3.5-5.0); Alkaline Phosphatase 70 U/L (39-117); Anion Gap 15 (12-20); Aspartate Amino Transferase 25 U/L (5-31); Blood Urea Nitrogen 15 mg/dL (9-16); Calcium 9.7 mg/dL (8.4-10.2); Carbon Dioxide 24 mmol/L (22-29); Chloride 108 mmol/L (96-108); Creatinine Clr Calc Pharmacy 67.1; Estimated Glomerular Filt Rate > 60; Lipase 16 U/L (8-78); Potassium 3.7 mmol/L (3.3-5.1); Sodium 143 mmol/L (135-145); Total Protein 7.4 g/dL (6.5-8.0)
[2025-03-23 12:55] LABS: INTERNATIONAL NORM RATIO 0.9 (0.9-1.1); Prothrombin Time 10.4 SEC (10.9-12.4)
[2025-03-23 12:58] LABS: Partial Thromboplastin Time 27.5 SEC (26.0-36.8)
[2025-03-23 13:01] LABS: Troponin-I High Sensitivity < 2.7 ng/L (<3.5-17.0)
[2025-03-23] MEDS: iohexoL 350 MG/ML 100 ML INFUS..BTL IV (14:24)
[2025-03-23 16:41] LABS: Appearance Urine Clear; Glucose Urine UA Negative (Negative); PH 7.5 (5.0-9.0); Specific Gravity - Urine >= 1.030 (1.005-1.025)
[2025-03-23 18:02] VITALS: BP 141/73; PULSE 66; RESP 14; O2SAT 97
[2025-03-23 19:45] VITALS: BP 141/73; PULSE 66; RESP 14; TEMP -17.7; TEMP 0; O2SAT 97
--- NOTE | 2025-03-24 00:56 | PC.NURSE ---
1919 pt reports that she is unable to go to the bathroom here in the ED because she is not comfortable and that she wants to go home. Dr. Benavidez made aware and spoke with patient. Pt discharged by Sirena GARRISON while t/w was with another patient.
== END 2025-03-23 19:45 | disposition home or self-care (01) ==
PROVIDERS: Nurse Practitioner Family; Physician Assistant; Emergency Provider Emergency Medicine; PCP Physician Assistant
DX: K63.89 Other specified diseases of intestine (principal); K59.00 Constipation, unspecified; R07.89 Other chest pain; R50.9 Fever, unspecified; Z79.899 Other long term (current) drug therapy
CPT/HCPCS: 36415; 74018; 74177; 80053; 81003; 83690; 84484; 85025; 85610; 85730; 93005; 99284; Q9967

== ENCOUNTER → 2025-03-23 10:54 | Outpatient (BNV) | payer MEDICARE, MEDICAID, SELFPAY | PROVIDERS: Emergency Provider Emergency Medicine; PCP Physician Assistant; Visit Provider Internal Medicine Cardiovascular Disease | DX: R07.9 Chest pain, unspecified (principal) | CPT/HCPCS: 93010 ==

== ENCOUNTER → 2025-03-23 11:32 | Outpatient (BNV) | payer MEDICARE, MEDICAID, SELFPAY | PROVIDERS: Emergency Provider Emergency Medicine; PCP Physician Assistant; Visit Provider Radiology Diagnostic Radiology | DX: K56.41 Fecal impaction (principal); K59.00 Constipation, unspecified | CPT/HCPCS: 74018; 74177 ==

== ENCOUNTER 2025-05-01 20:59 | Emergency (ER) | payer MEDICARE, MEDICAID, SELFPAY ==
--- OUTSIDE RECORDS SUMMARY | 2021-04-29 08:45 | XMS_ITS | Continuity of Care Document ---
Author Organization [facility] Address [address] [place] [phone] Phone Care Team Providers Care Synthetic Filament Spinner Name Role Phone Justino Merrill MD Unavailable Unavailable Allergies, Adverse Reactions, Alerts Substance Reaction Status Criticality PENICILLIN Active No Information HYDROMORPHONE HCL Active No Informa tion trimethoprim Active No Information sulfamethoxazole Active No Informat ion Medications Medication Instructions Dosage Effective Dates (start - stop) Status Comments lisinopril 10 mg tablet Lisinopril - Active Crestor 20 mg tablet Rosuvastatin - Active aspirin 81 mg tablet,delayed release take 1 tablet by oral route every day 81 MG - Active Flonase Allergy Relief 50 mcg/actuation nasal spray,suspension inhale 2 spray by intranasal route every day in each nostril 100 MCG - Active Ventolin HFA 90 mcg/actuation aerosol inhaler inhale 2 puff by inhalation route every 4 - 6 hours as needed - Active Procedures Procedure Date X-RAY OF ELBOW 2 VIEWS NEW PATNT OV DTL EXAM INJCTS TEND ORIG INSRT X-RAY OF ELBOW 2 VIEWS DepoMedrol INJECTION,METHYLPREDNISOLONE ACETATE,40MG Advance Directives Directive Yes / No Effective Date File Name No Information Encounters Encounter Description Practice Location Reason(s) For Visit Diagnoses Date Provider Providers Copied on Encounter [facility], [address] [place] [address], [place], [place], [id number], [place] tel:[phone] [facility] No Information 1 Garfield Badillo. [address], [address], [place], [place], [id number] , [place]. tel:[phone] KAMLA LUZ MARINA OV DTL EXAM TOA [facility], [address], [place], [place], [id number], [place] tel:[phone] [facility] Right Elbow Pain (chief complaint) Pain in right elbowLateral epicondylitis , right elbow Sep-0 1 Garfield Badillo. [address], [address], [place], [place], [id number] , [place]. tel:[phone] Referring Provider: Patricia Bowman, [facility] [address], [place], [address]. tel:[phone] Family History Family Member Type Diagnosis Age At Onset Brother Diagnosis interpretation Cancer Father Diagnosis interpretation Heart disease Brother Diagnosis interpretation Heart disease Mother Diagnosis interpretation Stroke Payers Payer name Insurance type Covered libertarian ID Nat mo(s) SocialSafe Plans [facility] [id number] Social History Type Description Quantity Date Captured Comments Sex Female Smoking Status No Information Chief Complaint And Reason For Visit No Information Reason For Referral Reason For Referral No Information History Of Present Illness Encounter Date Complaint History Of Prese nt Illness Right Elbow Pain Functional Status Date Functional Assessmen t No Information Instructions Date Instruction Additional Infor milo - Medication refills must be requested before 4pm Monday through Monday Related to Pain in right elbow - Patient education available at [email or web address] on the Education tab Related to Pain in right elbow Assessments Type Assessment Date No Information Patient Care Teams Name Effective Dates (start - stop) Status Members No Information
--- NOTE | 2025-05-01 | ECG_ITS ---
Test Reason : NAUSEA VOMITTING Blood Pressure : */* mmHG Vent. Rate : 77 BPM Atrial Rate : 77 BPM P-R Int : 184 ms QRS Dur : 88 ms QT Int : 404 ms P-R-T Axes : 68 27 24 degrees QTcB Int : 457 ms Normal sinus rhythm Possible Left atrial enlargement Nonspecific ST abnormality Abnormal ECG When compared with ECG of 23-Mar-2025 10:57, No significant change was found Referred By: Generic ED Physician Electronically Signed By: Fermín Wright
--- NOTE | ~2025-05-01 | XR_ITS ---
CLINICAL HISTORY: cough concern for aspiration 1 view chest x-ray Comparison: CR/SR - XR CHEST 2 VIEWS - 04/05/24 05:16 EDT Findings: The lungs are clear. Heart size is normal. No acute fracture. IMPRESSION: 1. No acute findings. This document has been electronically signed by: Claude Dhaliwal MD, PHD on 05/02/2025 00:16:06
[2025-05-01 21:03] VITALS: BP 139/63; BP 158/92; PULSE 78; PULSE 83; RESP 16; TEMP 36.6; O2SAT 100; O2SAT 99; BMI 31.6
[2025-05-01 21:39] LABS: MANUAL DIFF FLAG NO
[2025-05-01 21:41] LABS: Hematocrit 40.2 % (37.0-47.0); Hemoglobin 13.5 g/dl (12.0-16.0); Imm Gran Abs Auto 0.02 X10*3/uL (0.00-0.03); Imm Gran Pct Auto 0.2 % (0.0-0.4); Lymphocytes Absolute Auto 1.8 X10*3/uL (1.2-4.9); Mean Corpuscular HGB Conc 33.6 g/dl (31.0-35.0); Mean Corpuscular Hemoglobin 29.0 pg (27.0-33.0); Mean Corpuscular Volume 86.3 fL (80.0-98.0); NRBC Abs Auto 0.000 X10*3/uL (0.0-0.012); NRBC Pct Auto 0.0 /100WBC (0.0-0.2); Platelet Count 302 X10*3/uL (160-400); Red Blood Count 4.66 X10*6/uL (4.20-5.50); White Blood Count 10.1 X10*3/uL (4.8-10.8)
[2025-05-01 21:58] LABS: Alanine Aminotransferase 16 U/L (0-31); Albumin Level 4.7 g/dL (3.5-5.0); Alkaline Phosphatase 56 U/L (39-117); Anion Gap 13 (12-20); Aspartate Amino Transferase 25 U/L (5-31); Blood Urea Nitrogen 14 mg/dL (9-16); Calcium 9.7 mg/dL (8.4-10.2); Carbon Dioxide 26 mmol/L (22-29); Chloride 104 mmol/L (96-108); Creatinine Clr Calc Pharmacy 67.5; Estimated Glomerular Filt Rate > 60; Potassium 4.2 mmol/L (3.3-5.1); Sodium 139 mmol/L (135-145); Total Protein 7.3 g/dL (6.5-8.0)
--- OUTSIDE RECORDS SUMMARY | 2025-05-01 22:07 | XMS_ITS | Clinical Summary ---
Author Organization [employer] Address [address] [place] [address] Care Team Providers Care Internal Communications Manager Name Role Phone Unavailable Primary Care [...] COVID-19 Vaccine ( - 2023-2 5 season) 2025 Influenza Vaccine (#1) 2025 Colonoscopy 07/17/2030 07/17/2020 [...] Relevant to Health Maintenance Results * COLONOSCOPY: [facility] (07/17/2020 12:00 AM EST) Anatomical Region Laterality Modality Endoscopy 07/17/2020 Narrative 07/17/2020 12:00 AM EST Refer to [facility] for result details Legacy Procedure: COLONOSCOPY: [facility] Procedure Note ProviderSergei MD - 12/22/2022 Refer to [facility] for result details Legacy Procedure: COLONOSCOPY: [facility] Historical Provider ENDOSCOPY PROCEDURE ORDER ARNOLD Final Result * MAMMOGRAM DIGITAL LISSETTE SCREENING: [facility] (05/28/2020 12:00 AM EDT) Anatomical Region Laterality Modality Breast Bilateral Mammography 05/28/2020 Narrative 05/28/2020 12:00 AM EDT Refer to [facility] for result details Legacy Procedure: MAMMOGRAM DIGITAL LISSETTE SCREENING: [facility] Procedure Note Provider, MD Sergei - 12/22/2022 Refer to [facility] for result details Legacy Procedure: MAMMOGRAM DIGITAL LISSETTE SCREENING: [facility] us Historical Provider IMG BI PROCEDURES Final R esult from Last 3 Months or Most Recently Relevant to Health Maintenance
--- OUTSIDE RECORDS SUMMARY | 2025-05-01 22:07 | XMS_ITS | Clinical Summary ---
Author Organization [facility] Address [address] [place] [id number] Phone Care Team Providers Care Rate Supervisor Name Role Phone Pcp, Unknown Primary Care [...] MEDICARE PART A [place] [id number] MEDICARE PART A & [place] MEDICARE PART A & B MEDICARE PART [place] & [place] MEDICARE PART A & B [facility] MEDICARE PART A & B Care Teams Rate Supervisor Relationship Specialty Start Date End Date Pcp, Unknown PCP - General 01/21/22 Additional Source Comments The information contained in this document represents components of the legal health record. It is not the complete legal health record.[facility]
[2025-05-01 22:20] VITALS: BP 124/72; PULSE 73; RESP 12; TEMP 36.4; O2SAT 98
--- NOTE | 2025-05-01 23:01 | ED.NAVMDI ---
HPI - Nausea/Vomiting/Diarrhea General Chief complaint: Nausea/Vomiting/Diarrhea Stated complaint: n/v Choking on the drink to prep for colonoscopy Time Seen by Provider: 05/01/25 22:29 Source: patient, EMS and old records reviewed Mode of arrival: EMS Limitations: no limitations History of Present Illness ED Provider: JAY HPI Narrative: 64 yo female with PMH of GERD, afib, HTN, asthma, HLD, gastric sleeve 2021 no issues who reports she is due for colonoscopy 9am today with Dr. Ocasio for abnormal CT scan finding though had normal colonoscopy 5 years ago. Last time she did a prep she vomited and became violently ill. She completed the entire prep - she has passed liquid stools and then notes she has been vomiting and ill for 3 hours. No abdominal pain. She notes this happened last time but not as bad. She is worried as she choked one time and couldn't breathe she is concerned for aspiration. MD elicited complaint: nausea, vomiting and diarrhea Onset (ago): hour(s) (3) Description of vomiting: watery Description of diarrhea: mucus and watery Associated nausea: Yes Associated abdominal pain: No Severity: severe Exacerbating factors: medication Relieving factors: none Context: other Associated symptoms: cough, loss of appetite, malaise and nausea/vomiting Related Data Home Medications ?Medication ?Instructions ?Recorded ?Confirmed epinephrine 0.3 mg/0.3 mL 0.3 mg IM DIRECTED allergies 06/24/20 06/25/24 injection, auto-injector fluticasone propionate 50 1 spray intranasal DAILY 06/24/20 06/25/24 mcg/actuation nasal spray,suspension rosuvastatin 20 mg tablet 20 mg PO QAM 06/24/20 04/30/25 lisinopril 10 1 tab PO QAM 04/30/25 04/30/25 mg-hydrochlorothiazide 12.5 mg tablet meloxicam 15 mg tablet 15 mg PO DAILY 05/01/25 metoprolol succinate 25 mg 12.5 mg PO DAILY 05/01/25 tablet,extended release 24 hr Allergies Allergy/AdvReac Type Severity Reaction Status Date / Time hydromorphone (From DILAUDID) Allergy Intermediate HALLUCINATI Verified 05/01/25 21:07 ONS Penicillins Allergy Mild HIVES Verified 05/01/25 21:07 sulfamethoxazole (From Allergy Mild N/V Verified 05/01/25 21:07 Bactrim) trimethoprim (From Bactrim) Allergy Mild N/V Verified 05/01/25 21:07 Pertussis Vaccines AdvReac Intermediate fever up Verified 05/01/25 21:07 to 104 dogs, cats Allergy Intermediate nasal Uncoded 05/01/25 21:07 congestion/sneezing SEASONAL ALLERGIES Allergy Intermediate NASAL Uncoded 05/01/25 21:07 CONGESTION, SNEEZING Review of Systems Review of Systems: Constitutional : No Weight loss, No Fever, No Chills ENT/Mouth : No sore throat, No Rhinorrhea Eyes: No Swelling, No Redness Cardiovascular : No Chest Pain, No SOB, NoEdema Respiratory : No Cough, No Sputum, No Wheezing Gastrointestinal : Positive Nausea, Positive Vomiting, positive Diarrhea, no abdominal Pain, No Hematochezia, No Melena Genitourinary : No Dysuria, No Urinary Frequency, No Hematuria, No Urgency Musculoskeletal : No joint pain, No Myalgias, No Joint Swelling Skin : No Skin Lesions, No rash Neuro : No Weakness, No Numbness, No Dizziness, No Headache All other systems reviewed and are negative. Gastrointestinal: Gastrointestinal: Reports nausea PMFSH Past Medical History Attestation statement: The following information was validated with the patient. Source: old records reviewed Medical History Arthritis Hepatitis GERD (gastroesophageal reflux disease) Depression Hypertension Obesity Exertional angina Urgency incontinence Asthma Paroxysmal A-fib Aortic valve sclerosis Papilledema Osteoarthritis Carpal tunnel syndrome, right Migraine without aura Lumbar disc disease Dyslipidemia Esophageal obstruction Surgical History History of sleeve gastrectomy Hx of tonsillectomy History of meniscectomy of left knee H/O colonoscopy delivery delivered History of cataract surgery History of microdiscectomy History of tumor Family History Family History Father CAD (coronary artery disease) History of quadruple bypass Mother HTN (hypertension) Brother CVD (cardiovascular disease) History of heart attack Paternal Grandfather Heart disease Paternal Grandmother Heart disease Maternal Aunt Colon cancer Paternal Uncle Heart disease Brother No problems noted. Brother No problems noted. Brother No problems noted. Son No problems noted. Daughter No problems noted. Daughter No problems noted. Maternal Aunt Ovarian cancer Social History Social History Household Members: None Household Members Other:: lives alone but in two family home w/family members in other apt. Housing: House Are you a primary animal care provider to a significant other at home: No Do you presently have visiting nurse or other home services: No Alcohol intake: never Patient Tobacco Use Status: Never used Tobacco Smoked in Last 30 Days: No Advance Directives: No service: No Current occupational status: employed Physical Exam Vital Signs: Vital Signs: Last Vital Signs Temp 97.6 F 05/02/25 06:03 Pulse 80 05/02/25 06:03 Resp 16 05/02/25 06:03 BP 133/68 05/02/25 06:03 Pulse Ox 98 05/02/25 06:03 O2 Del Method Room Air 05/02/25 06:03 BMI result Body Mass Index 31.6 Appearance: Alert. Oriented X3. No acute distress. Eyes: Pupils equal, round and reactive to light. ENT: Pharynx normal. Neck: Normal inspection. Neck supple. CVS: Normal heart rate and rhythm. Pulses normal. Respiratory: No respiratory distress. Breath sounds normal. Abdomen: Soft and nontender. Skin: Skin warm and dry. Normal skin color. Normal skin turgor. Extremities: No lower extremity edema. No calf ttp Neuro: Oriented X 3. No motor deficit. No sensory deficit. CN2-12 intact Course Reevaluation(s) Reevaluation #1: Time: 08:45 Date: 05/02/25 Provider: Adrian Herndon MD Physician observation ended at 8:45AM. The patient presented to the emergency room yesterday after experiencing significant gastrointestinal symptoms while performing a bowel prep at home. She was rehydrated here in the emergency room and ultimately the decision was made to keep her in the emergency room overnight with a plan to discharge her in time to go to her procedure this morning. She has been stable overnight and will be discharged to go to her procedure.. Medications Administered Discontinued Medications Generic Name Dose Route Start Last Admin Trade Name Freq PRN Reason Stop Dose Admin Lactated Ringer's 1,000 mls @ 999 mls/hr 05/01/25 22:46 05/02/25 01:42 Lr IV 05/01/25 23:46 Infused .Q1H1M ONE Infusion Lactated Ringer's 1,000 mls @ 999 mls/hr 05/01/25 22:47 05/02/25 01:42 Lr IV 05/01/25 23:47 Infused .Q1H1M ONE Infusion Prochlorperazine Edisylate 10 mg 05/01/25 22:46 05/01/25 23:15 Prochlorperazine Edisylate 10 Mg/2 Ml Vial IVPUSH 05/01/25 22:47 10 mg ONCE ONE Administration Medical Decision Making Medical Decision Making MDM Narrative: 64 yo female with PMH of GERD, afib, HTN, asthma, HLD, gastric sleeve 2021 now here with c/o n/v and choking on vomit after colonoscopy prep hx of same in past. At this time will need hydration, IVF, and assess for improvement. Will keep here until colonoscopy in AM. Clear lungs but CXR ordered for aspiration Differential Diagnosis Differential Diagnoses: The differential diagnosis associated with the presentation includes dehydration, med reaction hx of same in past and no abd pain doubt obstruction Admission/Observation Consideration of admission/observation: Escalation of care including admission/observation considered will monitor overnight until colonoscopy 9am she already completed her prep physician observation stated at 1234am signed out to Dr. Benavidez Lab Data [facility] Lab Attestation statement: I reviewed the patient's lab results. 05/01/25 21:36 05/01/25 21:36 Labs: Lab Results 05/01/25 Range/Units 21:36 WBC 10.1 (4.8-10.8) X10*3/uL RBC 4.66 (4.20-5.50) X10*6/uL Hgb 13.5 (12.0-16.0) g/dl Hct 40.2 (37.0-47.0) % MCV 86.3 (80.0-98.0) fL MCH 29.0 (27.0-33.0) pg MCHC 33.6 (31.0-35.0) g/dl RDW 12.6 (11.0-16.0) % Plt Count 302 (160-400) X10*3/uL MPV 9.5 (9.4-12.3) fL Immature Gran % (Auto) 0.2 (0.0-0.4) % Neut % (Auto) 72.8 (45-73) % Lymph % (Auto) 17.6 L (20-40) % [place] % (Auto) 7.5 (2-11) % Eos % (Auto) 1.1 (0-4) % Baso % (Auto) 0.8 (0-2) % Lymph # (Auto) 1.8 (1.2-4.9) X10*3/uL [place] # (Auto) 0.8 (0.1-1.2) X10*3/uL Eos # (Auto) 0.1 (0.0-0.4) X10*3/uL Baso # (Auto) 0.1 (0.0-0.2) X10*3/uL Abs Immat Gran (auto) 0.02 (0.00-0.03) X10*3/uL Absolute Neuts (auto) 7.3 (2.0-8.3) x10*3/uL Absolute Nucleated RBC 0.000 (0.0-0.012) X10*3/uL Nucleated RBC % (auto) 0.0 (0.0-0.2) /100WBC Sodium 139 (135-145) mmol/L Potassium 4.2 (3.3-5.1) mmol/L Chloride 104 (96-108) mmol/L Carbon Dioxide 26 (22-29) mmol/L Anion Gap 13 (12-20) BUN 14 (9-16) mg/dL Creatinine 0.90 (0.5-1.4) mg/dL Estim Creat Clear Calc 67.5 Estimated GFR > 60 Random Glucose 122 H (60-115) mg/dL Calcium 9.7 (8.4-10.2) mg/dL Total Bilirubin 0.6 (0.0-1.0) mg/dL AST 25 (5-31) U/L ALT 16 (0-31) U/L Alkaline Phosphatase 56 (39-117) U/L Total Protein 7.3 (6.5-8.0) g/dL Albumin 4.7 (3.5-5.0) g/dL Independent Interpretation I performed an independent interpretation of an: EKG and Plain X-Ray (no aspiration noted) Interpretation: Rate: 77 Rhythm: NSR [place]: normal Normal P waves. Normal SHASHI. Normal QRS complex. ST T wave : inverted t waves V1, no CESARIO qTC: 457 prior studies: no acute ischemia The study has been interpreted contemporaneously by me. . Radiology Impression Discussion of test interpretation with radiology: I have reviewed the radiologist's reading. External Record Review External record reviewed: Inpatient record and Outpatient record Prescription Management I considered prescription management with: Other Discharge Plan Discharge Clinical Impression: Drug-induced nausea and vomiting Patient Disposition: Home, Self-Care Instructions: Acute Nausea and Vomiting (ED) Additional Instructions: your labs were reassuring you were hydrated your chest xray was normal return for any worsening symptoms or concerns - monitor for fevers, trouble breathing, yellow or bloody sputum, or any other concerns. Please go directly to your gastroenterology appointment today. Otherwise follow up with your regular doctor. Return to the emergency room if worse. Prescriptions: No Action lisinopril-hydrochlorothiazide 10-12.5 mg tablet 1 tab PO QAM meloxicam 15 mg tablet 15 mg PO DAILY metoprolol succinate 25 mg tablet extended release 24 hr 12.5 mg PO DAILY rosuvastatin 20 mg tablet 20 mg PO QAM fluticasone propionate 50 mcg/actuation spray,suspension 1 spray intranasal DAILY epinephrine 0.3 mg/0.3 mL auto-injector 0.3 mg IM DIRECTED Referrals: [facility] [Provider Group, Gastroenterology] Genevieve Mcneil PA [Primary Care Provider, Internal Medicine] Print Language: Tuvaluan
[2025-05-01] MEDS: Lactated Ringers 1,000 ML 999 ML IV ×2 (23:11)
--- NOTE | 2025-05-01 23:19 | PC.NURSE ---
pt medicated per MAR.
--- NOTE | 2025-05-02 00:41 | PC.NURSE ---
Pt remains resting in stretcher,respirations even and unlabored, fluids continue to administer
[2025-05-02 06:03] VITALS: BP 133/68; PULSE 80; RESP 16; TEMP 36.4; O2SAT 98
[2025-05-02 08:52] VITALS: BP 139/44; PULSE 79; RESP 14; TEMP 36.6; O2SAT 98
--- NOTE | 2025-05-02 08:53 | PC.NURSE ---
Pt d/c to ED for planned colonoscopy in short stay, requested to leave IV in per short stay RN- charge nurse notified. Pt d/c from ED and trasnported to short stay with ED transport in wheelchair.
== END 2025-05-02 08:54 | disposition home or self-care (01) ==
PROVIDERS: Emergency Provider Emergency Medicine; PCP Physician Assistant
DX: R11.2 Nausea with vomiting, unspecified (principal); T50.995A Adverse effect of other drugs, medicaments and biological substances, initial encounter; Y92.89 Other specified places as the place of occurrence of the external cause; I10 Essential (primary) hypertension; K21.9 Gastro-esophageal reflux disease without esophagitis; Z98.84 Bariatric surgery status; Z79.899 Other long term (current) drug therapy
CPT/HCPCS: 36415; 71045; 80053; 85025; 93005; 96361; 96374; 99284; 99285; J0737; J7120

== ENCOUNTER → 2025-05-01 21:28 | Outpatient (BNV) | payer MEDICARE, MEDICAID, SELFPAY | PROVIDERS: Emergency Provider Emergency Medicine; PCP Physician Assistant; Visit Provider Internal Medicine Cardiovascular Disease | DX: R94.31 Abnormal electrocardiogram [ECG] [EKG] (principal); R11.2 Nausea with vomiting, unspecified | CPT/HCPCS: 93010 ==

== ENCOUNTER → 2025-05-01 22:46 | Outpatient (BNV) | payer MEDICARE, MEDICAID, SELFPAY | PROVIDERS: Emergency Provider Emergency Medicine; PCP Physician Assistant; Visit Provider General Practice | DX: R05.9 Cough, unspecified (principal) | CPT/HCPCS: 71045 ==

== ENCOUNTER 2025-05-02 08:54 | Day surgery (SDC) | payer MEDICARE, MEDICAID, SELFPAY ==
--- OUTSIDE RECORDS SUMMARY | 2025-04-18 08:52 | XMS_ITS | Clinical Summary ---
Author Organization [facility] Address [address] [place] [address] Phone Care Team Providers Care Talent Assistant Name Role Phone Pcp, Unknown Primary Care [...] [place] [phone] MEDICARE PART A & [place] & B [facility] MEDICARE PART A & B Care Teams Talent Assistant Relationship Specialty Start Date End Date Pcp, Unknown PCP - General 01/21/22 Additional Source Comments The information contained in this document represents components of the legal health record. It is not the complete legal health record.[facility]
--- OUTSIDE RECORDS SUMMARY | 2025-04-18 08:52 | XMS_ITS | Clinical Summary ---
Author Organization [facility] Address [address] [facility] [address] [place] [address] Care Team Providers Care Underwear Hemmer Name Role Phone Unavailable Primary Care Provider [...] Relevant to Health Maintenance Results * COLONOSCOPY: [facility] (07/17/2020 12:00 AM EST) Anatomical Region Laterality Modality Endoscopy 07/17/2020 Narrative 07/17/2020 12:00 AM EST Refer to Fovea for result details [facility] Procedure: COLONOSCOPY: [facility] Procedure Note ProviderSergei MD - 12/22/2022 Refer to Fovea for result details Legacy Procedure: COLONOSCOPY: [facility] Historical Provider ENDOSCOPY PROCEDURE ORDER ARNOLD Final Result * MAMMOGRAM DIGITAL LISSETTE SCREENING: [facility] (05/28/2020 12:00 AM EDT) Anatomical Region Laterality Modality Breast Bilateral Mammography 05/28/2020 Narrative 05/28/2020 12:00 AM EDT Refer to Fovea for result details Legacy Procedure: MAMMOGRAM DIGITAL LISSETTE SCREENING: [facility] Procedure Note Provider, MD Sergei - 12/22/2022 Refer to Fovea for result details Legacy Procedure: MAMMOGRAM DIGITAL LISSETTE SCREENING: [facility] us Historical Provider IMG BI PROCEDURES Final R esult from Last 3 Months or Most Recently Relevant to Health Maintenance
[2025-04-30 14:36] VITALS: BMI 32.9
--- NOTE | 2025-05-01 09:10 | HO.ANESPROP2 ---
Documented by User: Sera Redmond NP 05/01/25 09:16 HPI - Anesthesia Eval Consult details Narrative: 64yo F for Colonoscopy Follows [facility] Cardiology for: PAF - pt declines anticoag PMFSH Active Problems Active Problems: All Active Problems S/P laparoscopic sleeve gastrectomy (Acute) Grade I diastolic dysfunction (Acute) BMI 32.0-32.9,adult (Acute) BMI 33.0-33.9,adult (Acute) BMI 34.0-34.9,adult (Acute) Binge-eating disorder, in full remission, moderate (Acute) Vitamin B12 deficiency (Acute) Vitamin D deficiency (Acute) BMI 37.0-37.9, adult (Acute) Fibroids (Acute) Encounter to discuss test results (Acute) GERD (gastroesophageal reflux disease) (Acute) Paroxysmal A-fib (Acute) Depression (Acute) Hypertension (Acute) Asthma (Acute) Dyslipidemia (Acute) Osteoarthritis (Acute) Obesity (Acute) Past Medical History Medical History Arthritis Hepatitis GERD (gastroesophageal reflux disease) Depression Hypertension Obesity Exertional angina Urgency incontinence Asthma Paroxysmal A-fib Aortic valve sclerosis Papilledema Osteoarthritis Carpal tunnel syndrome, right Migraine without aura Lumbar disc disease Dyslipidemia Esophageal obstruction Family History Family History Father CAD (coronary artery disease) History of quadruple bypass Mother HTN (hypertension) Brother CVD (cardiovascular disease) History of heart attack Paternal Grandfather Heart disease Paternal Grandmother Heart disease Maternal Aunt Colon cancer Paternal Uncle Heart disease Brother No problems noted. Brother No problems noted. Brother No problems noted. Son No problems noted. Daughter No problems noted. Daughter No problems noted. Maternal Aunt Ovarian cancer Family history of problems with anesthesia: No Surgical History Surgical History History of sleeve gastrectomy Hx of tonsillectomy History of meniscectomy of left knee H/O colonoscopy delivery delivered History of cataract surgery History of microdiscectomy History of tumor History of Problems with Anesthesia: No Social History Social History Household Members: None Household Members Other:: lives alone but in two family home w/family members in other apt. Housing: House Are you a primary post anesthesia care unit nurse to a significant other at home: No Do you presently have visiting nurse or other home services: No Alcohol intake: never Patient Tobacco Use Status: Never used Tobacco Use of substances other than those prescribed or required for medical reasons: No Are you DNR?: No Advance Directives: No Advance Directives Information Provided: Yes Patient : No : No Poor oral hygiene: No service: No Current occupational status: employed Meds Allergies Allergy/AdvReac Type Severity Reaction Status Date / Time Penicillins Allergy Mild HIVES Verified 05/01/25 21:07 sulfamethoxazole (From Allergy Mild N/V Verified 05/01/25 21:07 Bactrim) trimethoprim (From Bactrim) Allergy Mild N/V Verified 05/01/25 21:07 hydromorphone (From DILAUDID) AdvReac Intermediate HALLUCINATI Verified 05/02/25 09:31 ONS Pertussis Vaccines AdvReac Intermediate fever up Verified 05/01/25 21:07 to 104 dogs, cats Allergy Intermediate nasal Uncoded 05/01/25 21:07 congestion/sneezing SEASONAL ALLERGIES Allergy Intermediate NASAL Uncoded 05/01/25 21:07 CONGESTION, SNEEZING Home Medications ?Medication ?Instructions ?Recorded ?Confirmed ?Last Taken ?Type rosuvastatin 20 mg tablet 20 mg PO QAM 06/24/20 04/30/25 05/02/25 History lisinopril 10 1 tab PO QAM 04/30/25 04/30/25 05/02/25 History mg-hydrochlorothiazide 12.5 mg tablet Exam Height,Weight and Vital Signs: Height 5 ft 5 in Weight 89.811 kg Pertinent Lab Results Pertinent Lab Results: Laboratory Tests 03/23/25 12:26 WBC 8.4 Hgb 14.5 Hct 42.7 Plt Count 258 Sodium 143 Potassium 3.7 Chloride 108 Carbon Dioxide 24 BUN 15 Creatinine 0.90 Narrative Narrative: ECG 12-Lead ? 11:09:44 Ventricular Rate: 60 BPM Atrial Rate: 60 BPM P-R Interval: 188 ms QRS Duration: 92 ms Q-T Interval: 436 ms QTC Calculation(Bazett): 436 ms P [place]: 67 degrees R [place]: 27 degrees T [place]: 33 degrees Normal sinus rhythm Normal ECG When compared with ECG of 22-NOV-2022 09:26, No significant change was found Confirmed ? Signed By: Sami SWAIN, Hadley Gallo Stress Test NM Myocard Perf SPECT Multi ? 00:00:00 Summary 1.) Exercise stress myocardial perfusion imaging study with high functional capacity and normal myocardial perfusion imaging. 2.) Normal rest and post-stress left ventricular chamber size and systolic function without regional wall motion abnormalities. 3.) Stress lab results will be reported separately. Signatures _ _ ? Signed By: Delano Joel MD No qualifying data available. EchoEchocardiogram - Complete ? 09:26:41 Summary The aortic valve is trileaflet. The non-coronary cusp is moderately calcified. There is no aortic stenosis or insufficiency. The left ventricular size is normal. The left ventricular wall thickness is upper normal. The LV systolic function is normal . The left ventricular ejection fraction is 55-60 %. There are no regional wall motion abnormalities. Grade I, mild diastolic dysfunction with impaired LV relaxation, which may be normal for the patient?s age. The patient was in sinus rhythm during the study. Comparison Comparison is made to the study of September 17, 2010. There is no significant change. Assessment and Plan Assessment Anesthesia Assessment: Chart Reviewed Final Anesthetic Review Family History of Problems with Anesthesia: No History of Problems with Anesthesia: No Documented by User: Amber Garcia MD 05/02/25 10:18 [facility] Past Medical History Medical History Arthritis Hepatitis GERD (gastroesophageal reflux disease) Depression Hypertension Obesity Exertional angina Urgency incontinence Asthma Paroxysmal A-fib Aortic valve sclerosis Papilledema Osteoarthritis Carpal tunnel syndrome, right Migraine without aura Lumbar disc disease Dyslipidemia Esophageal obstruction Family History Family History Father CAD (coronary artery disease) History of quadruple bypass Mother HTN (hypertension) Brother CVD (cardiovascular disease) History of heart attack Paternal Grandfather Heart disease Paternal Grandmother Heart disease Maternal Aunt Colon cancer Paternal Uncle Heart disease Brother No problems noted. Brother No problems noted. Brother No problems noted. Son No problems noted. Daughter No problems noted. Daughter No problems noted. Maternal Aunt Ovarian cancer Surgical History Surgical History History of sleeve gastrectomy Hx of tonsillectomy History of meniscectomy of left knee H/O colonoscopy delivery delivered History of cataract surgery History of microdiscectomy History of tumor Social History Social History Household Members: None Household Members Other:: lives alone but in two family home w/family members in other apt. Housing: House Are you a primary post anesthesia care unit nurse to a significant other at home: No Do you presently have visiting nurse or other home services: No Alcohol intake: never Patient Tobacco Use Status: Never used Tobacco Use of substances other than those prescribed or required for medical reasons: No Are you DNR?: No Advance Directives: No Advance Directives Information Provided: Yes Patient : No : No Poor oral hygiene: No service: No Current occupational status: employed Meds Allergies Allergy/AdvReac Type Severity Reaction Status Date / Time Penicillins Allergy Mild HIVES Verified 05/01/25 21:07 sulfamethoxazole (From Allergy Mild N/V Verified 05/01/25 21:07 Bactrim) trimethoprim (From Bactrim) Allergy Mild N/V Verified 05/01/25 21:07 hydromorphone (From DILAUDID) AdvReac Intermediate HALLUCINATI Verified 05/02/25 09:31 ONS Pertussis Vaccines AdvReac Intermediate fever up Verified 05/01/25 21:07 to 104 dogs, cats Allergy Intermediate nasal Uncoded 05/01/25 21:07 congestion/sneezing SEASONAL ALLERGIES Allergy Intermediate NASAL Uncoded 05/01/25 21:07 CONGESTION, SNEEZING Home Medications ?Medication ?Instructions ?Recorded ?Confirmed ?Last Taken ?Type rosuvastatin 20 mg tablet 20 mg PO QAM 06/24/20 04/30/25 05/02/25 History lisinopril 10 1 tab PO QAM 04/30/25 04/30/25 05/02/25 History mg-hydrochlorothiazide 12.5 mg tablet Assessment and Plan Assessment Anesthesia Assessment: Anesthesia Plan Discussed Final Anesthetic Review NPO: Yes ASA Class: III Final Preanesthetic Review: Meds/Allgs Chart Reviewed, Consent Obtained/Reviewed and Anes Risks/Benef Reviewed Patient Risk: Intermediate Procedure Risk: Low Anesthetic Plan Anesthetic Plan: MAC: Disposition: Standard PACU
[2025-05-02 09:35] VITALS: BMI 31.4
[2025-05-02 09:37] VITALS: BP 139/54; PULSE 70; RESP 16; TEMP 36.4; O2SAT 97
[2025-05-02 09:46] VITALS: BP 139/54; PULSE 70; RESP 16; TEMP 36.4; O2SAT 97
[2025-05-02] MEDS: Lactated Ringers 1,000 ML 100 ML IVCONT (09:49)
--- NOTE | 2025-05-02 10:19 | MHC.SHP ---
Pre-Procedural Eval Section A - 24 Hr Update-Section A only Date of Service: 05/02/25 The patient is an INPATIENT: No Changes since office visit: No Cold of Flu in the past 2 weeks, No New Medical Problems, No Changes in Medication and No Patient answered all questions The patient has been examined within 24 hours of the surgical procedure. The History & Physical has been completed within 30 days and I have reviewed it.: Yes Section B - Complete if H&P > 30 days Chief Complaint: Abnormal findings on diagnostic imaging of other Allergies: Allergies Allergy/AdvReac Type Severity Reaction Status Date / Time Penicillins Allergy Mild HIVES Verified 05/01/25 21:07 sulfamethoxazole (From Allergy Mild N/V Verified 05/01/25 21:07 Bactrim) trimethoprim (From Bactrim) Allergy Mild N/V Verified 05/01/25 21:07 hydromorphone (From DILAUDID) AdvReac Intermediate HALLUCINATI Verified 05/02/25 09:31 ONS Pertussis Vaccines AdvReac Intermediate fever up Verified 05/01/25 21:07 to 104 dogs, cats Allergy Intermediate nasal Uncoded 05/01/25 21:07 congestion/sneezing SEASONAL ALLERGIES Allergy Intermediate NASAL Uncoded 05/01/25 21:07 CONGESTION, SNEEZING Plan I have reviewed the history and physical and performed a pertinent physical examination on my patient. No changes have occurred unless specified. Time Spent With Patient Time: Total time managing care of this patient today ____ minutes.
[2025-05-02 10:47] VITALS: BP 98/37; PULSE 71; RESP 18; TEMP 36.1; O2SAT 100
[2025-05-02 11:02] VITALS: BP 120/59; PULSE 82; RESP 16; TEMP 36.2; O2SAT 99
--- NOTE | 2025-05-02 12:44 | OP_ITS ---
DATE OF SERVICE: 05/02/2025 SURGEON: Peter Ocasio MD INDICATIONS: Abnormal CT scan of the colon PREOPERATIVE DIAGNOSIS: POSTOPERATIVE DIAGNOSIS: PROCEDURE PERFORMED: ESTIMATED BLOOD LOSS: COMPLICATIONS: ANESTHESIA: Monitored anesthesia care. ASSISTANTS: SPECIMENS: PROCEDURE: Colonoscopy to the terminal ileum with biopsy. DESCRIPTION OF PROCEDURE: A history and physical was performed. The risks and benefits of the procedure were explained to the patient. Informed consent was obtained. The patient was placed in the left lateral decubitus position. A digital rectal exam was performed and was found to be normal. The Olympus pediatric video colonoscope was introduced into the rectum and advanced to the cecum. The cecum was identified by transillumination, palpation, and identification of ileocecal valve. Examination was performed. The scope was removed. She tolerated the procedure well and was returned to the recovery area in stable condition. FINDINGS: The terminal ileum was examined and appeared normal. The visualized colonic mucosa was normal. There was no evidence of colitis or proctosigmoiditis. Random sigmoid biopsies were obtained. No polyps were identified. There was moderate amount of liquids and semi-formed stool limiting the sensitivity examination for detection of small polyps this was washed and suctioned as best possible, but frequently clogged the scope. IMPRESSION: Normal colonoscopy. 10 year colonoscopy recall. RECOMMENDATION: Follow up the biopsy results. MD SIM Vallecillo/BRITTANIEL / [phone] MTDD
== END 2025-05-02 11:26 | disposition home or self-care (01) ==
PROVIDERS: PCP Physician Assistant; Visit Provider Internal Medicine Gastroenterology
PROC: 0DJD8ZZ Inspection of Lower Intestinal Tract, Via Natural or Artificial Opening Endoscopic (ICD-10-PCS; CPT 45378; principal; 2025-05-02 11:00)
DX: R93.3 Abnormal findings on diagnostic imaging of other parts of digestive tract (principal); R19.5 Other fecal abnormalities; R10.9 Unspecified abdominal pain; K59.00 Constipation, unspecified; I10 Essential (primary) hypertension; E78.5 Hyperlipidemia, unspecified; I48.0 Paroxysmal atrial fibrillation; I35.8 Other nonrheumatic aortic valve disorders; J45.909 Unspecified asthma, uncomplicated; M19.90 Unspecified osteoarthritis, unspecified site; Z98.84 Bariatric surgery status; Z98.890 Other specified postprocedural states; Z79.899 Other long term (current) drug therapy; Z88.0 Allergy status to penicillin; Z88.2 Allergy status to sulfonamides; Z88.5 Allergy status to narcotic agent
CPT/HCPCS: 45380; 88305; J2003; J2704

== ENCOUNTER 2025-05-19 09:42 | Outpatient (AMB) | payer MEDICARE, MEDICAID, SELFPAY ==
--- NOTE | 2025-05-19 09:33 | A.OFFVIS_ITS ---
Intake Visit Reasons: TV PO LSG 10/25/22 Allergies Penicillins Allergy (Mild, Verified 05/01/25 21:07) HIVES sulfamethoxazole (From Bactrim) Allergy (Mild, Verified 05/01/25 21:07) N/V trimethoprim (From Bactrim) Allergy (Mild, Verified 05/01/25 21:07) N/V hydromorphone (From DILAUDID) Adverse Reaction (Intermediate, Verified 05/02/25 09:31) HALLUCINATIONS Pertussis Vaccines Adverse Reaction (Intermediate, Verified 05/01/25 21:07) fever up to 104 dogs, cats Allergy (Intermediate, Uncoded 05/01/25 21:07) nasal congestion/sneezing SEASONAL ALLERGIES Allergy (Intermediate, Uncoded 05/01/25 21:07) NASAL CONGESTION, SNEEZING Medication List - Last Reconciled 05/19/25 by LUIS Alexandre lisinopril-hydrochlorothiazide 10-12.5 mg 1 tab PO QAM rosuvastatin 20 mg PO QAM HPI Comments Details: This?is a?65?yo F who is s/p LSG 10/25/2022. Presents for 2 year 7 month post op visit. Weight at last visit on 06/25/2024 was 194 pounds; pt unsure of her weight to day. No complaints of nausea, emesis, abdominal pain or reflux, or constipation. Was having GI complications, had colonoscopy- also saw urology, [employer], found to have fibroids. Present meal plan includes: 2 Orgain shakes with 2 scoops each, 1 ZP bar, 1 meal 6f/6f -given at last OV almost a year ago Pt reports I couldn't do any of the things you suggested because I'm in a bad place right now- I'm living in my vehicle [facility] Medical History Arthritis Hepatitis GERD (gastroesophageal reflux disease) Depression Hypertension Obesity Exertional angina Urgency incontinence Asthma Paroxysmal A-fib Aortic valve sclerosis Papilledema Osteoarthritis Carpal tunnel syndrome, right Migraine without aura Lumbar disc disease Dyslipidemia Esophageal obstruction Surgical History History of sleeve gastrectomy Hx of tonsillectomy History of meniscectomy of left knee H/O colonoscopy delivery delivered History of cataract surgery History of microdiscectomy History of tumor Family History Father CAD (coronary artery disease) History of quadruple bypass Mother HTN (hypertension) Brother CVD (cardiovascular disease) History of heart attack Paternal Grandfather Heart disease Paternal Grandmother Heart disease Maternal Aunt Colon cancer Paternal Uncle Heart disease Brother No problems noted. Brother No problems noted. Brother No problems noted. Son No problems noted. Daughter No problems noted. Daughter No problems noted. Maternal Aunt Ovarian cancer Social History Household Members: None Household Members Other:: lives alone but in two family home w/family members in other apt. Housing: House Are you a primary post acute care nurse practitioner to a significant other at home: No Do you presently have visiting nurse or other home services: No Alcohol intake: never Patient Tobacco Use Status: Never used Tobacco service: No Current occupational status: employed [employer] Telehealth Telehealth Platform: Telephone Location of provider rendering services: practice address Location of patient: other Patient Identification confirmed using: Name, : Yes Telehealth method: voice only Patient verbally consented to treatment: Yes Patient verbally consented to billing insurance company: Yes Patient informed of any privacy concerns related to visit: Yes Minutes spent on Phone/Video with Pt.: 15 Assessment & Plan Assessment & Plan (1) Obesity: Code(s): E66.9 - Obesity, unspecified Category: Medical (2) S/P laparoscopic sleeve gastrectomy: Code(s): Z98.84 - Bariatric surgery status Category: Medical Plan Pt is struggling with finances and stable living situation. 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 She was very happy with this. Will also check vitamin labs. If anything low, will attempt to send a script to defray cost of supplements for pt. Pt would like to call to schedule her next appt. Orders: Orders Vitamin D 25-OH Total Today Z98.84 - Bariatric surgery status Vitamin B1 Today Z98.84 - Bariatric surgery status Zinc Today Z98.84 - Bariatric surgery status Vitamin A Today Z98.84 - Bariatric surgery status Vitamin B12 and Folate Today Z98.84 - Bariatric surgery status
--- OUTSIDE RECORDS SUMMARY | 2025-05-19 11:30 | XMS_ITS | Clinical Summary ---
Author Organization [facility] Address [address] [place] [address] Care Team Providers Care Central Supply Supervisor Name Role Phone Unavailable Primary Care Provider [...] 1971 DTaP/Tdap/Td Vaccines (1 - Tdap) 1978 Pneumococcal Vaccine: 50+ Ye ars (1 of 1 - PCV) 2009 Zoster Vaccines (1 of 2) 2009 Mammogram 05/28/2022 05/28/2020 COVID-19 Vaccine (1 - 2023-2 5 season) 2025 Influenza Vaccine [...] Relevant to Health Maintenance Results * COLONOSCOPY: [facility] (07/17/2020 12:00 AM EST) Anatomical Region Laterality Modality Endoscopy 07/17/2020 Narrative 07/17/2020 12:00 AM EST Refer to [facility] for result details [facility] Procedure: COLONOSCOPY: [facility] Procedure Note Provider, MD Sergei - 12/22/2022 Refer to [facility] for result details [facility] Procedure: COLONOSCOPY: [facility] Historical Provider ENDOSCOPY PROCEDURE ORDER ARNOLD Final Result * MAMMOGRAM DIGITAL LISSETTE SCREENING: [facility] (05/28/2020 12:00 AM EDT) Anatomical Region Laterality Modality Breast Bilateral Mammography 05/28/2020 Narrative 05/28/2020 12:00 AM EDT Refer to [facility] for result details [facility] Procedure: MAMMOGRAM DIGITAL LISSETTE SCREENING: [facility] Procedure Note ProviderSergei MD - 12/22/2022 Refer to [facility] for result details [facility] Procedure: MAMMOGRAM DIGITAL LISSETTE SCREENING: [facility] Historical Provider IMG BI PROCEDURES Final R esult from Last 3 Months or Most Recently Relevant to Health Maintenance
== END 2025-05-19 10:02 | disposition home or self-care (01) ==
LOC: HO.HBS 09:42
PROVIDERS: PCP Physician Assistant; Visit Provider Physician Assistant Surgical
DX: E66.9 Obesity, unspecified (principal); Z98.84 Bariatric surgery status
CPT/HCPCS: 99213; G2211

== ENCOUNTER 2025-05-20 09:47 | Outpatient (REF) | payer MEDICARE, MEDICAID, SELFPAY ==
[2025-05-20 11:39] LABS: Folate 12.9 ng/mL (> or = 4.0); Vitamin B12 475 pg/mL (200-900)
== END 2025-05-20 09:48 | disposition home or self-care (01) ==
LOC: HO.LAB 09:47
PROVIDERS: PCP Physician Assistant; Visit Provider Physician Assistant Surgical
DX: Z98.84 Bariatric surgery status (principal)
CPT/HCPCS: 36415; 82306; 82607; 82746; 84425; 84590; 84630